=== PATIENT | male | born 1965 | race Caucasian/White ===

== ENCOUNTER 2020-08-09 21:47 | Inpatient (IN) | payer MEDICARE, OTHER ==
[2020-08-09] MEDS ORDERED: IPRATROPIUM-ALBUTEROL 3 ML NEB INHALATION STA ×2 (22:17→22:51)
[2020-08-09] MEDS ORDERED: SODIUM CHLORIDE 0.9% 1,000 ML IV STA (22:51)
[2020-08-09] MEDS ORDERED: SODIUM CHLORIDE 0.9% 500 ML 500 ML IV STA (22:51)
[2020-08-09] MEDS ORDERED: methylPREDNISolone SOD SUCCI 125 MG/2 ML VIAL IV STA (22:51)
--- NOTE | 2020-08-09 23:02 | ED ---
SOB HPI - General Chief Complaint: Chest Pain Stated Complaint: Chest pain,MARCO ANTONIO Time Seen by Provider: 08/09/20 22:35 Source: patient, RN notes reviewed, old records reviewed Mode of arrival: wheelchair Limitations: no limitations - History of Present Illness Initial Comments: This is a 35-year-old male DF for evaluation patient Dese for evaluation regards to severe shortness of breath cough and congestion. Recently out of incarceration patient does have underlying COPD denying fevers travel history sick contacts no chest pain symptoms are progressively worsened throughout the day to the point of being severe. Significant work of breathing secondary to patient being currently poor historian history obtained from patient's mother was at bedside who brought patient to the emergency department MD Complaint: shortness of breath, cough, "asthma attack" -: hour(s) Severity: severe Severity scale (1-10): 10 Consistency: constant Improves With: nothing Worsens With: nothing Known History Of: COPD, asthma Context: recent URI, recent illness Associated Symptoms: cough, sputum production Treatments Prior to Arrival: none - Related Data Home Medications Medication Instructions Recorded Confirmed INSULIN ASPART (NovoLOG) [NovoLOG 55 unit SQ DIRECTED 04/28/16 08/09/20 (formulary)] Albuterol Sulfate [Proair Hfa] 1 puff INHALATION RT-Q4H PRN 08/09/20 08/09/20 Aspirin 81 mg PO DAILY 08/09/20 08/09/20 Ciclesonide [Alvesco] 1 puff INHALATION RT-BID 08/09/20 08/09/20 INSULIN ASPART (NovoLOG) [NovoLOG 33 units SQ DIRECTED 08/09/20 08/09/20 (formulary)] Metoprolol Tartrate [Lopressor] 25 mg PO BID 08/09/20 08/09/20 Potassium Chloride ER [K-Dur 20] 20 meq PO DAILY 08/09/20 08/09/20 Simvastatin [Zocor] 10 mg PO HS 08/09/20 08/09/20 allopurinoL [Zyloprim] 100 mg PO BID 08/09/20 08/09/20 metFORMIN HCL [Glucophage] 500 mg PO BID 08/09/20 08/09/20 Previous Rx's Medication Instructions Recorded Furosemide [Lasix] 40 mg PO BID #60 tablet 06/09/16 Allergies Allergy/AdvReac Type Severity Reaction Status Date / Time No Known Allergies Allergy Verified 08/09/20 23:33 Review of Systems ROS Statement: Those systems with pertinent positive or pertinent negative responses have been documented in the HPI. ROS Other: All systems not noted in ROS Statement are negative. 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 Other HX: Palpitations, IDDM, bilateral glaucoma History of Any Multi-Drug Resistant Organisms: None Reported Past Surgical History: Heart Catheterization, Pacemaker Additional Past Surgical History / Comment(s): 10/2012 pacer/defibrillator. Past Anesthesia/Blood Transfusion Reactions: No Reported Reaction Additional Past Anesthesia/Blood Transfusion Reaction / Comment(s): Pt has rec ieved blood in the past without reaction. Type of Cardiac Device: Permanent Pacemaker, AICD Device Placement Date:: 10/2012 Past Psychological History: Anxiety, Depression Smoking Status: Former smoker Past Alcohol Use History: Rare Past Drug Use History: None Reported - Past Family History Father Family Medical History: Diabetes Mellitus Additional Family Medical History / Comment(s): Father has cardiomyopathy. Mother Family Medical History: Hypertension Brother(s) Additional Family Medical History / Comment(s): Cardiomyopathy with heart transplant. General Exam Limitations: no limitations General appearance: anxious, in distress Head exam: Present: atraumatic, normocephalic, normal inspection Eye exam: Present: normal appearance, PERRL, EOMI. Absent: scleral icterus, conjunctival injection, periorbital swelling ENT exam: Present: normal exam, mucous membranes moist Neck exam: Present: normal inspection. Absent: tenderness, meningismus, lymphadenopathy Respiratory exam: Present: respiratory distress, wheezes, accessory muscle use, decreased breath sounds, prolonged expiratory. Absent: rales, rhonchi, stridor Cardiovascular Exam: Present: normal rhythm, tachycardia, normal heart sounds. Absent: systolic murmur, diastolic murmur, rubs, gallop, clicks GI/Abdominal exam: Present: soft, normal bowel sounds. Absent: distended, tenderness, guarding, rebound, rigid Extremities exam: Present: normal inspection, full ROM, normal capillary refill. Absent: tenderness, pedal edema, joint swelling, calf tenderness Back exam: Present: normal inspection Neurological exam: Present: alert, oriented X3, CN II-XII intact Psychiatric exam: Present: normal affect, normal mood Skin exam: Present: warm, dry, intact, normal color. Absent: rash Course Vital Signs 08/09/20 08/09/20 08/09/20 21:49 22:15 22:23 Temperature 98.3 F Pulse Rate 122 H 123 H 124 H Respiratory 26 H 36 H 34 H Rate Blood Pressure 152/93 144/96 O2 Sat by Pulse 92 L 99 Oximetry 08/09/20 08/09/20 08/09/20 23:14 23:24 23:25 Temperature Pulse Rate 105 H 105 H 110 H Respiratory 29 H Rate Blood Pressure 121/82 O2 Sat by Pulse 97 Oximetry 08/10/20 00:33 Temperature Pulse Rate 112 H Respiratory 28 H Rate Blood Pressure 139/74 O2 Sat by Pulse 95 Oximetry - Reevaluation(s) Reevaluation #1: 08/10/20 00:21 Medical record is reviewed Reevaluation #2: 08/10/20 00:21 Patient placed on BiPAP upon arrival in the emergency department Reevaluation #3: 08/10/20 01:19 A she continues to improve on BiPAP and breathing treatments Reevaluation #4: 08/10/20 01:19 Spoke with patient and family regarding findings, questions are answered - Consultations Consultation #1: Spoke with Dr. Mccarthy agrees to admit the patient Medical Decision Making - Medical Decision Making 55 male with acute respiratory failure, patient does have pneumonia versus aspiration pneumonia we'll admit for IV antibiotics, respiratory failure sec ondary to COPD work of breathing and hypoxia. - Lab Data Result diagrams: 08/09/20 22:53 08/09/20 22:53 Lab Results 08/09/20 08/09/20 08/09/20 Range/Units 22:53 22:53 22:53 WBC 9.5 (3.8-10.6) k/uL RBC 5.08 (4.30-5.90) m/uL Hgb 14.9 (13.0-17.5) gm/dL Hct 45.2 (39.0-53.0) % MCV 89.0 (80.0-100.0) fL MCH 29.4 (25.0-35.0) pg MCHC 33.1 (31.0-37.0) g/dL RDW 14.3 (11.5-15.5) % Plt Count 191 (150-450) k/uL MPV 9.3 Neutrophils % 54 % Lymphocytes % 35 % Monocytes % 6 % Eosinophils % 2 % Basophils % 1 % Neutrophils # 5.2 (1.3-7.7) k/uL Lymphocytes # 3.3 (1.0-4.8) k/uL Monocytes # 0.6 (0-1.0) k/uL Eosinophils # 0.2 (0-0.7) k/uL Basophils # 0.1 (0-0.2) k/uL PT 10.2 (9.0-12.0) sec INR 1.0 (<1.2) APTT 24.6 (22.0-30.0) sec Sodium 142 (137-145) mmol/L Potassium 4.3 (3.5-5.1) mmol/L Chloride 109 H (98-107) mmol/L Carbon Dioxide 24 (22-30) mmol/L Anion Gap 9 mmol/L BUN 26 H (9-20) mg/dL Creatinine 1.42 H (0.66-1.25) mg/dL Est GFR (CKD-EPI)AfAm 63 (>60 ml/min/1.73 sqM) Est GFR (CKD-EPI)NonAf 55 (>60 ml/min/1.73 sqM) Glucose 288 H (74-99) mg/dL Plasma Lactic Acid Grover (0.7-2.0) mmol/L Calcium 9.3 (8.4-10.2) mg/dL Magnesium 2.2 (1.6-2.3) mg/dL Total Bilirubin 0.7 (0.2-1.3) mg/dL AST 28 (17-59) U/L ALT 18 (4-49) U/L Alkaline Phosphatase 135 H (38-126) U/L Lactate Dehydrogenase 537 (313-618) U/L Creatine Kinase 161 (55-170) U/L Troponin I (0.000-0.034) ng/mL C-Reactive Protein 5.9 (<10.0) mg/L NT-Pro-B Natriuret Pep pg/mL Total Protein 7.5 (6.3-8.2) g/dL Albumin 4.5 (3.5-5.0) g/dL Coronavirus (PCR) (Not Detectd) 08/09/20 08/09/20 08/09/20 Range/Units 22:53 22:53 22:53 WBC (3.8-10.6) k/uL RBC (4.30-5.90) m/uL Hgb (13.0-17.5) gm/dL Hct (39.0-53.0) % MCV (80.0-100.0) fL MCH (25.0-35.0) pg MCHC (31.0-37.0) g/dL RDW (11.5-15.5) % Plt Count (150-450) k/uL MPV Neutrophils % % Lymphocytes % % Monocytes % % Eosinophils % % Basophils % % Neutrophils # (1.3-7.7) k/uL Lymphocytes # (1.0-4.8) k/uL Monocytes # (0-1.0) k/uL Eosinophils # (0-0.7) k/uL Basophils # (0-0.2) k/uL PT (9.0-12.0) sec INR (<1.2) APTT (22.0-30.0) sec Sodium (137-145) mmol/L Potassium (3.5-5.1) mmol/L Chloride (98-107) mmol/L Carbon Dioxide (22-30) mmol/L Anion Gap mmol/L BUN (9-20) mg/dL Creatinine (0.66-1.25) mg/dL Est GFR (CKD-EPI)AfAm (>60 ml/min/1.73 sqM) Est GFR (CKD-EPI)NonAf (>60 ml/min/1.73 sqM) Glucose (74-99) mg/dL Plasma Lactic Acid Grover 2.0 (0.7-2.0) mmol/L Calcium (8.4-10.2) mg/dL Magnesium (1.6-2.3) mg/dL Total Bilirubin (0.2-1.3) mg/dL AST (17-59) U/L ALT (4-49) U/L Alkaline Phosphatase (38-126) U/L Lactate Dehydrogenase (313-618) U/L Creatine Kinase (55-170) U/L Troponin I 0.017 (0.000-0.034) ng/mL C-Reactive Protein (<10.0) mg/L NT-Pro-B Natriuret Pep 4170 pg/mL Total Protein (6.3-8.2) g/dL Albumin (3.5-5.0) g/dL Coronavirus (PCR) (Not Detectd) 08/09/20 Range/Units 23:24 WBC (3.8-10.6) k/uL RBC (4.30-5.90) m/uL Hgb (13.0-17.5) gm/dL Hct (39.0-53.0) % MCV (80.0-100.0) fL MCH (25.0-35.0) pg MCHC (31.0-37.0) g/dL RDW (11.5-15.5) % Plt Count (150-450) k/uL MPV Neutrophils % % Lymphocytes % % Monocytes % % Eosinophils % % Basophils % % Neutrophils # (1.3-7.7) k/uL Lymphocytes # (1.0-4.8) k/uL Monocytes # (0-1.0) k/uL Eosinophils # (0-0.7) k/uL Basophils # (0-0.2) k/uL PT (9.0-12.0) sec INR (<1.2) APTT (22.0-30.0) sec Sodium (137-145) mmol/L Potassium (3.5-5.1) mmol/L Chloride (98-107) mmol/L Carbon Dioxide (22-30) mmol/L Anion Gap mmol/L BUN (9-20) mg/dL Creatinine (0.66-1.25) mg/dL Est GFR (CKD-EPI)AfAm (>60 ml/min/1.73 sqM) Est GFR (CKD-EPI)NonAf (>60 ml/min/1.73 sqM) Glucose (74-99) mg/dL Plasma Lactic Acid Grover (0.7-2.0) mmol/L Calcium (8.4-10.2) mg/dL Magnesium (1.6-2.3) mg/dL Total Bilirubin (0.2-1.3) mg/dL AST (17-59) U/L ALT (4-49) U/L Alkaline Phosphatase (38-126) U/L Lactate Dehydrogenase (313-618) U/L Creatine Kinase (55-170) U/L Troponin I (0.000-0.034) ng/mL C-Reactive Protein (<10.0) mg/L NT-Pro-B Natriuret Pep pg/mL Total Protein (6.3-8.2) g/dL Albumin (3.5-5.0) g/dL Coronavirus (PCR) Not Detected (Not Detectd) - EKG Data -: EKG Interpreted by Me (EKG shows sinus tach 126 UT 138 QRS 90 QTc 596) - Radiology Data Radiology results: report reviewed (Chest x-ray CT chest show pneumonia concern for aspiration), image reviewed Critical Care Time Critical Care Time: Yes Total Critical Care Time: 31 Disposition Clinical Impression: Pneumonia, Chest pain, Aspiration pneumonia, Acute respiratory failure, COPD (chronic obstructive pulmonary disease) Disposition: ADMITTED IP TO THIS [facility] Condition: Fair Is patient prescribed a controlled substance at d/c from ED?: No Referrals: Patrick Malcolm DO [Primary Care Provider] - 1-2 days
[2020-08-09 23:03] LABS: Basophils # (A) 0.1 k/uL (0-0.2); Basophils % (A) 1 %; Eosinophils # (A) 0.2 k/uL (0-0.7); Eosinophils % (A) 2 %; HCT 45.2 % (39.0-53.0); HGB 14.9 gm/dL (13.0-17.5); Lymphocytes # (A) 3.3 k/uL (1.0-4.8); Lymphocytes % (A) 35 %; MCH 29.4 pg (25.0-35.0); MCHC 33.1 g/dL (31.0-37.0); Mean Platelet Volume 9.3; Monocytes # (A) 0.6 k/uL (0-1.0); Monocytes % (A) 6 %; Neutrophils # (A) 5.2 k/uL (1.3-7.7); Neutrophils % (A) 54 %; Platelet Count 191 k/uL (150-450); RBC 5.08 m/uL (4.30-5.90); RDW 14.3 % (11.5-15.5); WBC 9.5 k/uL (3.8-10.6)
[2020-08-09 23:12] LABS: Partial Thromboplastin Time 24.6 sec (22.0-30.0); Prothrombin Time 10.2 sec (9.0-12.0)
[2020-08-09 23:13] LABS: Albumin 4.5 g/dL (3.5-5.0); C Reactive Protein 5.9 mg/L (<10.0); Calcium 9.3 mg/dL (8.4-10.2); Magnesium 2.2 mg/dL (1.6-2.3); Potassium 4.3 mmol/L (3.5-5.1); Total Bilirubin 0.7 mg/dL (0.2-1.3); Total Protein 7.5 g/dL (6.3-8.2)
--- NOTE | 2020-08-09 23:13 | XR ---
EXAMINATION TYPE: XR chest 1V portable DATE OF EXAM: 08/09/2020 COMPARISON: 06/25/2016 HISTORY: Short of breath TECHNIQUE: FINDINGS: Heart is enlarged. There is no obvious heart failure. There is slight coarsening of interst itial markings. There is left axillary pacemaker. There is no pleural effusion. There is right latera l rib deformity probably from old thoracotomy. There are no hilar masses. Mediastinum is normal. IMPRESSION: Cardiomegaly unchanged. Mild fibrotic changes appear new compared to old exam.
--- NOTE | 2020-08-10 01:11 | CT ---
EXAM: CT Angiography Chest With Intravenous Contrast CLINICAL HISTORY: ITS. REASON CT Reason: pe TECHNIQUE: Axial computed tomographic angiography images of the chest with intravenous contrast. CTDI is 14.87 mGy and DLP is 256 mGy-cm. This CT exam was performed using one or more of the following dose reduction techniques: automated exposure control, adjustment of the mA and/or kV according to patient size, and/or use of iterative reconstruction technique. MIP reconstructed images were created and reviewed. COMPARISON: No relevant prior studies available. FINDINGS: There is no pulmonary embolism. No thoracic aortic dissection. Cannot assess for dissection or other acute syndrome as the lumen is not opacified. Single lead pacer device/AICD in a left subclavian approach. Coronary atherosclerosis. Mild cardiomegaly with left ventricular cavity dilation. No significant pericardial effusion. Trace pleural effusions. No pneumothorax. Basilar-predominant airspace infiltrates could reflect aspiration related pneumonia, but presence of nondependent, peripheral ground-glass opacities raise the possibility of singh virus infection. Recommend testing. Chronic anterior right fourth rib deformity. No acute fracture. IMPRESSION: Dependent pulmonary infiltrates could reflect aspiration pneumonia, but given other peripheral ground-glass opacities, would also consider coronavirus pneumonia. Cardiomegaly with left ventricular cavity dilation. CAD and pacer device. Trace pleural effusions. No PE. <MYCVCSECTION> Communications: 08/10/20 01:04 Call Doctor Regarding Above results, called Dr. Sanderson on 08/10 01:04 (-05:00)
[2020-08-10] MEDS ORDERED: AZITHROMYCIN 500 MG in SODIUM CHLORIDE 0.9% 250 ML IVPB STA (01:16)
[2020-08-10] MEDS ORDERED: IPRATROPIUM-ALBUTEROL 3 ML NEB INHALATION STA (01:16)
[2020-08-10] MEDS ORDERED: PNEUMONIA PROTOCOL UTILIZED 1 EACH MISC PO PRN (01:16)
[2020-08-10] MEDS ORDERED: SODIUM CHLORIDE 0.9% 1,000 ML IV SCH (01:30)
[2020-08-10 07:27] LABS: Glucose,Whole Blood 280 mg/dL (75-99)
[2020-08-10] MEDS: ALBUTEROL NEBULIZED 2.5 MG/3 ML INHALATION SCH ×4 (08:20→19:09)
[2020-08-10] MEDS ORDERED: ENOXAPARIN 40 MG/0.4 ML SYRINGE SQ SCH (09:00)
[2020-08-10] MEDS ORDERED: ALBUTEROL NEBULIZED 2.5 MG/3 ML INHALATION PRN (09:07)
[2020-08-10] MEDS ORDERED: INSULIN ASPART (NovoLOG) 100 UNIT/ML VIAL SQ SCH ×3 (10:00→21:00)
[2020-08-10] MEDS: FUROSEMIDE 10 MG/ML 4 ML VIAL IV SCH ×2 (10:07→20:05)
[2020-08-10 11:57] LABS: Glucose,Whole Blood 427 mg/dL (75-99)
--- NOTE | 2020-08-10 12:04 | P.HPIM ---
History of Present Illness 55-year-old pleasant male came in with complaints of shortness of breath cough unable to bring up anything. Patient was recently released from [facility]. Patient was believed to have COPD was admitted admitted and was a on IV steroids. Patient is not wheezing when I examined the patient's CT of the chest was done which did not show any pulmonary embolism but did show some dependent pulmonary infiltrates. Patient denied any fever chills patient doesn't have pneumonia clinically patient doesn't have any leukocytosis, aphasia and is negative for Covid 19. I was unable to appreciate a JVD because of him being on CPAP and using accessory muscles of breathing patient although doesn't have any pedal edema does have history of can start failure with EF of around 20-25%. Review of Systems REVIEW OF SYSTEMS: CONSTITUTIONAL: No fever, no malaise, no fatigue. HEENT: No recent visual problems or hearing problems. Denied any sore throat. CARDIOVASCULAR: No chest pain, orthopnea, PND, no palpitations, no syncope. PULMONARY:no hemoptysis. GASTROINTESTINAL: No diarrhea, no nausea, no vomiting, no abdominal pain. NEUROLOGICAL: No headaches, no weakness, no numbness. HEMATOLOGICAL: Denies any bleeding or petechiae. GENITOURINARY: Denies any burning micturition, frequency, or urgency. MUSCULOSKELETAL/RHEUMATOLOGICAL: Denies any joint pain, swelling, or any muscle pain. ENDOCRINE: Denies any polyuria or polydipsia. The rest of the 14-point review of systems is negative. 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 Other HX: Palpitations, IDDM, bilateral glaucoma History of Any Multi-Drug Resistant Organisms: None Reported Past Surgical History: Heart Catheterization, Pacemaker Additional Past Surgical History / Comment(s): 10/2012 pacer/defibrillator. Past Anesthesia/Blood Transfusion Reactions: No Reported Reaction Additional Past Anesthesia/Blood Transfusion Reaction / Comment(s): Pt has recieved blood in the past without reaction. Type of Cardiac Device: Permanent Pacemaker, AICD Device Placement Date:: 10/2012 Past Psychological History: Anxiety, Depression Additional Psychological History / Comment(s): Pt states he recently started mood stabilizing medications. He lives at home with his parents. He is independent. He uses no assistive devices or home care. He has a glucose monitor for home. He states he drinks alot of coffee. He drives. Smoking Status: Former smoker Past Alcohol Use History: Rare Additional Past Alcohol Use History / Comment(s): Pt states he started smoking at age 10 yrs and on nonstressful days smokes about 5-6 cigarettes a day and on stressful days he may smoke a pack. Past Drug Use History: None Reported - Past Family History Father Family Medical History: Diabetes Mellitus Additional Family Medical History / Comment(s): Father has cardiomyopathy. Mother Family Medical History: Hypertension Brother(s) Additional Family Medical History / Comment(s): Cardiomyopathy with heart transplant. Medications and Allergies Home Medications Medication Instructions Recorded Confirmed Type INSULIN ASPART (NovoLOG) [NovoLOG 55 unit SQ QAM 04/28/16 08/10/20 History (formulary)] Furosemide [Lasix] 40 mg PO BID #60 tablet 06/09/16 08/09/20 Rx Albuterol Sulfate [Proair Hfa] 1 puff INHALATION RT-Q4H PRN 08/09/20 08/09/20 History Aspirin 81 mg PO DAILY 08/09/20 08/09/20 History Ciclesonide [Alvesco] 1 puff INHALATION RT-BID 08/09/20 08/09/20 History INSULIN ASPART (NovoLOG) [NovoLOG 33 units SQ HS 08/09/20 08/10/20 History (formulary)] Metoprolol Tartrate [Lopressor] 25 mg PO BID 08/09/20 08/09/20 History Potassium Chloride ER [K-Dur 20] 20 meq PO DAILY 08/09/20 08/09/20 History Simvastatin [Zocor] 10 mg PO DAILY 08/09/20 08/10/20 History allopurinoL [Zyloprim] 100 mg PO BID 08/09/20 08/09/20 History metFORMIN HCL [Glucophage] 1,000 mg PO BID 08/09/20 08/10/20 History Allergies Allergy/AdvReac Type Severity Reaction Status Date / Time No Known Allergies Allergy Verified 08/09/20 23:33 Physical Exam Vitals: Vital Signs Temp Pulse Pulse Resp BP BP Pulse Ox 08/10/20 08:33 100 08/10/20 08:20 100 08/10/20 08:00 100 22 08/10/20 06:06 97.8 F 100 22 121/85 95 08/10/20 03:15 97.7 F 110 H 20 147/96 96 08/10/20 02:11 97.3 F L 105 H 24 122/93 95 08/10/20 01:46 97.7 F 121 H 22 142/96 96 08/10/20 01:16 96 08/10/20 00:33 112 H 28 H 139/74 95 08/09/20 23:25 110 H 29 H 121/82 97 08/09/20 23:24 105 H 08/09/20 23:14 105 H 08/09/20 22:23 124 H 34 H 08/09/20 22:15 123 H 36 H 144/96 99 08/09/20 21:49 98.3 F 122 H 26 H 152/93 92 L Intake and Output 08/09/20 08/10/20 08/10/20 22:59 06:59 14:59 Intake Total 650 Balance 650 Intake: Intake, IV Titration 450 Amount Azithromycin 500 mg In 250 Sodium Chloride 0.9% 250 ml @ 250 mls/hr IVPB ONCE STA Rx#:[id number] Sodium Chloride 0.9% 1, 200 000 ml @ 100 mls/hr IV . Q10H [facility] Rx#:[id number] Oral 200 Other: Weight 70.76 kg 70.76 kg PHYSICAL EXAMINATION: GENERAL: The patient is alert and oriented x3, not in any acute distress. Well developed, well nourished. Patient is on BiPAP at this time. HEENT: Pupils are round and equally reacting to light. EOMI. No scleral icterus. No conjunctival pallor. Normocephalic, atraumatic. No pharyngeal erythema. No thyromegaly. CARDIOVASCULAR: S1 and S2 present. No murmurs, rubs, or gallops. PULMONARY: Chest is clear to auscultation, no wheezing or crackles. ABDOMEN: Soft, nontender, nondistended, normoactive bowel sounds. No palpable organomegaly. MUSCULOSKELETAL: No joint swelling or deformity. EXTREMITIES: No cyanosis, clubbing, or pedal edema. NEUROLOGICAL: Gross neurological examination did not reveal any focal deficits. SKIN: No rashes. Results CBC & Chem 7: 08/09/20 22:53 08/09/20 22:53 Labs: Abnormal Lab Results - Last 24 Hours (Table) 08/09/20 08/10/20 Range/Units 22:53 07:15 Chloride 109 H (98-107) mmol/L BUN 26 H (9-20) mg/dL Creatinine 1.42 H (0.66-1.25) mg/dL Glucose 288 H (74-99) mg/dL POC Glucose (mg/dL) 280 H (75-99) mg/dL Alkaline Phosphatase 135 H (38-126) U/L Thrombosis Risk Factor Assmnt - Choose All That Apply Any of the Below Risk Factors Present?: Yes Each Factor Represents 1 point: Abnormal pulmonary function (COPD), Age 41-60 years, Medical pt on bed rest Other Risk Factors: No Other congenital or acquired thrombophilia - If yes, enter type in comment: No Thrombosis Risk Factor Assessment Total Risk Factor Score: 3 Thrombosis Risk Factor Assessment Level: Moderate Risk Assessment and Plan Plan: -Acute hypoxic respiratory failure: Although not straightforward patient appears to have congestive heart failure exacerbation patient does have a chronic systolic dysfunction with EF of around 20-25% patient will be switched to IV Lasix disc any IV fluids. -COPD without any acute exacerbation patient will not require any systemic steroids disease will be discontinued, continue with albuterol,-ipratropium. I do not see any evidence of pneumonia at this time at least I do not see any evidence of atypical pneumonia Rocephin will be discontinued. 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
[2020-08-10] MEDS ORDERED: INSULIN REGULAR BOLUS (FROM DRIP BAG) IV ONE (12:55)
[2020-08-10 13:38] LABS: Glucose,Whole Blood 296 mg/dL (75-99)
[2020-08-10] MEDS: INSULIN REGULAR 100 UNIT in SODIUM CHLORIDE 0.9% 100 ML IV SCH ×2 (13:39→20:04)
[2020-08-10 14:09] LABS: Glucose,Whole Blood 292 mg/dL (75-99)
[2020-08-10 14:56] LABS: Glucose,Whole Blood 337 mg/dL (75-99)
--- NOTE | 2020-08-10 15:19 | P.CNPUL ---
History of Present Illness Consult date: 08/10/20 Reason for consult: dyspnea Chief complaint: Shortness of breath, chest pain History of present illness: 55-year-old white male patient of Dr. Patrick Moreno past medical history of coronary artery disease, COPD, diabetes mellitus type 2, cardiomyopathy status post AICD implantation, anxiety/depression, former smoker, who presented emergency department on 08/09/2020 for evaluation of severe shortness of breath, cough, congestion. Patient was recently incarcerated. On presentation patient was significantly dyspneic, and required BiPAP support. COVID 19 screen was negative. CBC was unremarkable, coagulation profile was within normal limits, sodium is 142, potassium is 4.3, chloride is 109, CO2 is 24, B1 is 26, creatinine is 1.42, plasma lactic acid is 2.0, troponin was 0.0.7, LDH was 537, CRP was 5.9, nonelevated, proBNP is 4170. Procalcitonin is negative at 0.05. Chest x-ray shows a mild fibrotic changes. CTA chest showed no evidence of PE, showed dependent pulmonary infiltrates that could reflect aspiration pneumonia, but given of the peripheral groundglass opacities : 19 pneumonia consideration was advised. Does cardio mainly with left ventricular cavity dilation, and CAD in the pacemaker device in place. Patient was started on nebulized bronchodilators, Lasix, empiric antibiotics, and steroids Review of Systems All systems: negative Constitutional: Denies chills, Denies fever Eyes: denies blurred vision, denies pain Ears, nose, mouth and throat: Denies headache, Denies sore throat Cardiovascular: Denies chest pain, Denies shortness of breath Respiratory: Reports dyspnea, Denies cough Gastrointestinal: Denies abdominal pain, Denies diarrhea, Denies nausea, Denies vomiting Musculoskeletal: Denies myalgias Integumentary: Denies pruritus, Denies rash Neurological: Denies numbness, Denies weakness Psychiatric: Denies anxiety, Denies depression Endocrine: Denies fatigue, Denies weight change Past Medical History Past Medical History: Coronary Artery Disease (CAD), COPD, Diabetes Mellitus, Eye Disorder Additional Past Medical History / Comment(s): hx of hereditary cardiomyopathy and has a pacer/defibrillator. Other HX: Palpitations, IDDM, bilateral glaucoma History of Any Multi-Drug Resistant Organisms: None Reported Past Surgical History: Heart Catheterization, Pacemaker Additional Past Surgical History / Comment(s): 10/2012 pacer/defibrillator. Past Anesthesia/Blood Transfusion Reactions: No Reported Reaction Additional Past Anesthesia/Blood Transfusion Reaction / Comment(s): Pt has recieved blood in the past without reaction. Type of Cardiac Device: Permanent Pacemaker, AICD Device Placement Date:: 10/2012 Past Psychological History: Anxiety, Depression Additional Psychological History / Comment(s): Pt states he recently started mood stabilizing medications. He lives at home with his parents. He is independent. He uses no assistive devices or home care. He has a glucose monitor for home. He states he drinks alot of coffee. He drives. Smoking Status: Former smoker Past Alcohol Use History: Rare Additional Past Alcohol Use History / Comment(s): Pt states he started smoking at age 10 yrs and on nonstressful days smokes about 5-6 cigarettes a day and on stressful days he may smoke a pack. Past Drug Use History: None Reported - Past Family History Father Family Medical History: Diabetes Mellitus Additional Family Medical History / Comment(s): Father has cardiomyopathy. Mother Family Medical History: Hypertension Brother(s) Additional Family Medical History / Comment(s): Cardiomyopathy with heart tr ansplant. Medications and Allergies Home Medications Medication Instructions Recorded Confirmed Type INSULIN ASPART (NovoLOG) [NovoLOG 55 unit SQ QAM 04/28/16 08/10/20 History (formulary)] Furosemide [Lasix] 40 mg PO BID #60 tablet 06/09/16 08/09/20 Rx Albuterol Sulfate [Proair Hfa] 1 puff INHALATION RT-Q4H PRN 08/09/20 08/09/20 History Aspirin 81 mg PO DAILY 08/09/20 08/09/20 History Ciclesonide [Alvesco] 1 puff INHALATION RT-BID 08/09/20 08/09/20 History INSULIN ASPART (NovoLOG) [NovoLOG 33 units SQ HS 08/09/20 08/10/20 History (formulary)] Metoprolol Tartrate [Lopressor] 25 mg PO BID 08/09/20 08/09/20 History Potassium Chloride ER [K-Dur 20] 20 meq PO DAILY 08/09/20 08/09/20 History Simvastatin [Zocor] 10 mg PO DAILY 08/09/20 08/10/20 History allopurinoL [Zyloprim] 100 mg PO BID 08/09/20 08/09/20 History metFORMIN HCL [Glucophage] 1,000 mg PO BID 08/09/20 08/10/20 History Allergies Allergy/AdvReac Type Severity Reaction Status Date / Time No Known Allergies Allergy Verified 08/09/20 23:33 Physical Exam Vitals: Vital Signs Temp Pulse Pulse Resp BP BP Pulse Ox 08/10/20 12:13 100 08/10/20 12:05 104 H 08/10/20 11:39 97.6 F 103 H 26 H 123/82 95 08/10/20 08:33 100 08/10/20 08:20 100 08/10/20 08:00 100 22 08/10/20 06:06 97.8 F 100 22 121/85 95 08/10/20 03:15 97.7 F 110 H 20 147/96 96 08/10/20 02:11 97.3 F L 105 H 24 122/93 95 08/10/20 01:46 97.7 F 121 H 22 142/96 96 08/10/20 01:16 96 08/10/20 00:33 112 H 28 H 139/74 95 08/09/20 23:25 110 H 29 H 121/82 97 08/09/20 23:24 105 H 08/09/20 23:14 105 H 08/09/20 22:23 124 H 34 H 08/09/20 22:15 123 H 36 H 144/96 99 08/09/20 21:49 98.3 F 122 H 26 H 152/93 92 L Intake and Output 08/10/20 08/10/20 08/10/20 06:59 14:59 22:59 Intake Total 650 251.433 Output Total 1100 Balance 650 -848.567 Intake: Intake, IV Titration 450 11.433 Amount Azithromycin 500 mg In 250 Sodium Chloride 0.9% 250 ml @ 250 mls/hr IVPB ONCE [facility] Rx#:[id number] Insulin Regular 100 unit 11.433 In Sodium Chloride 0.9% 100 ml @ Titrate IV .Q0M [facility] Rx#:[id number] Sodium Chloride 0.9% 1, 200 000 ml @ 100 mls/hr IV . Q10H [facility] Rx#:[id number] Oral 200 240 Output: Urine 1100 Other: # Bowel Movements 0 Weight 70.76 kg GENERAL EXAM: Alert, very pleasant, 55-year-old white male, on BiPAP support with FiO2 of 35%, comfortable in no apparent distress. HEAD: Normocephalic/atraumatic. EYES: Normal reaction of pupils, equal size. Conjunctiva pink, sclera white. NOSE: Clear with pink turbinates. THROAT: No erythema or exudates. NECK: No masses, no JVD, no thyroid enlargement, no adenopathy. CHEST: No chest wall deformity. Symmetrical expansion. LUNGS: Equal air entry with diminished breath sounds and wheezes CVS: Regular rate and rhythm, normal S1 and S2, no gallops, no murmurs, no rubs ABDOMEN: Soft, nontender. No hepatosplenomegaly, normal bowel sounds, no guarding or rigidity. EXTREMITIES: No clubbing, no edema, no cyanosis, 2+ pulses and upper and lower extremities. MUSCULOSKELETAL: Muscle strength and tone normal. SPINE: No scoliosis or deformity SKIN: No rashes CENTRAL NERVOUS SYSTEM: Alert and oriented -3. No focal deficits, tone is normal in all 4 extremities. PSYCHIATRIC: Alert and oriented -3. Appropriate affect. Intact judgment and insight. Results - Laboratory Findings CBC and BMP: 08/09/20 22:53 08/09/20 22:53 PT/INR, D-dimer PT 10.2 sec (9.0-12.0) 08/09/20 22:53 INR 1.0 (<1.2) 08/09/20 22:53 Abnormal lab findings: Abnormal Labs 08/09/20 08/10/20 08/10/20 22:53 07:15 11:38 Chloride 109 H BUN 26 H Creatinine 1.42 H Glucose 288 H POC Glucose (mg/dL) 280 H 427 H Alkaline Phosphatase 135 H 08/10/20 08/10/20 08/10/20 13:27 14:07 14:54 Chloride BUN Creatinine Glucose POC Glucose (mg/dL) 296 H 292 H 337 H Alkaline Phosphatase - Diagnostic Findings Chest x-ray: report reviewed, image reviewed CT scan - chest: report reviewed, image reviewed Assessment and Plan Plan: Assessment: #1. Acute exacerbation of COPD and acute exacerbation of CHF with systolic dysfunction #2. History of COPD #3. Severe dilated cardiomyopathy status post AICD implantation #4. Diabetes mellitus type 2 #5. Hypertension #6. Hyperlipidemia #7. History of nicotine dependence, in remission #8. History of coronary artery disease #9. Bilateral glaucoma #10. Anxiety/depression Plan: Patient ruled out for COVID 19, continue with BiPAP support, continue IV steroids, nebulized bronchodilators, continue antibiotics. We'll start insulin infusion to control blood sugars. Continue IV Lasix, follow up labs including electrolytes and renal profile. We'll continue to follow I performed a history & physical examination of the patient and discussed their management with my nurse practitioner, Daily Pat. I reviewed the nurse practitioner's note and agree with the documented findings and plan of care. Lung sounds are positive for diminished breath sounds. The findings and the impression was discussed with the patient. I attest to the documentation by the nurse practitioner. Time with Patient: Greater than 30
[2020-08-10 15:38] LABS: Glucose,Whole Blood 299 mg/dL (75-99)
[2020-08-10 16:08] LABS: Glucose,Whole Blood 307 mg/dL (75-99)
[2020-08-10 16:36] LABS: Glucose,Whole Blood 316 mg/dL (75-99)
--- NOTE | 2020-08-10 16:38 | ECHOF ---
Referral Reason:dyspnea, CHF MEASUREMENTS -------- HEIGHT: 172.7 cm WEIGHT: 70.8 kg BP: RVIDd: 1.8 cm (< 3.3) IVSd: 0.7 cm (0.6 - 1.1) LVIDd: 5.3 cm (3.9 - 5.3) LVPWd: 0.9 cm (0.6 - 1.1) IVSs: 0.9 cm LVIDs: 4.5 cm LVPWs: 1.2 cm Ao Diam: 2.7 cm (2.0 - 3.7) AV Cusp: 2.0 cm (1.5 - 2.6) LA Diam: 3.1 cm (2.7 - 3.8) MV EXCURSION: 10.412 mm (> 18.000) MV EF SLOPE: 98 mm/s (70 - 150) EPSS: 1.5 cm MV E Rene: 0.89 m/s MV DecT: 161 ms MV A Rene: 0.29 m/s MV E/A Ratio: 3.06 RAP: 5.00 mmHg RVSP: 29.66 mmHg FINDINGS -------- AICD This was a technically adequate study. The left ventricle is mildly dilated. Left ventricular wall thickness is normal. There is severe global hypokinesis of LV . Overall left ventricular systolic function is severely impaired with, an EF between 20 - 25 %. Both the mean atrial pressure as well as the LV end diastolic pressure is el evated 43.97. The right ventricle is normal in size. The left atrial size is normal. The right atrial size is normal. xx ml of Lumason was utilized for enhancement of images. The aortic valve is trileaflet and appears structurally normal. The mitral valve is normal. There is trace mitral regurgitation. The tricuspid valve appears structurally normal. Trace tricuspid regurgitation present. Right alesha tricular systolic pressure is normal at < 35 mmHg. There is no pulmonic regurgitation present. The aortic root size is normal. Normal inferior vena cava with normal inspiratory collapse consistent with estimated right atrial pre ssure of 5 mmHg. There is no pericardial effusion. CONCLUSIONS -------- 1. AICD 2. Left ventricular wall thickness is normal. 3. There is severe global hypokinesis of LV . 4. Overall left ventricular systolic function is severely impaired with, an EF between 20 - 25 %. 5. There is trace mitral regurgitation. 6. Trace tricuspid regurgitation present. 7. There is no pericardial effusion. BULLDOZER ENGINEER: Landy Burris RDCS
[2020-08-10 17:05] LABS: Glucose,Whole Blood 306 mg/dL (75-99)
[2020-08-10] MEDS: methylPREDNISolone SOD SUCCI 125 MG/2 ML VIAL IV SCH ×2 (17:40→23:20)
[2020-08-10 17:48] LABS: Glucose,Whole Blood 306 mg/dL (75-99)
[2020-08-10 18:07] LABS: Glucose,Whole Blood 288 mg/dL (75-99)
[2020-08-10 18:37] LABS: Glucose,Whole Blood 341 mg/dL (75-99)
[2020-08-10 19:16] LABS: Glucose,Whole Blood 304 mg/dL (75-99)
[2020-08-10 19:47] LABS: Glucose,Whole Blood 297 mg/dL (75-99)
[2020-08-10] MEDS: allopurinoL 100 MG TAB PO SCH (20:05)
[2020-08-10] MEDS: METOPROLOL TARTRATE 25 MG TAB PO SCH (20:05)
[2020-08-10 20:17] LABS: Glucose,Whole Blood 301 mg/dL (75-99)
[2020-08-10 20:49] LABS: Glucose,Whole Blood 269 mg/dL (75-99)
[2020-08-10 21:18] LABS: Glucose,Whole Blood 239 mg/dL (75-99)
[2020-08-10 23:15] LABS: Glucose,Whole Blood 169 mg/dL (75-99)
[2020-08-10] MEDS: HEPARIN SODIUM,PORCINE 5,000 UNIT/ML 1 ML VIAL SQ SCH (23:19)
[2020-08-10] MEDS: AZITHROMYCIN 500 MG TAB PO SCH (23:22)
[2020-08-11 01:07] LABS: Glucose,Whole Blood 176 mg/dL (75-99)
[2020-08-11 03:04] LABS: Glucose,Whole Blood 210 mg/dL (75-99)
[2020-08-11] MEDS: [UNRECOGNIZED DRUG - OTHER] INHALATION SCH ×3 (03:43→22:07)
[2020-08-11 05:18] LABS: Glucose,Whole Blood 233 mg/dL (75-99)
--- NOTE | 2020-08-11 07:42 | XR ---
EXAMINATION TYPE: XR chest 1V portable DATE OF EXAM: 08/11/2020 HISTORY: Shortness of breath. COMPARISON: 08/09/2020 TECHNIQUE: Single view of the chest is submitted. FINDINGS: Demonstrated are scattered senescent parenchymal change. Vague perihilar infiltrates are suggested. Correlate for underlying pneumonia. The heart is stable. Hilar and mediastinal structures are within normal limits. Degenerative changes are seen of the dorsal spine. IMPRESSION: 1. Vague perihilar infiltrates are suggested. Correlate for underlying pneumonia.
[2020-08-11 07:51] LABS: Glucose,Whole Blood 170 mg/dL (75-99)
[2020-08-11] MEDS: methylPREDNISolone SOD SUCCI 125 MG/2 ML VIAL IV SCH (08:30)
[2020-08-11] MEDS: POTASSIUM CHLORIDE ER 20 MEQ TAB.ER PO SCH (08:30)
[2020-08-11] MEDS: ASPIRIN 81 MG PO SCH (08:30)
[2020-08-11] MEDS: METOPROLOL TARTRATE 25 MG TAB PO SCH ×2 (08:30→22:06)
[2020-08-11] MEDS: ATORVASTATIN 10 MG TAB PO SCH (08:30)
[2020-08-11] MEDS: allopurinoL 100 MG TAB PO SCH ×2 (08:30→22:06)
[2020-08-11] MEDS: HEPARIN SODIUM,PORCINE 5,000 UNIT/ML 1 ML VIAL SQ SCH ×3 (08:31→22:06)
[2020-08-11] MEDS: FUROSEMIDE 10 MG/ML 4 ML VIAL IV SCH ×2 (08:31→22:06)
[2020-08-11] MEDS: ALBUTEROL NEBULIZED 2.5 MG/3 ML INHALATION SCH ×4 (09:06→20:06)
[2020-08-11 09:07] LABS: Glucose,Whole Blood 254 mg/dL (75-99)
[2020-08-11 11:11] LABS: Glucose,Whole Blood 557 mg/dL (75-99)
[2020-08-11 11:49] LABS: African American GFR (CKD) 64.2 (60.0-200.0); Anion Gap 13.5 mmol/L (4.00-12.00); BUN/Creat Ratio 26.43 Ratio (12.00-20.00); Calcium 9.3 mg/dL (8.7-10.3); Carbon Dioxide 22.5 mmol/L (21.6-31.8); Non-African American GFR(CKD) 55.4 (60.0-200.0); Potassium 4.7 mmol/L (3.5-5.5)
[2020-08-11 12:47] LABS: Glucose,Whole Blood 541 mg/dL (75-99)
[2020-08-11 14:10] LABS: Hemoglobin A1C 7.7 % (4.0-6.0)
[2020-08-11] MEDS: INSULIN REGULAR 100 UNIT in SODIUM CHLORIDE 0.9% 100 ML IV SCH (14:14)
[2020-08-11 14:50] LABS: Glucose,Whole Blood 503 mg/dL (75-99)
--- NOTE | 2020-08-11 16:14 | P.PN ---
Subjective Progress Note Date: 08/11/20 55-year-old pleasant male came in with complaints of shortness of breath cough unable to bring up anything. Patient was recently released from half-way. Patient was believed to have COPD was admitted admitted and was a on IV steroids. Patient is not wheezing when I examined the patient's CT of the chest was done which did not show any pulmonary embolism but did show some dependent pulmonary infiltrates. Patient denied any fever chills patient doesn't have pneumonia clinically patient doesn't have any leukocytosis, aphasia and is negative for Covid 19. I was unable to appreciate a JVD because of him being on CPAP and using accessory muscles of breathing patient although doesn't have any pedal edema does have history of can start failure with EF of around 20-25%. 07/11/2020 Patient on 5 L nasal cannula, saturating above 90%, still having some shortness of breath. Chest x-ray showing vague perihilar infiltrates, he has no peripheral edema. Blood sugars are poorly controlled, he is on insulin drip, and his IV steroids. glucose 503 this afternoon, nursing reports he is eating quite a bit. REVIEW OF SYSTEMS: CONSTITUTIONAL: No fever, no malaise, no fatigue. CARDIOVASCULAR: No chest pain, orthopnea, PND, no palpitations, no syncope. PULMONARY:no hemoptysis. GASTROINTESTINAL: No diarrhea, no nausea, no vomiting, no abdominal pain. ENDOCRINE: Denies any polyuria or polydipsia. Objective - Vital Signs Vital signs: PHYSICAL EXAMINATION: GENERAL: The patient is alert and oriented x3, not in any acute distress. Well developed, well nourished. Patient is on BiPAP at this time. HEENT: Pupils are round and equally reacting to light. EOMI. No scleral icterus. No conjunctival pallor. Normocephalic, atraumatic. No pharyngeal erythema. No thyromegaly. CARDIOVASCULAR: S1 and S2 present. No murmurs, rubs, or gallops. PULMONARY: Bibasilar rales no wheezing ABDOMEN: Soft, nontender, nondistended, normoactive bowel sounds. No palpable organomegaly. MUSCULOSKELETAL: No joint swelling or deformity. EXTREMITIES: No cyanosis, clubbing, or pedal edema. NEUROLOGICAL: Gross neurological examination did not reveal any focal deficits. SKIN: No rashes. Vital Signs Temp 97.8 F 08/11/20 04:22 Pulse 101 H 08/11/20 12:43 Resp 18 08/11/20 04:22 BP 102/67 08/11/20 04:22 Pulse Ox 95 08/11/20 04:22 Intake & Output 08/10/20 08/11/20 08/11/20 18:59 06:59 18:59 Intake Total 311.483 69.484 64.884 Output Total 1600 Balance -1288.517 69.484 64.884 Intake: Intake, IV Titration 71.483 69.484 64.884 Amount Insulin Regular 100 unit 71.483 69.484 64.884 In Sodium Chloride 0.9% 100 ml @ Titrate IV .Q0M [facility] Rx#:[id number] Oral 240 Output: Urine 1600 Other: # Voids 2 3 # Bowel Movements 0 - Labs CBC & Chem 7: 08/09/20 22:53 08/11/20 06:58 Labs: Abnormal Lab Results - Last 24 Hours (Table) 08/10/20 08/10/20 08/10/20 Range/Units 16:04 16:35 17:04 Anion Gap (4.00-12.00) mmol/L BUN (9.0-27.0) mg/dL Est GFR (CKD-EPI)NonAf (60.0-200.0) BUN/Creatinine Ratio (12.00-20.00) Ratio Glucose (70-110) mg/dL POC Glucose (mg/dL) 307 H 316 H 306 H (75-99) mg/dL Hemoglobin A1c (4.0-6.0) % 08/10/20 08/10/20 08/10/20 Range/Units 17:36 18:05 18:35 Anion Gap (4.00-12.00) mmol/L BUN (9.0-27.0) mg/dL Est GFR (CKD-EPI)NonAf (60.0-200.0) BUN/Creatinine Ratio (12.00-20.00) Ratio Glucose (70-110) mg/dL POC Glucose (mg/dL) 306 H 288 H 341 H (75-99) mg/dL Hemoglobin A1c (4.0-6.0) % 08/10/20 08/10/20 08/10/20 Range/Units 19:11 19:44 20:10 Anion Gap (4.00-12.00) mmol/L BUN (9.0-27.0) mg/dL Est GFR (CKD-EPI)NonAf (60.0-200.0) BUN/Creatinine Ratio (12.00-20.00) Ratio Glucose (70-110) mg/dL POC Glucose (mg/dL) 304 H 297 H 301 H (75-99) mg/dL Hemoglobin A1c (4.0-6.0) % 08/10/20 08/10/20 08/10/20 Range/Units 20:48 21:15 23:13 Anion Gap (4.00-12.00) mmol/L BUN (9.0-27.0) mg/dL Est GFR (CKD-EPI)NonAf (60.0-200.0) BUN/Creatinine Ratio (12.00-20.00) Ratio Glucose (70-110) mg/dL POC Glucose (mg/dL) 269 H 239 H 169 H (75-99) mg/dL Hemoglobin A1c (4.0-6.0) % 08/11/20 08/11/20 08/11/20 Range/Units 00:59 03:03 05:17 Anion Gap (4.00-12.00) mmol/L BUN (9.0-27.0) mg/dL Est GFR (CKD-EPI)NonAf (60.0-200.0) BUN/Creatinine Ratio (12.00-20.00) Ratio Glucose (70-110) mg/dL POC Glucose (mg/dL) 176 H 210 H 233 H (75-99) mg/dL Hemoglobin A1c (4.0-6.0) % 08/11/20 08/11/20 08/11/20 Range/Units 06:58 06:58 07:50 Anion Gap 13.50 H (4.00-12.00) mmol/L BUN 37.0 H (9.0-27.0) mg/dL Est GFR (CKD-EPI)NonAf 55.4 L (60.0-200.0) BUN/Creatinine Ratio 26.43 H (12.00-20.00) Ratio Glucose 192 H (70-110) mg/dL POC Glucose (mg/dL) 170 H (75-99) mg/dL Hemoglobin A1c 7.7 H (4.0-6.0) % 08/11/20 08/11/20 08/11/20 Range/Units 09:05 11:10 12:45 Anion Gap (4.00-12.00) mmol/L BUN (9.0-27.0) mg/dL Est GFR (CKD-EPI)NonAf (60.0-200.0) BUN/Creatinine Ratio (12.00-20.00) Ratio Glucose (70-110) mg/dL POC Glucose (mg/dL) 254 H 557 H 541 H (75-99) mg/dL Hemoglobin A1c (4.0-6.0) % 08/11/20 Range/Units 14:48 Anion Gap (4.00-12.00) mmol/L BUN (9.0-27.0) mg/dL Est GFR (CKD-EPI)NonAf (60.0-200.0) BUN/Creatinine Ratio (12.00-20.00) Ratio Glucose (70-110) mg/dL POC Glucose (mg/dL) 503 H (75-99) mg/dL Hemoglobin A1c (4.0-6.0) % Microbiology - Last 24 Hours (Table) 08/10/20 02:11 Blood Culture - Preliminary Blood No Growth after 24 hours 08/09/20 22:55 Blood Culture - Preliminary Blood No Growth after 24 hours Assessment and Plan Assessment: -Acute hypoxic respiratory failure: Most probably due to acute exacerbation of COPD, possibly due to acute exacerbation of CHF with systolic dysfunction, he has an LVEF of 20-25%. Continue IV steroids, however we'll cut that down to 40 twice daily as patient is hyperglycemic, continue IV Lasix 40 twice daily, . -Type 2 diabetes mellitus hyperglycemia: Continue insulin drip, we'll add sliding scale coverage with meals as well as he continues to be hyperglycemic, also change diet to diabetic. 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
[2020-08-11 16:37] LABS: Glucose,Whole Blood 451 mg/dL (75-99)
[2020-08-11] MEDS: INSULIN ASPART (NovoLOG) 100 UNIT/ML VIAL SQ SCH ×2 (17:00→22:07)
--- NOTE | 2020-08-11 17:08 | P.PN ---
Subjective Progress Note Date: 08/11/20 55-year-old white male patient of Dr. Patrick Moreno past medical history of c oronary artery disease, COPD, diabetes mellitus type 2, cardiomyopathy status post AICD implantation, anxiety/depression, former smoker, who presented emergency department on 08/09/2020 for evaluation of severe shortness of breath, cough, congestion. Patient was recently incarcerated. On presentation patient was significantly dyspneic, and required BiPAP support. COVID 19 screen was negative. CBC was unremarkable, coagulation profile was within normal limits, sodium is 142, potassium is 4.3, chloride is 109, CO2 is 24, B1 is 26, creatinine is 1.42, plasma lactic acid is 2.0, troponin was 0.0.7, LDH was 537, CRP was 5.9, nonelevated, proBNP is 4170. Procalcitonin is negative at 0.05. Chest x-ray shows a mild fibrotic changes. CTA chest showed no evidence of PE, showed dependent pulmonary infiltrates that could reflect aspiration pneumonia, but given of the peripheral groundglass opacities : 19 pneumonia consideration was advised. Does cardio mainly with left ventricular cavity dilation, and CAD in the pacemaker device in place. Patient was started on nebulized bronchodilators, Lasix, empiric antibiotics, and steroids On 08/11/2020, the patient is feeling better and the patient is currently off the BiPAP and he is getting less short of breath compared to yesterday. He is currently on 2 L of oxygen by nasal cannula. Over the past 24 hours, the patient was seen for examination of COPD and CHF exacerbation. The patient was subjected to the IV Lasix. The patient was also given bronchodilators and the patient was given systemic steroids. Overall, feeling better. No chest pain. No cough or sputum production. No chest tightness or wheezing. His blood work shows a BUN of 37 with a creatinine of 1.4. The glucose at 192. The singh virus Covid 19 testing came back negative. The patient will be tapered off the systemic steroids and the patient's IV Solu-Medrol and then taper down to 40 mg every 12 hours. He remains on Rocephin and Zithromax. Objective - Vital Signs Vital signs: Vital Signs Temp 97.5 F L 08/11/20 13:00 Pulse 100 08/11/20 16:44 Resp 18 08/11/20 16:44 BP 116/82 08/11/20 13:00 Pulse Ox 94 L 08/11/20 13:00 Intake & Output 08/10/20 08/11/20 08/11/20 18:59 06:59 18:59 Intake Total 311.483 69.484 90.451 Output Total 1600 850 Balance -1288.517 69.484 -759.549 Intake: Intake, IV Titration 71.483 69.484 90.451 Amount Insulin Regular 100 unit 71.483 69.484 90.451 In Sodium Chloride 0.9% 100 ml @ Titrate IV .Q0M YASMANI Rx#:[id number] Oral 240 Output: Urine 1600 850 Other: # Voids 2 3 # Bowel Movements 0 - Exam GENERAL EXAM: Alert, very pleasant, 55-year-old white male, currently on 2 L of oxygen by nasal cannula, no cervical shortness of breath. HEAD: Normocephalic/atraumatic. EYES: Normal reaction of pupils, equal size. Conjunctiva pink, sclera white. NOSE: Clear with pink turbinates. THROAT: No erythema or exudates. NECK: No masses, no JVD, no thyroid enlargement, no adenopathy. CHEST: No chest wall deformity. Symmetrical expansion. LUNGS: Equal air entry with diminished breath sounds and wheezes CVS: Regular rate and rhythm, normal S1 and S2, no gallops, no murmurs, no rubs ABDOMEN: Soft, nontender. No hepatosplenomegaly, normal bowel sounds, no guarding or rigidity. EXTREMITIES: No clubbing, no edema, no cyanosis, 2+ pulses and upper and lower extremities. MUSCULOSKELETAL: Muscle strength and tone normal. SPINE: No scoliosis or deformity SKIN: No rashes CENTRAL NERVOUS SYSTEM: Alert and oriented -3. No focal deficits, tone is normal in all 4 extremities. PSYCHIATRIC: Alert and oriented -3. Appropriate affect. Intact judgment and insight. - Labs CBC & Chem 7: 08/09/20 22:53 08/11/20 06:58 Labs: Abnormal Lab Results - Last 24 Hours (Table) 08/10/20 08/10/20 08/10/20 Range/Units 17:36 18:05 18:35 Anion Gap (4.00-12.00) mmol/L BUN (9.0-27.0) mg/dL Est GFR (CKD-EPI)NonAf (60.0-200.0) BUN/Creatinine Ratio (12.00-20.00) Ratio Glucose (70-110) mg/dL POC Glucose (mg/dL) 306 H 288 H 341 H (75-99) mg/dL Hemoglobin A1c (4.0-6.0) % 08/10/20 08/10/20 08/10/20 Range/Units 19:11 19:44 20:10 Anion Gap (4.00-12.00) mmol/L BUN (9.0-27.0) mg/dL Est GFR (CKD-EPI)NonAf (60.0-200.0) BUN/Creatinine Ratio (12.00-20.00) Ratio Glucose (70-110) mg/dL POC Glucose (mg/dL) 304 H 297 H 301 H (75-99) mg/dL Hemoglobin A1c (4.0-6.0) % 08/10/20 08/10/20 08/10/20 Range/Units 20:48 21:15 23:13 Anion Gap (4.00-12.00) mmol/L BUN (9.0-27.0) mg/dL Est GFR (CKD-EPI)NonAf (60.0-200.0) BUN/Creatinine Ratio (12.00-20.00) Ratio Glucose (70-110) mg/dL POC Glucose (mg/dL) 269 H 239 H 169 H (75-99) mg/dL Hemoglobin A1c (4.0-6.0) % 08/11/20 08/11/20 08/11/20 Range/Units 00:59 03:03 05:17 Anion Gap (4.00-12.00) mmol/L BUN (9.0-27.0) mg/dL Est GFR (CKD-EPI)NonAf (60.0-200.0) BUN/Creatinine Ratio (12.00-20.00) Ratio Glucose (70-110) mg/dL POC Glucose (mg/dL) 176 H 210 H 233 H (75-99) mg/dL Hemoglobin A1c (4.0-6.0) % 08/11/20 08/11/20 08/11/20 Range/Units 06:58 06:58 07:50 Anion Gap 13.50 H (4.00-12.00) mmol/L BUN 37.0 H (9.0-27.0) mg/dL Est GFR (CKD-EPI)NonAf 55.4 L (60.0-200.0) BUN/Creatinine Ratio 26.43 H (12.00-20.00) Ratio Glucose 192 H (70-110) mg/dL POC Glucose (mg/dL) 170 H (75-99) mg/dL Hemoglobin A1c 7.7 H (4.0-6.0) % 08/11/20 08/11/20 08/11/20 Range/Units 09:05 11:10 12:45 Anion Gap (4.00-12.00) mmol/L BUN (9.0-27.0) mg/dL Est GFR (CKD-EPI)NonAf (60.0-200.0) BUN/Creatinine Ratio (12.00-20.00) Ratio Glucose (70-110) mg/dL POC Glucose (mg/dL) 254 H 557 H 541 H (75-99) mg/dL Hemoglobin A1c (4.0-6.0) % 08/11/20 08/11/20 Range/Units 14:48 16:36 Anion Gap (4.00-12.00) mmol/L BUN (9.0-27.0) mg/dL Est GFR (CKD-EPI)NonAf (60.0-200.0) BUN/Creatinine Ratio (12.00-20.00) Ratio Glucose (70-110) mg/dL POC Glucose (mg/dL) 503 H 451 H (75-99) mg/dL Hemoglobin A1c (4.0-6.0) % Microbiology - Last 24 Hours (Table) 08/10/20 02:11 Blood Culture - Preliminary Blood No Growth after 24 hours 08/09/20 22:55 Blood Culture - Preliminary Blood No Growth after 24 hours Assessment and Plan Plan: #1. Acute exacerbation of COPD and acute exacerbation of CHF with systolic dysfunction, improving on IV Lasix #2. History of COPD, improving with accommodation bronchi dilated and steroids #3. Severe dilated cardiomyopathy status post AICD implantation #4. Diabetes mellitus type 2, with a component of steroid-induced hyperglycemia #5. Hypertension #6. Hyperlipidemia #7. History of nicotine dependence, in remission #8. History of coronary artery disease #9. Bilateral glaucoma #10. Anxiety/depression Plan Taper the IV Solu Medrol to 40 g every 12 hours Discontinue the BiPAP Continued IV Lasix 40 minutes every 12 hours Continue bronchodilators Oxygen 2 L per minute nasal cannula Monitor the blood sugar and suspected the sugar control improved with a tapering course of Solu-Medrol We'll continue to follow
[2020-08-11 17:56] LABS: Glucose,Whole Blood 373 mg/dL (75-99)
[2020-08-11 19:15] LABS: Glucose,Whole Blood 384 mg/dL (75-99)
[2020-08-11 21:27] LABS: Glucose,Whole Blood 238 mg/dL (75-99)
[2020-08-11] MEDS: methylPREDNISolone SOD SUCCI 40 MG/ML 1 ML VIAL IV SCH (22:06)
[2020-08-11 23:37] LABS: Glucose,Whole Blood 191 mg/dL (75-99)
[2020-08-12 01:25] LABS: Glucose,Whole Blood 177 mg/dL (75-99)
[2020-08-12] MEDS: AZITHROMYCIN 500 MG TAB PO SCH (01:29)
[2020-08-12 03:15] LABS: Glucose,Whole Blood 213 mg/dL (75-99)
[2020-08-12] MEDS: INSULIN REGULAR 100 UNIT in SODIUM CHLORIDE 0.9% 100 ML IV SCH ×2 (03:22→19:14)
[2020-08-12 05:08] LABS: Glucose,Whole Blood 172 mg/dL (75-99)
[2020-08-12 07:12] LABS: Glucose,Whole Blood 191 mg/dL (75-99)
[2020-08-12] MEDS: ALBUTEROL NEBULIZED 2.5 MG/3 ML INHALATION SCH ×4 (07:37→19:34)
[2020-08-12] MEDS: FUROSEMIDE 10 MG/ML 4 ML VIAL IV SCH (08:21)
[2020-08-12] MEDS: HEPARIN SODIUM,PORCINE 5,000 UNIT/ML 1 ML VIAL SQ SCH ×3 (08:21→22:43)
[2020-08-12] MEDS: methylPREDNISolone SOD SUCCI 40 MG/ML 1 ML VIAL IV SCH (08:21)
[2020-08-12] MEDS: ASPIRIN 81 MG PO SCH (08:21)
[2020-08-12] MEDS: INSULIN ASPART (NovoLOG) 100 UNIT/ML VIAL SQ SCH ×5 (08:21→21:27)
[2020-08-12] MEDS: ATORVASTATIN 10 MG TAB PO SCH (08:22)
[2020-08-12] MEDS: POTASSIUM CHLORIDE ER 20 MEQ TAB.ER PO SCH (08:22)
[2020-08-12] MEDS: METOPROLOL TARTRATE 25 MG TAB PO SCH ×2 (08:22→20:04)
[2020-08-12] MEDS: allopurinoL 100 MG TAB PO SCH ×2 (08:22→20:04)
[2020-08-12] MEDS: [UNRECOGNIZED DRUG - OTHER] INHALATION SCH ×2 (09:20→21:45)
[2020-08-12 09:24] LABS: Glucose,Whole Blood 409 mg/dL (75-99)
[2020-08-12 09:47] LABS: Anion Gap 9.3 mmol/L (4.00-12.00); BUN/Creat Ratio 29.33 Ratio (12.00-20.00); Carbon Dioxide 26.7 mmol/L (21.6-31.8); Non-African American GFR(CKD) 50.9 (60.0-200.0); Potassium 4.5 mmol/L (3.5-5.5)
[2020-08-12 11:04] LABS: Glucose,Whole Blood 370 mg/dL (75-99)
[2020-08-12] MEDS: FUROSEMIDE 40 MG TAB PO SCH ×2 (12:50→20:04)
[2020-08-12 13:21] LABS: Glucose,Whole Blood 286 mg/dL (75-99)
[2020-08-12] MEDS ORDERED: INSULIN DETEMIR (LEVEMIR) 100 UNIT/ML SYR SQ SCH (15:00)
--- NOTE | 2020-08-12 15:19 | P.PN ---
Subjective Progress Note Date: 08/12/20 55-year-old pleasant male came in with complaints of shortness of breath cough unable to bring up anything. Patient was recently released from correction. Patient was believed to have COPD was admitted admitted and was a on IV steroids. Patient is not wheezing when I examined the patient's CT of the chest was done which did not show any pulmonary embolism but did show some dependent pulmonary infiltrates. Patient denied any fever chills patient doesn't have pneumonia clinically patient doesn't have any leukocytosis, aphasia and is negative for Covid 19. I was unable to appreciate a JVD because of him being on CPAP and using accessory muscles of breathing patient although doesn't have any pedal edema does have history of can start failure with EF of around 20-25%. 07/11/2020 Patient on 5 L nasal cannula, saturating above 90%, still having some shortness of breath. Chest x-ray showing vague perihilar infiltrates, he has no peripheral edema. Blood sugars are poorly controlled, he is on insulin drip, and his IV steroids. glucose 503 this afternoon, nursing reports he is eating quite a bit. 07/12/2020 patient is currently on room air saturating above 90%, respirations are even and unlabored, he reports feeling better today.remains on IV Lasix, with good urine output. creatinine stable, 1.5, no significant electrolyte imbalance. He remains on insulin drip, IV steroids have been discontinued he will start on oral prednisone tomorrow. REVIEW OF SYSTEMS: CONSTITUTIONAL: No fever, no malaise, no fatigue. CARDIOVASCULAR: No chest pain, orthopnea, PND, no palpitations, no syncope. PULMONARY:no hemoptysis. GASTROINTESTINAL: No diarrhea, no nausea, no vomiting, no abdominal pain. ENDOCRINE: Denies any polyuria or polydipsia. Objective - Vital Signs Vital signs: Vital Signs Temp 97.6 F 08/12/20 13:00 Pulse 99 08/12/20 13:00 Resp 18 08/12/20 13:00 BP 118/86 08/12/20 13:00 Pulse Ox 94 L 08/12/20 13:00 Intake & Output 08/11/20 08/12/20 08/12/20 18:59 06:59 18:59 Intake Total 90.451 1072.566 114.692 Output Total 850 750 Balance -759.549 322.566 114.692 Intake: Intake, IV Titration 90.451 372.566 114.692 Amount Insulin Regular 100 unit 90.451 72.566 64.692 In Sodium Chloride 0.9% 100 ml @ Titrate IV .Q0M YASMANI Rx#:[id number] cefTRIAXone 1 gm In 300 50 Sodium Chloride 0.9% 50 ml @ 100 mls/hr IVPB Q24HR YASMANI Rx#:[id number] Oral 700 Output: Urine 850 750 Other: # Voids 3 1 - Exam GENERAL: The patient is alert and oriented x3, not in any acute distress. Well developed, well nourished. Patient is on BiPAP at this time. HEENT: Pupils are round and equally reacting to light. EOMI. No scleral icterus. No conjunctival pallor. Normocephalic, atraumatic. No pharyngeal erythema. No thyromegaly. CARDIOVASCULAR: S1 and S2 present. No murmurs, rubs, or gallops. PULMONARY: Bibasilar rales no wheezing ABDOMEN: Soft, nontender, nondistended, normoactive bowel sounds. No palpable organomegaly. MUSCULOSKELETAL: No joint swelling or deformity. EXTREMITIES: No cyanosis, clubbing, or pedal edema. NEUROLOGICAL: Gross neurological examination did not reveal any focal deficits. SKIN: No rashes. - Labs CBC & Chem 7: 08/09/20 22:53 08/12/20 06:57 Labs: Abnormal Lab Results - Last 24 Hours (Table) 08/11/20 08/11/20 08/11/20 Range/Units 16:36 17:54 19:14 BUN (9.0-27.0) mg/dL Est GFR (CKD-EPI)AfAm (60.0-200.0) Est GFR (CKD-EPI)NonAf (60.0-200.0) BUN/Creatinine Ratio (12.00-20.00) Ratio Glucose (70-110) mg/dL POC Glucose (mg/dL) 451 H 373 H 384 H (75-99) mg/dL 08/11/20 08/11/20 08/12/20 Range/Units 21:12 23:25 01:22 BUN (9.0-27.0) mg/dL Est GFR (CKD-EPI)AfAm (60.0-200.0) Est GFR (CKD-EPI)NonAf (60.0-200.0) BUN/Creatinine Ratio (12.00-20.00) Ratio Glucose (70-110) mg/dL POC Glucose (mg/dL) 238 H 191 H 177 H (75-99) mg/dL 08/12/20 08/12/20 08/12/20 Range/Units 03:13 05:04 06:57 BUN 44.0 H (9.0-27.0) mg/dL Est GFR (CKD-EPI)AfAm 59.0 L (60.0-200.0) Est GFR (CKD-EPI)NonAf 50.9 L (60.0-200.0) BUN/Creatinine Ratio 29.33 H (12.00-20.00) Ratio Glucose 204 H (70-110) mg/dL POC Glucose (mg/dL) 213 H 172 H (75-99) mg/dL 08/12/20 08/12/20 08/12/20 Range/Units 07:09 09:23 11:03 BUN (9.0-27.0) mg/dL Est GFR (CKD-EPI)AfAm (60.0-200.0) Est GFR (CKD-EPI)NonAf (60.0-200.0) BUN/Creatinine Ratio (12.00-20.00) Ratio Glucose (70-110) mg/dL POC Glucose (mg/dL) 191 H 409 H 370 H (75-99) mg/dL 08/12/20 Range/Units 13:12 BUN (9.0-27.0) mg/dL Est GFR (CKD-EPI)AfAm (60.0-200.0) Est GFR (CKD-EPI)NonAf (60.0-200.0) BUN/Creatinine Ratio (12.00-20.00) Ratio Glucose (70-110) mg/dL POC Glucose (mg/dL) 286 H (75-99) mg/dL Microbiology - Last 24 Hours (Table) 08/10/20 02:11 Blood Culture - Preliminary Blood No Growth after 48 hours 08/09/20 22:55 Blood Culture - Preliminary Blood No Growth after 48 hours Assessment and Plan Assessment: -Acute hypoxic respiratory failure: Most probably due to acute exacerbation of COPD, possibly due to acute exacerbation of CHF with systolic dysfunction, he has an LVEF of 20-25%. he is off of oxygen, currently on room air maintaining saturations in the mid 90s. Change steroids to oral prednisone starting tomorrow, continue IV Lasix 40 twice daily. -Type 2 diabetes mellitus hyperglycemia: patient is off IV steroids, start 50 units of Levemirand continue NovoLog prandial coverage. Expect blood sugars to improve with addition of long-acting insulin and change to oral steroids. -Chronic kidney disease stage III from diabetic nephropathy -Coronary artery disease -DVT prophylaxis: Subcutaneous heparin Plan: he is off IV steroids and on oral prednisone. Expect blood sugars to improve now that he is off the IV steroids and has been started on 50 of Levemir, we will attempt to titrate him off IV insulin,blood sugars were in the 200s this afternoon optimize volume status and continue with current treatment measures. Possible discharge in the next 24 hours
[2020-08-12 15:31] LABS: Glucose,Whole Blood 373 mg/dL (75-99)
--- NOTE | 2020-08-12 16:43 | P.PN ---
Subjective Progress Note Date: 08/12/20 55-year-old white male patient of Dr. Patrick Moreno past medical history of c oronary artery disease, COPD, diabetes mellitus type 2, cardiomyopathy status post AICD implantation, anxiety/depression, former smoker, who presented emergency department on 08/09/2020 for evaluation of severe shortness of breath, cough, congestion. Patient was recently incarcerated. On presentation patient was significantly dyspneic, and required BiPAP support. COVID 19 screen was negative. CBC was unremarkable, coagulation profile was within normal limits, sodium is 142, potassium is 4.3, chloride is 109, CO2 is 24, B1 is 26, creatinine is 1.42, plasma lactic acid is 2.0, troponin was 0.0.7, LDH was 537, CRP was 5.9, nonelevated, proBNP is 4170. Procalcitonin is negative at 0.05. Chest x-ray shows a mild fibrotic changes. CTA chest showed no evidence of PE, showed dependent pulmonary infiltrates that could reflect aspiration pneumonia, but given of the peripheral groundglass opacities : 19 pneumonia consideration was advised. Does cardio mainly with left ventricular cavity dilation, and CAD in the pacemaker device in place. Patient was started on nebulized bronchodilators, Lasix, empiric antibiotics, and steroids On 08/11/2020, the patient is feeling better and the patient is currently off the BiPAP and he is getting less short of breath compared to yesterday. He is currently on 2 L of oxygen by nasal cannula. Over the past 24 hours, the patient was seen for examination of COPD and CHF exacerbation. The patient was subjected to the IV Lasix. The patient was also given bronchodilators and the patient was given systemic steroids. Overall, feeling better. No chest pain. No cough or sputum production. No chest tightness or wheezing. His blood work shows a BUN of 37 with a creatinine of 1.4. The glucose at 192. The singh virus Covid 19 testing came back negative. The patient will be tapered off the systemic steroids and the patient's IV Solu-Medrol and then taper down to 40 mg every 12 hours. He remains on Rocephin and Zithromax. 08/12/2002, patient is feeling much better. The patient is currently on room air oxygen. Less short of breath. Off BiPAP. Off O2. On room air oxygen. No nausea. No vomiting. No chest pain. He remains on examination Rocephin and Zithromax. Remains on IV Solu-Medrol. Remains on IV Lasix. The patient has diuresed adequately. On the blood work, the patient a stable renal function with a creatinine of 1.5 and a BUN of 44. Blood sugar remains quite elevated as the patient is developing a component of steroid-induced hyperglycemia. No altered mentation. He is tolerating his diet. Objective - Vital Signs Vital signs: Vital Signs Temp 97.6 F 08/12/20 13:00 Pulse 99 08/12/20 16:02 Resp 18 08/12/20 16:02 BP 118/86 08/12/20 13:00 Pulse Ox 94 L 08/12/20 13:00 Intake & Output 08/11/20 08/12/20 08/12/20 18:59 06:59 18:59 Intake Total 90.451 1072.566 120.692 Output Total 850 750 Balance -759.549 322.566 120.692 Intake: Intake, IV Titration 90.451 372.566 120.692 Amount Insulin Regular 100 unit 90.451 72.566 70.692 In Sodium Chloride 0.9% 100 ml @ Titrate IV .Q0M YASMANI Rx#:[id number] cefTRIAXone 1 gm In 300 50 Sodium Chloride 0.9% 50 ml @ 100 mls/hr IVPB Q24HR YASMANI Rx#:[id number] Oral 700 Output: Urine 850 750 Other: # Voids 3 1 - Exam GENERAL EXAM: Alert, very pleasant, 55-year-old white male, currently on room air oxygen HEAD: Normocephalic/atraumatic. EYES: Normal reaction of pupils, equal size. Conjunctiva pink, sclera white. NOSE: Clear with pink turbinates. THROAT: No erythema or exudates. NECK: No masses, no JVD, no thyroid enlargement, no adenopathy. CHEST: No chest wall deformity. Symmetrical expansion. LUNGS: Equal air entry with diminished breath sounds and wheezes CVS: Regular rate and rhythm, normal S1 and S2, no gallops, no murmurs, no rubs ABDOMEN: Soft, nontender. No hepatosplenomegaly, normal bowel sounds, no guarding or rigidity. EXTREMITIES: No clubbing, no edema, no cyanosis, 2+ pulses and upper and lower extremities. MUSCULOSKELETAL: Muscle strength and tone normal. SPINE: No scoliosis or deformity SKIN: No rashes CENTRAL NERVOUS SYSTEM: Alert and oriented -3. No focal deficits, tone is normal in all 4 extremities. PSYCHIATRIC: Alert and oriented -3. Appropriate affect. Intact judgment and insight. - Labs CBC & Chem 7: 08/09/20 22:53 08/12/20 06:57 Labs: Abnormal Lab Results - Last 24 Hours (Table) 08/11/20 08/11/20 08/11/20 Range/Units 17:54 19:14 21:12 BUN (9.0-27.0) mg/dL Est GFR (CKD-EPI)AfAm (60.0-200.0) Est GFR (CKD-EPI)NonAf (60.0-200.0) BUN/Creatinine Ratio (12.00-20.00) Ratio Glucose (70-110) mg/dL POC Glucose (mg/dL) 373 H 384 H 238 H (75-99) mg/dL 08/11/20 08/12/20 08/12/20 Range/Units 23:25 01:22 03:13 BUN (9.0-27.0) mg/dL Est GFR (CKD-EPI)AfAm (60.0-200.0) Est GFR (CKD-EPI)NonAf (60.0-200.0) BUN/Creatinine Ratio (12.00-20.00) Ratio Glucose (70-110) mg/dL POC Glucose (mg/dL) 191 H 177 H 213 H (75-99) mg/dL 08/12/20 08/12/20 08/12/20 Range/Units 05:04 06:57 07:09 BUN 44.0 H (9.0-27.0) mg/dL Est GFR (CKD-EPI)AfAm 59.0 L (60.0-200.0) Est GFR (CKD-EPI)NonAf 50.9 L (60.0-200.0) BUN/Creatinine Ratio 29.33 H (12.00-20.00) Ratio Glucose 204 H (70-110) mg/dL POC Glucose (mg/dL) 172 H 191 H (75-99) mg/dL 08/12/20 08/12/20 08/12/20 Range/Units 09:23 11:03 13:12 BUN (9.0-27.0) mg/dL Est GFR (CKD-EPI)AfAm (60.0-200.0) Est GFR (CKD-EPI)NonAf (60.0-200.0) BUN/Creatinine Ratio (12.00-20.00) Ratio Glucose (70-110) mg/dL POC Glucose (mg/dL) 409 H 370 H 286 H (75-99) mg/dL 08/12/20 Range/Units 15:28 BUN (9.0-27.0) mg/dL Est GFR (CKD-EPI)AfAm (60.0-200.0) Est GFR (CKD-EPI)NonAf (60.0-200.0) BUN/Creatinine Ratio (12.00-20.00) Ratio Glucose (70-110) mg/dL POC Glucose (mg/dL) 373 H (75-99) mg/dL Microbiology - Last 24 Hours (Table) 08/10/20 02:11 Blood Culture - Preliminary Blood No Growth after 48 hours 08/09/20 22:55 Blood Culture - Preliminary Blood No Growth after 48 hours Assessment and Plan Plan: #1. Acute exacerbation of COPD and acute exacerbation of CHF with systolic dysfunction, improving on IV Lasix, currently on room air oxygen #2. History of COPD, improving with accommodation bronchi dilated and steroids #3. Severe dilated cardiomyopathy status post AICD implantation #4. Diabetes mellitus type 2, with a component of steroid-induced hyperglycemia #5. Hypertension #6. Hyperlipidemia #7. History of nicotine dependence, in remission #8. History of coronary artery disease #9. Bilateral glaucoma #10. Anxiety/depression Plan Discontinue the IV Solu-Medrol but the patient a prednisone burst taper Discontinue the BiPAP Switch this patient oral Lasix 40 mg every 12 hours Continue bronchodilators Wean FiO2 and currently the patient is on room air oxygen Monitor the blood sugar and suspected the sugar control improved with a tapering course of Solu-Medrol and the patient will be started on a prednisone burst taper We'll continue to follow, possible discharge today if medicine is agreeable. Antibiotics can be also simplified.
[2020-08-12 17:06] LABS: Glucose,Whole Blood 221 mg/dL (75-99)
[2020-08-12 19:13] LABS: Glucose,Whole Blood 305 mg/dL (75-99)
[2020-08-12 21:17] LABS: Glucose,Whole Blood 211 mg/dL (75-99)
[2020-08-12 23:37] LABS: Glucose,Whole Blood 87 mg/dL (75-99)
[2020-08-13 01:11] LABS: Glucose,Whole Blood 141 mg/dL (75-99)
[2020-08-13] MEDS: AZITHROMYCIN 500 MG TAB PO SCH (01:40)
[2020-08-13 03:23] LABS: Glucose,Whole Blood 89 mg/dL (75-99)
[2020-08-13 03:47] VITALS: BP 110/85; RESP 16; TEMP 96.8
[2020-08-13 05:14] LABS: Glucose,Whole Blood 69 mg/dL (75-99)
[2020-08-13 05:39] LABS: Glucose,Whole Blood 88 mg/dL (75-99)
[2020-08-13 07:20] LABS: Glucose,Whole Blood 240 mg/dL (75-99)
[2020-08-13] MEDS: ALBUTEROL NEBULIZED 2.5 MG/3 ML INHALATION SCH ×3 (07:28→14:47)
[2020-08-13] MEDS ORDERED: predniSONE 20 MG TAB PO SCH (09:00)
[2020-08-13] MEDS: [UNRECOGNIZED DRUG - OTHER] INHALATION SCH (09:12)
[2020-08-13] MEDS: METOPROLOL TARTRATE 25 MG TAB PO SCH (09:13)
[2020-08-13] MEDS: POTASSIUM CHLORIDE ER 20 MEQ TAB.ER PO SCH (09:14)
[2020-08-13] MEDS: FUROSEMIDE 40 MG TAB PO SCH (09:14)
[2020-08-13] MEDS: ATORVASTATIN 10 MG TAB PO SCH (09:14)
[2020-08-13] MEDS: ASPIRIN 81 MG PO SCH (09:14)
[2020-08-13] MEDS: INSULIN ASPART (NovoLOG) 100 UNIT/ML VIAL SQ SCH ×4 (09:14→13:25)
[2020-08-13] MEDS: HEPARIN SODIUM,PORCINE 5,000 UNIT/ML 1 ML VIAL SQ SCH (09:14)
[2020-08-13] MEDS: allopurinoL 100 MG TAB PO SCH (09:14)
[2020-08-13 09:51] LABS: Anion Gap 11.1 mmol/L (4.00-12.00); Calcium 8.7 mg/dL (8.7-10.3); Carbon Dioxide 27.9 mmol/L (21.6-31.8); Non-African American GFR(CKD) 50.9 (60.0-200.0); Potassium 3.9 mmol/L (3.5-5.5)
[2020-08-13 11:20] LABS: Glucose,Whole Blood 274 mg/dL (75-99)
[2020-08-13 11:50] VITALS: PULSE 92
--- NOTE | 2020-08-13 12:27 | P.DS ---
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 Patient will continue with antibiotics in the form of Ceftin 500 mg twice daily for the next 3 days along with Zithromax 500 mg daily for the next 3 days to complete the course. Patient will follow-up with the [facility] in the outpatient setting upon discharge. Patient will also continue on a prednisone taper. Total time taken is greater than 35 minutes. History of present illness This is a 55-year-old male who was recently admitted with shortness of breath along with COPD acute exacerbation and was being closely monitored. Patient also has congestive heart failure with an EF of around 20-25%. Patient was diuresed with IV Lasix and will continue with Lasix 40 mg twice daily. Patient was being evaluated by pulmonary and was initiated on IV antibiotics and we'll transition to Ceftin 500 mg twice daily for the next 3 days along with Zithromax 500 mg daily to complete the course. Patient will also continue on a prednisone taper in the outpatient setting. Patient will follow-up with the [facility] in the outpatient setting. Patient had some variations in his blood sugars and adjustments have been made to medications. Patient will continue with his long acting 40 units at night along with sliding scale 3 times daily with meals and instructed to keep a diary of his blood sugar readings for primary care follow- up. Patient states he did have supplies to test his blood sugars. Currently no reports of chest pain, shortness of breath, or palpitations. Patient is afebrile. No reports of nausea or vomiting and patient is tolerating diet. He should will be discharged to home today. On exam vital signs are stable. Temp is 96.8F, pulse is 85, respirations are 16, blood pressure is 110/85, oxygen saturation is 96% on room air. Cardio S1, S2 are muffled. Respiratory system shows diminished breath sounds at the bases with some mild expiratory wheezing noted. Abdomen is soft and nontender. Nervous system shows no focal deficits. Please refer to medication reconciliation sheet for a list of medications. Patient Condition at Discharge: Stable Plan - Discharge Summary Discharge Rx Participant: No New Discharge Prescriptions: New Cefuroxime Axetil [Ceftin] 500 mg PO BID 3 Days #6 tab Insulin Glargine [Lantus] 40 unit SQ HS 30 Days #3 vial INSULIN ASPART (NovoLOG) [NovoLOG (formulary)] 0 unit SQ ACHS vial predniSONE 10 mg PO DIRECTED #30 tab Azithromycin [Zithromax] 500 mg PO Q24H 3 Days #3 tab Continue INSULIN ASPART (NovoLOG) [NovoLOG (formulary)] 55 unit SQ QAM Furosemide [Lasix] 40 mg PO BID #60 tablet allopurinoL [Zyloprim] 100 mg PO BID Aspirin 81 mg PO DAILY Albuterol Sulfate [Proair Hfa] 1 puff INHALATION RT-Q4H PRN PRN Reason: Shortness Of Breath Simvastatin [Zocor] 10 mg PO DAILY Potassium Chloride ER [K-Dur 20] 20 meq PO DAILY Metoprolol Tartrate [Lopressor] 25 mg PO BID metFORMIN HCL [Glucophage] 1,000 mg PO BID Ciclesonide [Alvesco] 1 puff INHALATION RT-BID Discontinued INSULIN ASPART (NovoLOG) [NovoLOG (formulary)] 33 units SQ HS Discharge Medication List INSULIN ASPART (NovoLOG) [NovoLOG (formulary)] 55 unit SQ QAM 04/28/16 [History] Furosemide [Lasix] 40 mg PO BID #60 tablet 06/09/16 [Rx] Albuterol Sulfate [Proair Hfa] 1 puff INHALATION RT-Q4H PRN 08/09/20 [History] Aspirin 81 mg PO DAILY 08/09/20 [History] Ciclesonide [Alvesco] 1 puff INHALATION RT-BID 08/09/20 [History] Metoprolol Tartrate [Lopressor] 25 mg PO BID 08/09/20 [History] Potassium Chloride ER [K-Dur 20] 20 meq PO DAILY 08/09/20 [History] Simvastatin [Zocor] 10 mg PO DAILY 08/09/20 [History] allopurinoL [Zyloprim] 100 mg PO BID 08/09/20 [History] metFORMIN HCL [Glucophage] 1,000 mg PO BID 08/09/20 [History] Azithromycin [Zithromax] 500 mg PO Q24H 3 Days #3 tab 08/13/20 [Rx] Cefuroxime Axetil [Ceftin] 500 mg PO BID 3 Days #6 tab 08/13/20 [Rx] INSULIN ASPART (NovoLOG) [NovoLOG (formulary)] 0 unit SQ ACHS vial 08/13/20 [Rx] Insulin Glargine [Lantus] 40 unit SQ HS 30 Days #3 vial 08/13/20 [Rx] predniSONE 10 mg PO DIRECTED #30 tab 08/13/20 [Rx] Follow up Appointment(s)/Referral(s): [facility]inic [REFERRING] - 08/15/20 10:00 am Activity/Diet/Wound Care/Special Instructions: Activity Limited until follow-up Follow-up with the [facility] clinic upon discharge Continue to monitor blood sugar before meals at bedtime and keep a diary for primary care follow-up Continue with sliding scale along with 40 units of long-acting at night Continue antibiotics until finished Continue prednisone taper until finished Continue current diet Discharge Disposition: HOME SELF-CARE
== END 2020-08-13 14:21 | disposition home or self-care (01) | DRG 291 ==
LOC: EC 21:47 → 6NMEDSUR 08-10 01:16
PROVIDERS: ADMIT Hospitalist; ATTEND Hospitalist
PROC: 5A09457 Assistance with Respiratory Ventilation, 24-96 Consecutive Hours, Continuous Positive Airway Pressure (ICD-10-PCS; principal; 2020-08-09)
DX: I13.0 Hypertensive heart and chronic kidney disease with heart failure and stage 1 through stage 4 chronic kidney disease, or unspecified chronic kidney disease (principal); I50.23 Acute on chronic systolic (congestive) heart failure; J96.01 Acute respiratory failure with hypoxia; J44.1 Chronic obstructive pulmonary disease with (acute) exacerbation; I25.10 Atherosclerotic heart disease of native coronary artery without angina pectoris; F41.9 Anxiety disorder, unspecified; F32.9 Major depressive disorder, single episode, unspecified; N18.30 Chronic kidney disease, stage 3 unspecified; Z20.828 Contact with and (suspected) exposure to other viral communicable diseases; E78.5 Hyperlipidemia, unspecified; E11.65 Type 2 diabetes mellitus with hyperglycemia; E11.22 Type 2 diabetes mellitus with diabetic chronic kidney disease; F17.210 Nicotine dependence, cigarettes, uncomplicated; H40.9 Unspecified glaucoma; I42.0 Dilated cardiomyopathy; T38.0X5A Adverse effect of glucocorticoids and synthetic analogues, initial encounter; Z79.82 Long term (current) use of aspirin; Z79.4 Long term (current) use of insulin; Z79.899 Other long term (current) drug therapy; Z83.3 Family history of diabetes mellitus; Z95.810 Presence of automatic (implantable) cardiac defibrillator; Z82.49 Family history of ischemic heart disease and other diseases of the circulatory system
CPT/HCPCS: 36415; 71045; 71275; 80048; 80053; 82550; 82728; 83036; 83605; 83615; 83735; 83880; 84145; 84484; 85025; 85610; 85730; 86140; 87040; 87635; 93005; 93306; 94640; 94660; 96361; 96365; 96374; 99291

== ENCOUNTER 2020-10-04 16:32 | Inpatient (IN) | payer OTHER, MEDICARE ==
[2020-10-04 17:15] LABS: Basophils # (A) 0.1 k/uL (0-0.2); Basophils % (A) 1 %; Eosinophils # (A) 0.2 k/uL (0-0.7); Eosinophils % (A) 2 %; HCT 44.3 % (39.0-53.0); HGB 14.2 gm/dL (13.0-17.5); Lymphocytes # (A) 1.8 k/uL (1.0-4.8); Lymphocytes % (A) 24 %; MCH 28.4 pg (25.0-35.0); MCV 88.7 fL (80.0-100.0); Mean Platelet Volume 9.4; Monocytes # (A) 0.5 k/uL (0-1.0); Monocytes % (A) 6 %; Neutrophils % (A) 65 %; Platelet Count 165 k/uL (150-450); RBC 4.99 m/uL (4.30-5.90); WBC 7.6 k/uL (3.8-10.6)
[2020-10-04 17:24] LABS: Albumin 3.9 g/dL (3.5-5.0); Calcium 9.1 mg/dL (8.4-10.2); Magnesium 1.9 mg/dL (1.6-2.3); Potassium 4.4 mmol/L (3.5-5.1); Total Bilirubin 1.3 mg/dL (0.2-1.3); Total Protein 6.6 g/dL (6.3-8.2)
[2020-10-04 17:29] LABS: Partial Thromboplastin Time 22.2 sec (22.0-30.0); Prothrombin Time 10.8 sec (9.0-12.0)
[2020-10-04 17:46] LABS: D-Dimer 1.19 mg/L FEU (<0.60)
--- NOTE | 2020-10-04 18:10 | ED ---
Chest Pain HPI - General Chief Complaint: Chest Pain Stated Complaint: Chest pressure, MARCO ANTONIO, nausea Time Seen by Provider: 10/04/20 16:40 Source: patient Mode of arrival: ambulatory Limitations: no limitations - History of Present Illness Initial Comments: Patient is a 55-year-old male with past medical history of cardiomyopathy status post ICD placement presents emergency room with reported chest pain. Patient states that earlier this evening he developed chest pressure. Describes it as an "elephant sitting on his chest". States he does have a cardiac history. Admits that he is short of breath. Admits to a mild nonproductive cough or no fevers, chills or sick contacts with similar symptoms. Denies any lower externally swelling. Does admit to a history of congestive heart failure. No history of DVT or PE. Patient not on any blood thinners. Does take 40 mg of Lasix daily. Denies any missed doses. Denies abdominal pain. No nausea, vomiting or diaphoresis. No other alleviating, precipitating or modifying factors - Related Data Home Medications Medication Instructions Recorded Confirmed INSULIN ASPART (NovoLOG) [NovoLOG 12 unit SQ AC-TID 04/28/16 10/04/20 (formulary)] Albuterol Sulfate [Proair Hfa] 1 puff INHALATION RT-Q4H PRN 08/09/20 10/04/20 Aspirin 81 mg PO DAILY 08/09/20 10/04/20 Ciclesonide [Alvesco] 1 puff INHALATION RT-BID 08/09/20 10/04/20 Metoprolol Tartrate [Lopressor] 25 mg PO BID 08/09/20 10/04/20 Potassium Chloride ER [K-Dur 20] 20 meq PO DAILY 08/09/20 10/04/20 Simvastatin [Zocor] 10 mg PO DAILY 08/09/20 10/04/20 allopurinoL [Zyloprim] 100 mg PO BID 08/09/20 10/04/20 Previous Rx's Medication Instructions Recorded Furosemide [Lasix] 40 mg PO BID #60 tablet 06/09/16 Insulin Glargine [Lantus] 42 unit SQ DAILY #0 10/05/20 Apixaban [Eliquis] 5 mg PO BID #60 tab 10/07/20 Allergies Allergy/AdvReac Type Severity Reaction Status Date / Time No Known Allergies Allergy Verified 10/04/20 19:20 Review of Systems ROS Statement: Those systems with pertinent positive or pertinent negative responses have been documented in the HPI. ROS Other: All systems not noted in ROS Statement are negative. EKG Findings - EKG Comments: EKG Findings:: EKG demonstrates normal sinus rhythm with a ventricular rate of 91. AK interval 154. QRS 96. QTC of 501. 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 Other HX: Palpitations, IDDM, bilateral glaucoma History of Any Multi-Drug Resistant Organisms: None Reported Past Surgical History: Heart Catheterization, Pacemaker Additional Past Surgical History / Comment(s): 10/2012 pacer/defibrillator. Past Anesthesia/Blood Transfusion Reactions: No Reported Reaction Additional Past Anesthesia/Blood Transfusion Reaction / Comment(s): Pt has recieved blood in the past without reaction. Type of Cardiac Device: Permanent Pacemaker, AICD Device Placement Date:: 10/2012 Past Psychological History: Anxiety, Depression Smoking Status: Former smoker Past Alcohol Use History: Rare Past Drug Use History: None Reported - Past Family History Father Family Medical History: Diabetes Mellitus Additional Family Medical History / Comment(s): Father has cardiomyopathy. Mother Family Medical History: Hypertension Brother(s) Additional Family Medical History / Comment(s): Cardiomyopathy with heart transplant. General Exam Limitations: no limitations General appearance: alert, in no apparent distress Head exam: Present: atraumatic, normocephalic, normal inspection Eye exam: Present: normal appearance, PERRL, EOMI. Absent: scleral icterus, conjunctival injection, periorbital swelling ENT exam: Present: normal exam, mucous membranes moist Neck exam: Present: normal inspection. Absent: tenderness, meningismus, lymphadenopathy Respiratory exam: Present: normal lung sounds bilaterally. Absent: respiratory distress, wheezes, rales, rhonchi, stridor Cardiovascular Exam: Present: regular rate, normal rhythm, normal heart sounds. Absent: systolic murmur, diastolic murmur, rubs, gallop, clicks GI/Abdominal exam: Present: soft, normal bowel sounds. Absent: distended, tenderness, guarding, rebound, rigid Extremities exam: Present: normal inspection, full ROM, normal capillary refill. Absent: tenderness, pedal edema, joint swelling, calf tenderness Back exam: Present: normal inspection Neurological exam: Present: alert, oriented X3, CN II-XII intact Psychiatric exam: Present: normal affect, normal mood Skin exam: Present: warm, dry, intact, normal color. Absent: rash Course Vital Signs 10/04/20 10/04/20 10/04/20 16:42 17:03 17:30 Temperature 98.0 F Pulse Rate 96 90 92 Respiratory 18 18 16 Rate Blood Pressure 117/86 117/84 O2 Sat by Pulse 96 95 Oximetry 10/04/20 10/04/20 10/04/20 18:00 19:00 19:30 Temperature Pulse Rate 90 88 87 Respiratory 16 17 18 Rate Blood Pressure 117/86 108/91 116/90 O2 Sat by Pulse 94 L 95 94 L Oximetry 10/04/20 10/04/20 10/04/20 20:00 20:30 21:00 Temperature Pulse Rate 89 88 89 Respiratory 18 16 18 Rate Blood Pressure 111/92 118/88 115/88 O2 Sat by Pulse 95 90 L 95 Oximetry 10/04/20 10/04/20 10/04/20 21:30 22:00 22:30 Temperature Pulse Rate 92 89 92 Respiratory 17 16 18 Rate Blood Pressure 108/92 117/89 116/95 O2 Sat by Pulse 95 93 L 92 L Oximetry 10/04/20 10/05/20 23:00 06:05 Temperature 97.6 F Pulse Rate 89 89 Respiratory 18 16 Rate Blood Pressure 117/96 123/97 O2 Sat by Pulse 93 L 94 L Oximetry Chest Pain MDM - MDM Upon arrival patient's placed into trauma bay 1. A thorough history and physical exam was performed. 12-lead EKG was performed. Laboratory studies were conducted and the patient went for chest x-ray. Laboratory studies did demonstrate an elevated d-dimer of 1.19. BNP is 4430. Chest x-ray demonstrate no acute process. CT of the chest was performed due to the elevated d-dimer which demonstrates no deep. Results are discussed the patient. Pain is gone at this time. Did recommend hospital physician in order trend his troponins and consult cardiology for which the patient did agree to. Spoke with Dr. Berrios who agreed to admit the patient. Patient was given an aspirin. Patient remained in stable condition awaiting a bed Disposition Clinical Impression: AICD (automatic cardioverter/defibrillator) present, Chest pain Disposition: [facility] Condition: Stable Is patient prescribed a controlled substance at d/c from ED?: No Decision to Admit Reason: Admit from EC Decision Date: 10/04/20 Decision Time: 21:23
--- NOTE | 2020-10-04 18:11 | XR ---
EXAMINATION TYPE: XR chest 2V DATE OF EXAM: 10/04/2020 COMPARISON: 08/11/2020. HISTORY: Chest pain. TECHNIQUE: Frontal and lateral views of the chest are obtained. FINDINGS: There is no new focal air space opacity, pleural effusion, or pneumothorax seen. The card iac silhouette size is enlarged and left AICD, stable. The osseous structures are without acute abn ormality. Chronic posttraumatic right mid rib fracture deformity with associated chronic opacity. IMPRESSION: No acute cardiopulmonary process.
[2020-10-04] MEDS ORDERED: ASPIRIN 81 MG PO STA (18:12)
--- NOTE | 2020-10-04 20:00 | CT ---
EXAMINATION TYPE: CT chest angio for PE DATE OF EXAM: 10/04/2020 COMPARISON: 08/10/2020. HISTORY: Chest pain. SOB, elevated d-dimer CT DLP: 266 mGycm Automated exposure control for dose reduction was used. CONTRAST: CT Chest for pulmonary embolism performed with with IV Contrast, patient injected with 80 mL of Isovu e 370. FINDINGS: LUNGS: The lungs are grossly clear, there is no concerning parenchymal mass or nodule identified. T here is no pleural effusion or pneumothorax seen. The tracheobronchial tree is patent. MEDIASTINUM: There is satisfactory enhancement of the pulmonary artery and its branches, there is no CT evidence for pulmonary embolism. There are no greater than 1 cm hilar or mediastinal lymph nodes. No pericardial effusion is seen. Stable mild cardiomegaly. OTHER: No additional significant abnormality is seen. Chronic deformity of the right fourth rib note d. IMPRESSION: No acute PE or other cardiopulmonary abnormality.
[2020-10-04] MEDS ORDERED: NALOXONE 0.4 MG/ML 1 ML VIAL IV PRN (21:23)
[2020-10-04] MEDS ORDERED: ALBUTEROL HFA INHALER INHALATION PRN (21:27)
[2020-10-05 06:07] VITALS: RESP 16
[2020-10-05] MEDS: INSULIN ASPART (NovoLOG) 100 UNIT/ML VIAL SQ SCH ×3 (07:50→17:37)
[2020-10-05 08:01] LABS: Glucose,Whole Blood 214 mg/dL (75-99)
[2020-10-05] MEDS: POTASSIUM CHLORIDE ER 20 MEQ TAB.ER PO SCH (08:31)
[2020-10-05] MEDS: METOPROLOL TARTRATE 25 MG TAB PO SCH (08:31)
[2020-10-05] MEDS: ASPIRIN 81 MG PO SCH (08:31)
[2020-10-05] MEDS: ATORVASTATIN 10 MG TAB PO SCH (08:31)
[2020-10-05] MEDS: allopurinoL 100 MG TAB PO SCH (08:31)
[2020-10-05] MEDS: FUROSEMIDE 40 MG TAB PO SCH (08:31)
--- NOTE | 2020-10-05 08:42 | P.CRDCN ---
History of Present Illness Consult date: 10/05/20 Chief complaint: Chest pain History of present illness: This is a pleasant 55-year-old gentleman with a past medical history significant for hypertension and dyslipidemia and history of smoking was referred to come to the emergency department. The patient presented mainly with a chest discomfort. It started about a week ago. He described the discomfort in the mid of the chest as a pressure on the chest without any radiation to the arms or neck or shoulders or sweating or dizziness or lightheadedness or any feeling of heart racing or fluttering or syncope. The chest discomfort does not seems to be exertion related. He rated the chest discomfort at 3/10 in intensity. No history of coronary artery disease or congestive heart failure or cardiac arrhythmia and the patient never seen by a mailroom courier before. The EKG showed sinus rhythm without any significant ST or T-wave abnormalities. The cardiac enzymes came in to be unremarkable. The chest x-ray did not show any acute abnormalities. The patient was seen by his primary care physician about a week ago and he was scheduled to undergo a stress test but unfortunately because of the chest discomfort was getting worse he decided to come, waiting for the stress test. At this point I am going to obtain an echocardiogram and also obtain a stress test to rule out severe underlying coronary artery disease and follow-up with the patient. 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 Other HX: Palpitations, IDDM, bilateral glaucoma History of Any Multi-Drug Resistant Organisms: None Reported Past Surgical History: Heart Catheterization, Pacemaker Additional Past Surgical History / Comment(s): 10/2012 pacer/defibrillator. Past Anesthesia/Blood Transfusion Reactions: No Reported Reaction Additional Past Anesthesia/Blood Transfusion Reaction / Comment(s): Pt has recieved blood in the past without reaction. Type of Cardiac Device: Permanent Pacemaker, AICD Device Placement Date:: 10/2012 Past Psychological History: Anxiety, Depression Smoking Status: Former smoker Past Alcohol Use History: Rare Past Drug Use History: None Reported - Past Family History Father Family Medical History: Diabetes Mellitus Additional Family Medical History / Comment(s): Father has cardiomyopathy. Mother Family Medical History: Hypertension Brother(s) Additional Family Medical History / Comment(s): Cardiomyopathy with heart t ransplant. Medications and Allergies Home Medications Medication Instructions Recorded Confirmed Type INSULIN ASPART (NovoLOG) [NovoLOG 12 unit SQ AC-TID 04/28/16 10/04/20 History (formulary)] Furosemide [Lasix] 40 mg PO BID #60 tablet 06/09/16 10/04/20 Rx Albuterol Sulfate [Proair Hfa] 1 puff INHALATION RT-Q4H PRN 08/09/20 10/04/20 History Aspirin 81 mg PO DAILY 08/09/20 10/04/20 History Ciclesonide [Alvesco] 1 puff INHALATION RT-BID 08/09/20 10/04/20 History Metoprolol Tartrate [Lopressor] 25 mg PO BID 08/09/20 10/04/20 History Potassium Chloride ER [K-Dur 20] 20 meq PO DAILY 08/09/20 10/04/20 History Simvastatin [Zocor] 10 mg PO DAILY 08/09/20 10/04/20 History allopurinoL [Zyloprim] 100 mg PO BID 08/09/20 10/04/20 History metFORMIN HCL [Glucophage] 1,000 mg PO BID 08/09/20 10/04/20 History Insulin Glargine [Lantus] 36 unit SQ DAILY 10/04/20 10/04/20 History Allergies Allergy/AdvReac Type Severity Reaction Status Date / Time No Known Allergies Allergy Verified 10/04/20 19:20 Physical Exam Vitals: Vital Signs Temp Pulse Resp BP Pulse Ox 10/05/20 06:05 97.6 F 89 16 123/97 94 L 10/04/20 23:00 89 18 117/96 93 L 10/04/20 22:30 92 18 116/95 92 L 10/04/20 22:00 89 16 117/89 93 L 10/04/20 21:30 92 17 108/92 95 10/04/20 21:00 89 18 115/88 95 10/04/20 20:30 88 16 118/88 90 L 10/04/20 20:00 89 18 111/92 95 10/04/20 19:30 87 18 116/90 94 L 10/04/20 19:00 88 17 108/91 95 10/04/20 18:00 90 16 117/86 94 L 10/04/20 17:30 92 16 117/84 95 10/04/20 17:03 90 18 10/04/20 16:42 98.0 F 96 18 117/86 96 Intake and Output 10/04/20 10/05/20 10/05/20 22:59 06:59 14:59 Other: Weight 70.76 kg - Constitutional General appearance: no acute distress - Respiratory Respiratory: bilateral: CTA - Cardiovascular Rhythm: regular Heart sounds: normal: S1, S2 Results 10/04/20 17:09 10/04/20 17:09 Cardiac Enzymes 10/04/20 10/04/20 10/04/20 Range/Units 17:09 17:09 22:32 AST 25 (17-59) U/L Troponin I <0.012 0.013 (0.000-0.034) ng/mL 10/05/20 Range/Units 01:54 AST (17-59) U/L Troponin I 0.014 (0.000-0.034) ng/mL Coagulation 10/04/20 Range/Units 17:09 PT 10.8 (9.0-12.0) sec APTT 22.2 (22.0-30.0) sec CBC 10/04/20 Range/Units 17:09 WBC 7.6 (3.8-10.6) k/uL RBC 4.99 (4.30-5.90) m/uL Hgb 14.2 (13.0-17.5) gm/dL Hct 44.3 (39.0-53.0) % Plt Count 165 (150-450) k/uL Comprehensive Metabolic Panel 10/04/20 Range/Units 17:09 Sodium 137 (137-145) mmol/L Potassium 4.4 (3.5-5.1) mmol/L Chloride 102 (98-107) mmol/L Carbon Dioxide 28 (22-30) mmol/L BUN 27 H (9-20) mg/dL Creatinine 1.54 H (0.66-1.25) mg/dL Glucose 301 H (74-99) mg/dL Calcium 9.1 (8.4-10.2) mg/dL AST 25 (17-59) U/L ALT 25 (4-49) U/L Alkaline Phosphatase 117 (38-126) U/L Total Protein 6.6 (6.3-8.2) g/dL Albumin 3.9 (3.5-5.0) g/dL Current Medications Generic Name Dose Route Start Last Admin Trade Name Freq PRN Reason Stop Dose Admin Albuterol Sulfate 1 puff 10/04/20 21:27 Albuterol Hfa Inhaler INHALATION RT-Q4H PRN Shortness Of Breath Allopurinol 100 mg 10/05/20 09:00 10/05/20 08:31 Allopurinol 100 Mg Tab PO 100 mg BID YASMANI Administration Aspirin 81 mg 10/05/20 09:00 10/05/20 08:31 Aspirin 81 Mg PO 81 mg DAILY YASMANI Administration Atorvastatin Calcium 10 mg 10/05/20 09:00 10/05/20 08:31 Atorvastatin 10 Mg Tab PO 10 mg DAILY YASMANI Administration Furosemide 40 mg 10/05/20 09:00 10/05/20 08:31 Furosemide 40 Mg Tab PO 40 mg BID YASMANI Administration Insulin Aspart 12 unit 10/05/20 07:30 10/05/20 07:50 Insulin Aspart (Novolog) 100 Unit/Ml Vial SQ 12 unit AC-TID YASMANI Administration Insulin Detemir 36 unit 10/05/20 09:00 Insulin Detemir (Levemir) 100 Unit/Ml Syr SQ DAILY YASMANI Metoprolol Tartrate 25 mg 10/05/20 09:00 10/05/20 08:31 Metoprolol Tartrate 25 Mg Tab PO 25 mg BID YASMANI Administration Naloxone HCl 0.2 mg 10/04/20 21:23 Naloxone 0.4 Mg/Ml 1 Ml Vial IV Q2M PRN Opioid Reversal Non-Formulary Medication 1 puff 10/05/20 08:00 Ciclesonide [Alvesco] INHALATION RT-BID YASMANI Potassium Chloride 20 meq 10/05/20 09:00 10/05/20 08:31 Potassium Chloride Er 20 Meq Tab.Er PO 20 meq DAILY YASMANI Administration Intake and Output 10/04/20 10/05/20 10/05/20 22:59 06:59 14:59 Other: Weight 70.76 kg 10/04/20 17:09 10/04/20 17:09 Assessment and Plan Assessment: Assessment #1 atypical chest discomfort #2 hypertension #3 smoking Plan #1 acute coronary syndrome was ruled out #2 we will obtain a stress test to rule out severe CAD #3 we'll obtain an echocardiogram was Doppler #4 follow-up with the patient
[2020-10-05] MEDS ORDERED: INSULIN DETEMIR (LEVEMIR) 100 UNIT/ML SYR SQ SCH (09:00)
[2020-10-05 09:51] LABS: Basophils # (A) 0.1 k/uL (0-0.2); Basophils % (A) 1 %; Eosinophils # (A) 0.2 k/uL (0-0.7); Eosinophils % (A) 3 %; HCT 42.8 % (39.0-53.0); HGB 13.8 gm/dL (13.0-17.5); Hypochromasia Slight; Lymphocytes % (A) 26 %; MCH 28.8 pg (25.0-35.0); MCHC 32.2 g/dL (31.0-37.0); MCV 89.3 fL (80.0-100.0); Mean Platelet Volume 9.1; Monocytes # (A) 0.4 k/uL (0-1.0); Monocytes % (A) 6 %; Neutrophils # (A) 4.9 k/uL (1.3-7.7); Neutrophils % (A) 64 %; Platelet Count 153 k/uL (150-450); RBC 4.79 m/uL (4.30-5.90); RDW 14.8 % (11.5-15.5); WBC 7.7 k/uL (3.8-10.6)
[2020-10-05 10:02] LABS: Calcium 9.1 mg/dL (8.4-10.2); Potassium 4.4 mmol/L (3.5-5.1)
[2020-10-05 11:47] LABS: Glucose,Whole Blood 286 mg/dL (75-99)
[2020-10-05] MEDS: NON FORMULARY DRUG (Ciclesonide [Alvesco] 6.1 GM Hfa.Aer.Ad) INHALATION SCH (11:47)
[2020-10-05] MEDS ORDERED: FUROSEMIDE 10 MG/ML 4 ML VIAL IV STA (12:11)
[2020-10-05] MEDS ORDERED: INFLUENZA VACCINE (6 MOS+) 60 MCG/0.5 ML SYRINGE IM ONE (12:20)
--- NOTE | 2020-10-05 13:20 | P.HPIM ---
History of Present Illness 55-year-old gentleman with a past medical history significant for hypertension and dyslipidemia and history of smoking was referred to come to the emergency department. The patient presented mainly with a chest discomfort. It started about a week ago. He described the discomfort in the mid of the chest as a pressure on the chest without any radiation to the arms or neck or shoulders or sweating or dizziness or lightheadedness or any feeling of heart racing or fluttering or syncope. The chest discomfort does not seems to be exertion related. He rated the chest discomfort at 3/10 in intensity. No history of coronary artery disease or congestive heart failure or cardiac arrhythmia and the patient never seen by a any commodity buyer before. The EKG showed sinus rhythm without any significant ST or T-wave abnormalities. The cardiac enzymes came in to be unremarkable. The chest x-ray did not show any acute abnormalities. The patient was seen by his primary care physician about a week ago and he was scheduled to undergo a stress test but unfortunately because of the chest discomfort was getting worse he decided to come, waiting for the stress test. Echocardiogram and stress was stopped were obtain the results of which are pending. Patient had a CT angios the chest which did not show any PE. Patient doesn't have any pneumonia. She does have history of congestive failure ischemic cardiomyopathy very low EF and patient may be in mild heart failure because of which I'll give an extra dose of Lasix. Patient had creatinine of around 1.5 which is his baseline because of the creatinine patient cannot take metformin I'll increase the dose of for long-acting insulins and discontinue metformin. Patient has fluctuating blood sugars at home with because of which asked him to closely monitor the blood sugars send the rest of the titration of his insulin need to be done as an outpatient by primary care physician. Review of Systems REVIEW OF SYSTEMS: CONSTITUTIONAL: No fever, no malaise, no fatigue. HEENT: No recent visual problems or hearing problems. Denied any sore throat. CARDIOVASCULAR: No orthopnea, PND, no palpitations, no syncope. PULMONARY: No shortness of breath, no cough, no hemoptysis. GASTROINTESTINAL: No diarrhea, no nausea, no vomiting, no abdominal pain. NEUROLOGICAL: No headaches, no weakness, no numbness. HEMATOLOGICAL: Denies any bleeding or petechiae. GENITOURINARY: Denies any burning micturition, frequency, or urgency. MUSCULOSKELETAL/RHEUMATOLOGICAL: Denies any joint pain, swelling, or any muscle pain. ENDOCRINE: Denies any polyuria or polydipsia. The rest of the 14-point review of systems is negative. 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 Other HX: Palpitations, IDDM, bilateral gla ucoma History of Any Multi-Drug Resistant Organisms: None Reported Past Surgical History: Heart Catheterization, Pacemaker Additional Past Surgical History / Comment(s): 10/2012 pacer/defibrillator. Past Anesthesia/Blood Transfusion Reactions: No Reported Reaction Additional Past Anesthesia/Blood Transfusion Reaction / Comment(s): Pt has recieved blood in the past without reaction. Type of Cardiac Device: Permanent Pacemaker, AICD Device Placement Date:: 10/2012 Smoking Status: Former smoker - Past Family History Father Family Medical History: Diabetes Mellitus Additional Family Medical History / Comment(s): Father has cardiomyopathy. Mother Family Medical History: Hypertension Brother(s) Additional Family Medical History / Comment(s): Cardiomyopathy with heart transplant. Medications and Allergies Home Medications Medication Instructions Recorded Confirmed Type INSULIN ASPART (NovoLOG) [NovoLOG 12 unit SQ AC-TID 04/28/16 10/04/20 History (formulary)] Furosemide [Lasix] 40 mg PO BID #60 tablet 06/09/16 10/04/20 Rx Albuterol Sulfate [Proair Hfa] 1 puff INHALATION RT-Q4H PRN 08/09/20 10/04/20 History Aspirin 81 mg PO DAILY 08/09/20 10/04/20 History Ciclesonide [Alvesco] 1 puff INHALATION RT-BID 08/09/20 10/04/20 History Metoprolol Tartrate [Lopressor] 25 mg PO BID 08/09/20 10/04/20 History Potassium Chloride ER [K-Dur 20] 20 meq PO DAILY 08/09/20 10/04/20 History Simvastatin [Zocor] 10 mg PO DAILY 08/09/20 10/04/20 History allopurinoL [Zyloprim] 100 mg PO BID 08/09/20 10/04/20 History Insulin Glargine [Lantus] 42 unit SQ DAILY #0 10/05/20 10/04/20 Rx Allergies Allergy/AdvReac Type Severity Reaction Status Date / Time No Known Allergies Allergy Verified 10/04/20 19:20 Physical Exam Vitals: Vital Signs Temp Pulse Pulse Resp BP BP Pulse Ox 10/05/20 09:46 98 F 93 16 111/88 96 10/05/20 06:05 97.6 F 89 16 123/97 94 L 10/04/20 23:00 89 18 117/96 93 L 10/04/20 22:30 92 18 116/95 92 L 10/04/20 22:00 89 16 117/89 93 L 10/04/20 21:30 92 17 108/92 95 10/04/20 21:00 89 18 115/88 95 10/04/20 20:30 88 16 118/88 90 L 10/04/20 20:00 89 18 111/92 95 10/04/20 19:30 87 18 116/90 94 L 10/04/20 19:00 88 17 108/91 95 10/04/20 18:00 90 16 117/86 94 L 10/04/20 17:30 92 16 117/84 95 10/04/20 17:03 90 18 10/04/20 16:42 98.0 F 96 18 117/86 96 Intake and Output 10/04/20 10/05/20 10/05/20 22:59 06:59 14:59 Other: Weight 70.76 kg 70.76 kg PHYSICAL EXAMINATION: GENERAL: The patient is alert and oriented x3, not in any acute distress. Well developed, well nourished. HEENT: Pupils are round and equally reacting to light. EOMI. No scleral icterus. No conjunctival pallor. Normocephalic, atraumatic. No pharyngeal erythema. No thyromegaly. CARDIOVASCULAR: S1 and S2 present. No murmurs, rubs, or gallops. Probably mildly elevated JVD. PULMONARY: Chest is clear to auscultation, no wheezing or crackles. ABDOMEN: Soft, nontender, nondistended, normoactive bowel sounds. No palpable organomegaly. MUSCULOSKELETAL: No joint swelling or deformity. EXTREMITIES: No cyanosis, clubbing, or pedal edema. NEUROLOGICAL: Gross neurological examination did not reveal any focal deficits. SKIN: No rashes. Results CBC & Chem 7: 10/05/20 09:36 10/05/20 09:36 Labs: Abnormal Lab Results - Last 24 Hours (Table) 10/04/20 10/04/20 10/05/20 Range/Units 17:09 17:09 07:50 D-Dimer 1.19 H (<0.60) mg/L FEU Sodium (137-145) mmol/L BUN 27 H (9-20) mg/dL Creatinine 1.54 H (0.66-1.25) mg/dL Glucose 301 H (74-99) mg/dL POC Glucose (mg/dL) 214 H (75-99) mg/dL 10/05/20 10/05/20 Range/Units 09:36 11:44 D-Dimer (<0.60) mg/L FEU Sodium 134 L (137-145) mmol/L BUN 30 H (9-20) mg/dL Creatinine 1.58 H (0.66-1.25) mg/dL Glucose 333 H (74-99) mg/dL POC Glucose (mg/dL) 286 H (75-99) mg/dL Thrombosis Risk Factor Assmnt - Choose All That Apply Each Factor Represents 1 point: Age 41-60 years, Medical pt on bed rest Other Risk Factors: No Other congenital or acquired thrombophilia - If yes, enter type in comment: No Thrombosis Risk Factor Assessment Total Risk Factor Score: 2 Thrombosis Risk Factor Assessment Level: Low Risk Assessment and Plan Plan: -Chest pain: We will rule out acute coronary syndromes, patient had a stress t est that's negative patient will be discharged today. We ruled out the pulmonary embolism. -Congestive heart failure chronic systolic dysfunction with mild acute examination patient will be given a given a dose of IV Lasix and patient will resume his home dose of Lasix. 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
--- NOTE | 2020-10-05 13:21 | P.DS ---
Providers Date of admission: 10/04/20 21:24 Attending physician: Tello Berrios Consults: 10/04/20 21:25 Consult Physician Urgent Consulting Provider: [facility] Consult Reason/Comments: acute chest pain, hx cardiomyopathy Do you want consulting provider notified?: Yes Primary care physician: Patrick Malcolm [facility] Course: Refer to history of presenting illness for further details. Patient Condition at Discharge: Stable Plan - Discharge Summary New Discharge Prescriptions: Continue INSULIN ASPART (NovoLOG) [NovoLOG (formulary)] 12 unit SQ AC-TID Furosemide [Lasix] 40 mg PO BID #60 tablet allopurinoL [Zyloprim] 100 mg PO BID Aspirin 81 mg PO DAILY Albuterol Sulfate [Proair Hfa] 1 puff INHALATION RT-Q4H PRN PRN Reason: Shortness Of Breath Simvastatin [Zocor] 10 mg PO DAILY Potassium Chloride ER [K-Dur 20] 20 meq PO DAILY Metoprolol Tartrate [Lopressor] 25 mg PO BID Ciclesonide [Alvesco] 1 puff INHALATION RT-BID Changed Insulin Glargine [Lantus] 42 unit SQ DAILY #0 Discontinued metFORMIN HCL [Glucophage] 1,000 mg PO BID Discharge Medication List INSULIN ASPART (NovoLOG) [NovoLOG (formulary)] 12 unit SQ AC-TID 04/28/16 [History] Furosemide [Lasix] 40 mg PO BID #60 tablet 06/09/16 [Rx] Albuterol Sulfate [Proair Hfa] 1 puff INHALATION RT-Q4H PRN 08/09/20 [History] Aspirin 81 mg PO DAILY 08/09/20 [History] Ciclesonide [Alvesco] 1 puff INHALATION RT-BID 08/09/20 [History] Metoprolol Tartrate [Lopressor] 25 mg PO BID 08/09/20 [History] Potassium Chloride ER [K-Dur 20] 20 meq PO DAILY 08/09/20 [History] Simvastatin [Zocor] 10 mg PO DAILY 08/09/20 [History] allopurinoL [Zyloprim] 100 mg PO BID 08/09/20 [History] Insulin Glargine [Lantus] 42 unit SQ DAILY #0 10/05/20 [Rx] Follow up Appointment(s)/Referral(s): Patrick Malcolm DO [Primary Care Provider] - 3 Days Discharge Disposition: HOME SELF-CARE
--- NOTE | 2020-10-05 13:48 | ECHOS ---
STRESS ECHOCARDIOGRAM DATE OF SERVICE: 10/05/2020 LUMASON: ____ Vial INDICATIONS: Chest pain. MEDICATIONS: BASELINE HEART RATE: 90 BASELINE BLOOD PRESSURE: 115/87 MAXIMUM HEART RATE: 131 MAXIMUM BLOOD PRESSURE: 163/81 85% MPHR: 139 100% MPHR: 163 METS: 4.7 MAXIMUM STAGE REACHED: I TOTAL EXERCISE TIME: 4 minutes CLINICAL INFORMATION: STRESS DATA: Heart rate 90, pressure is 115/87 mmHg. Baseline EKG showed sinus mechanism. The patient exercised on the treadmill according to Brannon protocol for a total of 4 minutes and achieved 4.7 METs. Max heart rate was 131, which is about 80% of maximum predicted heart rate. Maximum blood pressure was 163/81 mmHg. Clinically, the patient did not have any symptoms and the EKG did not show any significant ST or T- wave abnormalities beside worsening of the baseline changes. ECHOCARDIOGRAM IMAGES: On echocardiogram images from parasternal long axis view, parasternal short axis view, apical 4 chamber and apical 2 chamber view were obtained. The baseline echo showed severe LV dysfunction. With exercise, the patient did not augment the left ventricle. CONCLUSION: 1. Good exercise tolerance. 2. Nondiagnostic electrocardiogram stress test in response to exercise. 3. Severe left ventricular dysfunction as a baseline without any evidence of new wall motion abnormalities concerning for ischemia. MMODL / IJN: [id number] /
[2020-10-05] MEDS ORDERED: HEPARIN SODIUM,PORCINE 5,000 UNIT/ML 1 ML VIAL IV ONE (13:52)
--- NOTE | 2020-10-05 14:00 | P.CRDCN ---
History of Present Illness History of present illness: This is a pleasant 55-year-old gentleman with a past medical history significant for nonischemic cardiomyopathy with a known EF around 20%, status post AICD, as well as hypertension and dyslipidemia and history of smoking who presented to the hospital complaining of chest discomfort. The patient never seen a fusing machine feeder in 40 years. He use to follow-up with the [facility] in [place]. His AICD was interrogated at [facility]. He stated that he was in his usual state of health until about yesterday when he was at home sitting reading a book and started experiencing discomfort in the chest. He described the discomfort as pressure in the mid of the chest without any radiation to the arms or neck or shoulders and without any associated symptoms of shortness of breath or sweating or dizziness or lightheadedness or any feeling of heart racing or fluttering or syncope. The EKG showed sinus rhythm with diffuse ST changes and also borderline corrected QT at 501 ms. The cardiac enzymes came in to be unremarkable. No recent workup. The last echocardiogram from 2014 and that revealed an EF of 20%. The chest x-ray did not show any acute abnormalities. Review of Systems At the time of my exam: CONSTITUTIONAL: Denies fever. Denies chills. EYES: Denies blurred vision. Denies vision changes. Denies eye pain. EARS, NOSE, MOUTH & THROAT: Denies headache. Denies sore throat. Denies ear pain. CARDIOVASCULAR: Denies chest pain. Denies shortness of breath. Denies orthopnea. Denies PND. Denies palpitations. RESPIRATORY: Denies cough. GASTROINTESTINAL: Denies abdominal pain. Denies diarrhea. Denies constipation. Denies nausea. Denies vomiting. MUSCULOSKELETAL: Denies myalgias. INTEGUMENTARY: Denies pruitis. Denies rash. NEUROLOGIC: Denies numbness. Denies tingling. Denies weakness. PSYCHIATRIC: Denies anxiety. Denies depression. ENDOCRINE: Denies fatigue. Denies weight change. Denies polydipsia. Denies polyurina. GENITOURINARY: Denies burning, hematuria or urgency with micturation. HEMATOLOGIC: Denies history of anemia. Denies bleeding. 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 Other HX: Palpitations, IDDM, bilateral glaucoma History of Any Multi-Drug Resistant Organisms: None Reported Past Surgical History: Heart Catheterization, Pacemaker Additional Past Surgical History / Comment(s): 10/2012 pacer/defibrillator. Past Anesthesia/Blood Transfusion Reactions: No Reported Reaction Additional Past Anesthesia/Blood Transfusion Reaction / Comment(s): Pt has recieved blood in the past without reaction. Type of Cardiac Device: Permanent Pacemaker, AICD Device Placement Date:: 10/2012 Smoking Status: Former smoker - Past Family History Father Family Medical History: Diabetes Mellitus Additional Family Medical History / Comment(s): Father has cardiomyopathy. Mother Family Medical History: Hypertension Brother(s) Additional Family Medical History / Comment(s): Cardiomyopathy with heart transplant. Medications and Allergies Home Medications Medication Instructions Recorded Confirmed Type INSULIN ASPART (NovoLOG) [NovoLOG 12 unit SQ AC-TID 04/28/16 10/04/20 History (formulary)] Furosemide [Lasix] 40 mg PO BID #60 tablet 06/09/16 10/04/20 Rx Albuterol Sulfate [Proair Hfa] 1 puff INHALATION RT-Q4H PRN 08/09/20 10/04/20 History Aspirin 81 mg PO DAILY 08/09/20 10/04/20 History Ciclesonide [Alvesco] 1 puff INHALATION RT-BID 08/09/20 10/04/20 History Metoprolol Tartrate [Lopressor] 25 mg PO BID 08/09/20 10/04/20 History Potassium Chloride ER [K-Dur 20] 20 meq PO DAILY 08/09/20 10/04/20 History Simvastatin [Zocor] 10 mg PO DAILY 08/09/20 10/04/20 History allopurinoL [Zyloprim] 100 mg PO BID 08/09/20 10/04/20 History Insulin Glargine [Lantus] 42 unit SQ DAILY #0 10/05/20 10/04/20 Rx Allergies Allergy/AdvReac Type Severity Reaction Status Date / Time No Known Allergies Allergy Verified 10/04/20 19:20 Physical Exam Vitals: Vital Signs Temp Pulse Pulse Resp BP BP Pulse Ox 10/05/20 09:46 98 F 93 16 111/88 96 10/05/20 06:05 97.6 F 89 16 123/97 94 L 10/04/20 23:00 89 18 117/96 93 L 10/04/20 22:30 92 18 116/95 92 L 10/04/20 22:00 89 16 117/89 93 L 10/04/20 21:30 92 17 108/92 95 10/04/20 21:00 89 18 115/88 95 10/04/20 20:30 88 16 118/88 90 L 10/04/20 20:00 89 18 111/92 95 10/04/20 19:30 87 18 116/90 94 L 10/04/20 19:00 88 17 108/91 95 10/04/20 18:00 90 16 117/86 94 L 10/04/20 17:30 92 16 117/84 95 10/04/20 17:03 90 18 10/04/20 16:42 98.0 F 96 18 117/86 96 Intake and Output 10/04/20 10/05/20 10/05/20 22:59 06:59 14:59 Other: Weight 70.76 kg 70.76 kg - Constitutional General appearance: no acute distress - Respiratory Respiratory: bilateral: rales - Cardiovascular Rhythm: regular Heart sounds: normal: S1, S2 Abnormal Heart Sounds: systolic murmur Results 10/05/20 09:36 10/05/20 09:36 Cardiac Enzymes 10/04/20 10/04/20 10/04/20 Range/Units 17:09 17:09 22:32 AST 25 (17-59) U/L Troponin I <0.012 0.013 (0.000-0.034) ng/mL 10/05/20 Range/Units 01:54 AST (17-59) U/L Troponin I 0.014 (0.000-0.034) ng/mL Coagulation 10/04/20 Range/Units 17:09 PT 10.8 (9.0-12.0) sec APTT 22.2 (22.0-30.0) sec CBC 10/04/20 10/05/20 Range/Units 17:09 09:36 WBC 7.6 7.7 (3.8-10.6) k/uL RBC 4.99 4.79 (4.30-5.90) m/uL Hgb 14.2 13.8 (13.0-17.5) gm/dL Hct 44.3 42.8 (39.0-53.0) % Plt Count 165 153 (150-450) k/uL Comprehensive Metabolic Panel 10/04/20 10/05/20 Range/Units 17:09 09:36 Sodium 137 134 L (137-145) mmol/L Potassium 4.4 4.4 (3.5-5.1) mmol/L Chloride 102 99 (98-107) mmol/L Carbon Dioxide 28 27 (22-30) mmol/L BUN 27 H 30 H (9-20) mg/dL Creatinine 1.54 H 1.58 H (0.66-1.25) mg/dL Glucose 301 H 333 H (74-99) mg/dL Calcium 9.1 9.1 (8.4-10.2) mg/dL AST 25 (17-59) U/L ALT 25 (4-49) U/L Alkaline Phosphatase 117 (38-126) U/L Total Protein 6.6 (6.3-8.2) g/dL Albumin 3.9 (3.5-5.0) g/dL Current Medications Generic Name Dose Route Start Last Admin Trade Name Freq PRN Reason Stop Dose Admin Albuterol Sulfate 1 puff 10/04/20 21:27 Albuterol Hfa Inhaler INHALATION RT-Q4H PRN Shortness Of Breath Allopurinol 100 mg 10/05/20 09:00 10/05/20 08:31 Allopurinol 100 Mg Tab PO 100 mg BID YASMANI Administration Aspirin 81 mg 10/05/20 09:00 10/05/20 08:31 Aspirin 81 Mg PO 81 mg DAILY YASMANI Administration Atorvastatin Calcium 10 mg 10/05/20 09:00 10/05/20 08:31 Atorvastatin 10 Mg Tab PO 10 mg DAILY YASMANI Administration Furosemide 40 mg 10/05/20 09:00 10/05/20 08:31 Furosemide 40 Mg Tab PO 40 mg BID YASMANI Administration Heparin Sodium (Porcine) 0 unit 10/05/20 13:52 Heparin Sodium,Porcine 5,000 Unit/Ml 1 Ml Vial IV PER PROTOCOL PRN Low PTT Protocol Heparin Sodium/Sodium Chloride 250 mls @ 8.491 mls/hr 10/05/20 14:00 25,000 unit/ Sodium Chloride IV .Q24H YASMANI Protocol 12 UNITS/KG/HR Insulin Aspart 12 unit 10/05/20 07:30 10/05/20 12:42 Insulin Aspart (Novolog) 100 Unit/Ml Vial SQ 12 unit AC-TID YASMANI Administration Insulin Detemir 36 unit 10/05/20 09:00 10/05/20 12:37 Insulin Detemir (Levemir) 100 Unit/Ml Syr SQ 36 unit DAILY YASMANI Administration Metoprolol Tartrate 25 mg 10/05/20 09:00 10/05/20 08:31 Metoprolol Tartrate 25 Mg Tab PO 25 mg BID YASMANI Administration Naloxone HCl 0.2 mg 10/04/20 21:23 Naloxone 0.4 Mg/Ml 1 Ml Vial IV Q2M PRN Opioid Reversal Non-Formulary Medication 1 puff 10/05/20 08:00 10/05/20 11:47 Ciclesonide [Alvesco] INHALATION Not Given RT-BID YASMANI Potassium Chloride 20 meq 10/05/20 09:00 10/05/20 08:31 Potassium Chloride Er 20 Meq Tab.Er PO 20 meq DAILY YASMANI Administration Intake and Output 10/04/20 10/05/20 10/05/20 22:59 06:59 14:59 Other: Weight 70.76 kg 70.76 kg Patient Weight 10/06/20 06:59 Weight 70.76 kg 10/05/20 09:36 10/05/20 09:36 Assessment and Plan Assessment: Assessment #1 atypical chest discomfort #2 nonischemic cardiomyopathy #3 chronic systolic congestive heart failure #4 history of smoking #5 multiple comorbid conditions Plan #1 acute coronary event was ruled out #2 we'll obtain a stress test to rule out severe CAD #3 unfortunately the patient didn't eat his breakfast this morning #4 obtain an echocardiogram #5 follow-up with the patient
--- NOTE | 2020-10-05 14:00 | ECHOF ---
Referral Reason: MEASUREMENTS -------- HEIGHT: 172.7 cm WEIGHT: 70.8 kg BP: 123/97 RVIDd: 3.3 cm (< 3.3) IVSd: 1.1 cm (0.6 - 1.1) LVIDd: 5.3 cm (3.9 - 5.3) LVPWd: 0.9 cm (0.6 - 1.1) IVSs: 1.3 cm LVIDs: 5.1 cm LVPWs: 1.2 cm LA Diam: 4.0 cm (2.7 - 3.8) LAESV Index (A-L): 24.35 ml/m Ao Diam: 2.9 cm (2.0 - 3.7) AV Cusp: 2.0 cm (1.5 - 2.6) MV EXCURSION: 17.245 mm (> 18.000) MV EF SLOPE: 148 mm/s (70 - 150) EPSS: 1.5 cm MV E Rene: 0.85 m/s MV DecT: 115 ms MV A Rene: 0.39 m/s MV E/A Ratio: 2.15 RAP: 15.00 mmHg RVSP: 38.76 mmHg FINDINGS -------- Paced rhythm. Mass attached to pacemaker wire seen in RA This was a technically good study. The left ventricular size is normal. There is borderline concentric left ventricular hypertrophy. Overall left ventricular systolic function is severely impaired with, an EF < 20%. The right ventricle is mildly enlarged. Normal LA size by volume 22+/-6 ml/m2. The right atrium is normal in size. Interatrial and interventricular septum intact. The aortic valve is trileaflet and appears structurally normal. Mild mitral regurgitation is present. Mild tricuspid regurgitation present. There is mild pulmonary hypertension. The right ventricular systolic pressure, as measured by Doppler, is 38.76mmHg. Trace/mild (physiologic) pulmonic regurgitation. There is an echodensity attached to the pacer wire in the RA, likely a thrombus but a vegetation can not be tottaly escluded. The aortic root size is normal. The inferior vena cava is dilated with no significant inspiratory collapse which is consistent estima wes right atrial pressure of >15 mmHg. There is no pericardial effusion. CONCLUSIONS -------- 1. Paced rhythm. 2. The left ventricular size is normal. 3. There is borderline concentric left ventricular hypertrophy. 4. Overall left ventricular systolic function is severely impaired with, an EF < 20%. 5. The right ventricle is mildly enlarged. 6. Mild mitral regurgitation is present. 7. Mild tricuspid regurgitation present. 8. There is mild pulmonary hypertension. 9. The right ventricular systolic pressure, as measured by Doppler, is 38.76mmHg. 10. Trace/mild (physiologic) pulmonic regurgitation. 11. There is an echodensity attached to the pacer wire in the RA, likely a thrombus but a vegetation can not be tottaly escluded. 12. The inferior vena cava is dilated with no significant inspiratory collapse which is consistent es timated right atrial pressure of >15 mmHg. 13. There is no pericardial effusion. HEALTH CARE ADMINISTRATOR: Marian Jo RDCS
[2020-10-05 15:25] LABS: Partial Thromboplastin Time 22.5 sec (22.0-30.0)
[2020-10-05] MEDS: HEPARIN SOD,PORK IN 0.45% NACL 25,000 UNIT in 0.45% NACL 1 250ML.BAG IV SCH (15:30)
[2020-10-05 16:49] LABS: Glucose,Whole Blood 194 mg/dL (75-99)
[2020-10-05] MEDS ORDERED: ACETAMINOPHEN TAB 325 MG TAB PO PRN (17:42)
[2020-10-05 22:26] LABS: Glucose,Whole Blood 114 mg/dL (75-99)
[2020-10-06] MEDS: METOPROLOL TARTRATE 25 MG TAB PO SCH ×2 (00:20→09:36)
[2020-10-06] MEDS: FUROSEMIDE 40 MG TAB PO SCH ×3 (00:20→17:14)
[2020-10-06] MEDS: allopurinoL 100 MG TAB PO SCH ×3 (00:20→21:47)
[2020-10-06] MEDS: HEPARIN SODIUM,PORCINE 5,000 UNIT/ML 1 ML VIAL IV PRN ×2 (00:21→23:32)
[2020-10-06] MEDS: NON FORMULARY DRUG (Ciclesonide [Alvesco] 6.1 GM Hfa.Aer.Ad) INHALATION SCH ×3 (00:28→21:47)
[2020-10-06 06:00] LABS: Glucose,Whole Blood 94 mg/dL (75-99)
[2020-10-06 08:21] LABS: Basophils % (A) 0 %; Eosinophils # (A) 0.2 k/uL (0-0.7); Eosinophils % (A) 2 %; HCT 41.9 % (39.0-53.0); HGB 13.6 gm/dL (13.0-17.5); Hypochromasia Slight; Lymphocytes # (A) 2.3 k/uL (1.0-4.8); Lymphocytes % (A) 29 %; MCH 28.5 pg (25.0-35.0); MCHC 32.5 g/dL (31.0-37.0); MCV 87.7 fL (80.0-100.0); Mean Platelet Volume 9.3; Monocytes # (A) 0.5 k/uL (0-1.0); Monocytes % (A) 6 %; Neutrophils # (A) 4.8 k/uL (1.3-7.7); Neutrophils % (A) 61 %; Platelet Count 146 k/uL (150-450); RBC 4.77 m/uL (4.30-5.90); RDW 14.6 % (11.5-15.5)
[2020-10-06] MEDS: INSULIN ASPART (NovoLOG) 100 UNIT/ML VIAL SQ SCH ×3 (09:36→17:12)
[2020-10-06] MEDS: ATORVASTATIN 10 MG TAB PO SCH (09:36)
[2020-10-06] MEDS: ASPIRIN 81 MG PO SCH (09:36)
[2020-10-06 11:54] LABS: Glucose,Whole Blood 296 mg/dL (75-99)
[2020-10-06] MEDS: INSULIN DETEMIR (LEVEMIR) 100 UNIT/ML SYR SQ SCH (11:55)
[2020-10-06] MEDS: POTASSIUM CHLORIDE ER 20 MEQ TAB.ER PO SCH (11:55)
--- NOTE | 2020-10-06 12:12 | P.PN ---
Subjective 55-year-old gentleman with a past medical history significant for hypertension and dyslipidemia and history of smoking was referred to come to the emergency department. The patient presented mainly with a chest discomfort. It started about a week ago. He described the discomfort in the mid of the chest as a pressure on the chest without any radiation to the arms or neck or shoulders or sweating or dizziness or lightheadedness or any feeling of heart racing or fluttering or syncope. The chest discomfort does not seems to be exertion related. He rated the chest discomfort at 3/10 in intensity. No history of coronary artery disease or congestive heart failure or cardiac arrhythmia and the patient never seen by a residential concierge before. The EKG showed sinus rhythm without any significant ST or T-wave abnormalities. The cardiac enzymes came in to be unremarkable. The chest x-ray did not show any acute abnormalities. The patient was seen by his primary care physician about a week ago and he was scheduled to undergo a stress test but unfortunately because of the chest discomfort was getting worse he decided to come, waiting for the stress test. Echocardiogram and stress was stopped were obtain the results of which are pending. Patient had a CT angios the chest which did not show any PE. Patient doesn't have any pneumonia. She does have history of congestive failure ischemic cardiomyopathy very low EF and patient may be in mild heart failure because of which I'll give an extra dose of Lasix. Patient had creatinine of a round 1.5 which is his baseline because of the creatinine patient cannot take metformin I'll increase the dose of for long-acting insulins and discontinue metformin. Patient has fluctuating blood sugars at home with because of which asked him to closely monitor the blood sugars send the rest of the titration of his insulin need to be done as an outpatient by primary care physician. 10/06/2020 Patient had negative stress test with the echocardiogram was suspicious for a clot at the end of one of the leads because of which there was a concern about infection because of which cardiology is recommending blood cultures and await further blood cultures still Thursday. Patient will remain inpatient. Patient creatinine remained stable is still complaining of some shortness of breath which asked to the patient is baseline. Constitutional: Denied any fatigue denied any fever. Cardio vascular: denied any chest pain, palpitations Gastrointestinal denied any nausea vomiting Pulmonary: Denied any shortness of breath cough Neurologic denied any new focal deficits All inpatient medications were reviewed and appropriate changes in these medications as dictated in the interval history and assessment and plan. Objective - Vital Signs Vital signs: Vital Signs Temp 98.1 F 10/06/20 09:00 Pulse 90 10/06/20 09:00 Resp 16 10/06/20 09:00 BP 112/77 10/06/20 09:00 Pulse Ox 97 10/06/20 09:00 Intake & Output 10/05/20 10/06/20 10/06/20 18:59 06:59 18:59 Intake Total 500 73.164 Balance 500 73.164 Weight 70.76 kg Intake: Intake, IV Titration 73.164 Amount Heparin Sod,Pork in 0.45% 73.164 NaCl 25,000 unit In 0.45 % NaCl 1 250ml.bag @ 12 UNITS/KG/HR 8.491 mls/hr IV .Q24H [facility] Rx#: [id number] Oral 500 Other: # Voids 4 2 1 - Exam PHYSICAL EXAMINATION: GENERAL: The patient is alert and oriented x3, not in any acute distress. Well developed, well nourished. HEENT: Pupils are round and equally reacting to light. EOMI. No scleral icterus. No conjunctival pallor. Normocephalic, atraumatic. No pharyngeal erythema. No thyromegaly. CARDIOVASCULAR: S1 and S2 present. No murmurs, rubs, or gallops. No JVD PULMONARY: Chest is clear to auscultation, no wheezing or crackles. ABDOMEN: Soft, nontender, nondistended, normoactive bowel sounds. No palpable organomegaly. MUSCULOSKELETAL: No joint swelling or deformity. EXTREMITIES: No cyanosis, clubbing, or pedal edema. NEUROLOGICAL: Gross neurological examination did not reveal any focal deficits. SKIN: No rashes. - Labs CBC & Chem 7: 10/06/20 07:58 10/05/20 09:36 Labs: Abnormal Lab Results - Last 24 Hours (Table) 10/05/20 10/05/20 10/05/20 Range/Units 16:46 21:31 22:24 Plt Count (150-450) k/uL APTT 31.7 H (22.0-30.0) sec POC Glucose (mg/dL) 194 H 114 H (75-99) mg/dL 10/06/20 10/06/20 10/06/20 Range/Units 07:58 07:58 11:48 Plt Count 146 L (150-450) k/uL APTT 80.0 H (22.0-30.0) sec POC Glucose (mg/dL) 296 H (75-99) mg/dL Assessment and Plan Plan: -Chest pain: We will rule out acute coronary syndromes, patient had a stress test that's negative patient will be discharged today. We ruled out the pulmonary embolism. Stress test was negative -Thrombosis at one of the pacemaker leads: Blood cultures were obtained and patient is on IV heparin which will be continued. Awaiting blood culture results finalization till Thursday. 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
--- NOTE | 2020-10-06 13:54 | P.PN ---
Subjective This is a pleasant 55-year-old male past medical history significant for nonischemic cardiomyopathy s/p AICD, hypertension, dyslipidemia, chronic kidney disease and history of tobacco use. He doesn't follow regularly with a clinical staff anesthesiologist. Echocardiogram obtained revealed impaired LV systolic function with EF less than 20% and echogenic density on the RA pacer wire either thrombus or vegetation. He has been initiated on IV heparin and blood cultures have been drawn. He is seen and examined laying comfortably in bed in no acute distress. He states he continues to feel tired and weak. Blood pressure 112//77 heart rate 90 afebrile and maintaining oxygen saturation on room air. GENERAL: Well-appearing, well-nourished and in no acute distress. NECK: Supple without JVD or thyromegaly. LUNGS: Breath sounds clear to auscultation bilaterally. Respiration equal and unlabored. No wheezes, rales or rhonchi. HEART: Regular rate and rhythm with systolic ejection murmur at the base, no rubs or gallops. S1 and S2 heard. EXTREMITIES: Normal range of motion, no edema. No clubbing or cyanosis. Peripheral pulses intact. ASSESSMENT Chest pain, normal stress echocardiogram Echogenic density on the right atrial pacemaker lead Nonischemic cardiomyopathy Chronic systolic heart failure Hypertension Dyslipidemia Chronic kidney disease PLAN Continue IV heparin pending blood culture results. If blood culture shows any growth we will consider STEVE otherwise for a termination clerk anticoagulation. Initiate losartan 25 mg daily. Change beta star to Toprol 25 mg daily. Further recommendations to follow based upon clinical course. Nurse Practitioner note has been reviewed, I agree with a documented findings and plan of care. Patient was seen and examined. Objective - Vital Signs Vital signs: Vital Signs Temp 98.1 F 10/06/20 09:00 Pulse 90 10/06/20 09:00 Resp 16 10/06/20 09:00 BP 112/77 10/06/20 09:00 Pulse Ox 97 10/06/20 09:00 Intake & Output 10/05/20 10/06/20 10/06/20 18:59 06:59 18:59 Intake Total 500 73.164 Balance 500 73.164 Weight 70.76 kg Intake: Intake, IV Titration 73.164 Amount Heparin Sod,Pork in 0.45% 73.164 NaCl 25,000 unit In 0.45 % NaCl 1 250ml.bag @ 12 UNITS/KG/HR 8.491 mls/hr IV .Q24H [facility] Rx#: [id number] Oral 500 Other: # Voids 4 2 1 - Labs CBC & Chem 7: 10/06/20 07:58 10/05/20 09:36 Labs: Abnormal Lab Results - Last 24 Hours (Table) 10/05/20 10/05/20 10/05/20 Range/Units 16:46 21:31 22:24 Plt Count (150-450) k/uL APTT 31.7 H (22.0-30.0) sec POC Glucose (mg/dL) 194 H 114 H (75-99) mg/dL 10/06/20 10/06/20 10/06/20 Range/Units 07:58 07:58 11:48 Plt Count 146 L (150-450) k/uL APTT 80.0 H (22.0-30.0) sec POC Glucose (mg/dL) 296 H (75-99) mg/dL
[2020-10-06] MEDS: HEPARIN SOD,PORK IN 0.45% NACL 25,000 UNIT in 0.45% NACL 1 250ML.BAG IV SCH ×2 (15:25→15:37)
[2020-10-06] MEDS: LOSARTAN 25 MG TAB PO SCH (16:00)
[2020-10-06 17:17] LABS: Glucose,Whole Blood 165 mg/dL (75-99)
[2020-10-06 21:39] LABS: Glucose,Whole Blood 71 mg/dL (75-99)
[2020-10-07 04:49] LABS: Glucose,Whole Blood 85 mg/dL (75-99)
[2020-10-07 05:38] LABS: Basophils # (A) 0.1 k/uL (0-0.2); Basophils % (A) 1 %; Eosinophils # (A) 0.1 k/uL (0-0.7); Eosinophils % (A) 1 %; HCT 43.7 % (39.0-53.0); HGB 13.9 gm/dL (13.0-17.5); Hypochromasia Slight; Lymphocytes % (A) 21 %; MCH 28.1 pg (25.0-35.0); MCHC 31.7 g/dL (31.0-37.0); MCV 88.6 fL (80.0-100.0); Mean Platelet Volume 8.9; Monocytes # (A) 0.7 k/uL (0-1.0); Monocytes % (A) 7 %; Neutrophils # (A) 6.4 k/uL (1.3-7.7); Neutrophils % (A) 68 %; Platelet Count 146 k/uL (150-450); RBC 4.93 m/uL (4.30-5.90); RDW 14.7 % (11.5-15.5); WBC 9.4 k/uL (3.8-10.6)
[2020-10-07] MEDS: ASPIRIN 81 MG PO SCH (08:45)
[2020-10-07] MEDS: ATORVASTATIN 10 MG TAB PO SCH (08:45)
[2020-10-07] MEDS: INSULIN DETEMIR (LEVEMIR) 100 UNIT/ML SYR SQ SCH (08:45)
[2020-10-07] MEDS: allopurinoL 100 MG TAB PO SCH (08:45)
[2020-10-07] MEDS: INSULIN ASPART (NovoLOG) 100 UNIT/ML VIAL SQ SCH ×3 (08:45→17:09)
[2020-10-07] MEDS: FUROSEMIDE 40 MG TAB PO SCH ×2 (08:46→17:09)
[2020-10-07] MEDS: LOSARTAN 25 MG TAB PO SCH (08:46)
[2020-10-07] MEDS: NON FORMULARY DRUG (Ciclesonide [Alvesco] 6.1 GM Hfa.Aer.Ad) INHALATION SCH (08:48)
[2020-10-07] MEDS ORDERED: METOPROLOL SUCCINATE (ER) 25 MG TAB.ER.24H PO SCH (09:00)
[2020-10-07 12:11] LABS: Glucose,Whole Blood 204 mg/dL (75-99)
--- NOTE | 2020-10-07 14:02 | P.PN ---
Subjective 55-year-old gentleman with a past medical history significant for hypertension and dyslipidemia and history of smoking was referred to come to the emergency department. The patient presented mainly with a chest discomfort. It started about a week ago. He described the discomfort in the mid of the chest as a pressure on the chest without any radiation to the arms or neck or shoulders or sweating or dizziness or lightheadedness or any feeling of heart racing or fluttering or syncope. The chest discomfort does not seems to be exertion related. He rated the chest discomfort at 3/10 in intensity. No history of coronary artery disease or congestive heart failure or cardiac arrhythmia and the patient never seen by a photographic press screwmaker before. The EKG showed sinus rhythm without any significant ST or T-wave abnormalities. The cardiac enzymes came in to be unremarkable. The chest x-ray did not show any acute abnormalities. The patient was seen by his primary care physician about a week ago and he was scheduled to undergo a stress test but unfortunately because of the chest discomfort was getting worse he decided to come, waiting for the stress test. Echocardiogram and stress was stopped were obtain the results of which are pending. Patient had a CT angios the chest which did not show any PE. Patient doesn't have any pneumonia. She does have history of congestive failure ischemic cardiomyopathy very low EF and patient may be in mild heart failure because of which I'll give an extra dose of Lasix. Patient had creatinine of a round 1.5 which is his baseline because of the creatinine patient cannot take metformin I'll increase the dose of for long-acting insulins and discontinue metformin. Patient has fluctuating blood sugars at home with because of which asked him to closely monitor the blood sugars send the rest of the titration of his insulin need to be done as an outpatient by primary care physician. 10/06/2020 Patient had negative stress test with the echocardiogram was suspicious for a clot at the end of one of the leads because of which there was a concern about infection because of which cardiology is recommending blood cultures and await further blood cultures still Thursday. Patient will remain inpatient. Patient creatinine remained stable is still complaining of some shortness of breath which asked to the patient is baseline. 10/07/2020 So far blood cultures are negative. Blood sugars are fairly well controlled. Constitutional: Denied any fatigue denied any fever. Cardio vascular: denied any chest pain, palpitations Gastrointestinal denied any nausea vomiting Pulmonary: Denied any shortness of breath cough Neurologic denied any new focal deficits All inpatient medications were reviewed and appropriate changes in these medications as dictated in the interval history and assessment and plan. Objective - Vital Signs Vital signs: Vital Signs Temp 98.6 F 10/07/20 09:00 Pulse 101 H 10/07/20 09:00 Resp 16 10/07/20 09:00 BP 104/72 10/07/20 09:00 Pulse Ox 96 10/07/20 09:00 Intake & Output 10/06/20 10/07/20 10/07/20 18:59 06:59 18:59 Intake Total 164.383 69.343 400 Balance 164.383 69.343 400 Intake: Intake, IV Titration 164.383 69.343 Amount Heparin Sod,Pork in 0.45% 164.383 69.343 NaCl 25,000 unit In 0.45 % NaCl 1 250ml.bag @ 12 UNITS/KG/HR 8.491 mls/hr IV .Q24H [facility] Rx#: [id number] Oral 400 Other: # Voids 1 0 1 - Exam PHYSICAL EXAMINATION: GENERAL: The patient is alert and oriented x3, not in any acute distress. Well developed, well nourished. HEENT: Pupils are round and equally reacting to light. EOMI. No scleral icterus. No conjunctival pallor. Normocephalic, atraumatic. No pharyngeal erythema. No thyromegaly. CARDIOVASCULAR: S1 and S2 present. No murmurs, rubs, or gallops. No JVD PULMONARY: Chest is clear to auscultation, no wheezing or crackles. ABDOMEN: Soft, nontender, nondistended, normoactive bowel sounds. No palpable organomegaly. MUSCULOSKELETAL: No joint swelling or deformity. EXTREMITIES: No cyanosis, clubbing, or pedal edema. NEUROLOGICAL: Gross neurological examination did not reveal any focal deficits. SKIN: No rashes. - Labs CBC & Chem 7: 10/07/20 05:21 10/05/20 09:36 Labs: Abnormal Lab Results - Last 24 Hours (Table) 10/06/20 10/06/20 10/06/20 Range/Units 17:11 21:34 22:10 Plt Count (150-450) k/uL APTT 32.9 H (22.0-30.0) sec POC Glucose (mg/dL) 165 H 71 L (75-99) mg/dL 10/07/20 10/07/20 10/07/20 Range/Units 05:21 05:21 12:08 Plt Count 146 L (150-450) k/uL APTT 64.9 H (22.0-30.0) sec POC Glucose (mg/dL) 204 H (75-99) mg/dL Microbiology - Last 24 Hours (Table) 10/05/20 14:55 Blood Culture - Preliminary Blood No Growth after 24 hours Assessment and Plan Plan: -Chest pain: We will rule out acute coronary syndromes, patient had a stress test that's negative patient will be discharged today. We ruled out the pulmonary embolism. Stress test was negative -Thrombosis at one of the pacemaker leads: Blood cultures were obtained and patient is on IV heparin which will be continued. Awaiting blood culture results finalization till Thursday. 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
[2020-10-07 16:05] VITALS: TEMP 98.1
[2020-10-07] MEDS ORDERED: APIXABAN 5 MG TAB PO SCH (16:45)
--- NOTE | 2020-10-07 16:45 | P.PN ---
Subjective History of present illness: This is a pleasant 55-year-old gentleman with a past medical history significant for nonischemic cardiomyopathy with a known EF around 20%, status post AICD, as well as hypertension and dyslipidemia and history of smoking who presented to the hospital complaining of chest discomfort. The patient never seen a cardiol ogist in 40 years. He use to follow-up with the [facility] in [place]. His AICD was interrogated at [facility]. He stated that he was in his usual state of health until about yesterday when he was at home sitting reading a book and started experiencing discomfort in the chest. He described the discomfort as pressure in the mid of the chest without any radiation to the arms or neck or shoulders and without any associated symptoms of shortness of breath or sweating or dizziness or lightheadedness or any feeling of heart racing or fluttering or syncope. The EKG showed sinus rhythm with diffuse ST changes and also borderline corrected QT at 501 ms. The cardiac enzymes came in to be unremarkable. No recent workup. The last echocardiogram from 2014 and that revealed an EF of 20%. The chest x-ray did not show any acute abnormalities. 10/07/20 Patient seen and examined. Patient denies any chest pain or shortness breath. He has not been able to walk around much however denies any orthopnea and is on room air. Anxious to go home. REVIEW OF SYSTEMS At the time of my exam: CONSTITUTIONAL: Denies fever or chills. CARDIOVASCULAR: Denies chest pain, +shortness of breath, no orthopnea, PND or palpitations. RESPIRATORY: Denies cough. GASTROINTESTINAL: Denies abdominal pain, diarrhea, constipation, nausea or vomiting. PHYSICAL EXAMINATION Blood pressure 114/82 heart rate 87 afebrile and maintaining oxygen saturation on room air. CONSTITUTIONAL: No apparent distress. HEENT: Head is normocephalic. Pupils are equal, round. Sclerae anicteric. Mucous membranes of the mouth are moist. No JVD. No carotid bruit. CHEST EXAMINATION: Lungs are clear to auscultation. No chest wall tenderness is noted on palpation or with deep breathing. HEART EXAMINATION: Regular rate and rhythm. S1, S2 heard. No murmurs, gallops or rub. ABDOMEN: Soft, nontender. Positive bowel sounds. EXTREMITIES: 2+ peripheral pulses, no lower extremity edema and no calf tenderness. NEUROLOGIC EXAMINATION: Patient is awake, alert and oriented x3. ASSESSMENT Chest pain, no inducible ischemia on stress echocardiogram Echogenic density on the right atrial pacemaker lead Nonischemic cardiomyopathy Chronic systolic heart failure Hypertension Dyslipidemia Chronic kidney disease PLAN Patient's blood cultures without any significant growth today. Patient having any fevers or chills and echodensity likely does not represent endocarditis. Patient appears stable for discharge with follow up on blood cultures for final growth. We would recommend anticoagulation, likely for a short period of time for possible thrombus on the right atrial lead. Continue to optimize heart failure regimen as able. Objective - Vital Signs Vital signs: Vital Signs Temp 98.1 F 10/07/20 15:00 Pulse 87 10/07/20 15:00 Resp 16 10/07/20 15:00 BP 114/82 10/07/20 15:00 Pulse Ox 99 10/07/20 15:00 Intake & Output 10/06/20 10/07/20 10/07/20 18:59 06:59 18:59 Intake Total 164.383 69.343 400 Balance 164.383 69.343 400 Intake: Intake, IV Titration 164.383 69.343 Amount Heparin Sod,Pork in 0.45% 164.383 69.343 NaCl 25,000 unit In 0.45 % NaCl 1 250ml.bag @ 12 UNITS/KG/HR 8.491 mls/hr IV .Q24H [facility] Rx#: [id number] Oral 400 Other: # Voids 1 0 3 - Labs CBC & Chem 7: 10/07/20 05:21 10/05/20 09:36 Labs: Abnormal Lab Results - Last 24 Hours (Table) 10/06/20 10/06/20 10/06/20 Range/Units 17:11 21:34 22:10 Plt Count (150-450) k/uL APTT 32.9 H (22.0-30.0) sec POC Glucose (mg/dL) 165 H 71 L (75-99) mg/dL 10/07/20 10/07/20 10/07/20 Range/Units 05:21 05:21 12:08 Plt Count 146 L (150-450) k/uL APTT 64.9 H (22.0-30.0) sec POC Glucose (mg/dL) 204 H (75-99) mg/dL Microbiology - Last 24 Hours (Table) 10/05/20 14:55 Blood Culture - Preliminary Blood No Growth after 24 hours
[2020-10-07 17:07] VITALS: BP 104/73; PULSE 98
[2020-10-07] MEDS: POTASSIUM CHLORIDE ER 20 MEQ TAB.ER PO SCH (17:08)
[2020-10-07 17:14] LABS: Glucose,Whole Blood 189 mg/dL (75-99)
--- NOTE | 2020-10-08 15:19 | P.DS ---
Providers Date of admission: 10/06/20 14:08 Expected date of discharge: 10/07/20 Attending physician: Tello Berrios Consults: 10/04/20 21:25 Consult Physician Urgent Consulting Provider: [facility] Reason/Comments: acute chest pain, hx cardiomyopathy Do you want consulting provider notified?: Yes Primary care physician: [facility] Course: 55-year-old gentleman with a past medical history significant for hypertension and dyslipidemia and history of smoking was referred to come to the emergency department. The patient presented mainly with a chest discomfort. It started about a week ago. He described the discomfort in the mid of the chest as a pressure on the chest without any radiation to the arms or neck or shoulders or sweating or dizziness or lightheadedness or any feeling of heart racing or fluttering or syncope. The chest discomfort does not seems to be exertion related. He rated the chest discomfort at 3/10 in intensity. No history of coronary artery disease or congestive heart failure or cardiac arrhythmia and the patient never seen by a stack matcher before. The EKG showed sinus rhythm without any significant ST or T-wave abnormalities. The cardiac enzymes came in to be unremarkable. The chest x-ray did not show any acute abnormalities. The patient was seen by his primary care physician about a week ago and he was scheduled to undergo a stress test but unfortunately because of the chest discomfort was getting worse he decided to come, waiting for the stress test. Echocardiogram and stress was stopped were obtain the results of which are pending. Patient had a CT angios the chest which did not show any PE. Patient doesn't have any pneumonia. She does have history of congestive failure ischemic cardiomyopathy very low EF and patient may be in mild heart failure because of which I'll give an extra dose of Lasix. Patient had creatinine of around 1.5 which is his baseline because of the creatinine patient cannot take metformin I'll increase the dose of for long-acting insulins and discontinue metformin. Patient has fluctuating blood sugars at home with because of which asked him to closely monitor the blood sugars send the rest of the titration of his insulin need to be done as an outpatient by primary care physician. 10/06/2020 Patient had negative stress test with the echocardiogram was suspicious for a clot at the end of one of the leads because of which there was a concern about infection because of which cardiology is recommending blood cultures and await further blood cultures still Thursday. Patient will remain inpatient. Patient creatinine remained stable is still complaining of some shortness of breath which asked to the patient is baseline. 10/07/2020 So far blood cultures are negative. Blood sugars are fairly well controlled. Patient was later evaluated by cardiology cleared for discharge and patient was discharged on 5 mg twice a day of Eliquis. As far as he is close patient was given a dose of Eliquis and if patient's insurance doesn't approve for Eliquis patient will be provided with the free coupon for a month which will be done on Thursday was case management is available on Thursday. Assessment and Plan Plan: -Chest pain: We will rule out acute coronary syndromes, patient had a stress test that's negative patient will be discharged today. We ruled out the pulmonary embolism. 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 -Type 2 diabetes mellitus blood sugars are better controlled today continue the same regimen -Rule out pulmonary embolism -Depression Patient Condition at Discharge: Stable Plan - Discharge Summary New Discharge Prescriptions: New Apixaban [Eliquis] 5 mg PO BID #60 tab Continue INSULIN ASPART (NovoLOG) [NovoLOG (formulary)] 12 unit SQ AC-TID Furosemide [Lasix] 40 mg PO BID #60 tablet allopurinoL [Zyloprim] 100 mg PO BID Aspirin 81 mg PO DAILY Albuterol Sulfate [Proair Hfa] 1 puff INHALATION RT-Q4H PRN PRN Reason: Shortness Of Breath Simvastatin [Zocor] 10 mg PO DAILY Potassium Chloride ER [K-Dur 20] 20 meq PO DAILY Metoprolol Tartrate [Lopressor] 25 mg PO BID Ciclesonide [Alvesco] 1 puff INHALATION RT-BID Changed Insulin Glargine [Lantus] 42 unit SQ DAILY #0 Discontinued metFORMIN HCL [Glucophage] 1,000 mg PO BID Discharge Medication List INSULIN ASPART (NovoLOG) [NovoLOG (formulary)] 12 unit SQ AC-TID 04/28/16 [History] Furosemide [Lasix] 40 mg PO BID #60 tablet 06/09/16 [Rx] Albuterol Sulfate [Proair Hfa] 1 puff INHALATION RT-Q4H PRN 08/09/20 [History] Aspirin 81 mg PO DAILY 08/09/20 [History] Ciclesonide [Alvesco] 1 puff INHALATION RT-BID 08/09/20 [History] Metoprolol Tartrate [Lopressor] 25 mg PO BID 08/09/20 [History] Potassium Chloride ER [K-Dur 20] 20 meq PO DAILY 08/09/20 [History] Simvastatin [Zocor] 10 mg PO DAILY 08/09/20 [History] allopurinoL [Zyloprim] 100 mg PO BID 08/09/20 [History] Insulin Glargine [Lantus] 42 unit SQ DAILY #0 10/05/20 [Rx] Apixaban [Eliquis] 5 mg PO BID #60 tab 10/07/20 [Rx] Follow up Appointment(s)/Referral(s): Serge Boyce DO [STAFF PHYSICIAN] - 1 Week Patrick Malcolm DO [Primary Care Provider] - 3 Days Patient Instructions/Handouts: Chest Pain (DC) Discharge Disposition: HOME SELF-CARE
== END 2020-10-07 17:44 | disposition home or self-care (01) | DRG 291 ==
LOC: EC 16:32 → 1SOBS 21:24 → OBSVTOIN 10-06 14:08
PROVIDERS: ADMIT Internal Medicine; ATTEND Internal Medicine
DX: I13.0 Hypertensive heart and chronic kidney disease with heart failure and stage 1 through stage 4 chronic kidney disease, or unspecified chronic kidney disease (principal); I50.23 Acute on chronic systolic (congestive) heart failure; T82.867A Thrombosis due to cardiac prosthetic devices, implants and grafts, initial encounter; E11.22 Type 2 diabetes mellitus with diabetic chronic kidney disease; E11.65 Type 2 diabetes mellitus with hyperglycemia; E78.5 Hyperlipidemia, unspecified; F32.9 Major depressive disorder, single episode, unspecified; I25.10 Atherosclerotic heart disease of native coronary artery without angina pectoris; I25.5 Ischemic cardiomyopathy; I42.8 Other cardiomyopathies; J44.9 Chronic obstructive pulmonary disease, unspecified; N18.30 Chronic kidney disease, stage 3 unspecified; Z45.02 Encounter for adjustment and management of automatic implantable cardiac defibrillator; Z79.01 Long term (current) use of anticoagulants; Z79.4 Long term (current) use of insulin; Z79.82 Long term (current) use of aspirin; Z79.899 Other long term (current) drug therapy; Z82.49 Family history of ischemic heart disease and other diseases of the circulatory system; Z83.3 Family history of diabetes mellitus; Z87.891 Personal history of nicotine dependence; H40.9 Unspecified glaucoma
CPT/HCPCS: 36415; 71046; 71275; 80048; 80053; 83735; 83880; 84484; 85025; 85379; 85610; 85730; 87040; 90686; 93005; 93306; 93351; 99285

== ENCOUNTER 2020-11-28 16:59 | Inpatient (IN) | payer OTHER, MEDICARE ==
[2020-11-28] MEDS ORDERED: SODIUM CHLORIDE 0.9% 1,000 ML IV STA (17:45)
[2020-11-28 18:54] LABS: Basophils # (A) 0.1 k/uL (0-0.2); Basophils % (A) 1 %; Eosinophils # (A) 0.1 k/uL (0-0.7); Eosinophils % (A) 1 %; HCT 49.5 % (39.0-53.0); Lymphocytes # (A) 1.9 k/uL (1.0-4.8); Lymphocytes % (A) 21 %; MCH 27.9 pg (25.0-35.0); MCHC 34.1 g/dL (31.0-37.0); Mean Platelet Volume 9.1; Monocytes # (A) 0.6 k/uL (0-1.0); Monocytes % (A) 7 %; Neutrophils # (A) 6.4 k/uL (1.3-7.7); Neutrophils % (A) 69 %; Platelet Count 222 k/uL (150-450); RBC 6.04 m/uL (4.30-5.90); RDW 15.7 % (11.5-15.5); WBC 9.3 k/uL (3.8-10.6)
[2020-11-28 18:58] LABS: HGB 16.9 gm/dL (13.0-17.5)
[2020-11-28 18:59] LABS: INR 1.1 (<1.2); Prothrombin Time 11.5 sec (9.0-12.0)
[2020-11-28 19:03] LABS: Albumin 4.8 g/dL (3.5-5.0); Calcium 9.7 mg/dL (8.4-10.2); Potassium 4.5 mmol/L (3.5-5.1); Total Bilirubin 1.9 mg/dL (0.2-1.3); Total Protein 7.8 g/dL (6.3-8.2)
--- NOTE | 2020-11-28 19:05 | XR ---
EXAMINATION TYPE: XR chest 1V portable DATE OF EXAM: 11/28/2020 COMPARISON: NONE HISTORY: TECHNIQUE: Single frontal view of the chest is obtained. FINDINGS: There is no focal air space opacity, pleural effusion, or pneumothorax seen. The cardiac silhouette size is within normal limits. The osseous structures are intact. Cardiac pacing device w ith intact wires are noted. IMPRESSION: No acute process.
--- NOTE | 2020-11-28 19:27 | ED ---
Dizziness HPI - General Chief Complaint: Dizziness Stated Complaint: low BP Time Seen by Provider: 11/28/20 17:45 Source: patient Mode of arrival: ambulatory Limitations: no limitations - History of Present Illness Initial Comments: Patient presents with generalized weakness. He states his blood pressure is low. He has palpitations. He has no nausea or vomiting. He has no chest pain or pressure. He has no tightness in the chest. He has no swelling in the legs. He denies any sick contacts. He denies recent travel. He wasn't doing anything when this began. His symptoms have gotten worse all day. He has taken no medicine for this. - Related Data Home Medications Medication Instructions Recorded Confirmed INSULIN ASPART (NovoLOG) [NovoLOG 12 unit SQ AC-TID 04/28/16 10/04/20 (formulary)] Albuterol Sulfate [Proair Hfa] 1 puff INHALATION RT-Q4H PRN 08/09/20 10/04/20 Aspirin 81 mg PO DAILY 08/09/20 10/04/20 Ciclesonide [Alvesco] 1 puff INHALATION RT-BID 08/09/20 10/04/20 Metoprolol Tartrate [Lopressor] 25 mg PO BID 08/09/20 10/04/20 Potassium Chloride ER [K-Dur 20] 20 meq PO DAILY 08/09/20 10/04/20 Simvastatin [Zocor] 10 mg PO DAILY 08/09/20 10/04/20 allopurinoL [Zyloprim] 100 mg PO BID 08/09/20 10/04/20 Previous Rx's Medication Instructions Recorded Furosemide [Lasix] 40 mg PO BID #60 tablet 06/09/16 Insulin Glargine [Lantus] 42 unit SQ DAILY #0 10/05/20 Apixaban [Eliquis] 5 mg PO BID #60 tab 10/07/20 Allergies Allergy/AdvReac Type Severity Reaction Status Date / Time No Known Allergies Allergy Verified 11/28/20 17:14 Review of Systems ROS Statement: Those systems with pertinent positive or pertinent negative responses have been documented in the HPI. ROS Other: All systems not noted in ROS Statement are negative. 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 Other HX: Palpitations, IDDM, bilateral glaucoma History of Any Multi-Drug Resistant Organisms: None Reported Past Surgical History: Heart Catheterization, Pacemaker Additional Past Surgical History / Comment(s): 10/2012 pacer/defibrillator. Past Anesthesia/Blood Transfusion Reactions: No Reported Reaction Additional Past Anesthesia/Blood Transfusion Reaction / Comment(s): Pt has recieved blood in the past without reaction. Type of Cardiac Device: Permanent Pacemaker, AICD Device Placement Date:: 10/2012 Past Psychological History: Anxiety, Depression Smoking Status: Former smoker Past Alcohol Use History: None Reported Past Drug Use History: None Reported - Past Family History Father Family Medical History: Diabetes Mellitus Additional Family Medical History / Comment(s): Father has cardiomyopathy. Mother Family Medical History: Hypertension Brother(s) Additional Family Medical History / Comment(s): Cardiomyopathy with heart transplant. General Exam Limitations: no limitations General appearance: alert, in no apparent distress Head exam: Present: atraumatic, normocephalic, normal inspection Eye exam: Present: normal appearance, PERRL, EOMI. Absent: scleral icterus, c onjunctival injection, periorbital swelling ENT exam: Present: normal exam, mucous membranes moist Neck exam: Present: normal inspection. Absent: tenderness, meningismus, lymphadenopathy Respiratory exam: Present: normal lung sounds bilaterally. Absent: respiratory distress, wheezes, rales, rhonchi, stridor Cardiovascular Exam: Present: normal rhythm, tachycardia, normal heart sounds. Absent: systolic murmur, diastolic murmur, rubs, gallop, clicks GI/Abdominal exam: Present: soft, normal bowel sounds. Absent: distended, tenderness, guarding, rebound, rigid Extremities exam: Present: normal inspection, full ROM, normal capillary refill. Absent: tenderness, pedal edema, joint swelling, calf tenderness Back exam: Present: normal inspection Neurological exam: Present: alert, oriented X3, CN II-XII intact Psychiatric exam: Present: normal affect, normal mood Skin exam: Present: warm, dry, intact, normal color. Absent: rash Course Vital Signs 11/28/20 11/28/20 17:10 19:16 Temperature 97.8 F Pulse Rate 129 H 121 H Respiratory 18 18 Rate Blood Pressure 101/69 100/61 O2 Sat by Pulse 94 L 99 Oximetry EKG Findings - EKG Comments: EKG Findings:: Twelve-lead EKG shows ventricular rate 120 bpm, normal VA interval and QRS complexes, no ST elevation or depression, interpreted by me as sinus tachycardia. Medical Decision Making - Medical Decision Making Laboratory workup reveals acute kidney injury. He hasn't elevated troponin. I will consult cardiology. Patient is given IV fluids. His heart rate has improved a little bit. He will be admitted to the hospital. - Lab Data Result diagrams: 11/28/20 18:24 11/28/20 18:24 Lab Results 11/28/20 11/28/20 11/28/20 Range/Units 18:24 18:24 18:24 WBC 9.3 (3.8-10.6) k/uL RBC 6.04 H (4.30-5.90) m/uL Hgb 16.9 D (13.0-17.5) gm/dL Hct 49.5 (39.0-53.0) % MCV 82.0 D (80.0-100.0) fL MCH 27.9 (25.0-35.0) pg MCHC 34.1 (31.0-37.0) g/dL RDW 15.7 H (11.5-15.5) % Plt Count 222 (150-450) k/uL MPV 9.1 Neutrophils % 69 % Lymphocytes % 21 % Monocytes % 7 % Eosinophils % 1 % Basophils % 1 % Neutrophils # 6.4 (1.3-7.7) k/uL Lymphocytes # 1.9 (1.0-4.8) k/uL Monocytes # 0.6 (0-1.0) k/uL Eosinophils # 0.1 (0-0.7) k/uL Basophils # 0.1 (0-0.2) k/uL PT 11.5 (9.0-12.0) sec INR 1.1 (<1.2) Sodium 131 L (137-145) mmol/L Potassium 4.5 (3.5-5.1) mmol/L Chloride 86 L (98-107) mmol/L Carbon Dioxide 28 (22-30) mmol/L Anion Gap 17 mmol/L BUN 80 H (9-20) mg/dL Creatinine 2.56 H (0.66-1.25) mg/dL Est GFR (CKD-EPI)AfAm 31 (>60 ml/min/1.73 sqM) Est GFR (CKD-EPI)NonAf 27 (>60 ml/min/1.73 sqM) Glucose 317 H (74-99) mg/dL Calcium 9.7 (8.4-10.2) mg/dL Total Bilirubin 1.9 H (0.2-1.3) mg/dL AST 34 (17-59) U/L ALT 21 (4-49) U/L Alkaline Phosphatase 114 (38-126) U/L Troponin I (0.000-0.034) ng/mL Total Protein 7.8 (6.3-8.2) g/dL Albumin 4.8 (3.5-5.0) g/dL Coronavirus (PCR) (Not Detectd) 11/28/20 11/28/20 Range/Units 18:24 18:50 WBC (3.8-10.6) k/uL RBC (4.30-5.90) m/uL Hgb (13.0-17.5) gm/dL Hct (39.0-53.0) % MCV (80.0-100.0) fL MCH (25.0-35.0) pg MCHC (31.0-37.0) g/dL RDW (11.5-15.5) % Plt Count (150-450) k/uL MPV Neutrophils % % Lymphocytes % % Monocytes % % Eosinophils % % Basophils % % Neutrophils # (1.3-7.7) k/uL Lymphocytes # (1.0-4.8) k/uL Monocytes # (0-1.0) k/uL Eosinophils # (0-0.7) k/uL Basophils # (0-0.2) k/uL PT (9.0-12.0) sec INR (<1.2) Sodium (137-145) mmol/L Potassium (3.5-5.1) mmol/L Chloride (98-107) mmol/L Carbon Dioxide (22-30) mmol/L Anion Gap mmol/L BUN (9-20) mg/dL Creatinine (0.66-1.25) mg/dL Est GFR (CKD-EPI)AfAm (>60 ml/min/1.73 sqM) Est GFR (CKD-EPI)NonAf (>60 ml/min/1.73 sqM) Glucose (74-99) mg/dL Calcium (8.4-10.2) mg/dL Total Bilirubin (0.2-1.3) mg/dL AST (17-59) U/L ALT (4-49) U/L Alkaline Phosphatase (38-126) U/L Troponin I 0.061 H* (0.000-0.034) ng/mL Total Protein (6.3-8.2) g/dL Albumin (3.5-5.0) g/dL Coronavirus (PCR) Not Detected (Not Detectd) Disposition Clinical Impression: JANE (acute kidney injury), NSTEMI (non-ST elevated myocardial infarction) Disposition: ADMITTED IP TO THIS HOSP Condition: Serious Referrals: [facility],Clinic [Primary Care Provider] - 1-2 days
[2020-11-28] MEDS ORDERED: ONDANSETRON 4 MG/2 ML VIAL IVP PRN (19:28)
[2020-11-28] MEDS ORDERED: NALOXONE 0.4 MG/ML 1 ML VIAL IV PRN (19:28)
[2020-11-28] MEDS ORDERED: ALBUTEROL NEBULIZED 2.5 MG/3 ML INHALATION PRN (19:30)
[2020-11-28 20:40] LABS: Glucose,Whole Blood 314 mg/dL (75-99)
[2020-11-28] MEDS ORDERED: INSULIN DETEMIR (LEVEMIR) 100 UNIT/ML SYR SQ ONE (22:30)
[2020-11-28] MEDS: APIXABAN 5 MG TAB PO SCH (23:12)
[2020-11-29 04:13] LABS: Appearance,Urine Clear (Clear); Bilirubin,Urine Negative (Negative); Blood,Urine Negative (Negative); Color,Urine Light Yellow; Glucose,Urine (UA) 3+ (Negative); Ketones,Urine Negative (Negative); Leukocyte Esterase,Urine Negative (Negative); Nitrite,Urine Negative (Negative); PH, Urine 6.5 (5.0-8.0); Protein,Urine Negative (Negative); Specific Gravity,Urine 1.009 (1.001-1.035); Urobilinogen,Urine <2.0 mg/dL (<2.0)
[2020-11-29 06:30] LABS: Calcium 9.3 mg/dL (8.4-10.2); Magnesium 2.3 mg/dL (1.6-2.3); Potassium 4.7 mmol/L (3.5-5.1)
[2020-11-29 07:13] LABS: Glucose,Whole Blood 240 mg/dL (75-99)
[2020-11-29] MEDS: INSULIN DETEMIR (LEVEMIR) 100 UNIT/ML SYR SQ SCH ×2 (07:19→20:30)
[2020-11-29] MEDS: INSULIN ASPART (NovoLOG) 100 UNIT/ML VIAL SQ SCH ×3 (07:19→17:15)
[2020-11-29] MEDS ORDERED: INSULIN ASPART (NovoLOG) 100 UNIT/ML VIAL SQ SCH ×2 (07:30)
[2020-11-29] MEDS ORDERED: INSULIN DETEMIR (LEVEMIR) 100 UNIT/ML SYR SQ SCH ×2 (09:00)
[2020-11-29] MEDS ORDERED: METOPROLOL TARTRATE 12.5 MG TAB PO SCH (09:00)
[2020-11-29] MEDS: ASPIRIN 81 MG PO SCH (09:03)
[2020-11-29] MEDS: ATORVASTATIN 10 MG TAB PO SCH (09:03)
[2020-11-29] MEDS: APIXABAN 5 MG TAB PO SCH ×2 (09:03→20:30)
[2020-11-29] MEDS: METOPROLOL TARTRATE 25 MG TAB PO SCH ×2 (09:04→20:30)
--- NOTE | 2020-11-29 11:18 | P.CRDCN ---
History of Present Illness Consult date: 11/29/20 History of present illness: HISTORY OF PRESENT ILLNESS: This is a 55-year-old male with a past medical history significant for nonischemic cardiomyopathy, AICD implantation, diabetes mellitus, and COPD. Patient follows in the office with Dr. Fallon at the [facility] in [place]. We have been asked to see the patient in consultation for abnormal troponins. Patient examined at the bedside. Patient states yesterday he felt dizzy throughout the day and felt off balance. He states anytime he stood up he felt as if he could fall over. Patient states he received a blood pressure cuff yesterday and checked his blood pressure and it was 86/66. Patient states recently he was started on Entresto about 4-6 weeks ago. 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 Patient states this morning he does not have any dizziness or lightheadedness. He denies chest pain or pressure. Denies shortness of breath. EKG reveals sinus tachycardia with heart rate of 120. Chest xray negative for acute process Laboratory data: WBC 9.3. Hemoglobin 16.9. Platelet count 222. Sodium 133. Potassium 4.7. BUN 72. Creatinine 2.0. Magnesium 2.3. Troponin 0.061. 0.062. 0.055. Current home cardiac medications include simvastatin 10 mg daily, metoprolol tartrate 25 mg twice a day, Lasix 40 mg twice a day, Entresto twice a day (dose unknown), aspirin 81 mg daily, and Eliquis 5 mg twice a day Most recent echocardiogram obtained in September 2020 revealed ejection fraction less than 20%. Possible thrombus on pacer wire in RA. Cannot exclude vegetation. Anticoagulation was recommended. Patient underwent stress echo in September 2020 which was negative for ischemia REVIEW OF SYSTEMS: At the time of my exam: CONSTITUTIONAL: Denies fever or chills. HEENT: Denies blurred vision, vision changes, or eye pain. Denies hemoptysis CARDIOVASCULAR: Denies chest pain. Denies orthopnea. Denies PND. Denies palpitations RESPIRATORY: Denies shortness of breath. GASTROINTESTINAL: Denies abdominal pain. Denies nausea or vomiting. HEMATOLOGIC: Denies bleeding disorders. GENITOURINARY: Denies any blood in urine. SKIN: Denies pruitis. Denies rash. PHYSICAL EXAM: VITAL SIGNS: Reviewed. GENERAL: Well-developed in no acute distress. HEENT: Head is normocephalic. Pupils are equal, round. Sclerae anicteric. Mucous membranes of the mouth are moist. Neck supple. No JVD or thyromegaly LUNGS: Respirations even and unlabored. Lungs essentially clear to auscultation bilaterally. HEART: Tachycardic. Regular rate and rhythm. S1 and S2 heard. ABDOMEN: Soft. Nondistended. Nontender. EXTREMITIES: Normal range of motion. No clubbing or cyanosis. Peripheral pulses intact. No lower extremity edema NEUROLOGIC: Awake and alert. Oriented x 3. ASSESSMENT: Dizziness Hypotension Nonischemic cardiomyopathy with previous AICD implantation, ejection fraction less than 20% Nonsustained ventricular tachycardia Chronic kidney disease Possible thrombus on pacer wire in RA, per echocardiogram obtained in September 2020, on anticoagulation with Eliquis Diabetes mellitus COPD Abnormal troponins, not suggestive of myocardial injury PLAN: No need to repeat echocardiogram as this was obtained in September 2020 Resume metoprolol 25 mg twice a day Continue telemetry monitoring Continue to hold Entresto Monitor blood pressure Obtain orthostatic blood pressures Further recommendations pending patient course Nurse practitioner note has been reviewed by physician. Signing provider agrees with the documented findings, assessment, and plan of care. 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 Other HX: Palpitations, IDDM, bilateral glaucoma History of Any Multi-Drug Resistant Organisms: None Reported Past Surgical History: Heart Catheterization, Pacemaker Additional Past Surgical History / Comment(s): 10/2012 pacer/defibrillator. Past Anesthesia/Blood Transfusion Reactions: No Reported Reaction Additional Past Anesthesia/Blood Transfusion Reaction / Comment(s): Pt has recieved blood in the past without reaction. Type of Cardiac Device: Permanent Pacemaker, AICD Device Placement Date:: 10/2012 Past Psychological History: Anxiety, Depression Additional Psychological History / Comment(s): Pt states he recently started mood stabilizing medications. He lives at home alone He is independent. He uses no assistive devices or home care. He has a glucose monitor for home. He states he drinks alot of coffee. He drives. Smoking Status: Former smoker Past Alcohol Use History: None Reported Additional Past Alcohol Use History / Comment(s): Pt states he started smoking at age 10 yrs and on nonstressful days smokes about 5-6 cigarettes a day and on stressful days he may smoke a pack. Past Drug Use History: None Reported - Past Family History Father Family Medical History: Diabetes Mellitus Additional Family Medical History / Comment(s): Father has cardiomyopathy. Mother Family Medical History: Hypertension Brother(s) Additional Family Medical History / Comment(s): Cardiomyopathy with heart transplant. Medications and Allergies Home Medications Medication Instructions Recorded Confirmed Type INSULIN ASPART (NovoLOG) [NovoLOG 20 unit SQ AC-TID 04/28/16 11/28/20 History (formulary)] Furosemide [Lasix] 40 mg PO BID #60 tablet 06/09/16 11/28/20 Rx Albuterol Sulfate [Proair Hfa] 1 puff INHALATION RT-Q4H PRN 08/09/20 11/28/20 History Aspirin 81 mg PO DAILY 08/09/20 11/28/20 History Ciclesonide [Alvesco] 1 puff INHALATION RT-BID 08/09/20 11/28/20 History Metoprolol Tartrate [Lopressor] 25 mg PO BID 08/09/20 11/28/20 History Potassium Chloride ER [K-Dur 20] 20 meq PO DAILY 08/09/20 11/28/20 History Simvastatin [Zocor] 10 mg PO DAILY 08/09/20 11/28/20 History allopurinoL [Zyloprim] 100 mg PO BID 08/09/20 11/28/20 History Apixaban [Eliquis] 5 mg PO BID #60 tab 10/07/20 11/28/20 Rx Entresto(Unknown Dose) 1 tab PO BID 11/28/20 11/28/20 History Insulin Glargine,Hum.rec.anlog 30 unit SQ BID 11/28/20 11/28/20 History [Lantus Solostar] Allergies Allergy/AdvReac Type Severity Reaction Status Date / Time No Known Allergies Allergy Verified 11/28/20 21:00 Physical Exam Vitals: Vital Signs Temp Pulse Pulse Resp BP BP Pulse Ox 11/29/20 08:00 97.8 F 124 H 18 115/84 96 11/29/20 04:00 97.9 F 109 H 17 106/79 96 11/29/20 02:00 120 H 17 11/28/20 23:00 97.5 F L 129 H 18 108/60 96 11/28/20 22:37 118 H 18 109/87 97 11/28/20 21:59 98.9 F 114 H 18 102/78 11/28/20 21:00 114 H 18 105/78 97 11/28/20 20:00 112 H 18 116/82 98 11/28/20 19:34 98.9 F 113 H 18 109/81 98 11/28/20 19:16 121 H 18 100/61 99 11/28/20 17:10 97.8 F 129 H 18 101/69 94 L Intake and Output 11/28/20 11/29/20 11/29/20 22:59 06:59 14:59 Intake Total 250 Output Total 350 Balance -350 250 Intake: Oral 250 Output: Urine 350 Other: Voiding Method Toilet Weight 69.218 kg 70.3 kg Results 11/28/20 18:24 11/29/20 05:50 Cardiac Enzymes 11/28/20 11/28/20 11/28/20 Range/Units 18:24 18:24 20:38 AST 34 (17-59) U/L Troponin I 0.061 H* 0.062 H* (0.000-0.034) ng/mL 11/29/20 Range/Units 00:35 AST (17-59) U/L Troponin I 0.055 H* (0.000-0.034) ng/mL Coagulation 11/28/20 Range/Units 18:24 PT 11.5 (9.0-12.0) sec CBC 11/28/20 Range/Units 18:24 WBC 9.3 (3.8-10.6) k/uL RBC 6.04 H (4.30-5.90) m/uL Hgb 16.9 D (13.0-17.5) gm/dL Hct 49.5 (39.0-53.0) % Plt Count 222 (150-450) k/uL Comprehensive Metabolic Panel 11/28/20 11/29/20 Range/Units 18:24 05:50 Sodium 131 L 133 L (137-145) mmol/L Potassium 4.5 4.7 (3.5-5.1) mmol/L Chloride 86 L 91 L (98-107) mmol/L Carbon Dioxide 28 31 H (22-30) mmol/L BUN 80 H 72 H (9-20) mg/dL Creatinine 2.56 H 2.00 H (0.66-1.25) mg/dL Glucose 317 H 252 H (74-99) mg/dL Calcium 9.7 9.3 (8.4-10.2) mg/dL AST 34 (17-59) U/L ALT 21 (4-49) U/L Alkaline Phosphatase 114 (38-126) U/L Total Protein 7.8 (6.3-8.2) g/dL Albumin 4.8 (3.5-5.0) g/dL Current Medications Generic Name Dose Route Start Last Admin Trade Name Freq PRN Reason Stop Dose Admin Albuterol Sulfate 2.5 mg 11/28/20 19:30 Albuterol Nebulized 2.5 Mg/3 Ml INHALATION RT-Q4H PRN Shortness Of Breath Apixaban 5 mg 11/28/20 21:00 11/29/20 09:03 Apixaban 5 Mg Tab PO 5 mg BID YASMANI Administration Aspirin 81 mg 11/29/20 09:00 11/29/20 09:03 Aspirin 81 Mg PO 81 mg DAILY YASMANI Administration Atorvastatin Calcium 10 mg 11/29/20 09:00 11/29/20 09:03 Atorvastatin 10 Mg Tab PO 10 mg DAILY YASMANI Administration Insulin Aspart 20 unit 11/29/20 07:30 11/29/20 07:19 Insulin Aspart (Novolog) 100 Unit/Ml Vial SQ 20 unit AC-TID YASMANI Administration Insulin Detemir 30 unit 11/29/20 07:00 11/29/20 07:19 Insulin Detemir (Levemir) 100 Unit/Ml Syr SQ 30 unit BID@0700,2100 YASMANI Administration Metoprolol Tartrate 25 mg 11/29/20 09:00 11/29/20 09:04 Metoprolol Tartrate 25 Mg Tab PO 25 mg BID YASMANI Administration Naloxone HCl 0.2 mg 11/28/20 19:28 Naloxone 0.4 Mg/Ml 1 Ml Vial IV Q2M PRN Opioid Reversal Ondansetron HCl 4 mg 11/28/20 19:28 Ondansetron 4 Mg/2 Ml Vial IVP Q8HR PRN Nausea And Vomiting Intake and Output 11/28/20 11/29/20 11/29/20 22:59 06:59 14:59 Intake Total 250 Output Total 350 Balance -350 250 Intake: Oral 250 Output: Urine 350 Other: Voiding Method Toilet Weight 69.218 kg 70.3 kg 11/28/20 18:24 11/29/20 05:50
[2020-11-29 11:58] LABS: Glucose,Whole Blood 194 mg/dL (75-99)
--- NOTE | 2020-11-29 12:39 | P.HPIM ---
History of Present Illness Patient is a pleasant 55-year-old male came in with complaints of lightheadedness patient the blood pressure was found to be low at home at around 86/66. Patient had recent medication changes. Patient was started on an Entresto about 4-6 weeks ago and beta star was discontinued. Patient is found to be in sinus tachycardia patient was started back on metoprolol and Entresto was discontinued . Patient is found to have acute renal failure with a creatinine going up to around 2.5 from baseline of around 1.5-1.8. Patient pre sent creatinine is around 2. Patient is being given by nephrology and was a valid by cardiology as well. Patient denied any chest pain patient denied any dizziness now or lightheadedness now though symptoms resolved at this time. Patient doesn't have any evidence of sepsis. Patient does have history of congestive heart failure with the previous EF of around 20%. Patient had a stress test and September of this year which was negative for any useful ischemia. Review of Systems REVIEW OF SYSTEMS: CONSTITUTIONAL: No fever, no malaise, no fatigue. HEENT: No recent visual problems or hearing problems. Denied any sore throat. CARDIOVASCULAR: No chest pain, orthopnea, PND, no palpitations, no syncope. PULMONARY: No shortness of breath, no cough, no hemoptysis. GASTROINTESTINAL: No diarrhea, no nausea, no vomiting, no abdominal pain. NEUROLOGICAL: No headaches, no weakness, no numbness. HEMATOLOGICAL: Denies any bleeding or petechiae. GENITOURINARY: Denies any burning micturition, frequency, or urgency. MUSCULOSKELETAL/RHEUMATOLOGICAL: Denies any joint pain, swelling, or any muscle pain. ENDOCRINE: Denies any polyuria or polydipsia. The rest of the 14-point review of systems is negative. Past Medical History Past Medical History: Coronary Artery Disease (CAD), COPD, Diabetes Mellitus, Eye Disorder Additional Past Medical History / Comment(s): hx of hereditary cardiomyopathy a nd has a pacer/defibrillator. Other HX: Palpitations, IDDM, bilateral glaucoma History of Any Multi-Drug Resistant Organisms: None Reported Past Surgical History: Heart Catheterization, Pacemaker Additional Past Surgical History / Comment(s): 10/2012 pacer/defibrillator. Past Anesthesia/Blood Transfusion Reactions: No Reported Reaction Additional Past Anesthesia/Blood Transfusion Reaction / Comment(s): Pt has recieved blood in the past without reaction. Type of Cardiac Device: Permanent Pacemaker, AICD Device Placement Date:: 10/2012 Past Psychological History: Anxiety, Depression Additional Psychological History / Comment(s): Pt states he recently started mood stabilizing medications. He lives at home alone He is independent. He uses no assistive devices or home care. He has a glucose monitor for home. He states he drinks alot of coffee. He drives. Smoking Status: Former smoker Past Alcohol Use History: None Reported Additional Past Alcohol Use History / Comment(s): Pt states he started smoking at age 10 yrs and on nonstressful days smokes about 5-6 cigarettes a day and on stressful days he may smoke a pack. Past Drug Use History: None Reported - Past Family History Father Family Medical History: Diabetes Mellitus Additional Family Medical History / Comment(s): Father has cardiomyopathy. Mother Family Medical History: Hypertension Brother(s) Additional Family Medical History / Comment(s): Cardiomyopathy with heart transplant. Medications and Allergies Home Medications Medication Instructions Recorded Confirmed Type INSULIN ASPART (NovoLOG) [NovoLOG 20 unit SQ AC-TID 04/28/16 11/29/20 History (formulary)] Albuterol Sulfate [Proair Hfa] 1 puff INHALATION RT-Q4H PRN 08/09/20 11/29/20 History Aspirin 81 mg PO DAILY 08/09/20 11/29/20 History Ciclesonide [Alvesco] 1 puff INHALATION RT-BID 08/09/20 11/29/20 History Potassium Chloride ER [K-Dur 20] 20 meq PO DAILY 08/09/20 11/29/20 History Simvastatin [Zocor] 10 mg PO DAILY 08/09/20 11/29/20 History allopurinoL [Zyloprim] 100 mg PO BID 08/09/20 11/29/20 History Apixaban [Eliquis] 5 mg PO BID #60 tab 10/07/20 11/29/20 Rx Insulin Glargine,Hum.rec.anlog 30 unit SQ BID 11/28/20 11/29/20 History [Lantus Solostar] Budesonide/Formoterol Fumarate 2 puff INHALATION RT-BID 11/29/20 11/29/20 History [Symbicort 160-4.5 Mcg Inhaler] Bumetanide [Bumex] 1 mg PO BID 11/29/20 11/29/20 History Metoprolol Succinate (ER) [Toprol 50 mg PO DAILY 11/29/20 11/29/20 History Xl] Sacubitril/Valsartan [Entresto 24 1 tab PO BID 11/29/20 11/29/20 History mg-26 mg Tablet] metFORMIN HCL [Glucophage] 1,000 mg PO BID 11/29/20 11/29/20 History metOLazone [Zaroxolyn] 2.5 mg PO MOWEFR 11/29/20 11/29/20 History Allergies Allergy/AdvReac Type Severity Reaction Status Date / Time No Known Allergies Allergy Verified 11/28/20 21:00 Physical Exam Vitals: Vital Signs Temp Pulse Pulse Pulse Pulse Pulse Resp 11/29/20 11:03 101 H 96 99 16 11/29/20 08:00 97.8 F 124 H 18 11/29/20 04:00 97.9 F 109 H 17 11/29/20 02:00 120 H 17 11/28/20 23:00 97.5 F L 129 H 18 11/28/20 22:37 118 H 18 11/28/20 21:59 98.9 F 114 H 18 11/28/20 21:00 114 H 18 11/28/20 20:00 112 H 18 11/28/20 19:34 98.9 F 113 H 18 11/28/20 19:16 121 H 18 11/28/20 17:10 97.8 F 129 H 18 BP BP BP BP BP Pulse Ox 11/29/20 11:03 103/69 93/60 122/72 98 11/29/20 08:00 115/84 96 11/29/20 04:00 106/79 96 11/29/20 02:00 11/28/20 23:00 108/60 96 11/28/20 22:37 109/87 97 11/28/20 21:59 102/78 11/28/20 21:00 105/78 97 11/28/20 20:00 116/82 98 11/28/20 19:34 109/81 98 11/28/20 19:16 100/61 99 11/28/20 17:10 101/69 94 L Intake and Output 11/28/20 11/29/20 11/29/20 22:59 06:59 14:59 Intake Total 250 Output Total 350 Balance -350 250 Intake: Oral 250 Output: Urine 350 Other: Voiding Method Toilet Weight 69.218 kg 70.3 kg PHYSICAL EXAMINATION: GENERAL: The patient is alert and oriented x3, not in any acute distress. Well developed, well nourished. HEENT: Pupils are round and equally reacting to light. EOMI. No scleral icterus. No conjunctival pallor. Normocephalic, atraumatic. No pharyngeal erythema. No thyromegaly. CARDIOVASCULAR: S1 and S2 present. No murmurs, rubs, or gallops. PULMONARY: Chest is clear to auscultation, no wheezing or crackles. ABDOMEN: Soft, nontender, nondistended, normoactive bowel sounds. No palpable organomegaly. MUSCULOSKELETAL: No joint swelling or deformity. EXTREMITIES: No cyanosis, clubbing, or pedal edema. NEUROLOGICAL: Gross neurological examination did not reveal any focal deficits. SKIN: No rashes. Results CBC & Chem 7: 11/28/20 18:24 11/29/20 05:50 Labs: Abnormal Lab Results - Last 24 Hours (Table) 11/28/20 11/28/20 11/28/20 Range/Units 18:24 18:24 18:24 RBC 6.04 H (4.30-5.90) m/uL RDW 15.7 H (11.5-15.5) % Sodium 131 L (137-145) mmol/L Chloride 86 L (98-107) mmol/L Carbon Dioxide (22-30) mmol/L BUN 80 H (9-20) mg/dL Creatinine 2.56 H (0.66-1.25) mg/dL Glucose 317 H (74-99) mg/dL POC Glucose (mg/dL) (75-99) mg/dL Total Bilirubin 1.9 H (0.2-1.3) mg/dL Troponin I 0.061 H* (0.000-0.034) ng/mL Urine Glucose (UA) (Negative) 11/28/20 11/28/20 11/29/20 Range/Units 20:37 20:38 00:35 RBC (4.30-5.90) m/uL RDW (11.5-15.5) % Sodium (137-145) mmol/L Chloride (98-107) mmol/L Carbon Dioxide (22-30) mmol/L BUN (9-20) mg/dL Creatinine (0.66-1.25) mg/dL Glucose (74-99) mg/dL POC Glucose (mg/dL) 314 H (75-99) mg/dL Total Bilirubin (0.2-1.3) mg/dL Troponin I 0.062 H* 0.055 H* (0.000-0.034) ng/mL Urine Glucose (UA) (Negative) 11/29/20 11/29/20 11/29/20 Range/Units 04:10 05:50 07:11 RBC (4.30-5.90) m/uL RDW (11.5-15.5) % Sodium 133 L (137-145) mmol/L Chloride 91 L (98-107) mmol/L Carbon Dioxide 31 H (22-30) mmol/L BUN 72 H (9-20) mg/dL Creatinine 2.00 H (0.66-1.25) mg/dL Glucose 252 H (74-99) mg/dL POC Glucose (mg/dL) 240 H (75-99) mg/dL Total Bilirubin (0.2-1.3) mg/dL Troponin I (0.000-0.034) ng/mL Urine Glucose (UA) 3+ H (Negative) 11/29/20 Range/Units 11:56 RBC (4.30-5.90) m/uL RDW (11.5-15.5) % Sodium (137-145) mmol/L Chloride (98-107) mmol/L Carbon Dioxide (22-30) mmol/L BUN (9-20) mg/dL Creatinine (0.66-1.25) mg/dL Glucose (74-99) mg/dL POC Glucose (mg/dL) 194 H (75-99) mg/dL Total Bilirubin (0.2-1.3) mg/dL Troponin I (0.000-0.034) ng/mL Urine Glucose (UA) (Negative) Thrombosis Risk Factor Assmnt - Choose All That Apply Each Factor Represents 1 point: Abnormal pulmonary function (COPD), Heart failure (<1month) Each Risk Factor Represents 3 Points: History of DVT/PE Other congenital or acquired thrombophilia - If yes, enter type in comment: No Thrombosis Risk Factor Assessment Total Risk Factor Score: 5 Thrombosis Risk Factor Assessment Level: High Risk Assessment and Plan Plan: -Dizziness: Secondary to hypotension which is again related to Entresto which was discontinued. -Tachycardia secondary to hypovolemia. Patient was started back on metoprolol patient's diuretics are being held at this time. -Acute renal failure secondary to prerenal azotemia from excessive diuresis and Entresto H is being held the -Chronic kidney disease stage III from a diabetic nephropathy -Type 2 diabetes mellitus -COPD without any acute exacerbation -Mildly elevated troponins were from chronic congestive heart failure. -Congestive failure chronic systolic dysfunction EF of around 20% without any acute exacerbation DVT prophylaxis: Patient is already on anticoagulation. Was recently hospitalized at and was found to have a thrombus at the end of one of the cardiac leads because of which patient is on anticoagulation. Patient will be discharged tomorrow after overnight monitoring today
--- NOTE | 2020-11-29 14:35 | CONS ---
CONSULTATION REASON FOR CONSULTATION: Renal failure. HISTORY OF PRESENT ILLNESS: Patient is a 55-year-old male who was admitted to the hospital with complaints of feeling weak and dizzy. His blood pressure was low in the 80s systolic prior to admission. The patient was recently started Entresto as outpatient. He denies any previous history of kidney diseases. However, he has been told that his kidney function has been borderline. He denies use of any nonsteroidal anti- inflammatory agents prior to admission. No significant urinary symptoms, although patient has had a history of a small calculi noted on ultrasound, but no history of renal colic. Serum creatinine was 2.5 mg/dL on admission. It is now down to 2.0. Previous creatinine is mostly around 1.4-1.5 mg/dL most of 2019 and earlier part of 2020. No proteinuria noted on UA. PAST MEDICAL HISTORY: Significant for coronary artery disease, COPD, type 2 diabetes, history of cardiomyopathy, pacemaker defibrillator placement, glaucoma, palpitations, type 1 diabetes. PAST SURGICAL HISTORY: Cardiac catheterization, pacemaker placement. SOCIAL HISTORY: Positive for anxiety, depression. Patient is a former smoker. No history of other drug abuse. MEDICATIONS: Medications prior to admission included insulin, aspirin, K-Dur, Zocor, Zyloprim, Eliquis, Bumex, Toprol, Entresto, Glucophage, Zaroxolyn. ALLERGIES: None. REVIEW OF SYSTEMS: As per HPI. Other systems negative. PHYSICAL EXAMINATION: Patient is comfortable, awake, not in any acute distress. Alert and oriented x3. Blood pressure was 103/69, heart rate 99 per minute. He is afebrile. EXAMINATION OF THE HEART: S1, S2. EXAMINATION OF THE LUNGS: Bilateral breath sounds are heard. Abdomen is soft, nontender. Examination of lower extremities shows no significant edema. LOT WORKER exam grossly intact. LABS: Labs show sodium 133, potassium 4.7, chloride 91, CO2 is 31, BUN 72, creatinine 2.0. UA is completely benign, but glucose noted. No blood or protein seen. Troponin 0.05. Coronavirus PCR is negative. ASSESSMENT: 1. Acute kidney injury associated with hypotension and hypoperfusion currently improved with improving blood pressures. 2. Chronic kidney disease stage 3 secondary to nephrosclerosis. Previous creatinine about 1.4-1.5 mg/dL all the way back to 2019. No evidence of proteinuria noted on UA. 3. Cardiomyopathy with history of pacemaker placement. EF 20% 4. Hypotension PLAN: Hold off on Entresto for now. Renal function continues to improve. May continue with the Lopressor. Repeat labs in a.m. Patient will need follow up as outpatient for CKD. I would avoid aggressive IV hydration due to severe cardiomyopathy with ejection fraction of 20%. Thank you for this consultation. We will continue to follow the patient with you during his hospitalization. KEERTHI / ANJELICA: [id number] / TRISTIN
[2020-11-29 17:05] LABS: Glucose,Whole Blood 109 mg/dL (75-99)
[2020-11-29 20:20] LABS: Glucose,Whole Blood 114 mg/dL (75-99)
[2020-11-30 07:02] LABS: Glucose,Whole Blood 154 mg/dL (75-99)
[2020-11-30] MEDS: INSULIN ASPART (NovoLOG) 100 UNIT/ML VIAL SQ SCH ×2 (07:06→12:43)
[2020-11-30] MEDS: INSULIN DETEMIR (LEVEMIR) 100 UNIT/ML SYR SQ SCH (07:06)
[2020-11-30 07:18] LABS: Calcium 9.4 mg/dL (8.4-10.2); Magnesium 2.5 mg/dL (1.6-2.3); Potassium 3.6 mmol/L (3.5-5.1)
--- NOTE | 2020-11-30 09:11 | P.DS ---
Providers Date of admission: 11/28/20 19:28 Attending physician: Tello Berrios Consults: 11/28/20 19:29 Consult Physician Routine Consulting Provider: Tc Bravo Consult Reason/Comments: [email or web address] Do you want consulting provider notified?: Yes Consult Physician Routine Consulting Provider: Perlita Caicedo Consult Reason/Comments: jackson Do you want consulting provider notified?: Yes Primary care physician: [facility] Course: 55-year-old male came in with complaints of lightheadedness patient the blood pressure was found to be low at home at around 86/66. Patient had recent medication changes. Patient was started on an Entresto about 4-6 weeks ago and beta star was discontinued. Patient is found to be in sinus tachycardia patient was started back on metoprolol and Entresto was discontinued . Patient is found to have acute renal failure with a creatinine going up to around 2.5 from baseline of around 1.5-1.8. Patient present creatinine is around 2. Patient is being given by nephrology and was a valid by cardiology as well. Patient denied any chest pain patient denied any dizziness now or lightheadedness now though symptoms resolved at this time. Patient doesn't have any evidence of sepsis. Patient does have history of congestive heart failure with the previous EF of around 20%. Patient had a stress test and September of this year which was negative for any myocardial ischemia. 11/30/2020 Patient heart rate is well controlled on metoprolol patient will be discharged on that medication. Patient will be resumed on rest of the diuretics upon discharge. After evaluation by cardiology patient will be discharged today patient will closely follow with PCP and cardiology as an outpatient. Patient will need a repeat basic metabolic profile and would not couple days. Patient's Entresto is is being discontinued because of her acute renal failure. Patient may need potassium supplementation as well. Patient the is on the list for heart transplant. PHYSICAL EXAMINATION: GENERAL: The patient is alert and oriented x3, not in any acute distress. Well developed, well nourished. HEENT: Pupils are round and equally reacting to light. EOMI. No scleral icterus. No conjunctival pallor. Normocephalic, atraumatic. No pharyngeal erythema. No thyromegaly. CARDIOVASCULAR: S1 and S2 present. No murmurs, rubs, or gallops. PULMONARY: Chest is clear to auscultation, no wheezing or crackles. ABDOMEN: Soft, nontender, nondistended, normoactive bowel sounds. No palpable organomegaly. MUSCULOSKELETAL: No joint swelling or deformity. EXTREMITIES: No cyanosis, clubbing, or pedal edema. NEUROLOGICAL: Gross neurological examination did not reveal any focal deficits. SKIN: No rashes. Assessment and Plan Plan: -Dizziness: Secondary to hypotension which is again related to Entresto which was discontinued. -Tachycardia secondary to hypovolemia. Patient was started back on metoprolol patient's diuretics are being held at this time. And be resumed starting tomorrow. Patient is back on metoprolol now -Acute renal failure secondary to prerenal azotemia from excessive diuresis and Entresto is being held the -Chronic kidney disease stage III from a diabetic nephropathy -Type 2 diabetes mellitus -COPD without any acute exacerbation -Mildly elevated troponins were from chronic congestive heart failure. -Congestive failure chronic systolic dysfunction EF of around 20% without any acute exacerbation Patient Condition at Discharge: Serious Plan - Discharge Summary New Discharge Prescriptions: New Metoprolol Tartrate [Lopressor] 25 mg PO BID #60 tab Continue INSULIN ASPART (NovoLOG) [NovoLOG (formulary)] 20 unit SQ AC-TID allopurinoL [Zyloprim] 100 mg PO BID Aspirin 81 mg PO DAILY Albuterol Sulfate [Proair Hfa] 1 puff INHALATION RT-Q4H PRN PRN Reason: Shortness Of Breath Simvastatin [Zocor] 10 mg PO DAILY Potassium Chloride ER [K-Dur 20] 20 meq PO DAILY Ciclesonide [Alvesco] 1 puff INHALATION RT-BID Apixaban [Eliquis] 5 mg PO BID #60 tab Insulin Glargine,Hum.rec.anlog [Lantus Solostar] 30 unit SQ BID metOLazone [Zaroxolyn] 2.5 mg PO MOWEFR Bumetanide [BUMEX] 1 mg PO BID Budesonide/Formoterol Fumarate [Symbicort 160-4.5 Mcg Inhaler] 2 puff INHALATION RT-BID Sodium Chloride 0.65% Nasal [Deep Sea (Saline)] 2 spray NASAL QID Brimonidine Tartrate [Alphagan P 0.2% Ophth Soln] 1 drops BOTH EYES BID Discontinued Sacubitril/Valsartan [Entresto 24 mg-26 mg Tablet] 1 tab PO BID Discharge Medication List INSULIN ASPART (NovoLOG) [NovoLOG (formulary)] 20 unit SQ AC-TID 04/28/16 [History] Albuterol Sulfate [Proair Hfa] 1 puff INHALATION RT-Q4H PRN 08/09/20 [History] Aspirin 81 mg PO DAILY 08/09/20 [History] Ciclesonide [Alvesco] 1 puff INHALATION RT-BID 08/09/20 [History] Potassium Chloride ER [K-Dur 20] 20 meq PO DAILY 08/09/20 [History] Simvastatin [Zocor] 10 mg PO DAILY 08/09/20 [History] allopurinoL [Zyloprim] 100 mg PO BID 08/09/20 [History] Apixaban [Eliquis] 5 mg PO BID #60 tab 10/07/20 [Rx] Insulin Glargine,Hum.rec.anlog [Lantus Solostar] 30 unit SQ BID 11/28/20 [History] Brimonidine Tartrate [Alphagan P 0.2% Oph Soln] 1 drops BOTH EYES BID 11/29/20 [History] Budesonide/Formoterol Fumarate [Symbicort 160-4.5 Mcg Inhaler] 2 puff INHALATION RT-BID 11/29/20 [History] Bumetanide [BUMEX] 1 mg PO BID 11/29/20 [History] Sodium Chloride 0.65% Nasal [Deep Sea (Saline)] 2 spray NASAL QID 11/29/20 [History] metOLazone [Zaroxolyn] 2.5 mg PO MOWEFR 11/29/20 [History] Metoprolol Tartrate [Lopressor] 25 mg PO BID #60 tab 11/30/20 [Rx] Follow up Appointment(s)/Referral(s): Chan Fallon MD [STAFF PHYSICIAN] - 1 Week [facility],Clinic [Primary Care Provider] - 3 Days Discharge Disposition: HOME WITH HOME HEALTH SERVICES
[2020-11-30] MEDS: METOPROLOL TARTRATE 25 MG TAB PO SCH (09:22)
[2020-11-30] MEDS: ASPIRIN 81 MG PO SCH (09:22)
[2020-11-30] MEDS: APIXABAN 5 MG TAB PO SCH (09:22)
[2020-11-30] MEDS: ATORVASTATIN 10 MG TAB PO SCH (09:22)
[2020-11-30 09:27] VITALS: BP 121/87; PULSE 103; RESP 18; TEMP 97.1
[2020-11-30 11:53] LABS: Glucose,Whole Blood 111 mg/dL (75-99)
--- NOTE | 2020-11-30 13:03 | P.PN ---
Subjective This is a pleasant 55-year-old male past medical history significant for nonischemic cardiomyopathy status post AICD, diabetes mellitus and COPD. He follows my office Dr. Fallon at the OR in [place]. He is seen and examined resting comfortably in bed in no acute distress. Blood pressure 121/87 heart rate 103 afebrile and maintaining oxygen saturation on room air. Laboratory data reviewed, sodium 136, potassium 3.6, creatinine 1.48 magnesium 2.5. Currently maintained on Lopressor 25 mg twice a day, atorvastatin 10 mg daily, aspirin 81 mg daily and Eliquis 5 mg twice a day. GENERAL: Well-appearing, well-nourished and in no acute distress. NECK: Supple without JVD or thyromegaly. LUNGS: Breath sounds clear to auscultation bilaterally. Respiration equal and unlabored. No wheezes, rales or rhonchi. HEART: Regular rate and rhythm without murmurs, rubs or gallops. S1 and S2 heard. EXTREMITIES: Normal range of motion, no edema. No clubbing or cyanosis. Peripheral pulses intact. ASSESSMENT Dizziness and hypotension Nonischemic cardiomyopathy status post AICD implantation Nonsustained ventricular tachycardia Chronic kidney disease Possible thrombus noted on the pacer wire in the right atrium per echocardiogram obtained September 2020, maintained on Eliquis Diabetes mellitus COPD Abnormal troponins, not suggestive of myocardial injury PLAN Stable on current medical regimen. Patient will be discharged home to follow-up with his primary bradder. Currently not on an ACR/ARB due to hypotension. Nurse Practitioner note has been reviewed, I agree with a documented findings and plan of care. Patient was seen and examined. Objective - Vital Signs Vital signs: Vital Signs Temp 97.1 F L 11/30/20 08:00 Pulse 103 H 11/30/20 08:00 Resp 18 11/30/20 08:00 BP 121/87 11/30/20 08:00 Pulse Ox 96 11/30/20 08:00 Intake & Output 11/29/20 11/30/20 11/30/20 18:59 06:59 18:59 Intake Total 990 475 125 Balance 990 475 125 Weight 71.8 kg Intake: Oral 990 475 125 Other: Voiding Method Toilet Toilet # Voids 3 2 - Labs CBC & Chem 7: 11/28/20 18:24 11/30/20 06:39 Labs: Abnormal Lab Results - Last 24 Hours (Table) 11/29/20 11/29/20 11/30/20 Range/Units 17:04 19:53 06:39 Sodium 136 L (137-145) mmol/L BUN 55 H (9-20) mg/dL Creatinine 1.48 H (0.66-1.25) mg/dL Glucose 143 H (74-99) mg/dL POC Glucose (mg/dL) 109 H 114 H (75-99) mg/dL Magnesium 2.5 H (1.6-2.3) mg/dL 11/30/20 11/30/20 Range/Units 06:58 11:50 Sodium (137-145) mmol/L BUN (9-20) mg/dL Creatinine (0.66-1.25) mg/dL Glucose (74-99) mg/dL POC Glucose (mg/dL) 154 H 111 H (75-99) mg/dL Magnesium (1.6-2.3) mg/dL
--- NOTE | 2020-11-30 18:20 | PN ---
PROGRESS NOTE Patient is seen for followup for acute kidney injury. His renal function has improved significantly with improved blood pressure. Creatinine was down to 1.4 from 2.5 on initial admission. PHYSICAL EXAMINATION: On examination today, blood pressure was 121/87, heart rate 103 per minute. He is afebrile. EXAMINATION OF THE HEART: S1 and S2. EXAMINATION OF LUNGS: Bilateral breath sounds are heard. ABDOMEN: Soft, non-tender, obese. Examination of lower extremities shows no evidence of edema. ORE SMELTER exam is grossly intact. LABS: Labs show serum creatinine down to 1.4, sodium 136, potassium 3.6. ASSESSMENT: 1. Acute kidney injury secondary to hypotension, hypoperfusion, currently improved. 2. Severe cardiomyopathy, ejection fraction 20%. 3. Hypotension, currently resolved. 4. Chronic kidney disease, baseline creatinine about 1.5 to 1.4 mg/dL, mostly secondary to nephrosclerosis. No evidence of proteinuria. Patient will need followup as outpatient for CKD. PLAN: Okay for discharge. Avoid NSAIDs. Avoid hypotension. Patient is advised to monitor his blood pressure at home, and parameters for Lopressor added. We will also see him in the office for followup in about 2-3 weeks' time. MMODL / IJN: [id number] /
== END 2020-11-30 13:45 | disposition home health service (06) | DRG 683 ==
LOC: EC 16:59 → 3SCARD 19:28
PROVIDERS: ADMIT Internal Medicine; ATTEND Internal Medicine
DX: N17.9 Acute kidney failure, unspecified (principal); I13.0 Hypertensive heart and chronic kidney disease with heart failure and stage 1 through stage 4 chronic kidney disease, or unspecified chronic kidney disease; I42.8 Other cardiomyopathies; I47.2 Ventricular tachycardia; I50.22 Chronic systolic (congestive) heart failure; T44.5X5A Adverse effect of predominantly beta-adrenoreceptor agonists, initial encounter; I95.2 Hypotension due to drugs; E11.22 Type 2 diabetes mellitus with diabetic chronic kidney disease; E86.1 Hypovolemia; F17.210 Nicotine dependence, cigarettes, uncomplicated; F32.9 Major depressive disorder, single episode, unspecified; F41.9 Anxiety disorder, unspecified; R79.89 Other specified abnormal findings of blood chemistry; I25.10 Atherosclerotic heart disease of native coronary artery without angina pectoris; Z76.82 Awaiting organ transplant status; N18.30 Chronic kidney disease, stage 3 unspecified; J44.9 Chronic obstructive pulmonary disease, unspecified; Z79.01 Long term (current) use of anticoagulants; Z79.4 Long term (current) use of insulin; Z20.822 Contact with and (suspected) exposure to COVID-19; Z79.51 Long term (current) use of inhaled steroids; Z79.82 Long term (current) use of aspirin; Z79.899 Other long term (current) drug therapy; Z82.49 Family history of ischemic heart disease and other diseases of the circulatory system; Z83.3 Family history of diabetes mellitus; Z95.810 Presence of automatic (implantable) cardiac defibrillator; Z60.2 Problems related to living alone; H40.9 Unspecified glaucoma
CPT/HCPCS: 36415; 71045; 80048; 80053; 81003; 83735; 84484; 85025; 85610; 87635; 93005; 96360; 96361; 99285

== ENCOUNTER 2021-01-09 14:20 | Inpatient (IN) | payer OTHER, MEDICARE ==
--- NOTE | 2021-01-09 15:16 | XR ---
EXAMINATION TYPE: XR chest 2V DATE OF EXAM: 01/09/2021 COMPARISON: 11/28/2020 HISTORY: Shortness of breath TECHNIQUE: Frontal and lateral views of the chest are obtained. FINDINGS: Scattered senescent parenchymal changes noted. Hyperinflation compatible with COPD. No evidence for infiltrate. No evidence for atelectasis. Heart size is stable. Mediastinal structures are stable and grossly unremarkable. No evidence for hilar prominence. Degenerative changes dorsal spine. IMPRESSION: 1. No evidence for acute pulmonary disease.
[2021-01-09 16:53] LABS: Anisocytosis Slight; Basophils # (A) 0.1 k/uL (0-0.2); Basophils % (A) 1 %; Eosinophils # (A) 0.1 k/uL (0-0.7); Eosinophils % (A) 1 %; HCT 50.7 % (39.0-53.0); Lymphocytes % (A) 19 %; MCH 29.2 pg (25.0-35.0); MCHC 35.4 g/dL (31.0-37.0); MCV 82.5 fL (80.0-100.0); Mean Platelet Volume 9.4; Monocytes # (A) 0.8 k/uL (0-1.0); Monocytes % (A) 7 %; Neutrophils # (A) 7.3 k/uL (1.3-7.7); Neutrophils % (A) 70 %; Platelet Count 210 k/uL (150-450); RBC 6.14 m/uL (4.30-5.90); RDW 16.3 % (11.5-15.5); WBC 10.5 k/uL (3.8-10.6)
[2021-01-09 16:55] LABS: Appearance,Urine Clear (Clear); Bilirubin,Urine Negative (Negative); Blood,Urine Negative (Negative); Color,Urine Light Yellow; Glucose,Urine (UA) 3+ (Negative); Ketones,Urine Negative (Negative); Leukocyte Esterase,Urine Negative (Negative); Nitrite,Urine Negative (Negative); PH, Urine 6.5 (5.0-8.0); Protein,Urine Negative (Negative); Specific Gravity,Urine 1.008 (1.001-1.035); Urobilinogen,Urine <2.0 mg/dL (<2.0)
[2021-01-09 17:02] LABS: Albumin 4.9 g/dL (3.5-5.0); Calcium 10.1 mg/dL (8.4-10.2); Magnesium 2.5 mg/dL (1.6-2.3); Potassium 3.1 mmol/L (3.5-5.1); Total Bilirubin 1.9 mg/dL (0.2-1.3); Total Protein 8.6 g/dL (6.3-8.2)
[2021-01-09 17:11] LABS: INR 1.1 (<1.2); Partial Thromboplastin Time 25.1 sec (22.0-30.0); Prothrombin Time 11.9 sec (9.0-12.0)
--- NOTE | 2021-01-09 17:40 | ED ---
General Adult HPI - General Chief complaint: Nausea/Vomiting/Diarrhea Stated complaint: SOB,Diabetic, nausea Time Seen by Provider: 01/09/21 15:38 Source: patient, RN notes reviewed Mode of arrival: ambulatory Limitations: no limitations - History of Present Illness Initial comments: 55-year-old male presents to the emergency Department with chief complaint of generalized weakness. Patient states has not felt well over the last 1 week. Patient states she's had denies weakness, fatigue, nausea vomiting shortness of breath. Patient tested negative for COVID-19. Patient states that he was advised, emergency from via his PCP at the [facility]. Patient states his hospital pounds 1 week. Patient states is known diabetic. He's had decreased oral intake and vomiting, nausea. - Related Data Home Medications Medication Instructions Recorded Confirmed INSULIN ASPART (NovoLOG) [NovoLOG 20 unit SQ AC-TID 04/28/16 01/09/21 (formulary)] Albuterol Sulfate [Proair Hfa] 1 puff INHALATION RT-Q4H PRN 08/09/20 01/09/21 Aspirin 81 mg PO DAILY 08/09/20 01/09/21 Potassium Chloride ER [K-Dur 20] 20 meq PO DAILY 08/09/20 01/09/21 Simvastatin [Zocor] 10 mg PO DAILY 08/09/20 01/09/21 allopurinoL [Zyloprim] 100 mg PO BID 08/09/20 01/09/21 Insulin Glargine,Hum.rec.anlog 30 unit SQ BID 11/28/20 01/09/21 [Lantus Solostar] Brimonidine Tartrate [Alphagan P 1 drops BOTH EYES BID 11/29/20 01/09/21 0.2% Ophth Soln] Budesonide/Formoterol Fumarate 2 puff INHALATION RT-BID 11/29/20 01/09/21 [Symbicort 160-4.5 Mcg Inhaler] Bumetanide [BUMEX] 2 mg PO DAILY 11/29/20 01/09/21 Sodium Chloride 0.65% Nasal [Deep 2 spray NASAL QID 11/29/20 01/09/21 Sea (Saline)] metOLazone [Zaroxolyn] 2.5 mg PO MOWEFR 11/29/20 01/09/21 Bumetanide [Bumex] 1 mg PO HS 01/09/21 01/09/21 Dextrose Chew [Glucose Chew Tab] 12 gm PO DAILY PRN 01/09/21 01/09/21 Digoxin [Lanoxin] 125 mcg PO DAILY 01/09/21 01/09/21 Finasteride [Proscar] 5 mg PO HS 01/09/21 01/09/21 Metoprolol Succinate [Toprol XL] 50 mg PO DAILY 01/09/21 01/09/21 Spironolactone [Aldactone] 12.5 mg PO DAILY 01/09/21 01/09/21 Tamsulosin HCl [Flomax] 0.4 mg PO HS 01/09/21 01/09/21 Previous Rx's Medication Instructions Recorded Apixaban [Eliquis] 5 mg PO BID #60 tab 10/07/20 Allergies Allergy/AdvReac Type Severity Reaction Status Date / Time No Known Allergies Allergy Verified 01/09/21 16:24 Review of Systems ROS Statement: Those systems with pertinent positive or pertinent negative responses have been documented in the HPI. ROS Other: All systems not noted in ROS Statement are negative. 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 Other HX: Palpitations, IDDM, bilateral glaucoma History of Any Multi-Drug Resistant Organisms: None Reported Past Surgical History: Heart Catheterization, Pacemaker Additional Past Surgical History / Comment(s): 10/2012 pacer/defibrillator. Past Anesthesia/Blood Transfusion Reactions: No Reported Reaction Additional Past Anesthesia/Blood Transfusion Reaction / Comment(s): Pt has recie sunil blood in the past without reaction. Type of Cardiac Device: Permanent Pacemaker, AICD Device Placement Date:: 10/2012 Past Psychological History: Anxiety, Depression Smoking Status: Former smoker Past Alcohol Use History: None Reported Past Drug Use History: None Reported - Past Family History Father Family Medical History: Diabetes Mellitus Additional Family Medical History / Comment(s): Father has cardiomyopathy. Mother Family Medical History: Hypertension Brother(s) Additional Family Medical History / Comment(s): Cardiomyopathy with heart transplant. General Exam Limitations: no limitations General appearance: alert, in no apparent distress Head exam: Present: atraumatic, normocephalic, normal inspection Eye exam: Present: normal appearance, PERRL, EOMI. Absent: scleral icterus, conjunctival injection, periorbital swelling ENT exam: Present: normal exam, normal oropharynx, mucous membranes moist, TM's normal bilaterally Neck exam: Present: normal inspection, full ROM. Absent: tenderness, meningismus, lymphadenopathy Respiratory exam: Present: normal lung sounds bilaterally. Absent: respiratory distress, wheezes, rales, rhonchi, stridor Cardiovascular Exam: Present: regular rate, normal rhythm, normal heart sounds. Absent: systolic murmur, diastolic murmur, rubs, gallop, clicks GI/Abdominal exam: Present: soft, tenderness, normal bowel sounds. Absent: distended, guarding, rebound, rigid Back exam: Absent: CVA tenderness (R), CVA tenderness (L) Neurological exam: Present: alert, oriented X3 Course Vital Signs 01/09/21 01/09/21 01/09/21 14:28 15:44 18:29 Temperature 97.8 F 97.9 F Pulse Rate 83 88 77 Respiratory 18 18 18 Rate Blood Pressure 98/75 102/66 117/81 O2 Sat by Pulse 96 97 98 Oximetry Medical Decision Making - Medical Decision Making 55-year-old presented for generalized weakness, weight loss, not feeling well shortness of breath. Patient troponin is elevated he was probably elevated but significantly today. There is mild ST depressions noted in the EKG. Patient is currently symptom free of chest pain. Patient will be admitted for acute kidney injury, and NSTEMI, patient does have mild hypokalemia was replaced. - Lab Data Result diagrams: 01/09/21 16:28 01/09/21 16:28 Lab Results 01/09/21 01/09/21 01/09/21 Range/Units 14:46 16:28 16:28 WBC 10.5 (3.8-10.6) k/uL RBC 6.14 H (4.30-5.90) m/uL Hgb 18.0 H (13.0-17.5) gm/dL Hct 50.7 (39.0-53.0) % MCV 82.5 (80.0-100.0) fL MCH 29.2 (25.0-35.0) pg MCHC 35.4 (31.0-37.0) g/dL RDW 16.3 H (11.5-15.5) % Plt Count 210 (150-450) k/uL MPV 9.4 Neutrophils % 70 % Lymphocytes % 19 % Monocytes % 7 % Eosinophils % 1 % Basophils % 1 % Neutrophils # 7.3 (1.3-7.7) k/uL Lymphocytes # 2.0 (1.0-4.8) k/uL Monocytes # 0.8 (0-1.0) k/uL Eosinophils # 0.1 (0-0.7) k/uL Basophils # 0.1 (0-0.2) k/uL Anisocytosis Slight PT 11.9 (9.0-12.0) sec INR 1.1 (<1.2) APTT 25.1 (22.0-30.0) sec Sodium (137-145) mmol/L Potassium (3.5-5.1) mmol/L Chloride (98-107) mmol/L Carbon Dioxide (22-30) mmol/L Anion Gap mmol/L BUN (9-20) mg/dL Creatinine (0.66-1.25) mg/dL Est GFR (CKD-EPI)AfAm (>60 ml/min/1.73 sqM) Est GFR (CKD-EPI)NonAf (>60 ml/min/1.73 sqM) Glucose (74-99) mg/dL Plasma Lactic Acid Grover (0.7-2.0) mmol/L Calcium (8.4-10.2) mg/dL Magnesium (1.6-2.3) mg/dL Total Bilirubin (0.2-1.3) mg/dL AST (17-59) U/L ALT (4-49) U/L Alkaline Phosphatase (38-126) U/L Troponin I (0.000-0.034) ng/mL Total Protein (6.3-8.2) g/dL Albumin (3.5-5.0) g/dL Amylase (30-110) U/L Lipase (23-300) U/L Urine Color Urine Appearance (Clear) Urine pH (5.0-8.0) Ur Specific [place] (1.001-1.035) Urine Protein (Negative) Urine Glucose (UA) (Negative) Urine Ketones (Negative) Urine Blood (Negative) Urine Nitrite (Negative) Urine Bilirubin (Negative) Urine Urobilinogen (<2.0) mg/dL Ur Leukocyte Esterase (Negative) Coronavirus (PCR) Not Detected (Not Detectd) 01/09/21 01/09/21 01/09/21 Range/Units 16:28 16:28 16:28 WBC (3.8-10.6) k/uL RBC (4.30-5.90) m/uL Hgb (13.0-17.5) gm/dL Hct (39.0-53.0) % MCV (80.0-100.0) fL MCH (25.0-35.0) pg MCHC (31.0-37.0) g/dL RDW (11.5-15.5) % Plt Count (150-450) k/uL MPV Neutrophils % % Lymphocytes % % Monocytes % % Eosinophils % % Basophils % % Neutrophils # (1.3-7.7) k/uL Lymphocytes # (1.0-4.8) k/uL Monocytes # (0-1.0) k/uL Eosinophils # (0-0.7) k/uL Basophils # (0-0.2) k/uL Anisocytosis PT (9.0-12.0) sec INR (<1.2) APTT (22.0-30.0) sec Sodium 132 L (137-145) mmol/L Potassium 3.1 L (3.5-5.1) mmol/L Chloride 77 L (98-107) mmol/L Carbon Dioxide 38 H (22-30) mmol/L Anion Gap 17 mmol/L BUN 59 H (9-20) mg/dL Creatinine 2.11 H (0.66-1.25) mg/dL Est GFR (CKD-EPI)AfAm 39 (>60 ml/min/1.73 sqM) Est GFR (CKD-EPI)NonAf 34 (>60 ml/min/1.73 sqM) Glucose 257 H (74-99) mg/dL Plasma Lactic Acid [place] 1.7 (0.7-2.0) mmol/L Calcium 10.1 (8.4-10.2) mg/dL Magnesium 2.5 H (1.6-2.3) mg/dL Total Bilirubin 1.9 H (0.2-1.3) mg/dL AST 36 (17-59) U/L ALT 25 (4-49) U/L Alkaline Phosphatase 163 H (38-126) U/L Troponin I (0.000-0.034) ng/mL Total Protein 8.6 H (6.3-8.2) g/dL Albumin 4.9 (3.5-5.0) g/dL Amylase 77 (30-110) U/L Lipase 134 (23-300) U/L Urine Color Light Yellow Urine Appearance Clear (Clear) Urine pH 6.5 (5.0-8.0) Ur Specific [place] 1.008 (1.001-1.035) Urine Protein Negative (Negative) Urine Glucose (UA) 3+ H (Negative) Urine Ketones Negative (Negative) Urine Blood Negative (Negative) Urine Nitrite Negative (Negative) Urine Bilirubin Negative (Negative) Urine Urobilinogen <2.0 (<2.0) mg/dL Ur Leukocyte Esterase Negative (Negative) Coronavirus (PCR) (Not Detectd) 01/09/21 Range/Units 16:28 WBC (3.8-10.6) k/uL RBC (4.30-5.90) m/uL Hgb (13.0-17.5) gm/dL Hct (39.0-53.0) % MCV (80.0-100.0) fL MCH (25.0-35.0) pg MCHC (31.0-37.0) g/dL RDW (11.5-15.5) % Plt Count (150-450) k/uL MPV Neutrophils % % Lymphocytes % % Monocytes % % Eosinophils % % Basophils % % Neutrophils # (1.3-7.7) k/uL Lymphocytes # (1.0-4.8) k/uL Monocytes # (0-1.0) k/uL Eosinophils # (0-0.7) k/uL Basophils # (0-0.2) k/uL Anisocytosis PT (9.0-12.0) sec INR (<1.2) APTT (22.0-30.0) sec Sodium (137-145) mmol/L Potassium (3.5-5.1) mmol/L Chloride (98-107) mmol/L Carbon Dioxide (22-30) mmol/L Anion Gap mmol/L BUN (9-20) mg/dL Creatinine (0.66-1.25) mg/dL Est GFR (CKD-EPI)AfAm (>60 ml/min/1.73 sqM) Est GFR (CKD-EPI)NonAf (>60 ml/min/1.73 sqM) Glucose (74-99) mg/dL Plasma Lactic Acid [place] (0.7-2.0) mmol/L Calcium (8.4-10.2) mg/dL Magnesium (1.6-2.3) mg/dL Total Bilirubin (0.2-1.3) mg/dL AST (17-59) U/L ALT (4-49) U/L Alkaline Phosphatase (38-126) U/L Troponin I 0.083 H* (0.000-0.034) ng/mL Total Protein (6.3-8.2) g/dL Albumin (3.5-5.0) g/dL Amylase (30-110) U/L Lipase (23-300) U/L Urine Color Urine Appearance (Clear) Urine pH (5.0-8.0) Ur Specific [place] (1.001-1.035) Urine Protein (Negative) Urine Glucose (UA) (Negative) Urine Ketones (Negative) Urine Blood (Negative) Urine Nitrite (Negative) Urine Bilirubin (Negative) Urine Urobilinogen (<2.0) mg/dL Ur Leukocyte Esterase (Negative) Coronavirus (PCR) (Not Detectd) Disposition Clinical Impression: Unstable angina, JANE (acute kidney injury), Hypokalemia, Weight loss, Dehydrati on Disposition: ADMITTED IP TO THIS HOSP Condition: Fair Referrals: [facility],Clinic [Primary Care Provider] - 1-2 days
[2021-01-09] MEDS ORDERED: POTASSIUM CHLORIDE ER 20 MEQ TAB.ER PO STA (18:50)
[2021-01-09] MEDS: SODIUM CHLORIDE 0.9% 1,000 ML IV SCH (19:01)
--- NOTE | 2021-01-09 19:03 | CT ---
EXAMINATION TYPE: CT abdomen pelvis wo con DATE OF EXAM: 01/09/2021 COMPARISON: None HISTORY: fatigue, weakness, elevated sugar, nausea CT DLP: 454.7 mGycm Automated exposure control for dose reduction was used. TECHNIQUE: Helical acquisition of images was performed from the lung bases through the pelvis. CONTRAST: Performed without Oral Contrast and without intravenous contrast. Lack of IV contrast limits evaluati on of the abdominopelvic vasculature and viscera. FINDINGS: LUNG BASES: Lungs are clear. Cardiac pacemaker leads. No pericardial effusion. The liver, gallbladder, and adrenal glands have an unremarkable unenhanced CT appearance. There is a tiny calcification of the pancreatic head which may represent sequela of old pancreatitis however is nonspecific. Calcified granulomas of the spleen. No hydronephrosis bilaterally. Punctate nonobstructi ng nephrolithiasis of the left renal lower pole. Bowel loops demonstrate no evidence of obstruction or thickening. Normal appendix. Calcifications of the prostate. Markedly distended urinary bladder. No pneumoperitoneum or ascites. No lymphadenopathy. Abdominal aorta normal in caliber. No acute osseo us normality. IMPRESSION: 1. No acute abdominopelvic process. 2. Markedly distended urinary bladder, which is otherwise normal. 3. Additional nonacute findings as above.
[2021-01-09] MEDS ORDERED: NITROGLYCERIN SL TABS 0.4 MG TAB SUBLINGUAL PRN (19:20)
[2021-01-09] MEDS ORDERED: HEPARIN SODIUM 1,000 UN/ML (10ML VL) IV ONE (19:20)
[2021-01-09] MEDS ORDERED: HEPARIN SOD,PORK IN 0.45% NACL 25,000 UNIT in 0.45% NACL 1 250ML.BAG IV SCH (19:30)
[2021-01-10 05:24] LABS: Cholesterol 151 mg/dL (<200); HDL Cholesterol 36 mg/dL (40-60); Triglycerides 451 mg/dL (<150)
[2021-01-10] MEDS: ASPIRIN 325 MG TAB PO SCH (08:46)
[2021-01-10] MEDS ORDERED: DEXTROSE 4 GM CHEWABLE PO PRN (09:09)
[2021-01-10] MEDS ORDERED: ALBUTEROL HFA INHALER INHALATION PRN (09:09)
[2021-01-10] MEDS ORDERED: ACETAMINOPHEN TAB 325 MG TAB PO PRN (09:12)
[2021-01-10] MEDS ORDERED: ONDANSETRON 4 MG/2 ML VIAL IVP PRN (09:12)
[2021-01-10 09:26] LABS: Glucose,Whole Blood 280 mg/dL (75-99)
[2021-01-10] MEDS: SPIRONOLACTONE 25 MG TAB PO SCH (09:32)
[2021-01-10] MEDS: DIGOXIN 125 MCG TAB PO SCH (09:33)
[2021-01-10] MEDS: POTASSIUM CHLORIDE ER 20 MEQ TAB.ER PO SCH ×3 (09:33→21:46)
[2021-01-10] MEDS: ATORVASTATIN 10 MG TAB PO SCH (09:33)
[2021-01-10] MEDS: METOPROLOL SUCCINATE (ER) 50 MG TAB.ER.24H PO SCH (09:34)
[2021-01-10] MEDS: allopurinoL 100 MG TAB PO SCH ×2 (09:41→21:45)
[2021-01-10] MEDS ORDERED: INSULIN ASPART (NovoLOG) 100 UNIT/ML VIAL SQ ONE (09:43)
[2021-01-10 09:54] LABS: Anisocytosis Slight; Basophils # (A) 0.1 k/uL (0-0.2); Basophils % (A) 1 %; Eosinophils # (A) 0.2 k/uL (0-0.7); Eosinophils % (A) 2 %; HCT 46.7 % (39.0-53.0); HGB 16.5 gm/dL (13.0-17.5); Lymphocytes # (A) 3.2 k/uL (1.0-4.8); Lymphocytes % (A) 30 %; MCH 29.6 pg (25.0-35.0); MCHC 35.2 g/dL (31.0-37.0); Mean Platelet Volume 11.7; Monocytes # (A) 0.8 k/uL (0-1.0); Monocytes % (A) 8 %; Neutrophils # (A) 6.1 k/uL (1.3-7.7); Neutrophils % (A) 58 %; Platelet Count 197 k/uL (150-450); RBC 5.56 m/uL (4.30-5.90); RDW 16.3 % (11.5-15.5); WBC 10.5 k/uL (3.8-10.6)
[2021-01-10] MEDS: INSULIN DETEMIR (LEVEMIR) 100 UNIT/ML SYR SQ SCH ×2 (10:01→22:00)
[2021-01-10] MEDS: SODIUM CHLORIDE 0.65% NASAL SPRAY 44 ML BTL NASAL SCH ×5 (10:02→21:46)
[2021-01-10] MEDS: BRIMONIDINE TARTRATE 0.2% DROPS 5 ML BTL BOTH EYES SCH ×2 (10:03→21:45)
[2021-01-10 10:09] LABS: Calcium 9.2 mg/dL (8.4-10.2); Potassium 3.3 mmol/L (3.5-5.1)
[2021-01-10] MEDS ORDERED: Potassium Replacement Protocol 1 EACH MISC MISCELLANE PRN (10:54)
[2021-01-10 12:35] LABS: Glucose,Whole Blood 346 mg/dL (75-99)
[2021-01-10] MEDS: INSULIN ASPART (NovoLOG) 100 UNIT/ML VIAL SQ SCH ×3 (12:36→21:45)
--- NOTE | 2021-01-10 13:17 | P.CRDCN ---
History of Present Illness History of present illness: HISTORY OF PRESENTING ILLNESS Patient is a pleasant 55-year-old male with history of nonischemic cardiomyopathy, AICD placement, diabetes mellitus type 2, COPD, questionable thrombus attached to right atrial lead, COPD, CKD who presents for worsened symptoms of fatigue, nausea, vomiting and weakness. Patient initially was seen 1 month ago after being placed on Entresto with some borderline hypotension and therefore Entresto was discontinued. He admits he follows with a Dr. Elias from [facility] in [place] for cardiology. He states he was scheduled for a AICD upgrade at [facility] in a month or so. Unfortunately has been having increased fatigue feeling like he only once asleep for most of the day, feeling tired, no real energy, nausea and throwing up. He personally believes that this may be related to some sort of virus however has had no fevers, chills or sick contacts. Troponins were noted to be mildly elevated, similar to in the past. He states that his last echo as an outpatient showed an ejection fraction of 12%. His last heart catheterization was approximate 3 years ago. He denies any chest pain, pressure, tightness. REVIEW OF SYSTEMS At the time of my exam: CONSTITUTIONAL: Denies fever or chills. +Fatigue CARDIOVASCULAR: Denies chest pain, shortness of breath, orthopnea, PND or palpitations. RESPIRATORY: Denies cough. GASTROINTESTINAL: Denies abdominal pain, diarrhea, constipation, nausea or vomiting. MUSCULOSKELETAL: Denies myalgias. NEUROLOGIC: Denies numbness, tingling or weakness. ENDOCRINE: Denies fatigue, weight change, polydipsia or polyurina. GENITOURINARY: Denies burning, hematuria or urgency with micturation. HEMATOLOGIC: Denies history of anemia or bleeding. PHYSICAL EXAMINATION Vital signs reviewed. CONSTITUTIONAL: No apparent distress. HEENT: Head is normocephalic. Pupils are equal, round. Sclerae anicteric. Mucous membranes of the mouth are moist. No JVD. No carotid bruit. CHEST EXAMINATION: Lungs are clear to auscultation. No chest wall tenderness is noted on palpation or with deep breathing. HEART EXAMINATION: Regular rate and rhythm. S1, S2 heard. No murmurs, gallops or rub. ABDOMEN: Soft, nontender. Positive bowel sounds. EXTREMITIES: 2+ peripheral pulses, no lower extremity edema and no calf tenderness. NEUROLOGIC EXAMINATION: Patient is awake, alert and oriented x3. ASSESSMENT 1. Chronic systolic heart failure 2. Chronically elevated troponins, do not suspect primary myocardial infarction or acute coronary syndrome. No angina-type symptoms 3. Fatigue, nausea, generalized weakness. Rule out infectious versus other 4. Nonischemic cardiomyopathy ejection fraction less than 20% 5. Essential hypertension, borderline low on heart failure regimen 6. 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 Diabetes mellitus type 2 PLAN Patient's main presentation is that of fatigue, weakness, nausea and vomiting. Appears may be related to some sort of infectious etiology. Patient denies any angina-type symptoms. Patient has chronically elevated troponin secondary to heart failure similar to in the past and do not suspect acute coronary syndrome. Continue with heart failure regimen. 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 Other HX: Palpitations, IDDM, bilateral glaucoma History of Any Multi-Drug Resistant Organisms: None Reported Past Surgical History: Heart Catheterization, Pacemaker Additional Past Surgical History / Comment(s): 10/2012 pacer/defibrillator. Past Anesthesia/Blood Transfusion Reactions: No Reported Reaction Additional Past Anesthesia/Blood Transfusion Reaction / Comment(s): Pt has recieved blood in the past without reaction. Type of Cardiac Device: Permanent Pacemaker, AICD Device Placement Date:: 10/2012 Past Psychological History: Anxiety, Depression Smoking Status: Former smoker Past Alcohol Use History: None Reported Past Drug Use History: None Reported - Past Family History Father Family Medical History: Diabetes Mellitus Additional Family Medical History / Comment(s): Father has cardiomyopathy. Mother Family Medical History: Hypertension Brother(s) Additional Family Medical History / Comment(s): Cardiomyopathy with heart transplant. Medications and Allergies Home Medications Medication Instructions Recorded Confirmed Type INSULIN ASPART (NovoLOG) [NovoLOG 20 unit SQ AC-TID 04/28/16 01/09/21 History (formulary)] Albuterol Sulfate [Proair Hfa] 1 puff INHALATION RT-Q4H PRN 08/09/20 01/09/21 History Aspirin 81 mg PO DAILY 08/09/20 01/09/21 History Potassium Chloride ER [K-Dur 20] 20 meq PO DAILY 08/09/20 01/09/21 History Simvastatin [Zocor] 10 mg PO DAILY 08/09/20 01/09/21 History allopurinoL [Zyloprim] 100 mg PO BID 08/09/20 01/09/21 History Apixaban [Eliquis] 5 mg PO BID #60 tab 10/07/20 01/09/21 Rx Insulin Glargine,Hum.rec.anlog 30 unit SQ BID 11/28/20 01/09/21 History [Lantus Solostar] Brimonidine Tartrate [Alphagan P 1 drops BOTH EYES BID 11/29/20 01/09/21 History 0.2% Ophth Soln] Budesonide/Formoterol Fumarate 2 puff INHALATION RT-BID 11/29/20 01/09/21 History [Symbicort 160-4.5 Mcg Inhaler] Bumetanide [BUMEX] 2 mg PO DAILY 11/29/20 01/09/21 History Sodium Chloride 0.65% Nasal [Deep 2 spray NASAL QID 11/29/20 01/09/21 History Sea (Saline)] metOLazone [Zaroxolyn] 2.5 mg PO MOWEFR 11/29/20 01/09/21 History Bumetanide [Bumex] 1 mg PO HS 01/09/21 01/09/21 History Dextrose Chew [Glucose Chew Tab] 12 gm PO DAILY PRN 01/09/21 01/09/21 History Digoxin [Lanoxin] 125 mcg PO DAILY 01/09/21 01/09/21 History Finasteride [Proscar] 5 mg PO HS 01/09/21 01/09/21 History Metoprolol Succinate [Toprol XL] 50 mg PO DAILY 01/09/21 01/09/21 History Spironolactone [Aldactone] 12.5 mg PO DAILY 01/09/21 01/09/21 History Tamsulosin HCl [Flomax] 0.4 mg PO HS 01/09/21 01/09/21 History Allergies Allergy/AdvReac Type Severity Reaction Status Date / Time No Known Allergies Allergy Verified 01/09/21 16:24 Physical Exam Vitals: Vital Signs Temp Pulse Resp BP Pulse Ox 01/10/21 11:42 74 16 111/79 95 01/10/21 07:07 77 18 119/87 95 01/10/21 00:05 80 18 111/58 97 01/09/21 22:35 98.1 F 79 18 131/89 96 01/09/21 20:34 98.0 F 77 18 132/84 97 01/09/21 18:29 97.9 F 77 18 117/81 98 01/09/21 15:44 88 18 102/66 97 01/09/21 14:28 97.8 F 83 18 98/75 96 Intake and Output 01/09/21 01/10/21 01/10/21 22:59 06:59 14:59 Intake Total 57.277 Balance 57.277 Intake: Intake, IV Titration 57.277 Amount Heparin Sod,Pork in 0.45% 57.277 NaCl 25,000 unit In 0.45 % NaCl 1 250ml.bag @ 12 UNITS/KG/HR 7.62 mls/hr IV .Q24H [facility] Rx#: [id number] Results 01/10/21 03:36 01/10/21 03:36 Cardiac Enzymes 01/09/21 01/09/21 01/09/21 Range/Units 16:28 16:28 20:37 AST 36 (17-59) U/L Troponin I 0.083 H* 0.091 H* (0.000-0.034) ng/mL 01/09/21 Range/Units 22:25 AST (17-59) U/L Troponin I 0.095 H* (0.000-0.034) ng/mL Coagulation 01/09/21 01/10/21 Range/Units 16:28 03:23 PT 11.9 (9.0-12.0) sec APTT 25.1 49.5 H (22.0-30.0) sec Lipids 01/10/21 Range/Units 03:23 Triglycerides 451 H (<150) mg/dL Cholesterol 151 (<200) mg/dL HDL Cholesterol 36 L (40-60) mg/dL CBC 01/09/21 01/10/21 Range/Units 16:28 03:36 WBC 10.5 10.5 (3.8-10.6) k/uL RBC 6.14 H 5.56 (4.30-5.90) m/uL Hgb 18.0 H 16.5 (13.0-17.5) gm/dL Hct 50.7 46.7 (39.0-53.0) % Plt Count 210 197 (150-450) k/uL Comprehensive Metabolic Panel 01/09/21 01/10/21 Range/Units 16:28 03:36 Sodium 132 L 128 L (137-145) mmol/L Potassium 3.1 L 3.3 L (3.5-5.1) mmol/L Chloride 77 L 82 L (98-107) mmol/L Carbon Dioxide 38 H 30 (22-30) mmol/L BUN 59 H 62 H (9-20) mg/dL Creatinine 2.11 H 1.95 H (0.66-1.25) mg/dL Glucose 257 H 333 H (74-99) mg/dL Calcium 10.1 9.2 (8.4-10.2) mg/dL AST 36 (17-59) U/L ALT 25 (4-49) U/L Alkaline Phosphatase 163 H (38-126) U/L Total Protein 8.6 H (6.3-8.2) g/dL Albumin 4.9 (3.5-5.0) g/dL Current Medications Generic Name Dose Route Start Last Admin Trade Name Freq PRN Reason Stop Dose Admin Acetaminophen 650 mg 01/10/21 09:12 Acetaminophen Tab 325 Mg Tab PO Q6HR PRN Fever and/ or Pain Albuterol Sulfate 1 puff 01/10/21 09:09 Albuterol Hfa Inhaler INHALATION RT-Q4H PRN Shortness Of Breath Allopurinol 100 mg 01/10/21 09:15 01/10/21 09:41 Allopurinol 100 Mg Tab PO 100 mg BID YASMANI Administration Aspirin 325 mg 01/10/21 09:00 01/10/21 08:46 Aspirin 325 Mg Tab PO 325 mg DAILY YASMANI Administration Atorvastatin Calcium 10 mg 01/10/21 09:15 01/10/21 09:33 Atorvastatin 10 Mg Tab PO 10 mg DAILY YASMANI Administration Brimonidine Tartrate 1 drops 01/10/21 09:15 01/10/21 10:03 Brimonidine Tartrate 0.2% Drops 5 Ml Btl BOTH EYES 1 drops BID YASMANI Administration Budesonide/Formoterol Fumarate 2 puff 01/10/21 20:00 Symbicort 160-4.5 Mcg Inhaler INHALATION RT-BID YASMANI Digoxin 125 mcg 01/10/21 09:15 01/10/21 09:33 Digoxin 125 Mcg Tab PO 125 mcg DAILY YASMANI Administration Finasteride 5 mg 01/10/21 21:00 Finasteride 5 Mg Tab PO HS YASMANI Glucose 12 gm 01/10/21 09:09 Dextrose 4 Gm Chewable PO DAILY PRN low blood sugar Sodium Chloride 1,000 mls @ 75 mls/hr 01/09/21 19:00 01/09/21 19:01 Saline 0.9% IV 75 mls/hr .[id number] YASMANI Administration Heparin Sodium/Sodium Chloride 250 mls @ 7.62 mls/hr 01/09/21 19:30 01/10/21 04:15 25,000 unit/ Sodium Chloride IV 12 units/kg/hr .Q24H [facility] 7.62 mls/hr Titration Protocol 12 UNITS/KG/HR Insulin Aspart 20 unit 01/10/21 12:30 01/10/21 12:36 Insulin Aspart (Novolog) 100 Unit/Ml Vial SQ 20 unit AC-TID YASMANI Administration Insulin Detemir 30 unit 01/10/21 09:15 01/10/21 10:01 Insulin Detemir (Levemir) 100 Unit/Ml Syr SQ 30 unit BID@0700,2100 YASMANI Administration Metoprolol Succinate 50 mg 01/10/21 09:15 01/10/21 09:34 Metoprolol Succinate (Er) 50 Mg Tab.Er.24h PO 50 mg DAILY YASMANI Administration Miscellaneous Information 1 each 01/10/21 10:54 Potassium Replacement Protocol 1 Each Misc MISCELLANE DAILY PRN Per Protocol Protocol Nitroglycerin 0.4 mg 01/09/21 19:20 Nitroglycerin Sl Tabs 0.4 Mg Tab SUBLINGUAL Q5M PRN Chest Pain Ondansetron HCl 4 mg 01/10/21 09:12 Ondansetron 4 Mg/2 Ml Vial IVP Q6HR PRN Nausea And Vomiting Potassium Chloride 20 meq 01/10/21 09:15 01/10/21 09:33 Potassium Chloride Er 20 Meq Tab.Er PO 20 meq DAILY YASMANI Administration Potassium Chloride 20 meq 01/10/21 11:00 01/10/21 11:42 Potassium Chloride Er 20 Meq Tab.Er PO 01/10/21 21:01 20 meq BID YASMANI Administration Sodium Chloride 2 spray 01/10/21 09:15 01/10/21 10:02 Sodium Chloride 0.65% Nasal [place] 44 Ml Btl NASAL Not Given QID YASMANI Spironolactone 12.5 mg 01/10/21 09:15 01/10/21 09:32 Spironolactone 25 Mg Tab PO 12.5 mg DAILY YASMANI Administration Tamsulosin HCl 0.4 mg 01/10/21 21:00 Tamsulosin 0.4 Mg Cap.Er.24h PO HS [facility] Intake and Output 01/09/21 01/10/21 01/10/21 22:59 06:59 14:59 Intake Total 57.277 Balance 57.277 Intake: Intake, IV Titration 57.277 Amount Heparin Sod,Pork in 0.45% 57.277 NaCl 25,000 unit In 0.45 % NaCl 1 250ml.bag @ 12 UNITS/KG/HR 7.62 mls/hr IV .Q24H [facility] Rx#: [id number] 01/10/21 03:36 01/10/21 03:36
[2021-01-10] MEDS: SODIUM CHLORIDE 0.9% 1,000 ML IV SCH ×2 (13:56→21:46)
[2021-01-10 16:55] LABS: Glucose,Whole Blood 281 mg/dL (75-99)
[2021-01-10] MEDS: SYMBICORT 160-4.5 MCG INHALER INHALATION SCH (20:41)
[2021-01-10] MEDS ORDERED: APIXABAN 5 MG TAB PO SCH (21:00)
[2021-01-10 21:43] LABS: Glucose,Whole Blood 259 mg/dL (75-99)
[2021-01-10] MEDS: TAMSULOSIN 0.4 MG CAP.ER.24H PO SCH (21:45)
[2021-01-10] MEDS: APIXABAN 5 MG TAB PO SCH (21:45)
[2021-01-10] MEDS: FINASTERIDE 5 MG TAB PO SCH (21:45)
--- NOTE | 2021-01-11 00:08 | P.HPIM ---
History of Present Illness H&P Date: 01/10/21 Chief Complaint: generalized weakness, lethargy and lack of energy. Patient is a 51-year-old man with a known history of nonischemic cardiomyopathy status post AICD placement ejection fraction 10% as per patient, diabetes type 2 insulin-dependent and bilateral glaucoma, anxiety/depression and previous history of smoking presents to ER with the complaints of generalized weakness fatigue, nausea and vomiting. Patient states that for the past couple of weeks he has been having generalized weakness and lack of energy. Patient is also complaining of shortness of breath and dizziness. no CP, Patient states his blood pressure was slightly elevated in 400s at home. Denies any fever or chills. No cough or sputum production. Chest x-ray showed no evidence of acute pulmonary disease CT of the abdomen pelvis was done showed no acute ab abdominal pelvic process.. Markedly distended urinary bladder. EKG showed normal sinus rhythm Lab data showed WC 10.5 hemoglobin 18.0 Sodium 132 potassium 3.1 chloride 77 BUN 59 and creatinine 2.1 Blood sugar is 257 admission Troponin 0 0.083, 0.0919 0.095 UA showed 3+ glucose Coronavirus PCR not detected Review of Systems Constitutional: Patient denies any fever or chills . Patient does complain of generalized weakness, lethargy and lack of energy.. Abdomen: Patient denied nausea vomiting and diarrhea and abdominal pain. Cardiovascular: Patient denies any chest pain. + short of breath no palpi tations. Respiratory: patient denied any cough or sputum production. No shortness of breath Neurologic: Patient denied any numbness or tingling headache. Musculoskeletal: Patient denies any complaints of joint swelling or deformity. Skin: Negative Psychiatric: Negative Endocrine: No heat or cold intolerance. No recent weight gain. Genitourinary: No dysuria or hematuria. All other 14 point ROS negative except the above Past Medical History Past Medical History: Coronary Artery Disease (CAD), COPD, Diabetes Mellitus, Eye Disorder Additional Past Medical History / Comment(s): hx of hereditary cardiomyopathy and has a pacer/defibrillator. Other HX: Palpitations, IDDM, bilateral glaucoma History of Any Multi-Drug Resistant Organisms: None Reported Past Surgical History: Heart Catheterization, Pacemaker Additional Past Surgical History / Comment(s): 10/2012 pacer/defibrillator. Past Anesthesia/Blood Transfusion Reactions: No Reported Reaction Additional Past Anesthesia/Blood Transfusion Reaction / Comment(s): Pt has recieved blood in the past without reaction. Type of Cardiac Device: Permanent Pacemaker, AICD Device Placement Date:: 10/2012 Past Psychological History: Anxiety, Depression Smoking Status: Former smoker Past Alcohol Use History: None Reported Past Drug Use History: None Reported - Past Family History Father Family Medical History: Diabetes Mellitus Additional Family Medical History / Comment(s): Father has cardiomyopathy. Mother Family Medical History: Hypertension Brother(s) Additional Family Medical History / Comment(s): Cardiomyopathy with heart transplant. Medications and Allergies Home Medications Medication Instructions Recorded Confirmed Type INSULIN ASPART (NovoLOG) [NovoLOG 20 unit SQ AC-TID 04/28/16 01/09/21 History (formulary)] Albuterol Sulfate [Proair Hfa] 1 puff INHALATION RT-Q4H PRN 08/09/20 01/09/21 H istory Aspirin 81 mg PO DAILY 08/09/20 01/09/21 History Potassium Chloride ER [K-Dur 20] 20 meq PO DAILY 08/09/20 01/09/21 History Simvastatin [Zocor] 10 mg PO DAILY 08/09/20 01/09/21 History allopurinoL [Zyloprim] 100 mg PO BID 08/09/20 01/09/21 History Apixaban [Eliquis] 5 mg PO BID #60 tab 10/07/20 01/09/21 Rx Insulin Glargine,Hum.rec.anlog 30 unit SQ BID 11/28/20 01/09/21 History [Lantus Solostar] Brimonidine Tartrate [Alphagan P 1 drops BOTH EYES BID 11/29/20 01/09/21 History 0.2% Ophth Soln] Budesonide/Formoterol Fumarate 2 puff INHALATION RT-BID 11/29/20 01/09/21 History [Symbicort 160-4.5 Mcg Inhaler] Bumetanide [BUMEX] 2 mg PO DAILY 11/29/20 01/09/21 History Sodium Chloride 0.65% Nasal [Deep 2 spray NASAL QID 11/29/20 01/09/21 History Sea (Saline)] metOLazone [Zaroxolyn] 2.5 mg PO MOWEFR 11/29/20 01/09/21 History Bumetanide [Bumex] 1 mg PO HS 01/09/21 01/09/21 History Dextrose Chew [Glucose Chew Tab] 12 gm PO DAILY PRN 01/09/21 01/09/21 History Digoxin [Lanoxin] 125 mcg PO DAILY 01/09/21 01/09/21 History Finasteride [Proscar] 5 mg PO HS 01/09/21 01/09/21 History Metoprolol Succinate [Toprol XL] 50 mg PO DAILY 01/09/21 01/09/21 History Spironolactone [Aldactone] 12.5 mg PO DAILY 01/09/21 01/09/21 History Tamsulosin HCl [Flomax] 0.4 mg PO HS 01/09/21 01/09/21 History Allergies Allergy/AdvReac Type Severity Reaction Status Date / Time No Known Allergies Allergy Verified 01/09/21 16:24 Physical Exam Vitals: Vital Signs Temp Pulse Resp BP Pulse Ox 01/10/21 07:07 77 18 119/87 95 01/10/21 00:05 80 18 111/58 97 01/09/21 22:35 98.1 F 79 18 131/89 96 01/09/21 20:34 98.0 F 77 18 132/84 97 01/09/21 18:29 97.9 F 77 18 117/81 98 01/09/21 15:44 88 18 102/66 97 01/09/21 14:28 97.8 F 83 18 98/75 96 Intake and Output 01/09/21 01/10/21 01/10/21 22:59 06:59 14:59 Intake Total 57.277 Balance 57.277 Intake: Intake, IV Titration 57.277 Amount Heparin Sod,Pork in 0.45% 57.277 NaCl 25,000 unit In 0.45 % NaCl 1 250ml.bag @ 12 UNITS/KG/HR 7.62 mls/hr IV .Q24H [facility] Rx#: [id number] PHYSICAL EXAMINATION: Patient is lying in the bed comfortably, no acute distress, awake alert and oriented.. HEENT: Normocephalic. Neck is supple. Pupils reactive. Nostrils clear. Oral cavity is moist. Ears reveal no drainage. Neck reveals no JVD, carotid bruits, or thyromegaly. CHEST EXAMINATION: Trachea is central. Symmetrical expansion. Lung villa clear to auscultation and percussion. CARDIAC: Normal S1, S2 with no gallops. No murmurs ABDOMEN: Soft. Bowel sounds normal. No organomegaly. No abdominal bruits. Extremities: reveal no edema. No clubbing or cyanosis Neurologically awake, alert, oriented x3 with well-coordinated movements. No focal deficits noted Skin: No rash or skin lesions. Psychiatric: Coperative. Nonsuicidal Musculoskeletal: No joint swelling or deformity. Normal range of motion. Results CBC & Chem 7: 01/10/21 03:36 01/10/21 03:36 Labs: Abnormal Lab Results - Last 24 Hours (Table) 01/09/21 01/09/21 01/09/21 Range/Units 16:28 16:28 16:28 RBC 6.14 H (4.30-5.90) m/uL Hgb 18.0 H (13.0-17.5) gm/dL RDW 16.3 H (11.5-15.5) % APTT (22.0-30.0) sec Sodium 132 L (137-145) mmol/L Potassium 3.1 L (3.5-5.1) mmol/L Chloride 77 L (98-107) mmol/L Carbon Dioxide 38 H (22-30) mmol/L BUN 59 H (9-20) mg/dL Creatinine 2.11 H (0.66-1.25) mg/dL Glucose 257 H (74-99) mg/dL POC Glucose (mg/dL) (75-99) mg/dL Magnesium 2.5 H (1.6-2.3) mg/dL Total Bilirubin 1.9 H (0.2-1.3) mg/dL Alkaline Phosphatase 163 H (38-126) U/L Troponin I (0.000-0.034) ng/mL Total Protein 8.6 H (6.3-8.2) g/dL Triglycerides (<150) mg/dL HDL Cholesterol (40-60) mg/dL Urine Glucose (UA) 3+ H (Negative) 01/09/21 01/09/21 01/09/21 Range/Units 16:28 20:37 22:25 RBC (4.30-5.90) m/uL Hgb (13.0-17.5) gm/dL RDW (11.5-15.5) % APTT (22.0-30.0) sec Sodium (137-145) mmol/L Potassium (3.5-5.1) mmol/L Chloride (98-107) mmol/L Carbon Dioxide (22-30) mmol/L BUN (9-20) mg/dL Creatinine (0.66-1.25) mg/dL Glucose (74-99) mg/dL POC Glucose (mg/dL) (75-99) mg/dL Magnesium (1.6-2.3) mg/dL Total Bilirubin (0.2-1.3) mg/dL Alkaline Phosphatase (38-126) U/L Troponin I 0.083 H* 0.091 H* 0.095 H* (0.000-0.034) ng/mL Total Protein (6.3-8.2) g/dL Triglycerides (<150) mg/dL HDL Cholesterol (40-60) mg/dL Urine Glucose (UA) (Negative) 01/10/21 01/10/21 01/10/21 Range/Units 03:23 03:23 03:36 RBC (4.30-5.90) m/uL Hgb (13.0-17.5) gm/dL RDW 16.3 H (11.5-15.5) % APTT 49.5 H (22.0-30.0) sec Sodium (137-145) mmol/L Potassium (3.5-5.1) mmol/L Chloride (98-107) mmol/L Carbon Dioxide (22-30) mmol/L BUN (9-20) mg/dL Creatinine (0.66-1.25) mg/dL Glucose (74-99) mg/dL POC Glucose (mg/dL) (75-99) mg/dL Magnesium (1.6-2.3) mg/dL Total Bilirubin (0.2-1.3) mg/dL Alkaline Phosphatase (38-126) U/L Troponin I (0.000-0.034) ng/mL Total Protein (6.3-8.2) g/dL Triglycerides 451 H (<150) mg/dL HDL Cholesterol 36 L (40-60) mg/dL Urine Glucose (UA) (Negative) 01/10/21 01/10/21 Range/Units 03:36 09:24 RBC (4.30-5.90) m/uL Hgb (13.0-17.5) gm/dL RDW (11.5-15.5) % APTT (22.0-30.0) sec Sodium 128 L (137-145) mmol/L Potassium 3.3 L (3.5-5.1) mmol/L Chloride 82 L (98-107) mmol/L Carbon Dioxide (22-30) mmol/L BUN 62 H (9-20) mg/dL Creatinine 1.95 H (0.66-1.25) mg/dL Glucose 333 H (74-99) mg/dL POC Glucose (mg/dL) 280 H (75-99) mg/dL Magnesium (1.6-2.3) mg/dL Total Bilirubin (0.2-1.3) mg/dL Alkaline Phosphatase (38-126) U/L Troponin I (0.000-0.034) ng/mL Total Protein (6.3-8.2) g/dL Triglycerides (<150) mg/dL HDL Cholesterol (40-60) mg/dL Urine Glucose (UA) (Negative) Thrombosis Risk Factor Assmnt - DVT/VTE Prophylaxis DVT/VTE Prophylaxis: Pharmacologic Prophylaxis ordered Assessment and Plan Assessment: Generalized weakness fatigue and lack of energy likely due to hyperglycemia and dehydration volume depletion. Rule out infection. COVID-19 PCR not detected Hyperglycemia with uncontrolled diabetes type 2 Acute kidney injury, prerenal with possible underlying CKD stage III. 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 Elevated troponin level. Possible demand ischemia. Anxiety/depression COPD Previous history of smoking DVT prophylaxis. Plan: Patient will be continued on gentle IV hydration and start back on his insulin regimen and monitor blood sugar closely. Symptomatic management for nausea and vomiting and GI prophylaxis. Due to elevated troponin level patient was started on heparin drip and cardiology was consulted. Continue with telemetry monitoring, home medications and follow-up closely. Further recommendations based on clinical course. Replace electrolytes and monitor renal function. Time with Patient: Greater than 30
[2021-01-11 06:52] LABS: Glucose,Whole Blood 189 mg/dL (75-99)
[2021-01-11] MEDS: INSULIN DETEMIR (LEVEMIR) 100 UNIT/ML SYR SQ SCH ×2 (06:54→21:10)
--- NOTE | 2021-01-11 08:51 | P.PN ---
Subjective HISTORY OF PRESENTING ILLNESS Patient is a pleasant 55-year-old male with history of nonischemic cardiomyopathy, AICD placement, diabetes mellitus type 2, COPD, questionable thrombus attached to right atrial lead, COPD, CKD who presents for worsened symptoms of fatigue, nausea, vomiting and weakness. Patient initially was seen 1 month ago after being placed on Entresto with some borderline hypotension and therefore Entresto was discontinued. He admits he follows with a Dr. Elias from [facility] in [place] for cardiology. He states he was scheduled for a AICD upgrade at [facility] in a month or so. Unfortunately has been having increased fatigue feeling like he only once asleep for most of the day, feeling tired, no real energy, nausea and throwing up. He personally believes that this may be related to some sort of virus however has had no fevers, chills or sick contacts. Troponins were noted to be mildly elevated, similar to in the past. He states that his last echo as an outpatient showed an ejection fraction of 12%. His last heart catheterization was approximate 3 years ago. He denies any chest pain, pressure, tightness. 01/11 Patient seen and examined. He denies any chest pain, pressure. He admits he feels better in terms of his energy level and not as nauseous. He is still afraid that may recur. He admits however that this is mainly an issue with feeling tired all the time and not so much an issue of decreased exercise tolerance. REVIEW OF SYSTEMS At the time of my exam: CONSTITUTIONAL: Denies fever or chills. +Fatigue CARDIOVASCULAR: Denies chest pain, shortness of breath, orthopnea, PND or palpitations. RESPIRATORY: Denies cough. GASTROINTESTINAL: Denies abdominal pain, diarrhea, constipation, nausea or vomiting. MUSCULOSKELETAL: Denies myalgias. NEUROLOGIC: Denies numbness, tingling or weakness. ENDOCRINE: Denies fatigue, weight change, polydipsia or polyurina. GENITOURINARY: Denies burning, hematuria or urgency with micturation. HEMATOLOGIC: Denies history of anemia or bleeding. PHYSICAL EXAMINATION Vital signs reviewed. CONSTITUTIONAL: No apparent distress. HEENT: Head is normocephalic. Pupils are equal, round. Sclerae anicteric. Mucous membranes of the mouth are moist. No JVD. No carotid bruit. CHEST EXAMINATION: Lungs are clear to auscultation. No chest wall tenderness is noted on palpation or with deep breathing. HEART EXAMINATION: Regular rate and rhythm. S1, S2 heard. No murmurs, gallops or rub. ABDOMEN: Soft, nontender. Positive bowel sounds. EXTREMITIES: 2+ peripheral pulses, no lower extremity edema and no calf tenderness. NEUROLOGIC EXAMINATION: Patient is awake, alert and oriented x3. ASSESSMENT 1. Chronic systolic heart failure 2. Chronically elevated troponins, do not suspect primary myocardial infarction or acute coronary syndrome. No angina-type symptoms 3. Fatigue, nausea, generalized weakness. Rule out infectious versus other 4. Nonischemic cardiomyopathy ejection fraction less than 20% 5. Essential hypertension, borderline low on heart failure regimen 6. 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 Diabetes mellitus type 2 PLAN Patient feels somewhat better. Do not suspect fatigue and decreased energy level related to cardiac etiology, may be viral and appears improving. Chronically elevated troponin secondary to heart failure similar to in the past and do not suspect acute coronary syndrome. Continue with heart failure regimen. Recommendations from a cardiology standpoint. Followup with Dr. Elias from [facility] and alt for AICD upgrade. Please call with questions. Objective - Vital Signs Vital signs: Vital Signs Temp 98.0 F 01/11/21 08:01 Pulse 70 01/11/21 08:01 Resp 18 01/11/21 08:01 BP 121/71 01/11/21 08:01 Pulse Ox 99 01/11/21 08:01 Intake & Output 01/10/21 01/11/21 01/11/21 18:59 06:59 18:59 Output Total 300 Balance -300 Weight 65.3 kg Output: Urine 300 Other: Voiding Method Urinal - Labs CBC & Chem 7: 01/10/21 03:36 01/10/21 03:36 Labs: Abnormal Lab Results - Last 24 Hours (Table) 01/10/21 01/10/21 01/10/21 Range/Units 03:36 03:36 09:24 RDW 16.3 H (11.5-15.5) % Sodium 128 L (137-145) mmol/L Potassium 3.3 L (3.5-5.1) mmol/L Chloride 82 L (98-107) mmol/L BUN 62 H (9-20) mg/dL Creatinine 1.95 H (0.66-1.25) mg/dL Glucose 333 H (74-99) mg/dL POC Glucose (mg/dL) 280 H (75-99) mg/dL 01/10/21 01/10/21 01/10/21 Range/Units 12:33 16:54 21:32 RDW (11.5-15.5) % Sodium (137-145) mmol/L Potassium (3.5-5.1) mmol/L Chloride (98-107) mmol/L BUN (9-20) mg/dL Creatinine (0.66-1.25) mg/dL Glucose (74-99) mg/dL POC Glucose (mg/dL) 346 H 281 H 259 H (75-99) mg/dL 01/11/21 Range/Units 06:50 RDW (11.5-15.5) % Sodium (137-145) mmol/L Potassium (3.5-5.1) mmol/L Chloride (98-107) mmol/L BUN (9-20) mg/dL Creatinine (0.66-1.25) mg/dL Glucose (74-99) mg/dL POC Glucose (mg/dL) 189 H (75-99) mg/dL
[2021-01-11] MEDS: INSULIN ASPART (NovoLOG) 100 UNIT/ML VIAL SQ SCH ×7 (08:55→21:09)
[2021-01-11] MEDS: APIXABAN 5 MG TAB PO SCH ×2 (08:56→21:07)
[2021-01-11] MEDS: DIGOXIN 125 MCG TAB PO SCH (08:56)
[2021-01-11] MEDS: POTASSIUM CHLORIDE ER 20 MEQ TAB.ER PO SCH (08:57)
[2021-01-11] MEDS: allopurinoL 100 MG TAB PO SCH ×2 (08:57→21:07)
[2021-01-11] MEDS: SPIRONOLACTONE 25 MG TAB PO SCH (08:57)
[2021-01-11] MEDS: ATORVASTATIN 10 MG TAB PO SCH (08:57)
[2021-01-11] MEDS: METOPROLOL SUCCINATE (ER) 50 MG TAB.ER.24H PO SCH (08:57)
[2021-01-11] MEDS: ASPIRIN 325 MG TAB PO SCH (08:57)
[2021-01-11] MEDS: SYMBICORT 160-4.5 MCG INHALER INHALATION SCH ×3 (09:01→19:14)
[2021-01-11] MEDS: SODIUM CHLORIDE 0.65% NASAL SPRAY 44 ML BTL NASAL SCH ×4 (10:39→21:08)
[2021-01-11 11:32] LABS: Calcium 8.5 mg/dL (8.4-10.2); Potassium 3.9 mmol/L (3.5-5.1)
[2021-01-11 11:38] LABS: Glucose,Whole Blood 358 mg/dL (75-99)
[2021-01-11 11:46] LABS: Anisocytosis Slight; Basophils # (A) 0.1 k/uL (0-0.2); Basophils % (A) 1 %; Eosinophils # (A) 0.1 k/uL (0-0.7); Eosinophils % (A) 2 %; HGB 14.5 gm/dL (13.0-17.5); Lymphocytes # (A) 2.1 k/uL (1.0-4.8); Lymphocytes % (A) 26 %; MCH 27.5 pg (25.0-35.0); MCHC 32.3 g/dL (31.0-37.0); MCV 85.1 fL (80.0-100.0); Mean Platelet Volume 9.9; Monocytes # (A) 0.5 k/uL (0-1.0); Monocytes % (A) 6 %; Neutrophils # (A) 5.2 k/uL (1.3-7.7); Neutrophils % (A) 64 %; Platelet Count 197 k/uL (150-450); RBC 5.28 m/uL (4.30-5.90); RDW 16.6 % (11.5-15.5); WBC 8.2 k/uL (3.8-10.6)
[2021-01-11] MEDS: BRIMONIDINE TARTRATE 0.2% DROPS 5 ML BTL BOTH EYES SCH ×2 (16:05→21:07)
[2021-01-11] MEDS: SODIUM CHLORIDE 0.9% 1,000 ML IV SCH ×2 (16:05→16:58)
[2021-01-11 16:15] VITALS: RESP 16
[2021-01-11 16:38] LABS: Glucose,Whole Blood 368 mg/dL (75-99)
[2021-01-11 20:41] LABS: Glucose,Whole Blood 343 mg/dL (75-99)
[2021-01-11 20:50] LABS: Hemoglobin A1C 8.4 % (4.0-6.0)
[2021-01-11] MEDS: TAMSULOSIN 0.4 MG CAP.ER.24H PO SCH (21:07)
[2021-01-11] MEDS: FINASTERIDE 5 MG TAB PO SCH (21:07)
--- NOTE | 2021-01-11 22:57 | P.PN ---
Subjective Progress Note Date: 01/11/21 Principal diagnosis: Acute kidney injury Chronic CHF ejection fraction 10% Generalized weakness and lack of energy Patient is a 51-year-old man with a known history of nonischemic cardiomyopathy status post AICD placement ejection fraction 10% as per patient, diabetes type 2 insulin-dependent and bilateral glaucoma, anxiety/depression and previous history of smoking presents to ER with the complaints of generalized weakness fatigue, nausea and vomiting. Patient states that for the past couple of weeks he has been having generalized weakness and lack of energy. Patient is also complaining of shortness of breath and dizziness. no CP, Patient states his blood pressure was slightly elevated in 400s at home. Denies any fever or chills. No cough or sputum production. Chest x-ray showed no evidence of acute pulmonary disease CT of the abdomen pelvis was done showed no acute ab abdominal pelvic process.. Markedly distended urinary bladder. EKG showed normal sinus rhythm Lab data showed WC 10.5 hemoglobin 18.0 Sodium 132 potassium 3.1 chloride 77 BUN 59 and creatinine 2.1 Blood sugar is 257 admission Troponin 0 0.083, 0.0919 0.095 UA showed 3+ glucose Coronavirus PCR not detected 01/11/2021 Patient is currently resting in the bed comfortably. Denied any complaints of chest pain or shortness of breath. Pulse ox is upper 90s on room air. No cough or sputum reduction. No fever no chills. Patient states that he is still feeling weak and tired. Patient is blood sugar is still elevated and is being continued on Levemir 30 units twice daily and NovoLog 20 units 3 times daily AC along with insulin sliding scale. Laboratory showed sodium 130 potassium 3.9 chloride 84, BUN 44 and creatinine 1.59 which is improving. Calcium is 8.5 TSH 2.31 PT OT was consulted. Cardiology recommends continue with current heart failure regimen. Current medications reviewed. Objective - Vital Signs Vital signs: Vital Signs Temp 96.7 F L 01/11/21 16:00 Pulse 73 01/11/21 16:00 Resp 16 01/11/21 16:00 BP 134/73 01/11/21 16:00 Pulse Ox 98 01/11/21 16:00 Intake & Output 01/11/21 01/11/21 01/12/21 06:59 18:59 06:59 Intake Total 780 Output Total 300 1150 Balance -300 -370 Weight 65.3 kg Intake: Oral 780 Output: Urine 300 1150 Other: Voiding Method Urinal Urinal # Voids 1 - Exam PHYSICAL EXAMINATION: Patient is lying in the bed comfortably, no acute distress, awake alert and oriented.. HEENT: Normocephalic. Neck is supple. Pupils reactive. Nostrils clear. Oral cavity is moist. Ears reveal no drainage. Neck reveals no JVD, carotid bruits, or thyromegaly. CHEST EXAMINATION: Trachea is central. Symmetrical expansion. Lung villa clear to auscultation and percussion. CARDIAC: Normal S1, S2 with no gallops. No murmurs ABDOMEN: Soft. Bowel sounds normal. No organomegaly. No abdominal bruits. Extremities: reveal no edema. No clubbing or cyanosis Neurologically awake, alert, oriented x3 with well-coordinated movements. No focal deficits noted Skin: No rash or skin lesions. Psychiatric: Coperative. Nonsuicidal Musculoskeletal: No joint swelling or deformity. Normal range of motion. - Labs CBC & Chem 7: 01/11/21 09:42 01/11/21 09:42 Labs: Abnormal Lab Results - Last 24 Hours (Table) 01/10/21 01/11/21 01/11/21 Range/Units 21:32 06:50 09:42 RDW 16.6 H (11.5-15.5) % Sodium (137-145) mmol/L Chloride (98-107) mmol/L Carbon Dioxide (22-30) mmol/L BUN (9-20) mg/dL Creatinine (0.66-1.25) mg/dL Glucose (74-99) mg/dL POC Glucose (mg/dL) 259 H 189 H (75-99) mg/dL Hemoglobin A1c (4.0-6.0) % 01/11/21 01/11/21 01/11/21 Range/Units 09:42 09:42 11:36 RDW (11.5-15.5) % Sodium 130 L (137-145) mmol/L Chloride 84 L (98-107) mmol/L Carbon Dioxide 38 H (22-30) mmol/L BUN 44 H (9-20) mg/dL Creatinine 1.59 H (0.66-1.25) mg/dL Glucose 367 H (74-99) mg/dL POC Glucose (mg/dL) 358 H (75-99) mg/dL Hemoglobin A1c 8.4 H (4.0-6.0) % 01/11/21 01/11/21 Range/Units 16:37 20:34 RDW (11.5-15.5) % Sodium (137-145) mmol/L Chloride (98-107) mmol/L Carbon Dioxide (22-30) mmol/L BUN (9-20) mg/dL Creatinine (0.66-1.25) mg/dL Glucose (74-99) mg/dL POC Glucose (mg/dL) 368 H 343 H (75-99) mg/dL Hemoglobin A1c (4.0-6.0) % Assessment and Plan Assessment: Generalized weakness fatigue and lack of energy likely due to hyperglycemia and dehydration volume depletion. Chest x-ray and UA negative. Ruled out infection. COVID-19 PCR not detected Hyperglycemia with uncontrolled diabetes type 2 Acute kidney injury, prerenal with possible underlying CKD stage III. 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 Elevated troponin level. Possible demand ischemia. Anxiety/depression COPD Previous history of smoking DVT prophylaxis. Plan: Patient will be continued on gentle IV hydration and start back on his insulin regimen and monitor blood sugar closely. Symptomatic management for nausea and vomiting and GI prophylaxis. Due to elevated troponin level patient was started on heparin drip and cardiology was consulted. Apparently patient does have chronically elevated troponin level. Heparin drip has been discontinued. Continue with telemetry monitoring, home medications and follow-up closely. PT OT was consulted. Replace electrolytes and monitor renal function. Time with Patient: Greater than 30
[2021-01-12 07:10] LABS: Glucose,Whole Blood 254 mg/dL (75-99)
[2021-01-12] MEDS: SYMBICORT 160-4.5 MCG INHALER INHALATION SCH ×2 (07:23→19:08)
[2021-01-12] MEDS: INSULIN ASPART (NovoLOG) 100 UNIT/ML VIAL SQ SCH ×7 (07:50→21:16)
[2021-01-12] MEDS: INSULIN DETEMIR (LEVEMIR) 100 UNIT/ML SYR SQ SCH ×2 (07:50→21:19)
[2021-01-12] MEDS: APIXABAN 5 MG TAB PO SCH ×2 (09:07→21:14)
[2021-01-12] MEDS: ASPIRIN 325 MG TAB PO SCH (09:07)
[2021-01-12] MEDS: allopurinoL 100 MG TAB PO SCH ×2 (09:07→21:13)
[2021-01-12] MEDS: ATORVASTATIN 10 MG TAB PO SCH (09:07)
[2021-01-12] MEDS: METOPROLOL SUCCINATE (ER) 50 MG TAB.ER.24H PO SCH (09:08)
[2021-01-12] MEDS: POTASSIUM CHLORIDE ER 20 MEQ TAB.ER PO SCH (09:08)
[2021-01-12] MEDS: DIGOXIN 125 MCG TAB PO SCH (09:08)
[2021-01-12] MEDS: SPIRONOLACTONE 25 MG TAB PO SCH (09:09)
[2021-01-12] MEDS: SODIUM CHLORIDE 0.65% NASAL SPRAY 44 ML BTL NASAL SCH ×4 (09:09→21:14)
[2021-01-12 11:34] LABS: Calcium 8.3 mg/dL (8.4-10.2); Potassium 3.9 mmol/L (3.5-5.1)
[2021-01-12 12:09] LABS: Glucose,Whole Blood 299 mg/dL (75-99)
[2021-01-12] MEDS: BRIMONIDINE TARTRATE 0.2% DROPS 5 ML BTL BOTH EYES SCH ×2 (12:19→21:14)
[2021-01-12] MEDS: CYANOCOBALAMIN 500 MCG TAB PO SCH (14:11)
[2021-01-12 17:34] LABS: Glucose,Whole Blood 233 mg/dL (75-99)
[2021-01-12 20:14] LABS: Glucose,Whole Blood 362 mg/dL (75-99)
[2021-01-12] MEDS: FINASTERIDE 5 MG TAB PO SCH (21:13)
[2021-01-12] MEDS: TAMSULOSIN 0.4 MG CAP.ER.24H PO SCH (21:14)
[2021-01-13 06:43] LABS: Anisocytosis Slight; Basophils # (A) 0.1 k/uL (0-0.2); Basophils % (A) 1 %; Eosinophils # (A) 0.2 k/uL (0-0.7); Eosinophils % (A) 3 %; HCT 39.8 % (39.0-53.0); HGB 13.5 gm/dL (13.0-17.5); Lymphocytes # (A) 2.7 k/uL (1.0-4.8); Lymphocytes % (A) 36 %; MCH 28.2 pg (25.0-35.0); MCHC 33.8 g/dL (31.0-37.0); MCV 83.3 fL (80.0-100.0); Mean Platelet Volume 9.1; Monocytes # (A) 0.5 k/uL (0-1.0); Monocytes % (A) 7 %; Neutrophils # (A) 3.8 k/uL (1.3-7.7); Neutrophils % (A) 52 %; Platelet Count 159 k/uL (150-450); RBC 4.78 m/uL (4.30-5.90); RDW 16.8 % (11.5-15.5); WBC 7.4 k/uL (3.8-10.6)
[2021-01-13 07:33] LABS: Glucose,Whole Blood 236 mg/dL (75-99)
[2021-01-13] MEDS: SYMBICORT 160-4.5 MCG INHALER INHALATION SCH (07:44)
[2021-01-13] MEDS: INSULIN ASPART (NovoLOG) 100 UNIT/ML VIAL SQ SCH ×4 (08:04→12:34)
[2021-01-13] MEDS: INSULIN DETEMIR (LEVEMIR) 100 UNIT/ML SYR SQ SCH (08:04)
[2021-01-13] MEDS: ASPIRIN 325 MG TAB PO SCH (08:05)
[2021-01-13] MEDS: ATORVASTATIN 10 MG TAB PO SCH (08:05)
[2021-01-13] MEDS: allopurinoL 100 MG TAB PO SCH (08:05)
[2021-01-13] MEDS: APIXABAN 5 MG TAB PO SCH (08:05)
[2021-01-13] MEDS: CYANOCOBALAMIN 500 MCG TAB PO SCH (08:06)
[2021-01-13] MEDS: METOPROLOL SUCCINATE (ER) 50 MG TAB.ER.24H PO SCH (08:06)
[2021-01-13] MEDS: BRIMONIDINE TARTRATE 0.2% DROPS 5 ML BTL BOTH EYES SCH (08:06)
[2021-01-13] MEDS: DIGOXIN 125 MCG TAB PO SCH (08:06)
[2021-01-13] MEDS: SPIRONOLACTONE 25 MG TAB PO SCH (08:07)
[2021-01-13] MEDS: SODIUM CHLORIDE 0.65% NASAL SPRAY 44 ML BTL NASAL SCH ×2 (08:07→12:35)
[2021-01-13] MEDS: POTASSIUM CHLORIDE ER 20 MEQ TAB.ER PO SCH (08:07)
--- NOTE | 2021-01-13 10:51 | P.CN ---
Psychiatric Consult - . Consult date: 01/13/21 Consult:: 01/13/21 10:00 Chief complaint: Paco Lozano is a 55-year-old white male who has history of anxiety and depression. He was admitted to Hospital because of her excessive sleepiness, fatigue, weakness, nausea and vomiting. He has a history of congestive heart failure along with the prostate problems and cardiomyopathy. History of present illness: This patient told me that he could not get the answer from his doctor for the problems that brought him to emergency room. He started yelling at his attending physician so a psychiatric consult was entertained. He stated that that he does have history of chronic depression and when he is depressed he is in a very "dark mood" and feels sad and down. He stated he has yelled and screamed at many other people in the past because of his depression. He stated that his depression seems to have come back. He stated he was under treatment at the [facility] for his depression in the past and thinks that he may have come to a wrong place. He stated he was diagnosed as a hyperactive child growing up. He was treated with the "Thorazine" which he did not like. He stated he was given multiple other psychotropic medications but he did not like either one of them because none of those medications took care of his problem. Past history: He denied ever being in a psychiatric hospital but admits to being treated for depression at the [facility] outpatient clinic. He stated he was in [facility] approximately 4 years for the crimes that he did not commit. 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 He however does not believe that anyone of those activities were criminal. He stated that he was in [facility] in [place] and then transferred to [facility] by a [place] department [facility] corrections. At times he appeared somewhat grandiose but does not show any disorder of thought process. Family history: He denied any history of mental illness in the family. He denies any history of suicide in the family. He stated everybody in his family is "" and when asked to elaborate on that he stated "I may as well consider them ". He denied any history of alcohol or drug abuse in the family. Medical history: He stated he has a history of congestive heart failure, cardiomyopathy and has ejection fraction of only 10%. He stated he has a problems with his kidneys and also has prostate problems. He stated he also suffers from COPD. Social history: He stated that he is disabled at present. 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 He stated he was in the [place] for 10 years. He stated he was in [place]. He stated he generally goes to [facility] in [place] or [place] clinic in [place]. Medication history: He stated he does not remember all his medications but he does have his mother's telephone number and he could get that information from her. Substance abuse history: He stated that he has a history of using heroin, meth and cocaine. He denied ever using alcohol. History of suicide and homicide: He denies ever attempting suicide in his life, he denied that the he has assaulted anyone else either. Legal history: He was in [facility] with [place] [employer] for more than 4 years. When asked if he is on parole he kept quiet and did not answer. Mental status examination: This patient appears to be of his stated age. He has adequate speech language and communication skills. His behavior is cooperative with me. His mood is slightly depressed and does show some affective lability. He denies any auditory or visual hallucinations at this time or in the past. He is not delusional. He does not have any loose associations or flight of ideas or any other disorder of thought process. He has limited control over his impulses and has poor insight into his problems. His formal judgment is intact but functional judgment is slightly impaired. He denies any suicidal or homicidal thoughts, ideations or plans. He is otherwise coherent and in touch with reality. Diagnostic impression: Major depressive disorder with [id number] symptoms Rule out bipolar disorder Rule out antisocial personality disorder Recommendations: This patient does need help with his depression but stated that he has a case preparer and liner at the [facility] and will call her and get into treatment at the [facility]. He does not meet the inpatient hospital criteria for psychiatric hospitalization. He could be discharged whenever he is medically stable to follow-up at [facility].
[2021-01-13 11:28] LABS: Anion Gap 6.1 mmol/L (4.00-12.00); BUN/Creat Ratio 12.67 Ratio (12.00-20.00); Calcium 8.9 mg/dL (8.7-10.3); Carbon Dioxide 30.9 mmol/L (21.6-31.8); Non-African American GFR(CKD) 50.9 (60.0-200.0)
[2021-01-13 11:33] LABS: Glucose,Whole Blood 295 mg/dL (75-99)
[2021-01-13 13:07] VITALS: BP 115/80; PULSE 79; TEMP 97.6
== END 2021-01-13 14:46 | disposition home or self-care (01) | DRG 638 ==
LOC: EC 14:20 → 3SCARD 19:19 → 1SOBS 01-11 15:52 → 5NMEDONC 01-12 15:03
PROVIDERS: ADMIT Hospitalist; ATTEND Hospitalist
DX: E11.65 Type 2 diabetes mellitus with hyperglycemia (principal); I42.8 Other cardiomyopathies; I50.22 Chronic systolic (congestive) heart failure; I25.110 Atherosclerotic heart disease of native coronary artery with unstable angina pectoris; N17.9 Acute kidney failure, unspecified; E87.1 Hypo-osmolality and hyponatremia; F32.0 Major depressive disorder, single episode, mild; I24.8 Other forms of acute ischemic heart disease; I11.0 Hypertensive heart disease with heart failure; E11.39 Type 2 diabetes mellitus with other diabetic ophthalmic complication; J44.9 Chronic obstructive pulmonary disease, unspecified; Z79.4 Long term (current) use of insulin; Z20.822 Contact with and (suspected) exposure to COVID-19; E86.0 Dehydration; E86.1 Hypovolemia; E87.6 Hypokalemia; Z95.810 Presence of automatic (implantable) cardiac defibrillator; I51.3 Intracardiac thrombosis, not elsewhere classified; H42 Glaucoma in diseases classified elsewhere; H40.9 Unspecified glaucoma; Z79.01 Long term (current) use of anticoagulants; Z79.82 Long term (current) use of aspirin; Z79.51 Long term (current) use of inhaled steroids; Z79.899 Other long term (current) drug therapy; Z87.891 Personal history of nicotine dependence; Z83.3 Family history of diabetes mellitus; Z82.49 Family history of ischemic heart disease and other diseases of the circulatory system
CPT/HCPCS: 36415; 71046; 74176; 80048; 80053; 80061; 81003; 82150; 82550; 82607; 83036; 83605; 83690; 83735; 84443; 84484; 85025; 85610; 85730; 87635; 93005; 94640; 94760; 99285

== ENCOUNTER 2021-11-27 18:17 | Inpatient (IN) | payer OTHER, MEDICARE ==
[2021-11-27] MEDS ORDERED: HYDROmorphone 1 MG/ML 1 ML SYRINGE IVP STA (19:05)
[2021-11-27] MEDS ORDERED: SODIUM CHLORIDE 0.9% 500 ML 500 ML IV STA (19:06)
--- NOTE | 2021-11-27 19:10 | ED ---
SOB HPI - General Chief Complaint: Shortness of Breath Stated Complaint: MARCO ANTONIO, pain all over Time Seen by Provider: 11/27/21 18:45 Source: patient, family, RN notes reviewed, old records reviewed Mode of arrival: wheelchair Limitations: physical limitation - History of Present Illness Initial Comments: 48-year-old male with a history of hereditary cardiomyopathy if she is coronary artery disease pneumonia in the past who has a defibrillator and pacer who presents with complaints of shortness of breath when after past 3 days getting progressively worse he has exertional dyspnea he has orthopnea no fevers chills sweats no overt chest pain he has had generalized body pain and aches however the worst she states. MD Complaint: shortness of breath - Related Data Home Medications Medication Instructions Recorded Confirmed INSULIN ASPART (NovoLOG) [NovoLOG 20 unit SQ AC-TID 04/28/16 01/09/21 (formulary)] Albuterol Sulfate [Proair Hfa] 1 puff INHALATION RT-Q4H PRN 08/09/20 01/09/21 Aspirin 81 mg PO DAILY 08/09/20 01/09/21 Potassium Chloride ER [K-Dur 20] 20 meq PO DAILY 08/09/20 01/09/21 allopurinoL [Zyloprim] 100 mg PO BID 08/09/20 01/09/21 Brimonidine Tartrate [Alphagan P 1 drops BOTH EYES BID 11/29/20 01/09/21 0.2% Ophth Soln] Budesonide/Formoterol Fumarate 2 puff INHALATION RT-BID 11/29/20 01/09/21 [Symbicort 160-4.5 Mcg Inhaler] Sodium Chloride 0.65% Nasal [Deep 2 spray NASAL QID 11/29/20 01/09/21 Sea (Saline)] metOLazone [Zaroxolyn] 2.5 mg PO MOWEFR 11/29/20 01/09/21 Dextrose Chew [Glucose Chew Tab] 12 gm PO DAILY PRN 01/09/21 01/09/21 Digoxin [Lanoxin] 125 mcg PO DAILY 01/09/21 01/09/21 Finasteride [Proscar] 5 mg PO HS 01/09/21 01/09/21 Metoprolol Succinate [Toprol XL] 50 mg PO DAILY 01/09/21 01/09/21 Spironolactone [Aldactone] 12.5 mg PO DAILY 01/09/21 01/09/21 Tamsulosin HCl [Flomax] 0.4 mg PO HS 01/09/21 01/09/21 Previous Rx's Medication Instructions Recorded Apixaban [Eliquis] 5 mg PO BID #60 tab 10/07/20 Atorvastatin [Lipitor] 10 mg PO DAILY #30 tab 01/12/21 Insulin Detemir (Levemir) [Levemir] 34 unit SQ BID@0700,2100 syr 01/13/21 Allergies Allergy/AdvReac Type Severity Reaction Status Date / Time latex AdvReac Rash/Hives Verified 11/27/21 20:51 Review of Systems ROS Statement: Those systems with pertinent positive or pertinent negative responses have been documented in the HPI. ROS Other: All systems not noted in ROS Statement are negative. 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 Other HX: Palpitations, IDDM, bilateral glaucoma History of Any Multi-Drug Resistant Organisms: None Reported Past Surgical History: Heart Catheterization, Pacemaker Additional Past Surgical History / Comment(s): 10/2012 pacer/defibrillator. Past Anesthesia/Blood Transfusion Reactions: No Reported Reaction Additional Past Anesthesia/Blood Transfusion Reaction / Comment(s): Pt has recieved blood in the past without reaction. Type of Cardiac Device: Permanent Pacemaker, AICD Device Placement Date:: 10/2012 Past Psychological History: Anxiety, Depression Smoking Status: Former smoker Past Alcohol Use History: None Reported Past Drug Use History: None Reported - Past Family History Father Family Medical History: Diabetes Mellitus Additional Family Medical History / Comment(s): Father has cardiomyopathy. Mother Family Medical History: Hypertension Brother(s) Additional Family Medical History / Comment(s): Cardiomyopathy with heart transplant. General Exam - General Exam Comments Initial Comments: Is a well-developed male was awake alert oriented 3 Limitations: physical limitation General appearance: alert, anxious Head exam: Present: atraumatic, normocephalic, normal inspection Eye exam: Present: normal appearance, PERRL, EOMI. Absent: scleral icterus, conjunctival injection, periorbital swelling ENT exam: Present: mucous membranes dry Neck exam: Present: normal inspection, full ROM, other (Urinaryorbruits). Absent: tenderness, meningismus, lymphadenopathy Respiratory exam: Present: rales, decreased breath sounds. Absent: respiratory distress, wheezes, rhonchi, stridor Cardiovascular Exam: Present: normal rhythm, tachycardia, normal heart sounds. Absent: systolic murmur, diastolic murmur, rubs, gallop, clicks GI/Abdominal exam: Present: soft, distended, normal bowel sounds. Absent: tenderness, guarding, rebound, rigid Rectal exam: Present: deferred Extremities exam: Present: full ROM, normal capillary refill, pedal edema. Absent: tenderness, joint swelling, calf tenderness Back exam: Present: normal inspection Neurological exam: Present: alert, oriented X3, CN II-XII intact Psychiatric exam: Present: normal affect, normal mood Skin exam: Present: warm, dry, intact, pallor. Absent: rash Course Vital Signs 11/27/21 11/27/21 11/27/21 18:18 18:36 18:54 Temperature 97.0 F L Pulse Rate 104 H 97 Respiratory 18 24 20 Rate Blood Pressure 89/61 94/71 O2 Sat by Pulse 99 98 Oximetry 11/27/21 11/27/21 11/27/21 19:25 20:00 20:59 Temperature Pulse Rate 96 99 105 H Respiratory 22 24 Rate Blood Pressure 99/80 101/58 O2 Sat by Pulse 99 98 Oximetry 11/27/21 11/27/21 21:00 21:15 Temperature Pulse Rate 105 H 112 H Respiratory 26 H Rate Blood Pressure 123/88 O2 Sat by Pulse 99 Oximetry - Reevaluation(s) Reevaluation #1: 11/27/21 21:33 Reevaluation patient finds that he is feeling somewhat improved he was noted have a low blood sugar and was given supplements. Reevaluation #2: 11/27/21 21:35 Patient was given multiple medications for the hyper ketonemia that was present. He did seem to tolerate this well. Medical Decision Making - Medical Decision Making I did discuss findings with Dr. vargas as well as with the patient and his mother was present. Patient be admitted acute renal injury, hyperkalemia, hypoglycemia, CHF, lactic acidosis. The acidosis is likely secondary to fluid volume status is no infectious processes identified at this time. Urine cultures pending at this time - Lab Data Result diagrams: 11/27/21 19:16 11/27/21 19:16 Lab Results 11/27/21 11/27/21 11/27/21 Range/Units 19:16 19:16 19:16 WBC 10.0 (3.8-10.6) k/uL RBC 4.65 (4.30-5.90) m/uL Hgb 11.4 L (13.0-17.5) gm/dL Hct 38.1 L (39.0-53.0) % MCV 81.9 (80.0-100.0) fL MCH 24.5 L (25.0-35.0) pg MCHC 29.9 L (31.0-37.0) g/dL RDW 21.9 H (11.5-15.5) % Plt Count 276 (150-450) k/uL MPV 8.7 Neutrophils % 78 % Lymphocytes % 14 % Monocytes % 6 % Eosinophils % 0 % Basophils % 0 % Neutrophils # 7.8 H (1.3-7.7) k/uL Lymphocytes # 1.4 (1.0-4.8) k/uL Monocytes # 0.6 (0-1.0) k/uL Eosinophils # 0.0 (0-0.7) k/uL Basophils # 0.0 (0-0.2) k/uL Hypochromasia Marked Poikilocytosis Slight Anisocytosis Moderate Microcytosis Slight PT 16.6 H (9.0-12.0) sec INR 1.6 H (<1.2) APTT 24.5 (22.0-30.0) sec Sodium 127 L (137-145) mmol/L Potassium 7.1 H* (3.5-5.1) mmol/L Chloride 91 L (98-107) mmol/L Carbon Dioxide 19 L (22-30) mmol/L Anion Gap 17 mmol/L BUN 48 H (9-20) mg/dL Creatinine 2.64 H (0.66-1.25) mg/dL Est GFR (CKD-EPI)AfAm 30 (>60 ml/min/1.73 sqM) Est GFR (CKD-EPI)NonAf 26 (>60 ml/min/1.73 sqM) Glucose 31 L* (74-99) mg/dL POC Glucose (mg/dL) (75-99) mg/dL POC Glu Welding Estimator ID Plasma Lactic Acid Grover (0.7-2.0) mmol/L Calcium 9.0 (8.4-10.2) mg/dL Magnesium 2.1 (1.6-2.3) mg/dL Total Bilirubin 2.6 H (0.2-1.3) mg/dL AST 129 H (17-59) U/L ALT 55 H (4-49) U/L Alkaline Phosphatase 153 H (38-126) U/L Creatine Kinase 80 (55-170) U/L Troponin I (0.000-0.034) ng/mL NT-Pro-B Natriuret Pep pg/mL Total Protein 6.9 (6.3-8.2) g/dL Albumin 3.9 (3.5-5.0) g/dL Urine Color Urine Appearance (Clear) Urine pH (5.0-8.0) Ur Specific Celina (1.001-1.035) Urine Protein (Negative) Urine Glucose (UA) (Negative) Urine Ketones (Negative) Urine Blood (Negative) Urine Nitrite (Negative) Urine Bilirubin (Negative) Urine Urobilinogen (<2.0) mg/dL Ur Leukocyte Esterase (Negative) Urine RBC (0-5) /hpf Urine WBC (0-5) /hpf Urine WBC Clumps (None) /hpf Ur Squamous Epith Cells (0-4) /hpf Calcium Oxalate Crystal (None) /hpf Urine Bacteria (None) /hpf Hyaline Casts (0-2) /lpf Urine Mucus (None) /hpf Digoxin ng/mL 11/27/21 11/27/21 11/27/21 Range/Units 19:16 19:16 19:16 WBC (3.8-10.6) k/uL RBC (4.30-5.90) m/uL Hgb (13.0-17.5) gm/dL Hct (39.0-53.0) % MCV (80.0-100.0) fL MCH (25.0-35.0) pg MCHC (31.0-37.0) g/dL RDW (11.5-15.5) % Plt Count (150-450) k/uL MPV Neutrophils % % Lymphocytes % % Monocytes % % Eosinophils % % Basophils % % Neutrophils # (1.3-7.7) k/uL Lymphocytes # (1.0-4.8) k/uL Monocytes # (0-1.0) k/uL Eosinophils # (0-0.7) k/uL Basophils # (0-0.2) k/uL Hypochromasia Poikilocytosis Anisocytosis Microcytosis PT (9.0-12.0) sec INR (<1.2) APTT (22.0-30.0) sec Sodium (137-145) mmol/L Potassium (3.5-5.1) mmol/L Chloride (98-107) mmol/L Carbon Dioxide (22-30) mmol/L Anion Gap mmol/L BUN (9-20) mg/dL Creatinine (0.66-1.25) mg/dL Est GFR (CKD-EPI)AfAm (>60 ml/min/1.73 sqM) Est GFR (CKD-EPI)NonAf (>60 ml/min/1.73 sqM) Glucose (74-99) mg/dL POC Glucose (mg/dL) (75-99) mg/dL POC Glu Welding Estimator ID Plasma Lactic Acid Grover 4.7 H* (0.7-2.0) mmol/L Calcium (8.4-10.2) mg/dL Magnesium (1.6-2.3) mg/dL Total Bilirubin (0.2-1.3) mg/dL AST (17-59) U/L ALT (4-49) U/L Alkaline Phosphatase (38-126) U/L Creatine Kinase (55-170) U/L Troponin I 0.024 (0.000-0.034) ng/mL NT-Pro-B Natriuret Pep 00891 pg/mL Total Protein (6.3-8.2) g/dL Albumin (3.5-5.0) g/dL Urine Color Urine Appearance (Clear) Urine pH (5.0-8.0) Ur Specific Celina (1.001-1.035) Urine Protein (Negative) Urine Glucose (UA) (Negative) Urine Ketones (Negative) Urine Blood (Negative) Urine Nitrite (Negative) Urine Bilirubin (Negative) Urine Urobilinogen (<2.0) mg/dL Ur Leukocyte Esterase (Negative) Urine RBC (0-5) /hpf Urine WBC (0-5) /hpf Urine WBC Clumps (None) /hpf Ur Squamous Epith Cells (0-4) /hpf Calcium Oxalate Crystal (None) /hpf Urine Bacteria (None) /hpf Hyaline Casts (0-2) /lpf Urine Mucus (None) /hpf Digoxin ng/mL 11/27/21 11/27/21 11/27/21 Range/Units 19:16 19:38 20:15 WBC (3.8-10.6) k/uL RBC (4.30-5.90) m/uL Hgb (13.0-17.5) gm/dL Hct (39.0-53.0) % MCV (80.0-100.0) fL MCH (25.0-35.0) pg MCHC (31.0-37.0) g/dL RDW (11.5-15.5) % Plt Count (150-450) k/uL MPV Neutrophils % % Lymphocytes % % Monocytes % % Eosinophils % % Basophils % % Neutrophils # (1.3-7.7) k/uL Lymphocytes # (1.0-4.8) k/uL Monocytes # (0-1.0) k/uL Eosinophils # (0-0.7) k/uL Basophils # (0-0.2) k/uL Hypochromasia Poikilocytosis Anisocytosis Microcytosis PT (9.0-12.0) sec INR (<1.2) APTT (22.0-30.0) sec Sodium (137-145) mmol/L Potassium (3.5-5.1) mmol/L Chloride (98-107) mmol/L Carbon Dioxide (22-30) mmol/L Anion Gap mmol/L BUN (9-20) mg/dL Creatinine (0.66-1.25) mg/dL Est GFR (CKD-EPI)AfAm (>60 ml/min/1.73 sqM) Est GFR (CKD-EPI)NonAf (>60 ml/min/1.73 sqM) Glucose (74-99) mg/dL POC Glucose (mg/dL) 42 L (75-99) mg/dL POC Glu Welding Estimator ID Inge Jenkins Plasma Lactic Acid Grover (0.7-2.0) mmol/L Calcium (8.4-10.2) mg/dL Magnesium (1.6-2.3) mg/dL Total Bilirubin (0.2-1.3) mg/dL AST (17-59) U/L ALT (4-49) U/L Alkaline Phosphatase (38-126) U/L Creatine Kinase (55-170) U/L Troponin I (0.000-0.034) ng/mL NT-Pro-B Natriuret Pep pg/mL Total Protein (6.3-8.2) g/dL Albumin (3.5-5.0) g/dL Urine Color Yellow Urine Appearance Turbid (Clear) Urine pH 6.5 (5.0-8.0) Ur Specific Celina 1.012 (1.001-1.035) Urine Protein 2+ H (Negative) Urine Glucose (UA) Negative (Negative) Urine Ketones Negative (Negative) Urine Blood Moderate H (Negative) Urine Nitrite Negative (Negative) Urine Bilirubin Negative (Negative) Urine Urobilinogen 4.0 (<2.0) mg/dL Ur Leukocyte Esterase Large H (Negative) Urine RBC 57 H (0-5) /hpf Urine WBC >182 H (0-5) /hpf Urine WBC Clumps Many H (None) /hpf Ur Squamous Epith Cells 2 (0-4) /hpf Calcium Oxalate Crystal Occasional H (None) /hpf Urine Bacteria Few H (None) /hpf Hyaline Casts 47 H (0-2) /lpf Urine Mucus Rare H (None) /hpf Digoxin <0.4 ng/mL - EKG Data -: EKG Interpreted by Ny EKG Comments: Sinus tachycardia rate 103. Interval 189 QRS duration 119 QT since QTC 392/452 - Radiology Data Radiology results: report reviewed (Imaging reviewed as well as report evidence of right lower lobe opacity), image reviewed Critical Care Time Critical Care Time: Yes Total Critical Care Time: 39 Critical Care Time: Critical care time included initial presentation with history physical labs x- rays multiple reevaluation the patient multiple discussions with the patient family discuss with the main physician discussion with the cytotechnologist documentation of the above Disposition Clinical Impression: Acute kidney injury, Hyperkalemia, Hypoglycemia, CHF (congestive heart failure), Cardiomyopathy, Failure to thrive in adult Disposition: ADMITTED IP TO THIS HOSP Condition: Fair Referrals: [facility],Clinic [Primary Care Provider] - 1-2 days
[2021-11-27 19:32] LABS: Anisocytosis Moderate; Basophils % (A) 0 %; Eosinophils % (A) 0 %; HCT 38.1 % (39.0-53.0); HGB 11.4 gm/dL (13.0-17.5); Hypochromasia Marked; Lymphocytes # (A) 1.4 k/uL (1.0-4.8); Lymphocytes % (A) 14 %; MCH 24.5 pg (25.0-35.0); MCHC 29.9 g/dL (31.0-37.0); MCV 81.9 fL (80.0-100.0); Mean Platelet Volume 8.7; Microcytosis Slight; Monocytes # (A) 0.6 k/uL (0-1.0); Monocytes % (A) 6 %; Neutrophils # (A) 7.8 k/uL (1.3-7.7); Neutrophils % (A) 78 %; Platelet Count 276 k/uL (150-450); Poikilocytosis Slight; RBC 4.65 m/uL (4.30-5.90); RDW 21.9 % (11.5-15.5)
[2021-11-27 19:38] LABS: INR 1.6 (<1.2); Partial Thromboplastin Time 24.5 sec (22.0-30.0); Prothrombin Time 16.6 sec (9.0-12.0)
[2021-11-27 19:43] LABS: Albumin 3.9 g/dL (3.5-5.0); Magnesium 2.1 mg/dL (1.6-2.3); Total Bilirubin 2.6 mg/dL (0.2-1.3); Total Protein 6.9 g/dL (6.3-8.2)
[2021-11-27 19:46] LABS: Potassium 7.1 mmol/L (3.5-5.1)
[2021-11-27 20:05] LABS: Appearance,Urine Turbid (Clear); Bacteria,Urine Few /hpf; Bilirubin,Urine Negative (Negative); Blood,Urine Moderate (Negative); Calcium Oxalate Crystals,Urine Occasional /hpf; Color,Urine Yellow; Glucose,Urine (UA) Negative (Negative); Hyaline Casts,Urine 47 /lpf (0-2); Ketones,Urine Negative (Negative); Leukocyte Esterase,Urine Large (Negative); Mucus,Urine Rare /hpf; Nitrite,Urine Negative (Negative); PH, Urine 6.5 (5.0-8.0); Protein,Urine 2+ (Negative); RBC,Urine 57 /hpf (0-5); Specific Gravity,Urine 1.012 (1.001-1.035); Squamous Epithelial Cell,Urine 2 /hpf (0-4); WBC,Urine >182 /hpf (0-5)
[2021-11-27] MEDS ORDERED: ALBUTEROL NEBULIZED (CONC) 20 MG, SODIUM CHLORIDE 0.9% NEBULIZ 3 ML INHALATION ONE ×2 (20:07)
[2021-11-27] MEDS ORDERED: FUROSEMIDE 10 MG/ML 4 ML VIAL IV STA (20:08)
[2021-11-27] MEDS ORDERED: SODIUM BICARB 8.4% 50 ML SYR (1 MEQ/ML) IV STA (20:09)
[2021-11-27] MEDS ORDERED: CALCIUM CHLORIDE 100 MG/ML 10 ML SYRINGE IVP STA (20:10)
[2021-11-27 20:16] LABS: Glucose,Whole Blood 42 mg/dL (75-99)
[2021-11-27] MEDS ORDERED: DEXTROSE 50% SYRINGE 50 ML IVP STA (20:26)
[2021-11-27] MEDS ORDERED: INSULIN REGULAR 100 UNIT/ML VIAL (IV) IV ONE (20:27)
--- NOTE | 2021-11-27 20:38 | XR ---
EXAMINATION TYPE: XR chest 2V DATE OF EXAM: 11/27/2021 COMPARISON: 01/09/2021 HISTORY: Difficulty breathing TECHNIQUE: Frontal and lateral views of the chest are obtained. FINDINGS: There is demonstration of right PICC with tip overlying the caudal SVC. There is diffuse m ild hazy opacity. Questionable right lower lobe nodular opacity versus artifact. No significant pleur al effusion, or pneumothorax seen. The cardiac silhouette size is enlarged. Left AICD again seen. T he osseous structures are stable. IMPRESSION: Mild interstitial edema/atelectasis. Questionable right lower lobe nodular opacity versus artifact. Attention on follow-up.
[2021-11-27] MEDS ORDERED: ONDANSETRON 4 MG/2 ML VIAL IVP STA (20:48)
[2021-11-27] MEDS ORDERED: ALBUTEROL NEBULIZED 2.5 MG/3 ML INHALATION STA (21:16)
[2021-11-27] MEDS ORDERED: allopurinoL 100 MG TAB PO STA (21:17)
[2021-11-27] MEDS ORDERED: cefTRIAXone IN SWFI 1,000 MG/10 ML SYRINGE IVP SCH (21:30)
[2021-11-27 21:58] LABS: Glucose,Whole Blood 116 mg/dL (75-99)
[2021-11-27] MEDS ORDERED: SODIUM POLYSTYRENE SULFONATE 15 GM/60 ML BOTTLE PO STA (22:46)
[2021-11-27] MEDS: hydrOXYzine HCL 25 MG TAB PO PRN (23:13)
[2021-11-28] MEDS: FUROSEMIDE 40 MG TAB PO SCH ×2 (00:28→08:59)
[2021-11-28 03:09] LABS: Glucose,Whole Blood 92 mg/dL (75-99)
[2021-11-28] MEDS: HYDROmorphone 1 MG/ML 1 ML SYRINGE IVP PRN ×2 (04:48→14:46)
[2021-11-28 06:48] LABS: Albumin 3.2 g/dL (3.5-5.0); Calcium 8.8 mg/dL (8.4-10.2); Potassium 5.3 mmol/L (3.5-5.1); Total Bilirubin 2.3 mg/dL (0.2-1.3); Total Protein 6.1 g/dL (6.3-8.2)
[2021-11-28] MEDS ORDERED: INSULIN DETEMIR (LEVEMIR) 100 UNIT/ML SYR SQ SCH ×2 (07:00→21:00)
[2021-11-28 07:33] LABS: Glucose,Whole Blood 72 mg/dL (75-99)
[2021-11-28] MEDS: INSULIN ASPART (NovoLOG) 100 UNIT/ML VIAL SQ SCH ×4 (07:41→21:30)
[2021-11-28] MEDS: FLUTICASONE 110 MCG INHALER INHALATION SCH ×2 (08:00→19:38)
[2021-11-28] MEDS: busPIRone HCl 5 MG TAB PO SCH (08:59)
[2021-11-28] MEDS: MULTIVITAMINS, THERA 1 EACH TAB PO SCH (08:59)
[2021-11-28] MEDS ORDERED: COLCHICINE 0.6 MG EACH PO SCH (09:00)
[2021-11-28] MEDS ORDERED: FAMOTIDINE 20 MG/2 ML VIAL IV SCH (09:00)
[2021-11-28] MEDS ORDERED: NON FORMULARY DRUG (Bumetanide [Bumex] 2 MG Tablet) PO SCH (09:00)
[2021-11-28] MEDS: hydrOXYzine HCL 25 MG TAB PO PRN ×2 (09:00→21:41)
[2021-11-28] MEDS ORDERED: NON FORMULARY DRUG (Empagliflozin [Jardiance] 25 MG Tablet) PO SCH (09:00)
[2021-11-28] MEDS: BRIMONIDINE TARTRATE 0.2% DROPS 5 ML BTL BOTH EYES SCH (09:03)
[2021-11-28] MEDS: CLOTRIMAZOLE 1% CREAM 30 GM TUBE TOPICAL SCH ×2 (09:04→20:16)
--- NOTE | 2021-11-28 09:43 | ECHOF ---
Referral Reason:Heart Failure MEASUREMENTS -------- HEIGHT: 172.7 cm WEIGHT: 70.8 kg BP: 91/68 RVIDd: 4.1 cm (< 3.3) IVSd: 1.0 cm (0.6 - 1.1) LVIDd: 4.6 cm (3.9 - 5.3) LVPWd: 1.2 cm (0.6 - 1.1) IVSs: 1.0 cm LVIDs: 4.4 cm LVPWs: 1.5 cm LAESV Index (A-L): 53.03 ml/m Ao Diam: 3.0 cm (2.0 - 3.7) AV Cusp: 2.1 cm (1.5 - 2.6) LA Diam: 4.5 cm (2.7 - 3.8) MV EXCURSION: 16.721 mm (> 18.000) MV EF SLOPE: 181 mm/s (70 - 150) EPSS: 1.3 cm RAP: 5.00 mmHg RVSP: 17.83 mmHg FINDINGS -------- Paced rhythm. This was a technically difficult study with suboptimal views. The left ventricular size is normal. Left ventricular wall thickness is normal. There is severe g lobal hypokinesis of LV . Overall left ventricular systolic function is severely impaired with, an EF < 20%. The right ventricle is severely enlarged. LA is severely dilated >40 ml/m2 The right atrium was not well visualized. Electronic pacemaker lead seen in the right atrial cavity . 5.0mg of Lumason was utilized for enhancement of images Interatrial and interventricular septum intact. There is no evidence of aortic regurgitation. There is no evidence of aortic stenosis. [id number] mitral regurgitation is present. Severe tricuspid regurgitation present. Unable to estimate RVSP due to inadequate TR jet spectral d oppler profile. There is no pulmonic regurgitation present. The aortic root size is normal. IVC Not well visulized. There is no pericardial effusion. CONCLUSIONS -------- 1. The left ventricular size is normal. 2. Left ventricular wall thickness is normal. 3. There is severe global hypokinesis of LV . 4. Overall left ventricular systolic function is severely impaired with, an EF < 20%. 5. The right ventricle is severely enlarged. 6. LA is severely dilated >40 ml/m2 7. [id number] mitral regurgitation is present. 8. Severe tricuspid regurgitation present. 9. Unable to estimate RVSP due to inadequate TR jet spectral doppler profile. 3D ARTIST: Patience Payne RDCS
[2021-11-28 11:52] LABS: Folate, Serum >20.00 ng/mL (4.40-31.00)
[2021-11-28 12:19] LABS: Glucose,Whole Blood 88 mg/dL (75-99)
--- NOTE | 2021-11-28 12:34 | P.HPIM ---
History of Present Illness This is a pleasant 56 years old male with past medical history of Coronary Artery Disease, COPD, nonischemic cardiomyopathy status post AICD, status post pacemaker, insulin-dependent diabetes mellitus, glaucoma, major depression Presents because of dyspnea for 3 days although his breathing easier now while sitting in bed, he still complaining of from basal crepitation and mild bilateral leg swelling. Also has been complaining of from cough and clear phlegm but thus chronic for him He is complaining of from pain all over his body mainly in his left elbow on both feet, he thinks that he has a gout flareup. However he denies chest pain. He denies any GI or urinary symptoms or DIRECTOR PART symptoms. He vomited twice yesterday and today with no blood but no abdominal pain, no diarrhea, no black stool or GI bleed. No dysuria but is complaining of from chronic Moy catheter secondary to his chronic retention he has for about 6 w eeks and he follows up with the [place] urologist. He denies headache or weakness or numbness however he complains from chronic dizziness and lightheadedness, which is chronic with chronic difficulty walking, he has to be held for walking. He denies active symptoms depression symptoms or suicidal/homicidal thoughts. Patient complaining from source in both legs fully recovered, we going to check on him. Also has been complaining of from low appetite for the last 3 days, he stated that he ate breakfast this morning better than the last 3 days. He denies smoking, alcohol or illicit drugs. Labs show an unremarkable CBC with WBC 10.0, hemoglobin 11.4, platelet count 276. INR is 1.6. Sodium is low at 127 and 128, baseline hyponatremia is 132-134 Creatinine elevated on admission 2.6 and 2.4, compared to baseline of 1.3-1.5 Potassium was elevated 7.1 on admission, currently improved on 523. AST elevated 129 and 209. ALT elevated to 55 and 102. Bilirubin elevated 2.3 Troponin is -0.02. ProBNP elevated [id number] Chest x-ray, there is diffuse mild hazy opacity and questionable right lower lobe nodular opacity versus artifact. Attention on follow-up. EKG showed sinus tachycardia with occasional ectopic premature complexes, at a rate of 103, QTC 452, no significant ST-T changes but there is generalized poor R-wave progression. in the emergency room patient received pain medication, IV fluids with normal saline 500 MLS, penicillin/dextrose 50%, albuterol, started on ceftriaxone. Also received Kayexalate Physical glucose was low on admission 31, improved currently 74 this morning in Emergency room multimedia programmer and damper maker been consulted. Review of Systems Review of systems CONSTITUTIONAL: No fever, no malaise, no fatigue. HEENT: No recent visual problems or hearing problems. Denied any sore throat. CARDIOVASCULAR: no palpitations, no syncope. PULMONARY: No chest wall tenderness, no hemoptysis. GASTROINTESTINAL: No diarrhea, no nausea, no vomiting, no abdominal pain. Normoactive bowel sounds. NEUROLOGICAL: No headaches, no weakness, no numbness. HEMATOLOGICAL: Denies any bleeding or petechiae. GENITOURINARY: Denies any burning micturition, frequency, or urgency. MUSCULOSKELETAL/RHEUMATOLOGICAL: Denies any joint pain, swelling, or any muscle pain. ENDOCRINE: Denies any polyuria or polydipsia. 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 Other HX: Palpitations, IDDM, bilateral glaucoma History of Any Multi-Drug Resistant Organisms: None Reported Past Surgical History: Heart Catheterization, Pacemaker Additional Past Surgical History / Comment(s): 10/2012 pacer/defibrillator. Past Anesthesia/Blood Transfusion Reactions: No Reported Reaction Additional Past Anesthesia/Blood Transfusion Reaction / Comment(s): Pt has recieved blood in the past without reaction. Type of Cardiac Device: Permanent Pacemaker, AICD Device Placement Date:: 10/2012 Past Psychological History: Anxiety, Depression Smoking Status: Former smoker Past Alcohol Use History: None Reported Past Drug Use History: None Reported - Past Family History Father Family Medical History: Diabetes Mellitus Additional Family Medical History / Comment(s): Father has cardiomyopathy. Mother Family Medical History: Hypertension Brother(s) Additional Family Medical History / Comment(s): Cardiomyopathy with heart transplant. Medications and Allergies Home Medications Medication Instructions Recorded Confirmed Type Albuterol Sulfate [Proair Hfa] 1 puff INHALATION RT-Q4H PRN 08/09/20 11/27/21 History Potassium Chloride ER [K-Dur 20] 40 meq PO Q8H 08/09/20 11/27/21 History Brimonidine Tartrate [Alphagan P 1 drop BOTH EYES DAILY 11/29/20 11/27/21 History 0.2% Ophth Soln] Sodium Chloride 0.65% Nasal [Deep 2 spray NASAL QID 11/29/20 11/27/21 History Sea (Saline)] Dextrose Chew [Glucose Chew Tab] 12 gm PO DAILY PRN 01/09/21 11/27/21 History Finasteride [Proscar] 5 mg PO HS 01/09/21 11/27/21 History Spironolactone [Aldactone] 12.5 mg PO DAILY 01/09/21 11/27/21 History Tamsulosin HCl [Flomax] 0.4 mg PO HS 01/09/21 11/27/21 History Acetaminophen Tab [Tylenol] 325 mg PO Q6H PRN 11/27/21 11/27/21 History Beclomethasone Dip 80 Mcg/Puff 1 puff INHALATION RT-BID 11/27/21 11/27/21 History [Qvar 80 mcg] Bumetanide [BUMEX] 2 mg PO BID@0900,1700 11/27/21 11/27/21 History Clotrimazole 1% Cream 1 applic TOPICAL BID 11/27/21 11/27/21 History Colchicine 0.6 mg PO DAILY 11/27/21 11/27/21 History Dobutamine 360 mg IV DIRECTED 11/27/21 11/28/21 History Empagliflozin [Jardiance] 25 mg PO DAILY 11/27/21 11/27/21 History Insulin Aspart [NovoLOG Flexpen] 15 units SQ TID-W/MEALS 11/27/21 11/27/21 History Insulin Glargine [Lantus Vial] 50 unit SQ BID 11/27/21 11/27/21 History Magnesium 420mg 420 mg PO HS 11/27/21 11/27/21 History Multivitamins, Thera [Multivitamin 1 tab PO DAILY 11/27/21 11/27/21 History (formulary)] busPIRone HCL 15 mg PO DAILY 11/27/21 11/27/21 History hydrOXYzine HCL [Atarax] 25 mg PO TID PRN 11/27/21 11/27/21 History metOLazone [Zaroxolyn] 5 mg PO BID 11/27/21 11/27/21 History methocarbamoL [Robaxin] 750 mg PO TID PRN 11/27/21 11/27/21 History oxyCODONE HCL [OxyIR] 10 mg PO BID 11/27/21 11/27/21 History traMADol HCL 50 mg PO QID PRN 11/27/21 11/27/21 History Allergies Allergy/AdvReac Type Severity Reaction Status Date / Time latex AdvReac Rash/Hives Verified 11/27/21 20:51 Physical Exam Vitals: Vital Signs Temp Pulse Resp BP Pulse Ox 11/28/21 06:00 94 20 91/68 98 11/28/21 05:00 96 20 102/82 97 11/28/21 04:00 96 22 100/80 98 11/28/21 03:00 90 20 95/68 97 11/28/21 02:00 96 20 100/74 99 11/28/21 01:00 97 22 97/69 98 11/28/21 00:00 100 22 96/72 97 11/27/21 23:00 97 F L 99 22 94/59 97 11/27/21 21:48 102 H 22 102/88 100 11/27/21 21:15 112 H 11/27/21 21:00 105 H 26 H 123/88 99 11/27/21 20:59 105 H 11/27/21 20:00 99 24 101/58 98 11/27/21 19:25 96 22 99/80 99 11/27/21 18:54 20 11/27/21 18:36 97 24 94/71 98 11/27/21 18:18 97.0 F L 104 H 18 89/61 99 Intake and Output 11/27/21 11/27/21 11/28/21 14:59 22:59 06:59 Output Total 700 Balance -700 Output: Urine 700 Uretheral (Moy) 700 Other: Weight 70.76 kg GENERAL: The patient is alert and oriented x3, not in any acute distress. Well developed, well nourished. HEENT: Pupils are round and equally reacting to light. EOMI. No scleral icterus. No conjunctival pallor. Normocephalic, atraumatic. No pharyngeal erythema. No thyromegaly. CARDIOVASCULAR: S1 and S2 present. No murmurs, rubs, or gallops. -PULMONARY: Chest is clear to auscultation, no wheezing or. Bilateral basal crackles ABDOMEN: Soft, nontender, nondistended, normoactive bowel sounds. No palpable organomegaly. MUSCULOSKELETAL: No joint swelling or deformity. -EXTREMITIES: No cyanosis, clubbing, . Bilateral patellar like edema 1+. NEUROLOGICAL: Gross neurological examination did not reveal any focal deficits. Gait exam is deferred SKIN: No rashes. no petechiae. Results CBC & Chem 7: 11/27/21 19:16 11/28/21 06:04 Labs: Abnormal Lab Results - Last 24 Hours (Table) 11/27/21 11/27/21 11/27/21 Range/Units 19:16 19:16 19:16 Hgb 11.4 L (13.0-17.5) gm/dL Hct 38.1 L (39.0-53.0) % MCH 24.5 L (25.0-35.0) pg MCHC 29.9 L (31.0-37.0) g/dL RDW 21.9 H (11.5-15.5) % Neutrophils # 7.8 H (1.3-7.7) k/uL PT 16.6 H (9.0-12.0) sec INR 1.6 H (<1.2) Sodium 127 L (137-145) mmol/L Potassium 7.1 H* (3.5-5.1) mmol/L Chloride 91 L (98-107) mmol/L Carbon Dioxide 19 L (22-30) mmol/L BUN 48 H (9-20) mg/dL Creatinine 2.64 H (0.66-1.25) mg/dL Glucose 31 L* (74-99) mg/dL POC Glucose (mg/dL) (75-99) mg/dL Plasma Lactic Acid Grover (0.7-2.0) mmol/L Total Bilirubin 2.6 H (0.2-1.3) mg/dL AST 129 H (17-59) U/L ALT 55 H (4-49) U/L Alkaline Phosphatase 153 H (38-126) U/L Urine Protein (Negative) Urine Blood (Negative) Ur Leukocyte Esterase (Negative) Urine RBC (0-5) /hpf Urine WBC (0-5) /hpf Urine WBC Clumps (None) /hpf Calcium Oxalate Crystal (None) /hpf Urine Bacteria (None) /hpf Hyaline Casts (0-2) /lpf Urine Mucus (None) /hpf 11/27/21 11/27/21 11/27/21 Range/Units 19:16 19:38 20:15 Hgb (13.0-17.5) gm/dL Hct (39.0-53.0) % MCH (25.0-35.0) pg MCHC (31.0-37.0) g/dL RDW (11.5-15.5) % Neutrophils # (1.3-7.7) k/uL PT (9.0-12.0) sec INR (<1.2) Sodium (137-145) mmol/L Potassium (3.5-5.1) mmol/L Chloride (98-107) mmol/L Carbon Dioxide (22-30) mmol/L BUN (9-20) mg/dL Creatinine (0.66-1.25) mg/dL Glucose (74-99) mg/dL POC Glucose (mg/dL) 42 L (75-99) mg/dL Plasma Lactic Acid Grover 4.7 H* (0.7-2.0) mmol/L Total Bilirubin (0.2-1.3) mg/dL AST (17-59) U/L ALT (4-49) U/L Alkaline Phosphatase (38-126) U/L Urine Protein 2+ H (Negative) Urine Blood Moderate H (Negative) Ur Leukocyte Esterase Large H (Negative) Urine RBC 57 H (0-5) /hpf Urine WBC >182 H (0-5) /hpf Urine WBC Clumps Many H (None) /hpf Calcium Oxalate Crystal Occasional H (None) /hpf Urine Bacteria Few H (None) /hpf Hyaline Casts 47 H (0-2) /lpf Urine Mucus Rare H (None) /hpf 11/27/21 11/27/21 11/28/21 Range/Units 21:56 22:39 00:23 Hgb (13.0-17.5) gm/dL Hct (39.0-53.0) % MCH (25.0-35.0) pg MCHC (31.0-37.0) g/dL RDW (11.5-15.5) % Neutrophils # (1.3-7.7) k/uL PT (9.0-12.0) sec INR (<1.2) Sodium (137-145) mmol/L Potassium 6.2 H* (3.5-5.1) mmol/L Chloride (98-107) mmol/L Carbon Dioxide (22-30) mmol/L BUN (9-20) mg/dL Creatinine (0.66-1.25) mg/dL Glucose (74-99) mg/dL POC Glucose (mg/dL) 116 H (75-99) mg/dL Plasma Lactic Acid Grover 3.0 H* (0.7-2.0) mmol/L Total Bilirubin (0.2-1.3) mg/dL AST (17-59) U/L ALT (4-49) U/L Alkaline Phosphatase (38-126) U/L Urine Protein (Negative) Urine Blood (Negative) Ur Leukocyte Esterase (Negative) Urine RBC (0-5) /hpf Urine WBC (0-5) /hpf Urine WBC Clumps (None) /hpf Calcium Oxalate Crystal (None) /hpf Urine Bacteria (None) /hpf Hyaline Casts (0-2) /lpf Urine Mucus (None) /hpf Assessment and Plan Assessment: Acute urinary tract infection , associated and related to indwelling Moy catheter Severe hyperkalemia on admission, Improved Acute kidney injury, on chronic kidney disease Chronic urinary retention status post indwelling Moy catheter chronic dizziness and lightheadedness, with chronic unsteady gait Elevated liver enzymes Normochromic, normocytic anemia Hyponatremia Questionable right lower lobe nodular opacity versus artifact, recommend follow- up Diabetes mellitus, with hypoglycemia on admission Hyperlipidemia Hypertension Nonischemic cardiomyopathy status post AICD, status post pacemaker Chronic kidney disease, stage III COPD, not in acute exacerbation History of bilateral glaucoma History of major depression, not in activation Plan: This is a pleasant 56 years old male who presents with acute kidney injury, hyperkalemia, UTI, and review of his extensive cardiac disease and nonischemic cardiomyopathy Continue with ceftriaxone follow-up urine culture Monitor creatinine and potassium Change Moy catheter Nephrology and cardiology consult Hold Lantus 50 units twice a day and NovoLog 15 units with meals. and continue with insulin sliding scale.Hold jardians continue with oral Lasix and metolazone till evaluated by damper maker and multimedia programmer We will order renal and liver ultrasound. Check hepatitis panel, hemoglobin A1c and procalcitonin Labs and medication were reviewed.. Continue same treatment. Continue with symptomatic treatment. Resume home medication. Monitor lytes and vitals. DVT and GI prophylaxis. Further recommendationsas per clinical course of the patient DVT prophylaxis: Subcutaneous heparin GI Prophylaxis: Pepcid PT/OT: Pending Prognosis is guarded
--- NOTE | 2021-11-28 12:38 | P.NPCON ---
History of Present Illness - Reason for Consult chronic renal failure - History of Present Illness Patient is a 48-year-old male with history of severe cardiomyopathy and chronic CHF. He also has CK D with cardiorenal syndrome. Stage IIIB with previous creatinine about 1.7 mg/dL on 11/25/2021 Patient is admitted to the hospital with complaints of severe pain in his left elbow and in his feet and right big toe. Patient states he is having a flareup of gout. He had been taking colchicine which was discontinued during one of his hospitalizations. Patient reports multiple hospitalizations since July in various facilities including [facility]. Urine output is maintained , blood pressure 91-100 mmHg systolic no history of fever chills nausea vomiting abdominal pain or diarrhea Review of Systems As per HPI Past Medical History Past Medical History: Coronary Artery Disease (CAD), Heart Failure, COPD, Diabetes Mellitus, Eye Disorder, Prostate Disorder, Renal Disease Additional Past Medical History / Comment(s): 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 Past Anesthesia/Blood Transfusion Reactions: No Reported Reaction Additional Past Anesthesia/Blood Transfusion Reaction / Comment(s): Pt has recieved blood in the past without reaction. Type of Cardiac Device: Permanent Pacemaker, AICD Device Placement Date:: 10/2012 Smoking Status: Former smoker - Past Family History Father Family Medical History: Diabetes Mellitus Additional Family Medical History / Comment(s): Father had cardiomyopathy. He is . Mother Family Medical History: Hypertension Brother(s) Additional Family Medical History / Comment(s): Cardiomyopathy with heart transplant. Medications and Allergies Home Medications Medication Instructions Recorded Confirmed Type Albuterol Sulfate [Proair Hfa] 1 puff INHALATION RT-Q4H PRN 08/09/20 11/27/21 History Potassium Chloride ER [K-Dur 20] 40 meq PO Q8H 08/09/20 11/27/21 History Brimonidine Tartrate [Alphagan P 1 drop BOTH EYES DAILY 11/29/20 11/27/21 Histo ry 0.2% Ophth Soln] Sodium Chloride 0.65% Nasal [Deep 2 spray NASAL QID 11/29/20 11/27/21 History Sea (Saline)] Dextrose Chew [Glucose Chew Tab] 12 gm PO DAILY PRN 01/09/21 11/27/21 History Finasteride [Proscar] 5 mg PO HS 01/09/21 11/27/21 History Spironolactone [Aldactone] 12.5 mg PO DAILY 01/09/21 11/27/21 History Tamsulosin HCl [Flomax] 0.4 mg PO HS 01/09/21 11/27/21 History Acetaminophen Tab [Tylenol] 325 mg PO Q6H PRN 11/27/21 11/27/21 History Beclomethasone Dip 80 Mcg/Puff 1 puff INHALATION RT-BID 11/27/21 11/27/21 History [Qvar 80 mcg] Bumetanide [BUMEX] 2 mg PO BID@0900,1700 11/27/21 11/27/21 History Clotrimazole 1% Cream 1 applic TOPICAL BID 11/27/21 11/27/21 History Colchicine 0.6 mg PO DAILY 11/27/21 11/27/21 History Dobutamine 360 mg IV DIRECTED 11/27/21 11/28/21 History Empagliflozin [Jardiance] 25 mg PO DAILY 11/27/21 11/27/21 History Insulin Aspart [NovoLOG Flexpen] 15 units SQ TID-W/MEALS 11/27/21 11/27/21 History Insulin Glargine [Lantus Vial] 50 unit SQ BID 11/27/21 11/27/21 History Magnesium 420mg 420 mg PO HS 11/27/21 11/27/21 History Multivitamins, Thera [Multivitamin 1 tab PO DAILY 11/27/21 11/27/21 History (formulary)] busPIRone HCL 15 mg PO DAILY 11/27/21 11/27/21 History hydrOXYzine HCL [Atarax] 25 mg PO TID PRN 11/27/21 11/27/21 History metOLazone [Zaroxolyn] 5 mg PO BID 11/27/21 11/27/21 History methocarbamoL [Robaxin] 750 mg PO TID PRN 11/27/21 11/27/21 History oxyCODONE HCL [OxyIR] 10 mg PO BID 11/27/21 11/27/21 History traMADol HCL 50 mg PO QID PRN 11/27/21 11/27/21 History Allergies Allergy/AdvReac Type Severity Reaction Status Date / Time latex AdvReac Rash/Hives Verified 11/27/21 20:51 Physical Exam Vitals: Vital Signs Temp Pulse Resp BP Pulse Ox 11/28/21 07:00 95 20 89/76 98 11/28/21 06:00 94 20 91/68 98 11/28/21 05:00 96 20 102/82 97 11/28/21 04:00 96 22 100/80 98 11/28/21 03:00 90 20 95/68 97 11/28/21 02:00 96 20 100/74 99 11/28/21 01:00 97 22 97/69 98 11/28/21 00:00 100 22 96/72 97 11/27/21 23:00 97 F L 99 22 94/59 97 11/27/21 21:48 102 H 22 102/88 100 11/27/21 21:15 112 H 11/27/21 21:00 105 H 26 H 123/88 99 11/27/21 20:59 105 H 11/27/21 20:00 99 24 101/58 98 11/27/21 19:25 96 22 99/80 99 11/27/21 18:54 20 11/27/21 18:36 97 24 94/71 98 11/27/21 18:18 97.0 F L 104 H 18 89/61 99 Intake and Output 11/27/21 11/28/21 11/28/21 22:59 06:59 14:59 Output Total 700 Balance -700 Output: Urine 700 Uretheral (Moy) 700 Other: Weight 70.76 kg 70.76 kg Patient is awake, comfortable. Not in any acute distress Examination of the heart S1 and S2 Examination lungs bilateral breath sounds are heard Abdomen is soft nontender Examination of lower extremity shows edema 2+ bilaterally Left elbow appears to be swollen. Results - Lab Results Most recent lab results Calcium 8.8 mg/dL (8.4-10.2) 11/28/21 06:04 Magnesium 2.1 mg/dL (1.6-2.3) 11/27/21 19:16 11/27/21 19:16 11/28/21 06:04 Assessment and Plan Assessment: 1. Acute kidney injury, cardiorenal. Change Lasix to IV 2. CK D, cardiorenal baseline creatinine about 1.7 mg/dL as of 11/25/2021. NKF stage IIIB 3. Chronic systolic CHF, with ejection fraction less than 10-15% 4. Hypervolemic hyponatremia 5. Gout flareup 6. Mild hyperkalemia associated with acute kidney injury Plan: Change Lasix to IV Add short course of prednisone Repeat labs in a.m. Accurate I's and O's
--- NOTE | 2021-11-28 12:57 | CONS ---
CONSULTATION HISTORY OF PRESENT ILLNESS: Paco is a 48-year-old gentleman with history of nonischemic cardiomyopathy status post AICD, chronic systolic heart failure, insulin-requiring diabetes and dyslipidemia who presented to the hospital with symptoms of shortness of breath for the last 3 days that have been getting progressively worse. The shortness of breath is exertional in origin, mild to moderate intensity. He also complains of generalized body aches, cough and not feeling well. Has bilateral leg edema. Admission labs show that the potassium is 5.3, BUN is 48, creatinine [place] 2[place] [address]. His hemoglobin is 11.4, platelet count is 276. He had an echocardiogram on this admission that revealed severe LV systolic dysfunction with an ejection fraction of less than 20%. PAST MEDICAL HISTORY: Significant for insulin-requiring diabetes, chronic systolic heart failure, dilated cardiomyopathy status post AICD. MEDICATIONS: Are as charted and include Bumex, insulin Flomax, Aldactone, Robaxin. Jardiance. ALLERGY: LATEX. FAMILY HISTORY: Significant for cardiomyopathy. SOCIAL HISTORY: Denies current smoking, EtOH abuse or drug abuse. REVIEW OF SYSTEMS: HEENT is unremarkable. CARDIAC as described above. RESPIRATORY as described above. GI negative. GENITOURINARY: Negative. ALLERGY/IMMUNOLOGY: Negative. SKIN negative. MUSCULOSKELETAL: Significant for arthralgias and arthritis. PSYCHOSOCIAL negative. DERM negative. CONSTITUTIONAL: Negative. ONCOLOGICAL negative. EXAM: Heart rate is 90 beats per minute. Blood pressure is 91/60, respirations 18, O2 saturation is 98% on room air. There is no jugular venous distention. Carotid upstroke is diminished. There is no bruit. CHEST exam reveals good air entry bilaterally. HEART exam reveals first and second heart sounds. No gallop. First and second heart sounds and a systolic murmur at the left lower sternal border. ABDOMEN: Soft. Exam of EXTREMITIES reveals bilateral 1+ pitting edema. ASSESSMENT: 1. Acute exacerbation of chronic systolic heart failure. 2. Dilated cardiomyopathy. 3. Status post AICD. 4. Renal failure. PLAN: I will continue the patient on diuretics, blood pressure tolerating. I will treat him with beta blockers. I am not going to give any atif inhibitors at this time given the renal failure. MMODL / IJN: [id number] /
[2021-11-28] MEDS: SODIUM CHLORIDE 0.65% NASAL SPRAY 44 ML BTL NASAL SCH ×4 (13:35→20:15)
[2021-11-28] MEDS: metOLazone 5 MG TAB PO SCH ×2 (13:35→16:57)
[2021-11-28] MEDS: predniSONE 20 MG TAB PO SCH (14:03)
[2021-11-28 14:12] LABS: Hepatitis A Antibody IgM Nonreactive (Nonreactive); Hepatitis B Core IgM Nonreactive (Nonreactive); Hepatitis B Surface Antigen Nonreactive (Nonreactive); Hepatitis C IgG Antibody Reactive (Nonreactive); Procalcitonin 0.47 ng/mL (0.02-0.09)
--- NOTE | 2021-11-28 14:52 | US ---
EXAMINATION TYPE: US kidneys/renal and bladder DATE OF EXAM: 11/28/2021 COMPARISON: CT CLINICAL HISTORY: JANE. EC patient being admitted for JANE, elevated liver enzymes; diabetic; PICC line rt arm; distended abdomen EXAM MEASUREMENTS: Right Kidney: 10.2 x 5.4 x 4.1 cm Left Kidney: 9.2 x 4.1 x 4.6 cm Post Void Residual Volume: not assessed on EC patient with indwelling bladder catheter Right Kidney: No hydronephrosis or masses seen Left Kidney: No hydronephrosis or masses seen Bladder: Moy catheter is noted within There is no evidence for hydronephrosis at this point in time. No nephrolithiasis is seen. No audelia s are identified. Ascites is noted in RLQ = 6.8cm A/P and in LLQ = 2.8cm A/P. IMPRESSION: Small amount of ascites. No hydronephrosis or nephrolithiasis.
[2021-11-28] MEDS: COLCHICINE 0.6 MG EACH PO SCH (15:27)
[2021-11-28 16:39] LABS: Glucose,Whole Blood 87 mg/dL (75-99)
[2021-11-28] MEDS: DOBUTamine DRIP 500 MG in DEXTROSE/WATER 1 250ML.BAG IV SCH (16:56)
[2021-11-28] MEDS: FUROSEMIDE 10 MG/ML 4 ML VIAL IV SCH ×2 (16:56→23:34)
[2021-11-28] MEDS: HEPARIN SODIUM,PORCINE/PF 5,000 UNIT/0.5 ML SYRINGE SQ SCH (20:14)
[2021-11-28] MEDS: TAMSULOSIN 0.4 MG CAP.ER.24H PO SCH (20:14)
[2021-11-28] MEDS: FINASTERIDE 5 MG TAB PO SCH (20:15)
[2021-11-28 20:45] LABS: Glucose,Whole Blood 114 mg/dL (75-99)
[2021-11-29] MEDS: HYDROmorphone 1 MG/ML 1 ML SYRINGE IVP PRN ×3 (04:34→20:08)
[2021-11-29] MEDS: hydrOXYzine HCL 25 MG TAB PO PRN ×2 (04:35→20:09)
[2021-11-29] MEDS: INSULIN ASPART (NovoLOG) 100 UNIT/ML VIAL SQ SCH ×4 (05:45→20:57)
[2021-11-29 06:34] LABS: Glucose,Whole Blood 143 mg/dL (75-99)
[2021-11-29] MEDS: COLCHICINE 0.6 MG EACH PO SCH (08:20)
[2021-11-29] MEDS: busPIRone HCl 5 MG TAB PO SCH (08:20)
[2021-11-29] MEDS: MULTIVITAMINS, THERA 1 EACH TAB PO SCH (08:20)
[2021-11-29] MEDS: predniSONE 20 MG TAB PO SCH (08:20)
[2021-11-29] MEDS: FAMOTIDINE 20 MG TAB PO SCH (08:21)
[2021-11-29] MEDS: HEPARIN SODIUM,PORCINE/PF 5,000 UNIT/0.5 ML SYRINGE SQ SCH ×2 (08:21→20:09)
[2021-11-29] MEDS: FUROSEMIDE 10 MG/ML 4 ML VIAL IV SCH ×3 (08:21→23:53)
[2021-11-29] MEDS: metOLazone 5 MG TAB PO SCH ×2 (08:21→16:59)
[2021-11-29] MEDS: SODIUM CHLORIDE 0.65% NASAL SPRAY 44 ML BTL NASAL SCH ×4 (08:22→20:09)
[2021-11-29] MEDS: BRIMONIDINE TARTRATE 0.2% DROPS 5 ML BTL BOTH EYES SCH (08:23)
[2021-11-29] MEDS: CLOTRIMAZOLE 1% CREAM 30 GM TUBE TOPICAL SCH ×2 (08:23→20:10)
[2021-11-29] MEDS: ALBUTEROL NEBULIZED 2.5 MG/3 ML INHALATION PRN ×2 (08:34→21:02)
[2021-11-29] MEDS: FLUTICASONE 110 MCG INHALER INHALATION SCH ×2 (08:34→21:02)
--- NOTE | 2021-11-29 10:11 | US ---
EXAMINATION TYPE: US liver DATE OF EXAM: 11/29/2021 COMPARISON: CT dated 01/09/2021, US kidneys 11/28/2021 CLINICAL HISTORY: High liver enzymes. Diabetic, JANE, ascites seen on US yesterday EXAM MEASUREMENTS: Liver Length: 18.1 cm Gallbladder Wall: 0.35 cm CBD: 0.36 cm Right Kidney: 10.5 x 5.4 x 4.4 cm Pancreas: hyperechoic Liver: no masses seen, hyperechoic,enlarged as is greater than 18.0cm. Gallbladder: thickened wall is noted Evidence for sonographic Gardner's sign: no CBD: wnl Right Kidney: No hydronephrosis or masses seen Small right Pleural Effusion is noted Small amount of ascites is seen inferior to liver and in right pelvis. IMPRESSION: Correlate for hepatic steatosis or hepatocellular disease and possibly enlarged liver. Li mited exam. Small amount of ascites, small pleural effusion incidentally noted. Thickening of gallbla dder wall can sometimes be seen in patients with ascites. Consider additional imaging as indicated.
[2021-11-29 11:05] LABS: Albumin 3.6 g/dL (3.5-5.0); Calcium 8.8 mg/dL (8.4-10.2); Potassium 4.9 mmol/L (3.5-5.1); Total Bilirubin 2.6 mg/dL (0.2-1.3); Total Protein 6.6 g/dL (6.3-8.2)
[2021-11-29 11:52] LABS: Glucose,Whole Blood 219 mg/dL (75-99)
--- NOTE | 2021-11-29 13:05 | P.PN ---
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 Follows with Dr. Elias Prosthodontist at the [facility]. We have been consulted for congestive heart failure and cardiomyopathy. Patient presents to the emergency department symptoms and shortness of breath that have been progressively worse with past 3 days. Echocardiogram revealed EF < 20%, mild to moderate mitral regurgitation, severe tricuspid regurgitation. Patient was admitted and started on IV Lasix 40 mg Q8hr per nephrology. 11/29/2021 Patient seen and examined at bedside, no acute distress. He states his breathing has improved, continues to feel some shortness of breath. Patient with 1100mL over the past 24 hours. Meds: Dobutamine 360mL daily, IV Lasix 40 mg every 8 hours, metolazone 5 mg twice a day Labs: Sodium 127, potassium 4.9, BUN 52, serum crit and 2.7, AST 205, ALT 139, T bili 2.6. PHYSICAL EXAMINATION Vital signs reviewed. CONSTITUTIONAL: No apparent distress. HEENT: Neck Supple. No JVD. No carotid bruit. CHEST EXAMINATION: Lungs crackles bilaterally to auscultation. No chest wall tenderness is noted on palpation or with deep breathing. HEART EXAMINATION: Regular rate and rhythm. S1, S2 heard. Systolic ejection murmur at apex, No gallops or rub. ABDOMEN: Soft, distended. Positive bowel sounds. EXTREMITIES: 2+ peripheral pulses, trace lower extremity edema and no calf tenderness. NEUROLOGIC EXAMINATION: Patient is awake, alert and oriented x3. ASSESSMENT Acute on chronic heart failure with reduced ejection fraction Chronically elevated troponins, do not suspect primary myocardial infarction or acute coronary syndrome. No angina-type symptoms Acute on chronic kidney disease Nonischemic cardiomyopathy ejection fraction less than 20% Essential hypertension, borderline low on heart failure regimen Diabetes mellitus type 2 PLAN Patient states he has dobutamine infusions daily at home, we will restart this medication Continue IV Lasix, nephrology following assisting in managing lasix Monitor I/Os, daily weights renal function and electrolytes Attempted to get records from [facility], however, response states they do not have records of the patient being there. Further recommendations based on clinical course Nurse practitioner note has been reviewed by physician. Signing provider agrees with the documented findings, assessment, and plan of care. Objective - Vital Signs Vital signs: Vital Signs Temp 97.8 F 11/28/21 12:35 Pulse 97 11/28/21 12:35 Resp 20 11/28/21 12:35 BP 91/72 11/28/21 12:35 Pulse Ox 99 11/28/21 12:35 Intake & Output 11/27/21 11/28/21 11/28/21 18:59 06:59 18:59 Output Total 700 Balance -700 Weight 70.76 kg 70.76 kg Output: Urine 700 Uretheral (Moy) 700 - Labs CBC & Chem 7: 11/27/21 19:16 11/29/21 10:38 Labs: Abnormal Lab Results - Last 24 Hours (Table) 11/27/21 11/27/21 11/27/21 Range/Units 19:16 19:16 19:16 Hgb 11.4 L (13.0-17.5) gm/dL Hct 38.1 L (39.0-53.0) % MCH 24.5 L (25.0-35.0) pg MCHC 29.9 L (31.0-37.0) g/dL RDW 21.9 H (11.5-15.5) % Neutrophils # 7.8 H (1.3-7.7) k/uL PT 16.6 H (9.0-12.0) sec INR 1.6 H (<1.2) Sodium 127 L (137-145) mmol/L Potassium 7.1 H* (3.5-5.1) mmol/L Chloride 91 L (98-107) mmol/L Carbon Dioxide 19 L (22-30) mmol/L BUN 48 H (9-20) mg/dL Creatinine 2.64 H (0.66-1.25) mg/dL Glucose 31 L* (74-99) mg/dL POC Glucose (mg/dL) (75-99) mg/dL Hemoglobin A1c (0.0-6.0) % Plasma Lactic Acid Grover (0.7-2.0) mmol/L Total Bilirubin 2.6 H (0.2-1.3) mg/dL AST 129 H (17-59) U/L ALT 55 H (4-49) U/L Alkaline Phosphatase 153 H (38-126) U/L Total Protein (6.3-8.2) g/dL Albumin (3.5-5.0) g/dL Vitamin B12 (200.0-944.0) pg/mL Procalcitonin (0.02-0.09) ng/mL Urine Protein (Negative) Urine Blood (Negative) Ur Leukocyte Esterase (Negative) Urine RBC (0-5) /hpf Urine WBC (0-5) /hpf Urine WBC Clumps (None) /hpf Calcium Oxalate Crystal (None) /hpf Urine Bacteria (None) /hpf Hyaline Casts (0-2) /lpf Urine Mucus (None) /hpf Hep C IgG Ab (Nonreactive) 11/27/21 11/27/21 11/27/21 Range/Units 19:16 19:38 20:15 Hgb (13.0-17.5) gm/dL Hct (39.0-53.0) % MCH (25.0-35.0) pg MCHC (31.0-37.0) g/dL RDW (11.5-15.5) % Neutrophils # (1.3-7.7) k/uL PT (9.0-12.0) sec INR (<1.2) Sodium (137-145) mmol/L Potassium (3.5-5.1) mmol/L Chloride (98-107) mmol/L Carbon Dioxide (22-30) mmol/L BUN (9-20) mg/dL Creatinine (0.66-1.25) mg/dL Glucose (74-99) mg/dL POC Glucose (mg/dL) 42 L (75-99) mg/dL Hemoglobin A1c (0.0-6.0) % Plasma Lactic Acid Grover 4.7 H* (0.7-2.0) mmol/L Total Bilirubin (0.2-1.3) mg/dL AST (17-59) U/L ALT (4-49) U/L Alkaline Phosphatase (38-126) U/L Total Protein (6.3-8.2) g/dL Albumin (3.5-5.0) g/dL Vitamin B12 (200.0-944.0) pg/mL Procalcitonin (0.02-0.09) ng/mL Urine Protein 2+ H (Negative) Urine Blood Moderate H (Negative) Ur Leukocyte Esterase Large H (Negative) Urine RBC 57 H (0-5) /hpf Urine WBC >182 H (0-5) /hpf Urine WBC Clumps Many H (None) /hpf Calcium Oxalate Crystal Occasional H (None) /hpf Urine Bacteria Few H (None) /hpf Hyaline Casts 47 H (0-2) /lpf Urine Mucus Rare H (None) /hpf Hep C IgG Ab (Nonreactive) 11/27/21 11/27/21 11/28/21 Range/Units 21:56 22:39 00:23 Hgb (13.0-17.5) gm/dL Hct (39.0-53.0) % MCH (25.0-35.0) pg MCHC (31.0-37.0) g/dL RDW (11.5-15.5) % Neutrophils # (1.3-7.7) k/uL PT (9.0-12.0) sec INR (<1.2) Sodium (137-145) mmol/L Potassium 6.2 H* (3.5-5.1) mmol/L Chloride (98-107) mmol/L Carbon Dioxide (22-30) mmol/L BUN (9-20) mg/dL Creatinine (0.66-1.25) mg/dL Glucose (74-99) mg/dL POC Glucose (mg/dL) 116 H (75-99) mg/dL Hemoglobin A1c (0.0-6.0) % Plasma Lactic Acid Grover 3.0 H* (0.7-2.0) mmol/L Total Bilirubin (0.2-1.3) mg/dL AST (17-59) U/L ALT (4-49) U/L Alkaline Phosphatase (38-126) U/L Total Protein (6.3-8.2) g/dL Albumin (3.5-5.0) g/dL Vitamin B12 (200.0-944.0) pg/mL Procalcitonin (0.02-0.09) ng/mL Urine Protein (Negative) Urine Blood (Negative) Ur Leukocyte Esterase (Negative) Urine RBC (0-5) /hpf Urine WBC (0-5) /hpf Urine WBC Clumps (None) /hpf Calcium Oxalate Crystal (None) /hpf Urine Bacteria (None) /hpf Hyaline Casts (0-2) /lpf Urine Mucus (None) /hpf Hep C IgG Ab (Nonreactive) 11/28/21 11/28/21 11/28/21 Range/Units 06:04 07:32 07:47 Hgb (13.0-17.5) gm/dL Hct (39.0-53.0) % MCH (25.0-35.0) pg MCHC (31.0-37.0) g/dL RDW (11.5-15.5) % Neutrophils # (1.3-7.7) k/uL PT (9.0-12.0) sec INR (<1.2) Sodium 128 L (137-145) mmol/L Potassium 5.3 H (3.5-5.1) mmol/L Chloride 95 L (98-107) mmol/L Carbon Dioxide (22-30) mmol/L BUN 48 H (9-20) mg/dL Creatinine 2.43 H (0.66-1.25) mg/dL Glucose (74-99) mg/dL POC Glucose (mg/dL) 72 L (75-99) mg/dL Hemoglobin A1c 7.8 H (0.0-6.0) % Plasma Lactic Acid Grover (0.7-2.0) mmol/L Total Bilirubin 2.3 H (0.2-1.3) mg/dL AST 209 H (17-59) U/L ALT 102 H (4-49) U/L Alkaline Phosphatase (38-126) U/L Total Protein 6.1 L (6.3-8.2) g/dL Albumin 3.2 L (3.5-5.0) g/dL Vitamin B12 (200.0-944.0) pg/mL Procalcitonin (0.02-0.09) ng/mL Urine Protein (Negative) Urine Blood (Negative) Ur Leukocyte Esterase (Negative) Urine RBC (0-5) /hpf Urine WBC (0-5) /hpf Urine WBC Clumps (None) /hpf Calcium Oxalate Crystal (None) /hpf Urine Bacteria (None) /hpf Hyaline Casts (0-2) /lpf Urine Mucus (None) /hpf Hep C IgG Ab (Nonreactive) 11/28/21 11/28/21 Range/Units 07:47 07:47 Hgb (13.0-17.5) gm/dL Hct (39.0-53.0) % MCH (25.0-35.0) pg MCHC (31.0-37.0) g/dL RDW (11.5-15.5) % Neutrophils # (1.3-7.7) k/uL PT (9.0-12.0) sec INR (<1.2) Sodium (137-145) mmol/L Potassium (3.5-5.1) mmol/L Chloride (98-107) mmol/L Carbon Dioxide (22-30) mmol/L BUN (9-20) mg/dL Creatinine (0.66-1.25) mg/dL Glucose (74-99) mg/dL POC Glucose (mg/dL) (75-99) mg/dL Hemoglobin A1c (0.0-6.0) % Plasma Lactic Acid Grover (0.7-2.0) mmol/L Total Bilirubin (0.2-1.3) mg/dL AST (17-59) U/L ALT (4-49) U/L Alkaline Phosphatase (38-126) U/L Total Protein (6.3-8.2) g/dL Albumin (3.5-5.0) g/dL Vitamin B12 1667.0 H (200.0-944.0) pg/mL Procalcitonin 0.47 H (0.02-0.09) ng/mL Urine Protein (Negative) Urine Blood (Negative) Ur Leukocyte Esterase (Negative) Urine RBC (0-5) /hpf Urine WBC (0-5) /hpf Urine WBC Clumps (None) /hpf Calcium Oxalate Crystal (None) /hpf Urine Bacteria (None) /hpf Hyaline Casts (0-2) /lpf Urine Mucus (None) /hpf Hep C IgG Ab Reactive A (Nonreactive) Microbiology - Last 24 Hours (Table) 11/27/21 19:38 Urine Culture - Preliminary Urine,Voided
--- NOTE | 2021-11-29 13:41 | P.PN ---
Subjective Patient is seen for follow-up for acute kidney injury on top of chronic kidney disease. He has severe cardiomyopathy with ejection fraction 10-15%, CK D stage IV baseline creatinine 1.7-2.2 mg/dL. Patient was admitted to the hospital with shortness of breath and gout flareup with increased pain in his left elbow and feet. Currently maintained on IV diuretics. Patient has chronic indwelling Moy catheter for chronic urine retention. No significant complaints today. Pain in the elbow is improved. Objective - Vital Signs Vital signs: Vital Signs Temp 97.5 F L 11/29/21 08:11 Pulse 95 11/29/21 12:12 Resp 18 11/29/21 12:12 BP 106/74 11/29/21 12:12 Pulse Ox 99 11/29/21 12:12 Intake & Output 11/28/21 11/29/21 11/29/21 18:59 06:59 18:59 Intake Total 240 970 118 Output Total 1100 275 Balance 240 -130 -157 Weight 70.76 kg 70.1 kg Intake: Oral 240 970 118 Output: Urine 200 275 Stool 900 Other: Voiding Method Indwelling Catheter Indwelling Catheter Indwelling Catheter # Voids 0 # Bowel Movements 0 - Exam Patient is awake comfortable. Not in any acute distress. Examination of the heart S1 and S2 Examination lungs bilateral breath sounds are heard Abdomen is soft nontender Examination of lower extremity shows edema 2+ bilaterally Left elbow swelling seems to be slightly improved - Labs CBC & Chem 7: 11/27/21 19:16 11/29/21 10:38 Labs: Abnormal Lab Results - Last 24 Hours (Table) 11/28/21 11/28/21 11/28/21 Range/Units 07:47 07:47 20:44 Sodium (137-145) mmol/L Chloride (98-107) mmol/L Carbon Dioxide (22-30) mmol/L BUN (9-20) mg/dL Creatinine (0.66-1.25) mg/dL Glucose (74-99) mg/dL POC Glucose (mg/dL) 114 H (75-99) mg/dL Uric Acid 11.6 H (3.7-8.7) mg/dL Total Bilirubin (0.2-1.3) mg/dL AST (17-59) U/L ALT (4-49) U/L Alkaline Phosphatase (38-126) U/L Procalcitonin 0.47 H (0.02-0.09) ng/mL Hep C IgG Ab Reactive A (Nonreactive) 11/29/21 11/29/21 11/29/21 Range/Units 06:30 10:38 11:50 Sodium 127 L (137-145) mmol/L Chloride 90 L (98-107) mmol/L Carbon Dioxide 20 L (22-30) mmol/L BUN 52 H (9-20) mg/dL Creatinine 2.71 H (0.66-1.25) mg/dL Glucose 211 H (74-99) mg/dL POC Glucose (mg/dL) 143 H 219 H (75-99) mg/dL Uric Acid (3.7-8.7) mg/dL Total Bilirubin 2.6 H (0.2-1.3) mg/dL AST 205 H (17-59) U/L ALT 139 H (4-49) U/L Alkaline Phosphatase 151 H (38-126) U/L Procalcitonin (0.02-0.09) ng/mL Hep C IgG Ab (Nonreactive) Microbiology - Last 24 Hours (Table) 11/27/21 19:38 Urine Culture - Preliminary Urine,Voided Assessment and Plan Assessment: 1. Acute kidney injury, cardiorenal. Change Lasix to IV 2. CK D, cardiorenal baseline creatinine about 1.7 mg/dL as of 11/25/2021. NKF stage IIIB 3. Chronic systolic CHF, with ejection fraction less than 10-15% 4. Hypervolemic hyponatremia 5. Gout flareup 6. Mild hyperkalemia associated with acute kidney injury Plan: Continue IV Lasix Short course of prednisone plan continue Moy catheter Repeat labs in a.m. Accurate I's and O's
[2021-11-29 16:41] LABS: Glucose,Whole Blood 331 mg/dL (75-99)
--- NOTE | 2021-11-29 18:40 | P.PN ---
Subjective This is a pleasant 56 years old male with past medical history of Coronary Artery Disease, COPD, nonischemic cardiomyopathy status post AICD, status post pacemaker, insulin-dependent diabetes mellitus, glaucoma, major depression Presents because of dyspnea for 3 days although his breathing easier now while sitting in bed, he still complaining of from basal crepitation and mild bilateral leg swelling. Also has been complaining of from cough and clear phlegm but thus chronic for him He is complaining of from pain all over his body mainly in his left elbow on both feet, he thinks that he has a gout flareup. However he denies chest pain. He denies any GI or urinary symptoms or CRANE HELPER symptoms. He vomited twice yesterday and today with no blood but no abdominal pain, no diarrhea, no black stool or GI bleed. No dysuria but is complaining of from chronic Moy catheter secondary to his chronic retention he has for about 6 weeks and he follows up with the [place] urologist. He denies headache or weakness or numbness however he complains from chronic dizziness and lightheadedness, which is chronic with chronic difficulty walking, he has to be held for walking. He denies active symptoms depression symptoms or suicidal/homicidal thoughts. Patient complaining from source in both legs fully recovered, we going to check on him. Also has been complaining of from low appetite for the last 3 days, he stated that he ate breakfast this morning better than the last 3 days. He denies smoking, alcohol or illicit drugs. Labs show an unremarkable CBC with WBC 10.0, hemoglobin 11.4, platelet count 276. INR is 1.6. Sodium is low at 127 and 128, baseline hyponatremia is 132-134 Creatinine elevated on admission 2.6 and 2.4, compared to baseline of 1.3-1.5 Potassium was elevated 7.1 on admission, currently improved on 523. AST elevated 129 and 209. ALT elevated to 55 and 102. Bilirubin elevated 2.3 Troponin is -0.02. [place] [address] Chest x-ray, there is diffuse mild hazy opacity and questionable right lower lobe nodular opacity versus artifact. Attention on follow-up. EKG showed sinus tachycardia with occasional ectopic premature complexes, at a rate of 103, QTC 452, no significant ST-T changes but there is generalized poor R-wave progression. in the emergency room patient received pain medication, IV fluids with normal saline 500 MLS, penicillin/dextrose 50%, albuterol, started on ceftriaxone. Also received Kayexalate Physical glucose was low on admission 31, improved currently 74 this morning in Emergency room animal care specialist and software development coordinator been consulted. 11/29/2021 Patient today feels slightly better distal generally weak, he states there is some improvement in his left elbow on bilateral feet pain after he was started on a prednisone for acute gouty attack with elevated uric acid. He is kept on IV Lasix with no tachypnea while in dressed, no orthopnea noted, he has less leg erythema and basal crepitation. Hemodynamically stable. He is on room air. Liver enzymes still elevated and ultrasound showing hepatic steatosis versus hepatocellular disease with possibly enlarged liver and the gallbladder thought secondary to edema and they recommended further imaging, HIDA scan is ordered. The patient's with no abdominal pain or nausea vomiting. But it's only 25-50%, Echocardiogram showed ejection fraction less than 20% with severe tricuspid regurgitation and [id number] mitral regurgitation He has positive hepatitis C IgG, patient told me he is already being treated for hepatitis C and he is already been vaccinated against hepatitis A and B. Sodium at 127. He is also been treated for UTI with ceftriaxone, urine culture growing gram- negative bacilli. Moy catheter was changed in the emergency room, confirmed with patient and bedside nurse. Objective - Vital Signs Vital signs: Vital Signs Temp 97.5 F L 11/29/21 08:11 Pulse 95 11/29/21 14:52 Resp 18 11/29/21 14:52 BP 106/74 11/29/21 12:12 Pulse Ox 99 11/29/21 12:12 Intake & Output 11/28/21 11/29/21 11/29/21 18:59 06:59 18:59 Intake Total 240 970 118 Output Total 1100 1175 Balance 240 -130 -1057 Weight 70.76 kg 70.1 kg 70.1 kg Intake: Oral 240 970 118 Output: Urine 200 275 Stool 900 900 Other: Voiding Method Indwelling Catheter Indwelling Catheter Indwelling Catheter # Voids 0 # Bowel Movements 0 - Exam GENERAL: The patient is alert and oriented x3, not in any acute distress. Well developed, well nourished. HEENT: Pupils are round and equally reacting to light. EOMI. No scleral icterus. No conjunctival pallor. Normocephalic, atraumatic. No pharyngeal erythema. No thyromegaly. CARDIOVASCULAR: S1 and S2 present. No murmurs, rubs, or gallops. -PULMONARY: Chest is clear to auscultation, no wheezing or. Bilateral basal crackles ABDOMEN: Soft, nontender, nondistended, normoactive bowel sounds. No palpable organomegaly. MUSCULOSKELETAL: No joint swelling or deformity. -EXTREMITIES: No cyanosis, clubbing, . Bilateral patellar like edema 1+. NEUROLOGICAL: Gross neurological examination did not reveal any focal deficits. Gait exam is deferred SKIN: No rashes. no petechiae. - Labs CBC & Chem 7: 11/27/21 19:16 11/29/21 10:38 Labs: Abnormal Lab Results - Last 24 Hours (Table) 11/28/21 11/28/21 11/29/21 Range/Units 07:47 20:44 06:30 Sodium (137-145) mmol/L Chloride (98-107) mmol/L Carbon Dioxide (22-30) mmol/L BUN (9-20) mg/dL Creatinine (0.66-1.25) mg/dL Glucose (74-99) mg/dL POC Glucose (mg/dL) 114 H 143 H (75-99) mg/dL Uric Acid 11.6 H (3.7-8.7) mg/dL Total Bilirubin (0.2-1.3) mg/dL AST (17-59) U/L ALT (4-49) U/L Alkaline Phosphatase (38-126) U/L 11/29/21 11/29/21 Range/Units 10:38 11:50 Sodium 127 L (137-145) mmol/L Chloride 90 L (98-107) mmol/L Carbon Dioxide 20 L (22-30) mmol/L BUN 52 H (9-20) mg/dL Creatinine 2.71 H (0.66-1.25) mg/dL Glucose 211 H (74-99) mg/dL POC Glucose (mg/dL) 219 H (75-99) mg/dL Uric Acid (3.7-8.7) mg/dL Total Bilirubin 2.6 H (0.2-1.3) mg/dL AST 205 H (17-59) U/L ALT 139 H (4-49) U/L Alkaline Phosphatase 151 H (38-126) U/L Microbiology - Last 24 Hours (Table) 11/27/21 19:38 Urine Culture - Preliminary Urine,Voided Gram Neg Bacilli Assessment and Plan Assessment: Acute urinary tract infection , associated and related to indwelling Moy catheter Patient with evidence of acute systolic and diastolic CHF with ejection fraction less than 20% and severe tricuspid regurgitation Severe hyperkalemia on admission, Improved Acute gout attack with pain in his left elbow and bilateral feet joints, and elevated uric acid, started on prednisone Acute kidney injury, on chronic kidney disease Chronic urinary retention status post indwelling Moy catheter chronic dizziness and lightheadedness, with chronic unsteady gait Elevated liver enzymes Normochromic, normocytic anemia Hyponatremia Questionable right lower lobe nodular opacity versus artifact, recommend follow- up Diabetes mellitus, with hypoglycemia on admission Hyperlipidemia Hypertension Nonischemic cardiomyopathy status post AICD, status post pacemaker Chronic kidney disease, stage III COPD, not in acute exacerbation History of bilateral glaucoma History of major depression, not in activation Plan: This is a pleasant 56 years old male who presents with acute kidney injury, hyperkalemia, UTI, and review of his extensive cardiac disease and nonischemic cardiomyopathy Continue with ceftriaxone follow-up urine culture Monitor creatinine and potassium Change Moy catheter Nephrology and cardiology consult Hold Lantus 50 units twice a day and NovoLog 15 units with meals. and continue with insulin sliding scale.Hold jardians continue with oral Lasix and metolazone till evaluated by software development coordinator and animal care specialist We will order renal and liver ultrasound. Check hepatitis panel, hemoglobin A1c and procalcitonin Labs and medication were reviewed.. Continue same treatment. Continue with symptomatic treatment. Resume home medication. Monitor lytes and vitals. DVT and GI prophylaxis. Further recommendations as per clinical course of the patient DVT prophylaxis: Subcutaneous heparin GI Prophylaxis: Pepcid PT/OT: Pending Prognosis is guarded
[2021-11-29] MEDS: DOBUTamine DRIP 500 MG in DEXTROSE/WATER 1 250ML.BAG IV SCH (20:01)
[2021-11-29] MEDS: TAMSULOSIN 0.4 MG CAP.ER.24H PO SCH (20:08)
[2021-11-29] MEDS: FINASTERIDE 5 MG TAB PO SCH (20:09)
[2021-11-29 20:51] LABS: Glucose,Whole Blood 398 mg/dL (75-99)
[2021-11-30] MEDS: hydrOXYzine HCL 25 MG TAB PO PRN ×3 (02:44→20:30)
[2021-11-30] MEDS: INSULIN ASPART (NovoLOG) 100 UNIT/ML VIAL SQ SCH ×4 (06:28→20:28)
[2021-11-30 06:30] LABS: Glucose,Whole Blood 321 mg/dL (75-99)
[2021-11-30] MEDS: FLUTICASONE 110 MCG INHALER INHALATION SCH ×2 (07:59→20:22)
[2021-11-30] MEDS: ALBUTEROL NEBULIZED 2.5 MG/3 ML INHALATION PRN ×2 (07:59→11:16)
[2021-11-30 09:22] LABS: Albumin 3.5 g/dL (3.5-5.0); Calcium 8.7 mg/dL (8.4-10.2); Total Bilirubin 2.1 mg/dL (0.2-1.3); Total Protein 6.4 g/dL (6.3-8.2)
[2021-11-30 09:25] LABS: Potassium 3.9 mmol/L (3.5-5.1)
[2021-11-30 09:38] LABS: Anisocytosis Moderate; Basophils % (A) 0 %; Eosinophils % (A) 0 %; HGB 10.2 gm/dL (13.0-17.5); Hypochromasia Marked; Lymphocytes # (A) 0.7 k/uL (1.0-4.8); Lymphocytes % (A) 13 %; MCH 24.5 pg (25.0-35.0); MCV 81.5 fL (80.0-100.0); Mean Platelet Volume 8.9; Microcytosis Slight; Monocytes # (A) 0.4 k/uL (0-1.0); Monocytes % (A) 7 %; Neutrophils # (A) 4.3 k/uL (1.3-7.7); Neutrophils % (A) 78 %; Platelet Count 217 k/uL (150-450); Poikilocytosis Slight; RBC 4.18 m/uL (4.30-5.90); RDW 21.7 % (11.5-15.5); WBC 5.6 k/uL (3.8-10.6)
[2021-11-30] MEDS: FUROSEMIDE 10 MG/ML 4 ML VIAL IV SCH (09:56)
[2021-11-30] MEDS: FAMOTIDINE 20 MG TAB PO SCH (09:56)
[2021-11-30] MEDS: HEPARIN SODIUM,PORCINE/PF 5,000 UNIT/0.5 ML SYRINGE SQ SCH ×2 (09:56→20:29)
[2021-11-30] MEDS: MULTIVITAMINS, THERA 1 EACH TAB PO SCH (09:56)
[2021-11-30] MEDS: predniSONE 20 MG TAB PO SCH (09:57)
[2021-11-30] MEDS: metOLazone 5 MG TAB PO SCH ×2 (09:57→15:26)
[2021-11-30] MEDS: COLCHICINE 0.6 MG EACH PO SCH (09:57)
[2021-11-30] MEDS: busPIRone HCl 5 MG TAB PO SCH (09:57)
[2021-11-30] MEDS: HYDROmorphone 1 MG/ML 1 ML SYRINGE IVP PRN ×2 (10:04→20:29)
[2021-11-30] MEDS: CLOTRIMAZOLE 1% CREAM 30 GM TUBE TOPICAL SCH ×2 (10:10→20:30)
[2021-11-30] MEDS: SODIUM CHLORIDE 0.65% NASAL SPRAY 44 ML BTL NASAL SCH ×4 (10:11→20:30)
[2021-11-30] MEDS: BRIMONIDINE TARTRATE 0.2% DROPS 5 ML BTL BOTH EYES SCH (10:11)
[2021-11-30 11:31] LABS: Glucose,Whole Blood 383 mg/dL (75-99)
--- NOTE | 2021-11-30 12:21 | P.PN ---
Subjective Patient is seen for follow-up for acute kidney injury on top of chronic kidney disease. He has severe cardiomyopathy with ejection fraction 10-15%, CK D stage IV baseline creatinine 1.7-2.2 mg/dL. Patient was admitted to the hospital with shortness of breath and gout flareup with increased pain in his left elbow and feet. Currently maintained on IV diuretics. Patient has chronic indwelling Moy catheter for chronic urine retention. Cleaning off itching. Pain in the elbow is improved. Objective - Vital Signs Vital signs: Vital Signs Temp 97.9 F 11/30/21 12:15 Pulse 99 11/30/21 12:15 Resp 16 11/30/21 12:15 BP 93/64 11/30/21 12:15 Pulse Ox 99 11/30/21 12:15 Intake & Output 11/29/21 11/30/21 11/30/21 18:59 06:59 18:59 Intake Total 118 201.229 120 Output Total 2300 700 Balance -2182 201.229 -580 Weight 70.1 kg Intake: Intake, IV Titration 201.229 Amount DOBUTamine DRIP 500 mg In 201.229 Dextrose/Water 1 250ml. bag @ 3.5 MCG/KG/MIN 7.43 mls/hr IV .Q24H [facility] Rx#: [id number] Oral 118 120 Output: Urine 1400 700 Stool 900 Other: Voiding Method Indwelling Catheter Indwelling Catheter Indwelling Catheter - Exam Patient is awake comfortable. Not in any acute distress. Examination of the heart S1 and S2 Examination lungs bilateral breath sounds are heard Abdomen is soft nontender Examination of lower extremity shows edema 2+ bilaterally Left elbow swelling seems to be slightly improved - Labs CBC & Chem 7: 11/30/21 08:09 11/30/21 08:09 Labs: Abnormal Lab Results - Last 24 Hours (Table) 11/29/21 11/29/21 11/30/21 Range/Units 16:37 20:24 05:34 RBC (4.30-5.90) m/uL Hgb (13.0-17.5) gm/dL Hct (39.0-53.0) % MCH (25.0-35.0) pg MCHC (31.0-37.0) g/dL RDW (11.5-15.5) % Lymphocytes # (1.0-4.8) k/uL Sodium (137-145) mmol/L Chloride (98-107) mmol/L BUN (9-20) mg/dL Creatinine (0.66-1.25) mg/dL Glucose (74-99) mg/dL POC Glucose (mg/dL) 331 H 398 H 321 H (75-99) mg/dL Total Bilirubin (0.2-1.3) mg/dL AST (17-59) U/L ALT (4-49) U/L Alkaline Phosphatase (38-126) U/L 11/30/21 11/30/21 11/30/21 Range/Units 08:09 08:09 11:28 RBC 4.18 L (4.30-5.90) m/uL Hgb 10.2 L (13.0-17.5) gm/dL Hct 34.0 L (39.0-53.0) % MCH 24.5 L (25.0-35.0) pg MCHC 30.0 L (31.0-37.0) g/dL RDW 21.7 H (11.5-15.5) % Lymphocytes # 0.7 L (1.0-4.8) k/uL Sodium 127 L (137-145) mmol/L Chloride 85 L (98-107) mmol/L BUN 59 H (9-20) mg/dL Creatinine 2.43 H (0.66-1.25) mg/dL Glucose 300 H (74-99) mg/dL POC Glucose (mg/dL) 383 H (75-99) mg/dL Total Bilirubin 2.1 H (0.2-1.3) mg/dL AST 117 H (17-59) U/L ALT 122 H (4-49) U/L Alkaline Phosphatase 149 H (38-126) U/L Microbiology - Last 24 Hours (Table) 11/27/21 19:38 Urine Culture - Preliminary Urine,Voided Gram Neg Bacilli Assessment and Plan Assessment: 1. Acute kidney injury, cardiorenal. Change Lasix to IV 2. CK D, cardiorenal baseline creatinine about 1.7 mg/dL as of 11/25/2021. NKF stage IIIB 3. Chronic systolic CHF, with ejection fraction less than 10-15% 4. Hypervolemic hyponatremia 5. Gout flareup 6. Mild hyperkalemia associated with acute kidney injury Plan: Continue IV Lasix Check PTH due to itching continue Moy catheter Repeat labs in a.m. Accurate I's and O's
--- NOTE | 2021-11-30 12:58 | P.PN ---
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 Follows with Dr. Eilas Roving [employer] Reporter at the [place]. We have been consulted for congestive heart failure and cardiomyopathy. Patient presents to the emergency department symptoms and shortness of breath that have been progressively worse with past 3 days. Echocardiogram revealed EF < 20%, mild to moderate mitral regu rgitation, severe tricuspid regurgitation. Patient was admitted and started on IV Lasix 40 mg Q8hr per nephrology. Patient seen and examined at bedside, no acute distress. He states his breathing has improved, continues to feel some shortness of breath, but states this is chronic and his baseline. Patient's output is reported at 700ml on the midnight shift. Patient's complaint today is pain from his gout Meds: Dobutamine 360mL daily, IV Lasix 40 mg every 8 hours, metolazone 5 mg twice a day Labs: Hemoglobin 10.2 Sodium 127, potassium 3.9, BUN 59, serum crit 2.43, AST 117, ALT 122, pro BNP 41794. Objective - Vital Signs Vital signs: Vital Signs Temp 97.9 F 11/30/21 12:15 Pulse 99 11/30/21 12:15 Resp 16 11/30/21 12:15 BP 93/64 11/30/21 12:15 Pulse Ox 99 11/30/21 12:15 Intake & Output 11/29/21 11/30/21 11/30/21 18:59 06:59 18:59 Intake Total 118 201.229 120 Output Total 2300 700 Balance -2182 201.229 -580 Weight 70.1 kg Intake: Intake, IV Titration 201.229 Amount DOBUTamine DRIP 500 mg In 201.229 Dextrose/Water 1 250ml. bag @ 3.5 MCG/KG/MIN 7.43 mls/hr IV .Q24H [facility] Rx#: [id number] Oral 118 120 Output: Urine 1400 700 Stool 900 Other: Voiding Method Indwelling Catheter Indwelling Catheter Indwelling Catheter - Exam Vital signs reviewed. CONSTITUTIONAL: No apparent distress. HEENT: Neck Supple. No JVD. No carotid bruit. CHEST EXAMINATION: Lungs crackles bilaterally to auscultation. No chest wall tenderness is noted on palpation or with deep breathing. HEART EXAMINATION: Regular rate and rhythm. S1, S2 heard. Systolic ejection murmur at apex, No gallops or rub. ABDOMEN: Soft, distended. Positive bowel sounds. EXTREMITIES: 2+ peripheral pulses, trace lower extremity edema and no calf tenderness. NEUROLOGIC EXAMINATION: Patient is awake, alert and oriented x3. - Labs CBC & Chem 7: 11/30/21 08:09 11/30/21 08:09 Labs: Abnormal Lab Results - Last 24 Hours (Table) 11/29/21 11/29/21 11/30/21 Range/Units 16:37 20:24 05:34 RBC (4.30-5.90) m/uL Hgb (13.0-17.5) gm/dL Hct (39.0-53.0) % MCH (25.0-35.0) pg MCHC (31.0-37.0) g/dL RDW (11.5-15.5) % Lymphocytes # (1.0-4.8) k/uL Sodium (137-145) mmol/L Chloride (98-107) mmol/L BUN (9-20) mg/dL Creatinine (0.66-1.25) mg/dL Glucose (74-99) mg/dL POC Glucose (mg/dL) 331 H 398 H 321 H (75-99) mg/dL Total Bilirubin (0.2-1.3) mg/dL AST (17-59) U/L ALT (4-49) U/L Alkaline Phosphatase (38-126) U/L 11/30/21 11/30/21 11/30/21 Range/Units 08:09 08:09 11:28 RBC 4.18 L (4.30-5.90) m/uL Hgb 10.2 L (13.0-17.5) gm/dL Hct 34.0 L (39.0-53.0) % MCH 24.5 L (25.0-35.0) pg MCHC 30.0 L (31.0-37.0) g/dL RDW 21.7 H (11.5-15.5) % Lymphocytes # 0.7 L (1.0-4.8) k/uL Sodium 127 L (137-145) mmol/L Chloride 85 L (98-107) mmol/L BUN 59 H (9-20) mg/dL Creatinine 2.43 H (0.66-1.25) mg/dL Glucose 300 H (74-99) mg/dL POC Glucose (mg/dL) 383 H (75-99) mg/dL Total Bilirubin 2.1 H (0.2-1.3) mg/dL AST 117 H (17-59) U/L ALT 122 H (4-49) U/L Alkaline Phosphatase 149 H (38-126) U/L Microbiology - Last 24 Hours (Table) 11/27/21 19:38 Urine Culture - Preliminary Urine,Voided Gram Neg Bacilli Assessment and Plan Assessment: Acute on chronic heart failure with reduced ejection fraction Chronically elevated troponins, do not suspect primary myocardial infarction or acute coronary syndrome. No angina-type symptoms Acute on chronic kidney disease Nonischemic cardiomyopathy ejection fraction less than 20% Essential hypertension, borderline low on heart failure regimen Diabetes mellitus type 2 Plan: Patient states he has dobutamine infusions daily at home Continue with other current cardiac medications Continue IV Lasix, nephrology following assisting in managing lasix Monitor I/Os, daily weights renal function and electrolytes Continue telemetry monitoring Unable to get records from [facility], they state they do not have records of the patient being there. Further recommendations based on clinical course Nurse practitioner note has been reviewed by physician. Signing provider agrees with the documented findings, assessment, and plan of care.
--- NOTE | 2021-11-30 13:42 | XR ---
Left elbow. HISTORY: Swelling COMPARISON: None. TECHNIQUE: 2 views left elbow were obtained. FINDINGS: There is no fracture, dislocation, intraosseous or intra-articular abnormality. There is no radiopaqu e foreign body or abnormal soft tissue calcification. IMPRESSION: No significant abnormality seen.
[2021-11-30] MEDS: DOBUTamine DRIP 500 MG in DEXTROSE/WATER 1 250ML.BAG IV SCH (15:25)
[2021-11-30] MEDS: FUROSEMIDE 40 MG TAB PO SCH (15:28)
[2021-11-30 17:09] LABS: Glucose,Whole Blood 425 mg/dL (75-99)
--- NOTE | 2021-11-30 18:41 | P.PN ---
Subjective This is a pleasant 56 years old male with past medical history of Coronary Artery Disease, COPD, nonischemic cardiomyopathy status post AICD, status post pacemaker, insulin-dependent diabetes mellitus, glaucoma, major depression Presents because of dyspnea for 3 days although his breathing easier now while sitting in bed, he still complaining of from basal crepitation and mild bilateral leg swelling. Also has been complaining of from cough and clear phlegm but thus chronic for him He is complaining of from pain all over his body mainly in his left elbow on both feet, he thinks that he has a gout flareup. However he denies chest pain. He denies any GI or urinary symptoms or DIGESTER symptoms. He vomited twice yesterday and today with no blood but no abdominal pain, no diarrhea, no black stool or GI bleed. No dysuria but is complaining of from chronic Moy catheter secondary to his chronic retention he has for about 6 weeks and he follows up with the [place] urologist. He denies headache or weakness or numbness however he complains from chronic dizziness and lightheadedness, which is chronic with chronic difficulty walking, he has to be held for walking. He denies active symptoms depression symptoms or suicidal/homicidal thoughts. Patient complaining from source in both legs fully recovered, we going to check on him. Also has been complaining of from low appetite for the last 3 days, he stated that he ate breakfast this morning better than the last 3 days. He denies smoking, alcohol or illicit drugs. Labs show an unremarkable CBC with WBC 10.0, hemoglobin 11.4, platelet count 276. INR is 1.6. Sodium is low at 127 and 128, baseline hyponatremia is 132-134 Creatinine elevated on admission 2.6 and 2.4, compared to baseline of 1.3-1.5 Potassium was elevated 7.1 on admission, currently improved on 523. AST elevated 129 and 209. ALT elevated to 55 and 102. Bilirubin elevated 2.3 Troponin is -0.02. ProBNP elevated [address] Chest x-ray, there is diffuse mild hazy opacity and questionable right lower lobe nodular opacity versus artifact. Attention on follow-up. EKG showed sinus tachycardia with occasional ectopic premature complexes, at a rate of 103, QTC 452, no significant ST-T changes but there is generalized poor R-wave progression. in the emergency room patient received pain medication, IV fluids with normal saline 500 MLS, penicillin/dextrose 50%, albuterol, started on ceftriaxone. Also received Kayexalate Physical glucose was low on admission 31, improved currently 74 this morning in Emergency room philosophy specialist and clerical adjudicator been consulted. 11/29/2021 Patient today feels slightly better distal generally weak, he states there is some improvement in his left elbow on bilateral feet pain after he was started on a prednisone for acute gouty attack with elevated uric acid. He is kept on IV Lasix with no tachypnea while in dressed, no orthopnea noted, he has less leg erythema and basal crepitation. Hemodynamically stable. He is on room air. Liver enzymes still elevated and ultrasound showing hepatic steatosis versus hepatocellular disease with possibly enlarged liver and the gallbladder thought secondary to edema and they recommended further imaging, HIDA scan is ordered. The patient's with no abdominal pain or nausea vomiting. But it's only 25-50%, Echocardiogram showed ejection fraction less than 20% with severe tricuspid regurgitation and [id number] mitral regurgitation He has positive hepatitis C IgG, patient told me he is already being treated for hepatitis C and he is already been vaccinated against hepatitis A and B. Sodium at 127. He is also been treated for UTI with ceftriaxone, urine culture growing gram- negative bacilli. Moy catheter was changed in the emergency room, confirmed with patient and bedside nurse. 11/30/2021 Patient reports improvement in his movement, he feels stronger and he can walk further than yesterday without getting shortness of breath, his IV was switched to oral Lasix with cardiology and nephrology team on the case for his acute CHF, his creatinine cam e down to 0.7-2.4, similar to a upon admission. Sodium is stable at 127. Glucose is elevated more than 300, therefore we started his Levemir 20 units twice a day, compared to 50 units at home and NovoLog 5 units with meals compared to 15 units at home. We checked elbow x-ray for him on the left side that was negative for acute process. Patient is with gout responded prednisone 20 mg daily. He has this pain for more movement in his left elbow as well as his left and right feet. He is kept on ceftriaxone and urine culture is growing gram-negative bacilli. HIDA scan is still pending and is going to be done on Thursday. His liver enzymes were elevated upon admission. Repeat labs in the morning Objective - Vital Signs Vital signs: Vital Signs Temp 97.9 F 11/30/21 12:15 Pulse 99 11/30/21 12:15 Resp 16 11/30/21 12:15 BP 93/64 11/30/21 12:15 Pulse Ox 99 11/30/21 12:15 Intake & Output 11/29/21 11/30/21 11/30/21 18:59 06:59 18:59 Intake Total 118 201.229 120 Output Total 2300 700 Balance -2182 201.229 -580 Weight 70.1 kg Intake: Intake, IV Titration 201.229 Amount DOBUTamine DRIP 500 mg In 201.229 Dextrose/Water 1 250ml. bag @ 3.5 MCG/KG/MIN 7.43 mls/hr IV .Q24H [facility] Rx#: [id number] Oral 118 120 Output: Urine 1400 700 Stool 900 Other: Voiding Method Indwelling Catheter Indwelling Catheter Indwelling Catheter - Exam GENERAL: The patient is alert and oriented x3, not in any acute distress. Well developed, well nourished. HEENT: Pupils are round and equally reacting to light. EOMI. No scleral icterus. No conjunctival pallor. Normocephalic, atraumatic. No pharyngeal erythema. No thyromegaly. CARDIOVASCULAR: S1 and S2 present. No murmurs, rubs, or gallops. -PULMONARY: Chest is clear to auscultation, no wheezing or. Bilateral basal crackles ABDOMEN: Soft, nontender, nondistended, normoactive bowel sounds. No palpable organomegaly. MUSCULOSKELETAL: No joint swelling or deformity. -EXTREMITIES: No cyanosis, clubbing, . Bilateral patellar like edema 1+. NEUROLOGICAL: Gross neurological examination did not reveal any focal deficits. Gait exam is deferred SKIN: No rashes. no petechiae. - Labs CBC & Chem 7: 11/30/21 08:09 11/30/21 08:09 Labs: Abnormal Lab Results - Last 24 Hours (Table) 11/29/21 11/29/21 11/30/21 Range/Units 16:37 20:24 05:34 RBC (4.30-5.90) m/uL Hgb (13.0-17.5) gm/dL Hct (39.0-53.0) % MCH (25.0-35.0) pg MCHC (31.0-37.0) g/dL RDW (11.5-15.5) % Lymphocytes # (1.0-4.8) k/uL Sodium (137-145) mmol/L Chloride (98-107) mmol/L BUN (9-20) mg/dL Creatinine (0.66-1.25) mg/dL Glucose (74-99) mg/dL POC Glucose (mg/dL) 331 H 398 H 321 H (75-99) mg/dL Total Bilirubin (0.2-1.3) mg/dL AST (17-59) U/L ALT (4-49) U/L Alkaline Phosphatase (38-126) U/L 11/30/21 11/30/21 11/30/21 Range/Units 08:09 08:09 11:28 RBC 4.18 L (4.30-5.90) m/uL Hgb 10.2 L (13.0-17.5) gm/dL Hct 34.0 L (39.0-53.0) % MCH 24.5 L (25.0-35.0) pg MCHC 30.0 L (31.0-37.0) g/dL RDW 21.7 H (11.5-15.5) % Lymphocytes # 0.7 L (1.0-4.8) k/uL Sodium 127 L (137-145) mmol/L Chloride 85 L (98-107) mmol/L BUN 59 H (9-20) mg/dL Creatinine 2.43 H (0.66-1.25) mg/dL Glucose 300 H (74-99) mg/dL POC Glucose (mg/dL) 383 H (75-99) mg/dL Total Bilirubin 2.1 H (0.2-1.3) mg/dL AST 117 H (17-59) U/L ALT 122 H (4-49) U/L Alkaline Phosphatase 149 H (38-126) U/L Microbiology - Last 24 Hours (Table) 11/27/21 19:38 Urine Culture - Preliminary Urine,Voided Gram Neg Bacilli Assessment and Plan Assessment: Acute urinary tract infection , associated and related to indwelling Moy catheter Patient with evidence of acute systolic and diastolic CHF with ejection fraction less than 20% and severe tricuspid regurgitation Severe hyperkalemia on admission, Improved Acute gout attack with pain in his left elbow and bilateral feet joints, and elevated uric acid, started on prednisone Acute kidney injury, on chronic kidney disease Chronic urinary retention status post indwelling Moy catheter chronic dizziness and lightheadedness, with chronic unsteady gait Elevated liver enzymes Normochromic, normocytic anemia Hyponatremia Questionable right lower lobe nodular opacity versus artifact, recommend follow- up Diabetes mellitus, with hypoglycemia on admission Hyperlipidemia Hypertension Nonischemic cardiomyopathy status post AICD, status post pacemaker Chronic kidney disease, stage III COPD, not in acute exacerbation History of bilateral glaucoma History of major depression, not in activation Plan: This is a pleasant 56 years old male who presents with acute kidney injury, hyperkalemia, UTI, and review of his extensive cardiac disease and nonischemic cardiomyopathy Continue with ceftriaxone follow-up urine culture Monitor creatinine and potassium Change Moy catheter Nephrology and cardiology consult Hold Lantus 50 units twice a day and NovoLog 15 units with meals. and continue with insulin sliding scale.Hold jardians continue with oral Lasix and metolazone till evaluated by clerical adjudicator and philosophy specialist We will order renal and liver ultrasound. Check hepatitis panel, hemoglobin A1c and procalcitonin Labs and medication were reviewed.. Continue same treatment. Continue with symptomatic treatment. Resume home medication. Monitor lytes and vitals. DVT and GI prophylaxis. Further recommendations as per clinical course of the patient DVT prophylaxis: Subcutaneous heparin GI Prophylaxis: Pepcid PT/OT: Pending Prognosis is guarded
[2021-11-30 19:58] LABS: Glucose,Whole Blood 394 mg/dL (75-99)
[2021-11-30] MEDS: INSULIN DETEMIR (LEVEMIR) 100 UNIT/ML SYR SQ SCH (20:28)
[2021-11-30] MEDS: FINASTERIDE 5 MG TAB PO SCH (20:29)
[2021-11-30] MEDS: TAMSULOSIN 0.4 MG CAP.ER.24H PO SCH (20:29)
[2021-12-01] MEDS: hydrOXYzine HCL 25 MG TAB PO PRN ×2 (03:16→12:47)
[2021-12-01 06:27] LABS: Glucose,Whole Blood 306 mg/dL (75-99)
[2021-12-01] MEDS: INSULIN DETEMIR (LEVEMIR) 100 UNIT/ML SYR SQ SCH (06:30)
[2021-12-01] MEDS: INSULIN ASPART (NovoLOG) 100 UNIT/ML VIAL SQ SCH ×7 (06:30→20:41)
[2021-12-01] MEDS: HYDROmorphone 1 MG/ML 1 ML SYRINGE IVP PRN ×2 (06:31→23:52)
[2021-12-01] MEDS: FLUTICASONE 110 MCG INHALER INHALATION SCH ×2 (08:56→20:32)
[2021-12-01] MEDS: HEPARIN SODIUM,PORCINE/PF 5,000 UNIT/0.5 ML SYRINGE SQ SCH ×2 (09:20→20:40)
[2021-12-01] MEDS: busPIRone HCl 5 MG TAB PO SCH (09:21)
[2021-12-01] MEDS: MULTIVITAMINS, THERA 1 EACH TAB PO SCH (09:21)
[2021-12-01] MEDS: metOLazone 5 MG TAB PO SCH ×2 (09:21→15:39)
[2021-12-01] MEDS: predniSONE 20 MG TAB PO SCH (09:22)
[2021-12-01] MEDS: FAMOTIDINE 20 MG TAB PO SCH ×2 (09:22→20:41)
[2021-12-01] MEDS: COLCHICINE 0.6 MG EACH PO SCH (09:22)
[2021-12-01] MEDS: FUROSEMIDE 40 MG TAB PO SCH (09:22)
[2021-12-01] MEDS: CLOTRIMAZOLE 1% CREAM 30 GM TUBE TOPICAL SCH ×2 (09:24→20:50)
[2021-12-01] MEDS: SODIUM CHLORIDE 0.65% NASAL SPRAY 44 ML BTL NASAL SCH ×4 (09:24→20:51)
[2021-12-01] MEDS: BRIMONIDINE TARTRATE 0.2% DROPS 5 ML BTL BOTH EYES SCH (09:24)
[2021-12-01 09:38] LABS: Anisocytosis Moderate; Basophils % (A) 0 %; Eosinophils % (A) 0 %; HCT 35.4 % (39.0-53.0); HGB 10.6 gm/dL (13.0-17.5); Hypochromasia Marked; Lymphocytes # (A) 0.8 k/uL (1.0-4.8); Lymphocytes % (A) 13 %; MCH 24.1 pg (25.0-35.0); MCHC 29.9 g/dL (31.0-37.0); MCV 80.7 fL (80.0-100.0); Mean Platelet Volume 8.1; Microcytosis Slight; Monocytes # (A) 0.5 k/uL (0-1.0); Monocytes % (A) 9 %; Neutrophils # (A) 4.3 k/uL (1.3-7.7); Neutrophils % (A) 74 %; Platelet Count 217 k/uL (150-450); Poikilocytosis Slight; RBC 4.38 m/uL (4.30-5.90); RDW 21.7 % (11.5-15.5); WBC 5.8 k/uL (3.8-10.6)
[2021-12-01 09:43] LABS: Albumin 3.6 g/dL (3.5-5.0); Calcium 8.8 mg/dL (8.4-10.2); Potassium 2.9 mmol/L (3.5-5.1); Total Bilirubin 1.6 mg/dL (0.2-1.3); Total Protein 6.6 g/dL (6.3-8.2)
[2021-12-01 11:43] LABS: Glucose,Whole Blood 187 mg/dL (75-99)
[2021-12-01] MEDS ORDERED: Potassium Replacement Protocol 1 EACH MISC MISCELLANE PRN (13:12)
--- NOTE | 2021-12-01 13:21 | P.PN ---
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 Follows with Dr. Elias Inspector Automatic [employer] at the [place]. We have been consulted for congestive heart failure and cardiomyopathy. Patient presents to the emergency department symptoms and shortness of breath that have been progressively worse with past 3 days. Echocardiogram revealed EF < 20%, mild to moderate mitral regu rgitation, severe tricuspid regurgitation. Patient is seen today up walking around his room with a walker. He is doing well and has no complaints of increased shortness of breath or chest pain. Cr eatinine has improved today was 2.26. She is hypokalemic, potassium is 2.9, will supplement. Patient has been transitioned to by mouth Lasix. He continues with dobutamine and Zaroxolyn. Patient is to undergo a renal ultrasound. Objective - Vital Signs Vital signs: Vital Signs Temp 97.6 F 12/01/21 12:43 Pulse 96 12/01/21 12:43 Resp 17 12/01/21 12:43 BP 106/64 12/01/21 12:43 Pulse Ox 96 12/01/21 12:43 Intake & Output 11/30/21 12/01/21 12/01/21 17:59 06:59 18:59 Intake Total 0 Output Total 1000 Balance -1000 Weight Intake: Intake, IV Titration Amount DOBUTamine DRIP 500 mg In Dextrose/Water 1 250ml. bag @ 3.5 MCG/KG/MIN 7.43 mls/hr IV .Q24H [facility] Rx#: [id number] Oral 0 Output: Urine 1000 Other: Voiding Method Indwelling Catheter - Exam Vital signs reviewed. CONSTITUTIONAL: No apparent distress. HEENT: Neck Supple. No JVD. No carotid bruit. CHEST EXAMINATION: Lungs crackles bilaterally to auscultation. No chest wall tenderness is noted on palpation or with deep breathing. HEART EXAMINATION: Regular rate and rhythm. S1, S2 heard. Systolic ejection murmur at apex, No gallops or rub. ABDOMEN: Soft, distended. Positive bowel sounds. EXTREMITIES: 2+ peripheral pulses, trace lower extremity edema and no calf tenderness. NEUROLOGIC EXAMINATION: Patient is awake, alert and oriented x3. - Labs CBC & Chem 7: 12/01/21 09:21 12/01/21 09:21 Labs: Abnormal Lab Results - Last 24 Hours (Table) 11/30/21 11/30/21 11/30/21 Range/Units 08:09 17:08 19:56 Hgb (13.0-17.5) gm/dL Hct (39.0-53.0) % MCH (25.0-35.0) pg MCHC (31.0-37.0) g/dL RDW (11.5-15.5) % Lymphocytes # (1.0-4.8) k/uL Sodium (137-145) mmol/L Potassium (3.5-5.1) mmol/L Chloride (98-107) mmol/L BUN (9-20) mg/dL Creatinine (0.66-1.25) mg/dL Glucose (74-99) mg/dL POC Glucose (mg/dL) 425 H 394 H (75-99) mg/dL Total Bilirubin (0.2-1.3) mg/dL AST (17-59) U/L ALT (4-49) U/L Alkaline Phosphatase (38-126) U/L PTH Intact 93.1 H (14.0-72.0) pg/mL 12/01/21 12/01/21 12/01/21 Range/Units 06:26 09:21 09:21 Hgb 10.6 L (13.0-17.5) gm/dL Hct 35.4 L (39.0-53.0) % MCH 24.1 L (25.0-35.0) pg MCHC 29.9 L (31.0-37.0) g/dL RDW 21.7 H (11.5-15.5) % Lymphocytes # 0.8 L (1.0-4.8) k/uL Sodium 129 L (137-145) mmol/L Potassium 2.9 L (3.5-5.1) mmol/L Chloride 86 L (98-107) mmol/L BUN 62 H (9-20) mg/dL Creatinine 2.26 H (0.66-1.25) mg/dL Glucose 204 H (74-99) mg/dL POC Glucose (mg/dL) 306 H (75-99) mg/dL Total Bilirubin 1.6 H (0.2-1.3) mg/dL AST 88 H (17-59) U/L ALT 111 H (4-49) U/L Alkaline Phosphatase 168 H (38-126) U/L PTH Intact (14.0-72.0) pg/mL 12/01/21 Range/Units 11:41 Hgb (13.0-17.5) gm/dL Hct (39.0-53.0) % MCH (25.0-35.0) pg MCHC (31.0-37.0) g/dL RDW (11.5-15.5) % Lymphocytes # (1.0-4.8) k/uL Sodium (137-145) mmol/L Potassium (3.5-5.1) mmol/L Chloride (98-107) mmol/L BUN (9-20) mg/dL Creatinine (0.66-1.25) mg/dL Glucose (74-99) mg/dL POC Glucose (mg/dL) 187 H (75-99) mg/dL Total Bilirubin (0.2-1.3) mg/dL AST (17-59) U/L ALT (4-49) U/L Alkaline Phosphatase (38-126) U/L PTH Intact (14.0-72.0) pg/mL Microbiology - Last 24 Hours (Table) 11/27/21 19:38 Urine Culture - Final Urine,Voided Acinetobacter jadyn/haemol Assessment and Plan Assessment: Acute on chronic heart failure with reduced ejection fraction Chronically elevated troponins, do not suspect primary myocardial infarction or acute coronary syndrome. No angina-type symptoms Acute on chronic kidney disease Nonischemic cardiomyopathy ejection fraction less than 20% Essential hypertension, borderline low on heart failure regimen Diabetes mellitus type 2 Plan: Continue with daily dobutamine infusion Supplement potassium Continue with other current cardiac medications Continue PO Lasix, and Zaroxolyn nephrology following assisting in managing lasix Renal ultrasound pending Monitor I/Os, daily weights renal function and electrolytes Continue telemetry monitoring Unable to get records from [facility], they state they do not have records of the patient being there. Further recommendations based on clinical course Nurse practitioner note has been reviewed by physician. Signing provider agrees with the documented findings, assessment, and plan of care.
[2021-12-01] MEDS: POTASSIUM CHLORIDE ER 20 MEQ TAB.ER PO SCH ×3 (13:28→23:47)
--- NOTE | 2021-12-01 14:30 | P.PN ---
Subjective Patient is seen for follow-up for acute kidney injury on top of chronic kidney disease. He has severe cardiomyopathy with ejection fraction 10-15%, CK D stage IV baseline creatinine 1.7-2.2 mg/dL. Patient was admitted to the hospital with shortness of breath and gout flareup with increased pain in his left elbow and feet. Currently maintained on IV diuretics. Patient has chronic indwelling Moy catheter for chronic urine retention. Was c/o itching. Pain in the elbow is improved. Started on dobutamine. Patient states Bumex works better for diuresis. Objective - Vital Signs Vital signs: Vital Signs Temp 97.6 F 12/01/21 12:43 Pulse 96 12/01/21 12:43 Resp 17 12/01/21 12:43 BP 106/64 12/01/21 12:43 Pulse Ox 96 12/01/21 12:43 Intake & Output 11/30/21 12/01/21 12/01/21 17:59 06:59 18:59 Intake Total 0 Output Total 1000 Balance -1000 Weight Intake: Intake, IV Titration Amount DOBUTamine DRIP 500 mg In Dextrose/Water 1 250ml. bag @ 3.5 MCG/KG/MIN 7.43 mls/hr IV .Q24H [facility] Rx#: [id number] Oral 0 Output: Urine 1000 Other: Voiding Method Indwelling Catheter - Exam Patient is awake comfortable. Not in any acute distress. Examination of the heart S1 and S2 Examination lungs bilateral breath sounds are heard, decreased breath sounds at bases Abdomen is soft nontender Examination of lower extremity shows edema 2+ bilaterally Left elbow swelling seems to be slightly improved - Labs CBC & Chem 7: 12/01/21 09:21 12/01/21 09:21 Labs: Abnormal Lab Results - Last 24 Hours (Table) 11/30/21 11/30/21 11/30/21 Range/Units 08:09 17:08 19:56 Hgb (13.0-17.5) gm/dL Hct (39.0-53.0) % MCH (25.0-35.0) pg MCHC (31.0-37.0) g/dL RDW (11.5-15.5) % Lymphocytes # (1.0-4.8) k/uL Sodium (137-145) mmol/L Potassium (3.5-5.1) mmol/L Chloride (98-107) mmol/L BUN (9-20) mg/dL Creatinine (0.66-1.25) mg/dL Glucose (74-99) mg/dL POC Glucose (mg/dL) 425 H 394 H (75-99) mg/dL Total Bilirubin (0.2-1.3) mg/dL AST (17-59) U/L ALT (4-49) U/L Alkaline Phosphatase (38-126) U/L PTH Intact 93.1 H (14.0-72.0) pg/mL 12/01/21 12/01/21 12/01/21 Range/Units 06:26 09:21 09:21 Hgb 10.6 L (13.0-17.5) gm/dL Hct 35.4 L (39.0-53.0) % MCH 24.1 L (25.0-35.0) pg MCHC 29.9 L (31.0-37.0) g/dL RDW 21.7 H (11.5-15.5) % Lymphocytes # 0.8 L (1.0-4.8) k/uL Sodium 129 L (137-145) mmol/L Potassium 2.9 L (3.5-5.1) mmol/L Chloride 86 L (98-107) mmol/L BUN 62 H (9-20) mg/dL Creatinine 2.26 H (0.66-1.25) mg/dL Glucose 204 H (74-99) mg/dL POC Glucose (mg/dL) 306 H (75-99) mg/dL Total Bilirubin 1.6 H (0.2-1.3) mg/dL AST 88 H (17-59) U/L ALT 111 H (4-49) U/L Alkaline Phosphatase 168 H (38-126) U/L PTH Intact (14.0-72.0) pg/mL 12/01/21 Range/Units 11:41 Hgb (13.0-17.5) gm/dL Hct (39.0-53.0) % MCH (25.0-35.0) pg MCHC (31.0-37.0) g/dL RDW (11.5-15.5) % Lymphocytes # (1.0-4.8) k/uL Sodium (137-145) mmol/L Potassium (3.5-5.1) mmol/L Chloride (98-107) mmol/L BUN (9-20) mg/dL Creatinine (0.66-1.25) mg/dL Glucose (74-99) mg/dL POC Glucose (mg/dL) 187 H (75-99) mg/dL Total Bilirubin (0.2-1.3) mg/dL AST (17-59) U/L ALT (4-49) U/L Alkaline Phosphatase (38-126) U/L PTH Intact (14.0-72.0) pg/mL Microbiology - Last 24 Hours (Table) 11/27/21 19:38 Urine Culture - Final Urine,Voided Acinetobacter jadyn/haemol Assessment and Plan Assessment: 1. Acute kidney injury, cardiorenal. Change to Bumex 2. CK D, cardiorenal baseline creatinine about 1.7 mg/dL as of 11/25/2021. NKF stage IIIB 3. Chronic systolic CHF, with ejection fraction less than 10-15% 4. Hypervolemic hyponatremia 5. Gout flareup 6. Mild hyperkalemia associated with acute kidney injury 7. Hypokalemia secondary to diuresis, will replace Plan: Switched to Bumex Replace potassium Check PTH due to itching continue Moy catheter Repeat labs in a.m. Accurate I's and O's Start ULoric or allopurinol in 1-2 days and try to wean down prednisone.
[2021-12-01 17:03] LABS: Glucose,Whole Blood 226 mg/dL (75-99)
[2021-12-01] MEDS ORDERED: CALCIUM CARBONATE 500 MG CHEWABLE PO PRN (17:28)
[2021-12-01] MEDS ORDERED: CEFEPIME 1 GM in SODIUM CHLORIDE 0.9% 50 ML IVPB STA (18:15)
[2021-12-01] MEDS ORDERED: CALCIUM CARBONATE 500 MG CHEWABLE PO ONE (18:18)
[2021-12-01] MEDS ORDERED: INSULIN DETEMIR (LEVEMIR) 100 UNIT/ML SYR SQ ONE (18:30)
--- NOTE | 2021-12-01 18:43 | P.PN ---
Subjective This is a pleasant 56 years old male with past medical history of Coronary Artery Disease, COPD, nonischemic cardiomyopathy status post AICD, status post pacemaker, insulin-dependent diabetes mellitus, glaucoma, major depression Presents because of dyspnea for 3 days although his breathing easier now while sitting in bed, he still complaining of from basal crepitation and mild bilateral leg swelling. Also has been complaining of from cough and clear phlegm but thus chronic for him He is complaining of from pain all over his body mainly in his left elbow on both feet, he thinks that he has a gout flareup. However he denies chest pain. He denies any GI or urinary symptoms or [employer] symptoms. He vomited twice yesterday and today with no blood but no abdominal pain, no diarrhea, no black stool or GI bleed. No dysuria but is complaining of from chronic Moy catheter secondary to his chronic retention he has for about 6 weeks and he follows up with the OR urologist. He denies headache or weakness or numbness however he complains from chronic dizziness and lightheadedness, which is chronic with chronic difficulty walking, he has to be held for walking. He denies active symptoms depression symptoms or suicidal/homicidal thoughts. Patient complaining from source in both legs fully recovered, we going to check on him. Also has been complaining of from low appetite for the last 3 days, he stated that he ate breakfast this morning better than the last 3 days. He denies smoking, alcohol or illicit drugs. Labs show an unremarkable CBC with WBC 10.0, hemoglobin 11.4, platelet count 276. INR is 1.6. Sodium is low at 127 and 128, baseline hyponatremia is 132-134 Creatinine elevated on admission 2.6 and 2.4, compared to baseline of 1.3-1.5 Potassium was elevated 7.1 on admission, currently improved on 523. AST elevated 129 and 209. ALT elevated to 55 and 102. Bilirubin elevated 2.3 Troponin is -0.02. [place] [address] Chest x-ray, there is diffuse mild hazy opacity and questionable right lower lobe nodular opacity versus artifact. Attention on follow-up. EKG showed sinus tachycardia with occasional ectopic premature complexes, at a rate of 103, QTC 452, no significant ST-T changes but there is generalized poor R-wave progression. in the emergency room patient received pain medication, IV fluids with normal saline 500 MLS, penicillin/dextrose 50%, albuterol, started on ceftriaxone. Also received Kayexalate Physical glucose was low on admission 31, improved currently 74 this morning in Emergency room bookmobile driver and gym teacher been consulted. 11/29/2021 Patient today feels slightly better distal generally weak, he states there is some improvement in his left elbow on bilateral feet pain after he was started on a prednisone for acute gouty attack with elevated uric acid. He is kept on IV Lasix with no tachypnea while in dressed, no orthopnea noted, he has less leg erythema and basal crepitation. Hemodynamically stable. He is on room air. Liver enzymes still elevated and ultrasound showing hepatic steatosis versus hepatocellular disease with possibly enlarged liver and the gallbladder thought secondary to edema and they recommended further imaging, HIDA scan is ordered. The patient's with no abdominal pain or nausea vomiting. But it's only 25-50%, Echocardiogram showed ejection fraction less than 20% with severe tricuspid regurgitation and [id number] mitral regurgitation He has positive hepatitis C IgG, patient told me he is already being treated for hepatitis C and he is already been vaccinated against hepatitis A and B. Sodium at 127. He is also been treated for UTI with ceftriaxone, urine culture growing gram- negative bacilli. Moy catheter was changed in the emergency room, confirmed with patient and bedside nurse. 11/30/2021 Patient reports improvement in his movement, he feels stronger and he can walk further than yesterday without getting shortness of breath, his IV was switched to oral Lasix with cardiology and nephrology team on the case for his acute CHF, his creatinine cam e down to 0.7-2.4, similar to a upon admission. Sodium is stable at 127. Glucose is elevated more than 300, therefore we started his Levemir 20 units twice a day, compared to 50 units at home and NovoLog 5 units with meals compared to 15 units at home. We checked elbow x-ray for him on the left side that was negative for acute process. Patient is with gout responded prednisone 20 mg daily. He has this pain for more movement in his left elbow as well as his left and right feet. He is kept on ceftriaxone and urine culture is growing gram-negative bacilli. HIDA scan is still pending and is going to be done on Thursday. His liver enzymes were elevated upon admission. Repeat labs in the morning 12/03/2021 Patient elbow and feet pain and swelling are improving gradually and every day, secondary to his gouty arthritis, prednisone is lowered 20 down to 15 mg daily also start allopurinol starting form tomorrow. His weakness is also improving. He states that he eats decent although he did not like the breakfast today. His glucose is controlled 183 and 226, creatinine slightly improving down to 2.2, sodium improvement to 129, liver enzymes still elevated but trending down nicely. His liver ultrasound showing swollen gallbladder, therefore HIDA scan is ordered for tomorrow. May consider surgery consult as well Pertinent that he is hemodynamically stable. He has positive hepatitis C IgG but states he is been treated and he is aware of this See diagnosis. Cash Management Specialist team on the case. Urine culture is growing Acinetobacter and his antibiotics was adjusted to cefepime, Levaquin could not be given because patient was and Atarax. Attacks is discontinued today. Objective - Vital Signs Vital signs: Vital Signs Temp 97.9 F 12/01/21 09:16 Pulse 97 12/01/21 09:16 Resp 17 12/01/21 09:16 BP 109/69 12/01/21 09:16 Pulse Ox 98 12/01/21 09:16 Intake & Output 11/30/21 12/01/21 12/01/21 17:59 06:59 18:59 Intake Total Output Total Balance Weight Intake: Intake, IV Titration Amount DOBUTamine DRIP 500 mg In Dextrose/Water 1 250ml. bag @ 3.5 MCG/KG/MIN 7.43 mls/hr IV .Q24H [facility] Rx#: [id number] Oral Output: Urine Other: Voiding Method Indwelling Catheter - Exam GENERAL: The patient is alert and oriented x3, not in any acute distress. Well developed, well nourished. HEENT: Pupils are round and equally reacting to light. EOMI. No scleral icterus. No conjunctival pallor. Normocephalic, atraumatic. No pharyngeal erythema. No thyromegaly. CARDIOVASCULAR: S1 and S2 present. No murmurs, rubs, or gallops. -PULMONARY: Chest is clear to auscultation, no wheezing or. Bilateral basal crackles ABDOMEN: Soft, nontender, nondistended, normoactive bowel sounds. No palpable organomegaly. MUSCULOSKELETAL: No joint swelling or deformity. -EXTREMITIES: No cyanosis, clubbing, . Bilateral patellar like edema 1+. NEUROLOGICAL: Gross neurological examination did not reveal any focal deficits. Gait exam is deferred SKIN: No rashes. no petechiae. - Labs CBC & Chem 7: 12/01/21 09:21 12/01/21 09:21 Labs: Abnormal Lab Results - Last 24 Hours (Table) 11/30/21 11/30/21 11/30/21 Range/Units 08:09 08:09 08:09 RBC 4.18 L (4.30-5.90) m/uL Hgb 10.2 L (13.0-17.5) gm/dL Hct 34.0 L (39.0-53.0) % MCH 24.5 L (25.0-35.0) pg MCHC 30.0 L (31.0-37.0) g/dL RDW 21.7 H (11.5-15.5) % Lymphocytes # 0.7 L (1.0-4.8) k/uL Sodium 127 L (137-145) mmol/L Potassium (3.5-5.1) mmol/L Chloride 85 L (98-107) mmol/L BUN 59 H (9-20) mg/dL Creatinine 2.43 H (0.66-1.25) mg/dL Glucose 300 H (74-99) mg/dL POC Glucose (mg/dL) (75-99) mg/dL Total Bilirubin 2.1 H (0.2-1.3) mg/dL AST 117 H (17-59) U/L ALT 122 H (4-49) U/L Alkaline Phosphatase 149 H (38-126) U/L PTH Intact 93.1 H (14.0-72.0) pg/mL 11/30/21 11/30/21 11/30/21 Range/Units 11:28 17:08 19:56 RBC (4.30-5.90) m/uL Hgb (13.0-17.5) gm/dL Hct (39.0-53.0) % MCH (25.0-35.0) pg MCHC (31.0-37.0) g/dL RDW (11.5-15.5) % Lymphocytes # (1.0-4.8) k/uL Sodium (137-145) mmol/L Potassium (3.5-5.1) mmol/L Chloride (98-107) mmol/L BUN (9-20) mg/dL Creatinine (0.66-1.25) mg/dL Glucose (74-99) mg/dL POC Glucose (mg/dL) 383 H 425 H 394 H (75-99) mg/dL Total Bilirubin (0.2-1.3) mg/dL AST (17-59) U/L ALT (4-49) U/L Alkaline Phosphatase (38-126) U/L PTH Intact (14.0-72.0) pg/mL 12/01/21 12/01/21 12/01/21 Range/Units 06:26 09:21 09:21 RBC (4.30-5.90) m/uL Hgb 10.6 L (13.0-17.5) gm/dL Hct 35.4 L (39.0-53.0) % MCH 24.1 L (25.0-35.0) pg MCHC 29.9 L (31.0-37.0) g/dL RDW 21.7 H (11.5-15.5) % Lymphocytes # 0.8 L (1.0-4.8) k/uL Sodium 129 L (137-145) mmol/L Potassium 2.9 L (3.5-5.1) mmol/L Chloride 86 L (98-107) mmol/L BUN 62 H (9-20) mg/dL Creatinine 2.26 H (0.66-1.25) mg/dL Glucose 204 H (74-99) mg/dL POC Glucose (mg/dL) 306 H (75-99) mg/dL Total Bilirubin 1.6 H (0.2-1.3) mg/dL AST 88 H (17-59) U/L ALT 111 H (4-49) U/L Alkaline Phosphatase 168 H (38-126) U/L PTH Intact (14.0-72.0) pg/mL Assessment and Plan Assessment: Acute urinary tract infection , associated and related to indwelling Moy catheter. Patient with evidence of acute systolic and diastolic CHF with ejection fraction less than 20% and severe tricuspid regurgitation Severe hyperkalemia on admission, Improved Acute gout attack with pain in his left elbow and bilateral feet joints, and elevated uric acid, started on prednisone Acute kidney injury, on chronic kidney disease Chronic urinary retention status post indwelling Moy catheter chronic dizziness and lightheadedness, with chronic unsteady gait Elevated liver enzymes Normochromic, normocytic anemia Hyponatremia Questionable right lower lobe nodular opacity versus artifact, recommend follow- up Diabetes mellitus, with hypoglycemia on admission Hyperlipidemia Hypertension Nonischemic cardiomyopathy status post AICD, status post pacemaker Chronic kidney disease, stage III COPD, not in acute exacerbation History of bilateral glaucoma History of major depression, not in activation Plan: This is a pleasant 56 years old male who presents with acute kidney injury, hyperkalemia, UTI, and review of his extensive cardiac disease and nonischemic cardiomyopathy Change antibiotics to cefepime ceftriaxone follow-up urine culture Nephrology and cardiology consult Hold Lantus 25 units twice a day (was 50 at home ) and NovoLog 5 (was 15 units at home) with meals. and continue with insulin sliding scale.Hold jardians continue with oral Lasix and metolazone follow-up HIDA scan and consult surgery team Labs and medication were reviewed.. Continue same treatment. Continue with symptomatic treatment. Resume home medication. Monitor lytes and vitals. DVT and GI prophylaxis. Further recommendations as per clinical course of the patient DVT prophylaxis: Subcutaneous heparin GI Prophylaxis: Pepcid PT/OT: Pending Prognosis is guarded
[2021-12-01 20:36] LABS: Glucose,Whole Blood 237 mg/dL (75-99)
[2021-12-01] MEDS: CALCIUM CARBONATE 500 MG CHEWABLE PO PRN ×2 (20:42→23:47)
[2021-12-01] MEDS: BUMETANIDE 1 MG TAB PO SCH (20:42)
[2021-12-01] MEDS: TAMSULOSIN 0.4 MG CAP.ER.24H PO SCH (20:42)
[2021-12-01] MEDS: FINASTERIDE 5 MG TAB PO SCH (20:42)
[2021-12-02] MEDS: POTASSIUM CHLORIDE ER 20 MEQ TAB.ER PO SCH (01:18)
[2021-12-02] MEDS ORDERED: ACETAMINOPHEN TAB 325 MG TAB PO STA (05:00)
[2021-12-02] MEDS ORDERED: CEFEPIME 1 GM in SODIUM CHLORIDE 0.9% 50 ML IVPB SCH (06:00)
[2021-12-02 06:07] LABS: Glucose,Whole Blood 179 mg/dL (75-99)
[2021-12-02 07:39] LABS: Calcium 8.9 mg/dL (8.4-10.2); Potassium 3.8 mmol/L (3.5-5.1)
[2021-12-02] MEDS ORDERED: POTASSIUM CHLORIDE ER 20 MEQ TAB.ER PO STA (07:42)
[2021-12-02] MEDS ORDERED: allopurinoL 100 MG TAB PO SCH (09:00)
[2021-12-02] MEDS ORDERED: predniSONE 5 MG TAB PO SCH (09:00)
--- NOTE | 2021-12-02 09:59 | P.PN ---
Subjective Progress Note Date: 12/02/21 Principal diagnosis: Severe nonischemic cardiomyopathy The patient is a pleasant 56-year-old gentleman with severe nonischemic cardiomyopathy/stage D heart failure who was admitted to the hospital again with heart failure exacerbation. The patient was seen this morning. He stated "I'm not feeling good". Even though he stated that the shortness of breath is slightly better and also the lower extremities edema. On examination he does have diminished breathing sounds bilaterally and also mild bilateral lower extremities edema. He reports no pain in the chest. Hemodynamically he is stable with a pressure above 90 mmHg systolic and heart rate around 90 beats per minutes. He is in process of being seen at [facility]. Objective - Vital Signs Vital signs: Vital Signs Temp 97.5 F L 12/02/21 04:00 Pulse 98 12/02/21 04:00 Resp 16 12/02/21 04:00 BP 102/67 12/02/21 04:00 Pulse Ox 97 12/02/21 04:00 Intake & Output 12/01/21 12/02/21 12/02/21 18:59 06:59 18:59 Intake Total 1350 Output Total 2100 1800 Balance -750 -1800 Weight 90.6 kg Intake: Oral 1350 Output: Urine 2100 1800 Other: Voiding Method Indwelling Catheter Indwelling Catheter - Constitutional General appearance: Present: no acute distress - Respiratory Respiratory: bilateral: diminished - Cardiovascular Rhythm: regular Heart sounds: normal: S1, S2 - Labs CBC & Chem 7: 12/01/21 09:21 12/02/21 06:48 Labs: Abnormal Lab Results - Last 24 Hours (Table) 12/01/21 12/01/21 12/01/21 Range/Units 11:41 17:00 20:24 Sodium (137-145) mmol/L Chloride (98-107) mmol/L Carbon Dioxide (22-30) mmol/L BUN (9-20) mg/dL Creatinine (0.66-1.25) mg/dL Glucose (74-99) mg/dL POC Glucose (mg/dL) 187 H 226 H 237 H (75-99) mg/dL 12/02/21 12/02/21 Range/Units 06:06 06:48 Sodium 128 L (137-145) mmol/L Chloride 87 L (98-107) mmol/L Carbon Dioxide 32 H (22-30) mmol/L BUN 59 H (9-20) mg/dL Creatinine 1.92 H (0.66-1.25) mg/dL Glucose 173 H (74-99) mg/dL POC Glucose (mg/dL) 179 H (75-99) mg/dL Microbiology - Last 24 Hours (Table) 11/27/21 19:38 Urine Culture - Final Urine,Voided Acinetobacter jadyn/haemol Assessment and Plan Assessment: Assessment #1 severe nonischemic cardiomyopathy #2 chronic kidney disease #3 multiple comorbid conditions Plan #1 continue the current medical regimen #2 follow-up with the patient
[2021-12-02] MEDS: HEPARIN SODIUM,PORCINE/PF 5,000 UNIT/0.5 ML SYRINGE SQ SCH ×2 (10:29→21:42)
[2021-12-02] MEDS: BUMETANIDE 1 MG TAB PO SCH ×2 (10:29→21:44)
[2021-12-02] MEDS: INSULIN DETEMIR (LEVEMIR) 100 UNIT/ML SYR SQ SCH (10:29)
[2021-12-02] MEDS: COLCHICINE 0.6 MG EACH PO SCH (10:30)
[2021-12-02] MEDS: metOLazone 5 MG TAB PO SCH ×2 (10:30→17:46)
[2021-12-02] MEDS: busPIRone HCl 5 MG TAB PO SCH (10:30)
[2021-12-02] MEDS: FAMOTIDINE 20 MG TAB PO SCH ×2 (10:31→21:43)
[2021-12-02] MEDS: SODIUM CHLORIDE 0.65% NASAL SPRAY 44 ML BTL NASAL SCH ×4 (10:31→21:45)
[2021-12-02] MEDS: MULTIVITAMINS, THERA 1 EACH TAB PO SCH (10:31)
--- NOTE | 2021-12-02 10:38 | NM ---
EXAMINATION TYPE: NM hepatobiliary w CCK DATE OF EXAM: 12/02/2021 COMPARISON: NONE HISTORY: Elevated liver enzymes TECHNIQUE: After the intravenous administration of 4.5 mCi Tc 99m Mebrofenin hepatobiliary scintigrap hy is performed. Immediate images post injection. FINDINGS: Exam is somewhat limited due to patient's inability to cooperate There is satisfactory initial accumulation of tracer by the liver. The gallbladder is visualized wit hin 12 minutes. The small bowel activity is noted within 4 minutes. At one hour CCK was administere d, patient was injected with 1.4 mcg of Kinevac, and gallbladder ejection fraction is calculated at 5 7 %, in the normal range. Therefore there is no scintigraphic evidence of cystic or common bile duct obstruction to suggest acute cholecystitis or gallbladder dyskinesia. IMPRESSION: Exam is within normal limits.
[2021-12-02] MEDS: BRIMONIDINE TARTRATE 0.2% DROPS 5 ML BTL BOTH EYES SCH (10:55)
[2021-12-02] MEDS: FLUTICASONE 110 MCG INHALER INHALATION SCH ×2 (10:55→19:31)
[2021-12-02] MEDS: INSULIN ASPART (NovoLOG) 100 UNIT/ML VIAL SQ SCH ×7 (10:55→21:47)
[2021-12-02] MEDS: CLOTRIMAZOLE 1% CREAM 30 GM TUBE TOPICAL SCH ×2 (10:56→21:45)
[2021-12-02] MEDS: DOBUTamine DRIP 500 MG in DEXTROSE/WATER 1 250ML.BAG IV SCH (10:59)
[2021-12-02] MEDS: CIPROFLOXACIN HCL 250 MG TAB PO SCH ×2 (10:59→21:42)
--- NOTE | 2021-12-02 11:45 | P.PN ---
Subjective Patient is seen in follow-up for acute kidney injury on chronic kidney disease. Renal function stable. Still having pain in his elbows. No pain in his feet today. Good urine output. Vital signs are stable. General: Awake and alert. HEENT: Head exam is unremarkable. LUNGS: Breath sounds decreased. HEART: Rate and Rhythm are regular. ABDOMEN: Soft, no distention. EXTREMITITES: 1+ edema. Objective - Vital Signs Vital signs: Vital Signs Temp 97.6 F 12/02/21 10:26 Pulse 103 H 12/02/21 10:26 Resp 15 12/02/21 10:26 BP 98/71 12/02/21 10:26 Pulse Ox 93 L 12/02/21 10:26 Intake & Output 12/01/21 12/02/21 12/02/21 18:59 06:59 18:59 Intake Total 1350 250 Output Total 2100 1800 Balance -750 -1550 Weight 90.6 kg Intake: Intake, IV Titration 250 Amount DOBUTamine DRIP 500 mg In 250 Dextrose/Water 1 250ml. bag @ 3.5 MCG/KG/MIN 7.43 mls/hr IV .Q24H [facility] Rx#: [id number] Oral 1350 Output: Urine 2100 1800 Other: Voiding Method Indwelling Catheter Indwelling Catheter Indwelling Catheter - Labs CBC & Chem 7: 12/01/21 09:21 12/02/21 06:48 Labs: Abnormal Lab Results - Last 24 Hours (Table) 12/01/21 12/01/21 12/01/21 Range/Units 11:41 17:00 20:24 Sodium (137-145) mmol/L Chloride (98-107) mmol/L Carbon Dioxide (22-30) mmol/L BUN (9-20) mg/dL Creatinine (0.66-1.25) mg/dL Glucose (74-99) mg/dL POC Glucose (mg/dL) 187 H 226 H 237 H (75-99) mg/dL 12/02/21 12/02/21 Range/Units 06:06 06:48 Sodium 128 L (137-145) mmol/L Chloride 87 L (98-107) mmol/L Carbon Dioxide 32 H (22-30) mmol/L BUN 59 H (9-20) mg/dL Creatinine 1.92 H (0.66-1.25) mg/dL Glucose 173 H (74-99) mg/dL POC Glucose (mg/dL) 179 H (75-99) mg/dL Microbiology - Last 24 Hours (Table) 11/27/21 19:38 Urine Culture - Final Urine,Voided Acinetobacter jadyn/kaylynn Assessment and Plan Plan: Assessment: 1. Acute kidney injury mostly prerenal secondary to cardiorenal syndrome. Improved. Creatinine 1.92 today. 2. Chronic kidney disease stage IIIB with baseline creatinine in the range of 1.7-2.2 secondary to cardiorenal syndrome. 3. Acute on chronic systolic CHF with ejection fraction of 10-15%. 4. Hypervolemic hyponatremia. 5. Acute gout. 6. UTI with urine culture positive for Acinetobacter on antibiotics. . 7. Diabetes mellitus. Plan: Maintain dobutamine and Bumex. Samsca 7.5 mg once today. Encouraged oral intake. 1500 mL fluid restriction. Patient states allopurinol doesn't work for gout prevention. Consider Uloric.
[2021-12-02 11:54] LABS: Glucose,Whole Blood 251 mg/dL (75-99)
[2021-12-02] MEDS ORDERED: TOLVAPTAN 15 MG 1/2 TABLET PO ONE (12:00)
[2021-12-02] MEDS: ALBUTEROL NEBULIZED 2.5 MG/3 ML INHALATION PRN ×2 (12:29→19:29)
--- NOTE | 2021-12-02 13:26 | P.GSCN ---
History of Present Illness Consult date: 12/02/21 History of present illness: 56-year-old male presents with CHF exacerbation and has been treated as an inpatient for this. He did have workup performed that did include workup of the abdominal cavity. Ascites was found and further workup was performed to evaluate the liver and the gallbladder. Gallbladder was noted to be thickened on ultrasound. HIDA scan revealed no evidence of acute cystic duct obstruction. The patient denies any abdominal pain. He denies any nausea or vomiting. 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 Past Anesthesia/Blood Transfusion Reactions: No Reported Reaction Additional Past Anesthesia/Blood Transfusion Reaction / Comm: Pt has recieved blood in the past without reaction. Type of Cardiac Device: Permanent Pacemaker, AICD Device Placement Date:: 10/2012 Past Psychological History: Anxiety, Depression Smoking Status: Former smoker - Past Family History Father Family Medical History: Diabetes Mellitus Additional Family Medical History / Comment(s): Father had cardiomyopathy. He is . Mother Family Medical History: Hypertension Brother(s) Additional Family Medical History / Comment(s): Cardiomyopathy with heart transplant. Medications and Allergies Home Medications Medication Instructions Recorded Confirmed Type Albuterol Sulfate [Proair Hfa] 1 puff INHALATION RT-Q4H PRN 08/09/20 11/27/21 History Potassium Chloride ER [K-Dur 20] 40 meq PO Q8H 08/09/20 11/27/21 History Brimonidine Tartrate [Alphagan P 1 drop BOTH EYES DAILY 11/29/20 11/27/21 History 0.2% Ophth Soln] Sodium Chloride 0.65% Nasal [Deep 2 spray NASAL QID 11/29/20 11/27/21 History Sea (Saline)] Dextrose Chew [Glucose Chew Tab] 12 gm PO DAILY PRN 01/09/21 11/27/21 History Finasteride [Proscar] 5 mg PO HS 01/09/21 11/27/21 History Spironolactone [Aldactone] 12.5 mg PO DAILY 01/09/21 11/27/21 History Tamsulosin HCl [Flomax] 0.4 mg PO HS 01/09/21 11/27/21 History Acetaminophen Tab [Tylenol] 325 mg PO Q6H PRN 11/27/21 11/27/21 History Beclomethasone Dip 80 Mcg/Puff 1 puff INHALATION RT-BID 11/27/21 11/27/21 History [Qvar 80 mcg] Bumetanide [BUMEX] 2 mg PO BID@0900,1700 11/27/21 11/27/21 History Clotrimazole 1% Cream 1 applic TOPICAL BID 11/27/21 11/27/21 History Colchicine 0.6 mg PO DAILY 11/27/21 11/27/21 History Dobutamine 360 mg IV DIRECTED 11/27/21 11/28/21 History Empagliflozin [Jardiance] 25 mg PO DAILY 11/27/21 11/27/21 History Insulin Aspart [NovoLOG Flexpen] 15 units SQ TID-W/MEALS 11/27/21 11/27/21 Hi story Insulin Glargine [Lantus Vial] 50 unit SQ BID 11/27/21 11/27/21 History Magnesium 420mg 420 mg PO HS 11/27/21 11/27/21 History Multivitamins, Thera [Multivitamin 1 tab PO DAILY 11/27/21 11/27/21 History (formulary)] busPIRone HCL 15 mg PO DAILY 11/27/21 11/27/21 History hydrOXYzine HCL [Atarax] 25 mg PO TID PRN 11/27/21 11/27/21 History metOLazone [Zaroxolyn] 5 mg PO BID 11/27/21 11/27/21 History methocarbamoL [Robaxin] 750 mg PO TID PRN 11/27/21 11/27/21 History oxyCODONE HCL [OxyIR] 10 mg PO BID 11/27/21 11/27/21 History traMADol HCL 50 mg PO QID PRN 11/27/21 11/27/21 History Allergies Allergy/AdvReac Type Severity Reaction Status Date / Time latex AdvReac Rash/Hives Verified 11/27/21 20:51 Surgical - Exam Osteopathic Statement: *. No significant issues noted on an osteopathic str uctural exam other than those noted in the History and Physical/Consult. Vital Signs Temp Pulse Resp BP Pulse Ox 97.0 F L 104 H 18 89/61 99 11/27/21 18:18 11/27/21 18:18 11/27/21 18:18 11/27/21 18:18 11/27/21 18:18 - General no distress - Eyes normal ocular movement - Neck trachea midline - Respiratory normal respiratory effort - Abdomen Abdomen: soft, non tender, no guarding, no rebound, no distended Results - Labs 12/01/21 09:21 12/02/21 06:48 Abnormal Lab Results - Last 24 Hours (Table) 12/01/21 12/01/21 12/02/21 Range/Units 17:00 20:24 06:06 Sodium (137-145) mmol/L Chloride (98-107) mmol/L Carbon Dioxide (22-30) mmol/L BUN (9-20) mg/dL Creatinine (0.66-1.25) mg/dL Glucose (74-99) mg/dL POC Glucose (mg/dL) 226 H 237 H 179 H (75-99) mg/dL 12/02/21 12/02/21 Range/Units 06:48 11:50 Sodium 128 L (137-145) mmol/L Chloride 87 L (98-107) mmol/L Carbon Dioxide 32 H (22-30) mmol/L BUN 59 H (9-20) mg/dL Creatinine 1.92 H (0.66-1.25) mg/dL Glucose 173 H (74-99) mg/dL POC Glucose (mg/dL) 251 H (75-99) mg/dL Microbiology - Last 24 Hours (Table) 11/27/21 19:38 Urine Culture - Final Urine,Voided Acinetobacter jadyn/haemol Diabetes panel 12/01/21 12/02/21 Range/Units 20:20 06:48 Sodium 128 L (137-145) mmol/L Potassium 3.5 3.8 (3.5-5.1) mmol/L Chloride 87 L (98-107) mmol/L Carbon Dioxide 32 H (22-30) mmol/L BUN 59 H (9-20) mg/dL Creatinine 1.92 H (0.66-1.25) mg/dL Glucose 173 H (74-99) mg/dL Calcium 8.9 (8.4-10.2) mg/dL Calcium panel 12/02/21 Range/Units 06:48 Calcium 8.9 (8.4-10.2) mg/dL Pituitary panel 12/01/21 12/02/21 Range/Units 20:20 06:48 Sodium 128 L (137-145) mmol/L Potassium 3.5 3.8 (3.5-5.1) mmol/L Chloride 87 L (98-107) mmol/L Carbon Dioxide 32 H (22-30) mmol/L BUN 59 H (9-20) mg/dL Creatinine 1.92 H (0.66-1.25) mg/dL Glucose 173 H (74-99) mg/dL Calcium 8.9 (8.4-10.2) mg/dL Adrenal panel 12/01/21 12/02/21 Range/Units 20:20 06:48 Sodium 128 L (137-145) mmol/L Potassium 3.5 3.8 (3.5-5.1) mmol/L Chloride 87 L (98-107) mmol/L Carbon Dioxide 32 H (22-30) mmol/L BUN 59 H (9-20) mg/dL Creatinine 1.92 H (0.66-1.25) mg/dL Glucose 173 H (74-99) mg/dL Calcium 8.9 (8.4-10.2) mg/dL Assessment and Plan Plan: 48-year-old male with finding of abdominal ascites and some thickening of the gallbladder. Gallbladder thickening is likely secondary to ascites fluid. I would recommend continued medical management of CHF due to the ascites fluid. Patient denies any abdominal pain and is showing no physical exam signs concerning of biliary disease. HIDA scan was also read within normal limits illustrating no cystic duct obstruction. At this point, there is no plan for any surgical intervention for the gallbladder. Okay to advance diet from a surgical perspective.
[2021-12-02 14:14] LABS: Appearance,Urine Clear (Clear); Bilirubin,Urine Negative (Negative); Blood,Urine Negative (Negative); Color,Urine Light Yellow; Glucose,Urine (UA) Negative (Negative); Ketones,Urine Negative (Negative); Leukocyte Esterase,Urine Trace (Negative); Nitrite,Urine Negative (Negative); PH, Urine 6.5 (5.0-8.0); Protein,Urine Negative (Negative); Specific Gravity,Urine 1.007 (1.001-1.035); Urobilinogen,Urine <2.0 mg/dL (<2.0); WBC,Urine <1 /hpf (0-5)
[2021-12-02 17:16] LABS: Glucose,Whole Blood 196 mg/dL (75-99)
[2021-12-02 20:39] LABS: Glucose,Whole Blood 261 mg/dL (75-99)
[2021-12-02] MEDS: FINASTERIDE 5 MG TAB PO SCH (21:44)
[2021-12-02] MEDS: TAMSULOSIN 0.4 MG CAP.ER.24H PO SCH (21:44)
--- NOTE | 2021-12-03 00:29 | P.CONS ---
History of Present Illness - Reason for Consult Consult date: 12/02/21 Acinetobacter urinary tract infection Requesting physician: Tello Berrios - Chief Complaint shortness of breath x few days - History of Present Illness Patient is a 56-year male with a past medical history significant for coronary artery disease cardiomyopathy COPD status post pacer and defibrillator placement patient also have a urinary retention requiring a chronic indwelling Moy catheter which apparently was changed on arrival to this ER patient prese nting to the hospital on 11/27/2021 for evaluation of increasing shortness of breath and been getting worse for 3 days before presentation to the hospital patient denies having any chest pain or any cough or sputum production patient on presentation to the hospital was afebrile and no fever had recorded subsequently patient did have a normal white count patient did have a UA on the admission we did shows large leukocyte esterase and many WBC occasional bacteria urine culture subsequently has been finalized with Acinetobacter patient was treated with cefepime subsequently switched over to Cipro and infectious disease was consulted for further management of antibiotic therapy patient currently d enies having any suprapubic or flank pain no nausea no vomiting Review of Systems Positive point has been mentioned in the HPI rest of the systems are negative Past Medical History Past Medical History: Coronary Artery Disease (CAD), Heart Failure, COPD, Diabetes Mellitus, Eye Disorder, Prostate Disorder, Renal Disease Additional Past Medical History / Comment(s): 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 Past Anesthesia/Blood Transfusion Reactions: No Reported Reaction Additional Past Anesthesia/Blood Transfusion Reaction / Comm: Pt has recieved blood in the past without reaction. Type of Cardiac Device: Permanent Pacemaker, AICD Device Placement Date:: 10/2012 Past Psychological History: Anxiety, Depression Smoking Status: Former smoker - Past Family History Father Family Medical History: Diabetes Mellitus Additional Family Medical History / Comment(s): Father had cardiomyopathy. He is . Mother Family Medical History: Hypertension Brother(s) Additional Family Medical History / Comment(s): Cardiomyopathy with heart transplant. Medications and Allergies Home Medications Medication Instructions Recorded Confirmed Type Albuterol Sulfate [Proair Hfa] 1 puff INHALATION RT-Q4H PRN 08/09/20 11/27/21 History Potassium Chloride ER [K-Dur 20] 40 meq PO Q8H 08/09/20 11/27/21 History Brimonidine Tartrate [Alphagan P 1 drop BOTH EYES DAILY 11/29/20 11/27/21 History 0.2% Ophth Soln] Sodium Chloride 0.65% Nasal [Deep 2 spray NASAL QID 11/29/20 11/27/21 History Sea (Saline)] Dextrose Chew [Glucose Chew Tab] 12 gm PO DAILY PRN 01/09/21 11/27/21 History Finasteride [Proscar] 5 mg PO HS 01/09/21 11/27/21 History Spironolactone [Aldactone] 12.5 mg PO DAILY 01/09/21 11/27/21 History Tamsulosin HCl [Flomax] 0.4 mg PO HS 01/09/21 11/27/21 History Acetaminophen Tab [Tylenol] 325 mg PO Q6H PRN 11/27/21 11/27/21 History Beclomethasone Dip 80 Mcg/Puff 1 puff INHALATION RT-BID 11/27/21 11/27/21 History [Qvar 80 mcg] Bumetanide [BUMEX] 2 mg PO BID@0900,1700 11/27/21 11/27/21 History Clotrimazole 1% Cream 1 applic TOPICAL BID 11/27/21 11/27/21 History Colchicine 0.6 mg PO DAILY 11/27/21 11/27/21 History Dobutamine 360 mg IV DIRECTED 11/27/21 11/28/21 History Empagliflozin [Jardiance] 25 mg PO DAILY 11/27/21 11/27/21 History Insulin Aspart [NovoLOG Flexpen] 15 units SQ TID-W/MEALS 11/27/21 11/27/21 History Insulin Glargine [Lantus Vial] 50 unit SQ BID 11/27/21 11/27/21 History Magnesium 420mg 420 mg PO HS 11/27/21 11/27/21 History Multivitamins, Thera [Multivitamin 1 tab PO DAILY 11/27/21 11/27/21 History (formulary)] busPIRone HCL 15 mg PO DAILY 11/27/21 11/27/21 History hydrOXYzine HCL [Atarax] 25 mg PO TID PRN 11/27/21 11/27/21 History metOLazone [Zaroxolyn] 5 mg PO BID 11/27/21 11/27/21 History methocarbamoL [Robaxin] 750 mg PO TID PRN 11/27/21 11/27/21 History oxyCODONE HCL [OxyIR] 10 mg PO BID 11/27/21 11/27/21 History traMADol HCL 50 mg PO QID PRN 11/27/21 11/27/21 History Allergies Allergy/AdvReac Type Severity Reaction Status Date / Time latex AdvReac Rash/Hives Verified 11/27/21 20:51 Physical Exam Vitals: Vital Signs Temp Pulse Resp BP BP Pulse Ox 12/02/21 10:26 97.6 F 103 H 15 98/71 93 L 12/02/21 04:00 97.5 F L 98 16 102/67 97 12/02/21 02:00 100 18 12/01/21 23:43 97.7 F 100 18 100/64 97 12/01/21 20:00 97.6 F 98 18 98/64 97 12/01/21 15:38 97.9 F 95 19 106/71 98 12/01/21 12:43 97.6 F 96 17 106/64 96 Intake and Output 12/01/21 12/02/21 12/02/21 22:59 06:59 14:59 Intake Total 1350 250 Output Total 1700 1200 Balance -350 -950 Intake: Intake, IV Titration 250 Amount DOBUTamine DRIP 500 mg In 250 Dextrose/Water 1 250ml. bag @ 3.5 MCG/KG/MIN 7.43 mls/hr IV .Q24H [facility] Rx#: [id number] Oral 1350 Output: Urine 1700 1200 Other: Voiding Method Indwelling Catheter Indwelling Catheter Indwelling Catheter GENERAL DESCRIPTION: Middle-aged male lying in bed, no distress. No tachypnea or accessory muscle of respiration use. HEENT: Shows Pallor , no scleral icterus. Oral mucous membrane is dry. No pharyngeal erythema or thrush NECK: Trachea central, no thyromegaly. LUNGS: Unlabored breathing. Clear to auscultation anteriorly. No wheeze or crackle. HEART: S1, S2, regular rate and rhythm. No loud murmur ABDOMEN: Soft, no tenderness , guarding or rigidity, no organomegaly EXTREMITIES: No edema of feet. SKIN: No rash, no masses palpable. NEUROLOGICAL: The patient is awake, alert, oriented x3, mood and affect normal. Results CBC & Chem 7: 12/01/21 09:21 12/02/21 19:21 Labs: Abnormal Lab Results - Last 24 Hours (Table) 12/01/21 12/01/21 12/02/21 Range/Units 17:00 20:24 06:06 Sodium (137-145) mmol/L Chloride (98-107) mmol/L Carbon Dioxide (22-30) mmol/L BUN (9-20) mg/dL Creatinine (0.66-1.25) mg/dL Glucose (74-99) mg/dL POC Glucose (mg/dL) 226 H 237 H 179 H (75-99) mg/dL 12/02/21 Range/Units 06:48 Sodium 128 L (137-145) mmol/L Chloride 87 L (98-107) mmol/L Carbon Dioxide 32 H (22-30) mmol/L BUN 59 H (9-20) mg/dL Creatinine 1.92 H (0.66-1.25) mg/dL Glucose 173 H (74-99) mg/dL POC Glucose (mg/dL) (75-99) mg/dL Microbiology - Last 24 Hours (Table) 11/27/21 19:38 Urine Culture - Final Urine,Voided Acinetobacter jadyn/haemol Assessment and Plan (1) UTI (urinary tract infection) Current Visit: Yes Status: Acute Code(s): N39.0 - URINARY TRACT INFECTION, SITE NOT SPECIFIED SNOMED Code(s): 13677007 Plan: 1patient with a positive urine culture showing Acinetobacter and this patient did have a positive UA however the patient did not have any fever or elevated white count could be a Moy colonization underlying mild cystitis not entirely excluded. 2-continue the patient on Cipro dose has been adjusted the kidney function 3-repeat UA and urine culture We will follow on clinical condition and cultures to further adjust medication if needed Thank you for this consultation will follow this patient along with you Time with Patient: Greater than 30
[2021-12-03] MEDS: traMADol 50 MG TAB PO PRN (00:55)
[2021-12-03 06:20] LABS: Glucose,Whole Blood 71 mg/dL (75-99)
[2021-12-03] MEDS: INSULIN ASPART (NovoLOG) 100 UNIT/ML VIAL SQ SCH ×7 (06:41→20:48)
[2021-12-03 07:23] LABS: Calcium 8.9 mg/dL (8.4-10.2)
[2021-12-03 07:26] LABS: Anisocytosis Moderate; Basophils % (A) 0 %; Eosinophils # (A) 0.1 k/uL (0-0.7); Eosinophils % (A) 1 %; HCT 37.8 % (39.0-53.0); HGB 11.3 gm/dL (13.0-17.5); Hypochromasia Marked; Lymphocytes # (A) 1.6 k/uL (1.0-4.8); Lymphocytes % (A) 22 %; MCH 24.1 pg (25.0-35.0); MCHC 29.9 g/dL (31.0-37.0); MCV 80.5 fL (80.0-100.0); Mean Platelet Volume 8.8; Microcytosis Slight; Monocytes # (A) 0.7 k/uL (0-1.0); Monocytes % (A) 9 %; Neutrophils # (A) 4.7 k/uL (1.3-7.7); Neutrophils % (A) 64 %; Platelet Count 217 k/uL (150-450); Poikilocytosis Slight; RBC 4.69 m/uL (4.30-5.90); RDW 21.1 % (11.5-15.5); WBC 7.3 k/uL (3.8-10.6)
[2021-12-03] MEDS: FLUTICASONE 110 MCG INHALER INHALATION SCH ×2 (07:42→19:58)
[2021-12-03] MEDS: DOBUTamine DRIP 500 MG in DEXTROSE/WATER 1 250ML.BAG IV SCH ×2 (09:14→17:20)
[2021-12-03] MEDS: SODIUM CHLORIDE 0.65% NASAL SPRAY 44 ML BTL NASAL SCH ×4 (09:24→20:51)
[2021-12-03] MEDS: BUMETANIDE 1 MG TAB PO SCH ×2 (09:24→20:49)
[2021-12-03] MEDS: predniSONE 10 MG TAB PO SCH (09:24)
[2021-12-03] MEDS: FAMOTIDINE 20 MG TAB PO SCH ×2 (09:24→20:50)
[2021-12-03] MEDS: MULTIVITAMINS, THERA 1 EACH TAB PO SCH (09:24)
[2021-12-03] MEDS: busPIRone HCl 5 MG TAB PO SCH (09:24)
[2021-12-03] MEDS: CLOTRIMAZOLE 1% CREAM 30 GM TUBE TOPICAL SCH ×2 (09:25→20:50)
[2021-12-03] MEDS: HEPARIN SODIUM,PORCINE/PF 5,000 UNIT/0.5 ML SYRINGE SQ SCH ×2 (09:26→20:51)
--- NOTE | 2021-12-03 09:35 | P.PN ---
Subjective Progress Note Date: 12/02/21 This is a pleasant 56 years old male with past medical history of Coronary Artery Disease, COPD, nonischemic cardiomyopathy status post AICD, status post pacemaker, insulin-dependent diabetes mellitus, glaucoma, major depression Presents because of dyspnea for 3 days although his breathing easier now while sitting in bed, he still complaining of from basal crepitation and mild bilateral leg swelling. Also has been complaining of from cough and clear phlegm but thus chronic for him He is complaining of from pain all over his body mainly in his left elbow on both feet, he thinks that he has a gout flareup. However he denies chest pain. 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 He vomited twice yesterday and today with no blood but no abdominal pain, no diarrhea, no black stool or GI bleed. No dysuria but is complaining of from chronic Moy catheter secondary to his chronic retention he has for about 6 weeks and he follows up with the [place] urologist. He denies headache or weakness or numbness however he complains from chronic dizziness and lightheadedness, which is chronic with chronic difficulty walking, he has to be held for walking. He denies active symptoms depression symptoms or suicidal/homicidal thoughts. Patient complaining from source in both legs fully recovered, we going to check on him. Also has been complaining of from low appetite for the last 3 days, he stated that he ate breakfast this morning better than the last 3 days. He denies smoking, alcohol or illicit drugs. Labs show an unremarkable CBC with WBC 10.0, hemoglobin 11.4, platelet count 276. INR is 1.6. Sodium is low at 127 and 128, baseline hyponatremia is 132-134 Creatinine elevated on admission 2.6 and 2.4, compared to baseline of 1.3-1.5 Potassium was elevated 7.1 on admission, currently improved on 523. AST elevated 129 and 209. ALT elevated to 55 and 102. Bilirubin elevated 2.3 Troponin is -0.02. ProBNP elevated [id number] Chest x-ray, there is diffuse mild hazy opacity and questionable right lower lobe nodular opacity versus artifact. Attention on follow-up. EKG showed sinus tachycardia with occasional ectopic premature complexes, at a rate of 103, QTC 452, no significant ST-T changes but there is generalized poor R-wave progression. in the emergency room patient received pain medication, IV fluids with normal saline 500 MLS, penicillin/dextrose 50%, albuterol, started on ceftriaxone. Also received Kayexalate Physical glucose was low on admission 31, improved currently 74 this morning in Emergency room office workforce planner and bull rider been consulted. 11/29/2021 Patient today feels slightly better distal generally weak, he states there is some improvement in his left elbow on bilateral feet pain after he was started on a prednisone for acute gouty attack with elevated uric acid. He is kept on IV Lasix with no tachypnea while in dressed, no orthopnea noted, he has less leg erythema and basal crepitation. Hemodynamically stable. He is on room air. Liver enzymes still elevated and ultrasound showing hepatic steatosis versus hepatocellular disease with possibly enlarged liver and the gallbladder thought secondary to edema and they recommended further imaging, HIDA scan is ordered. The patient's with no abdominal pain or nausea vomiting. But it's only 25-50%, Echocardiogram showed ejection fraction less than 20% with severe tricuspid regurgitation and [id number] mitral regurgitation He has positive hepatitis C IgG, patient told me he is already being treated for hepatitis C and he is already been vaccinated against hepatitis A and B. Sodium at 127. He is also been treated for UTI with ceftriaxone, urine culture growing gram- negative bacilli. Moy catheter was changed in the emergency room, confirmed with patient and bedside nurse. 11/30/2021 Patient reports improvement in his movement, he feels stronger and he can walk further than yesterday without getting shortness of breath, his IV was switched to oral Lasix with cardiology and nephrology team on the case for his acute CHF, his creatinine cam e down to 0.7-2.4, similar to a upon admission. Sodium is stable at 127. Glucose is elevated more than 300, therefore we started his Levemir 20 units twice a day, compared to 50 units at home and NovoLog 5 units with meals compared to 15 units at home. We checked elbow x-ray for him on the left side that was negative for acute process. Patient is with gout responded prednisone 20 mg daily. He has this pain for more movement in his left elbow as well as his left and right feet. He is kept on ceftriaxone and urine culture is growing gram-negative bacilli. HIDA scan is still pending and is going to be done on Jey. His liver enzymes were elevated upon admission. Repeat labs in the morning 12/01/2021 Patient elbow and feet pain and swelling are improving gradually and every day, secondary to his gouty arthritis, prednisone is lowered 20 down to 15 mg daily also start allopurinol starting form tomorrow. His weakness is also improving. He states that he eats decent although he did not like the breakfast today. His glucose is controlled 183 and 226, creatinine slightly improving down to 2.2, sodium improvement to 129, liver enzymes still elevated but trending down nicely. His liver ultrasound showing swollen gallbladder, therefore HIDA scan is ordered for tomorrow. May consider surgery consult as well Pertinent that he is hemodynamically stable. He has positive hepatitis C IgG but states he is been treated and he is aware of this See diagnosis. Recapper team on the case. Urine culture is growing Acinetobacter and his antibiotics was adjusted to cefepime, Levaquin could not be given because patient was and Atarax. Attacks is discontinued today. 12/02/2021 Patient is currently lying in the bed. Awake alert and oriented. Complaints of left elbow pain and not feeling well. No fever no chills. No cough or sputum production no nausea vomiting or abdominal pain or diarrhea.. Currently on room air. Laboratory showed sodium 128 potassium 3.8 chloride 87 bicarb is 32 BUN 59 and creatinine 1.19. Renal function is fairly stable. Patient is slightly hyperglycemic with blood sugar 251 this afternoon. Urinalysis is negative for infection. Patient is being continued dobutamine drip and also on metolazone. Current fluid restriction. Urine culture is growing Citrobacter. Cefepime has been discontinued and patient was started on ciprofloxacin. ID was consulted. Patient is also on prednisone increased to 30 mg daily for left elbow gouty arthritis arthritis. Current medications reviewed. Objective - Vital Signs Vital signs: Vital Signs Temp 98.5 F 12/02/21 13:46 Pulse 100 12/02/21 13:46 Resp 17 12/02/21 13:46 BP 106/74 12/02/21 13:46 Pulse Ox 97 12/02/21 13:46 Intake & Output 12/01/21 12/02/21 12/02/21 18:59 06:59 18:59 Intake Total 1350 250 Output Total 2100 1800 1000 Balance -750 -1550 -1000 Weight 90.6 kg Intake: Intake, IV Titration 250 Amount DOBUTamine DRIP 500 mg In 250 Dextrose/Water 1 250ml. bag @ 3.5 MCG/KG/MIN 7.43 mls/hr IV .Q24H [facility] Rx#: [id number] Oral 1350 Output: Urine 2100 1800 1000 Other: Voiding Method Indwelling Catheter Indwelling Catheter Indwelling Catheter - Exam - Exam GENERAL: The patient is alert and oriented x3, not in any acute distress. Well developed, well nourished. HEENT: Pupils are round and equally reacting to light. EOMI. No scleral icterus. No conjunctival pallor. Normocephalic, atraumatic. No pharyngeal erythema. No thyromegaly. CARDIOVASCULAR: S1 and S2 present. No murmurs, rubs, or gallops. -PULMONARY: Chest is clear to auscultation, no wheezing or. Bilateral basal crackles ABDOMEN: Soft, nontender, nondistended, normoactive bowel sounds. No palpable organomegaly. MUSCULOSKELETAL: No joint swelling or deformity. -EXTREMITIES: No cyanosis, clubbing, . Bilateral patellar like edema 1+. NEUROLOGICAL: Gross neurological examination did not reveal any focal deficits. Gait exam is deferred SKIN: No rashes. no petechiae. - Labs CBC & Chem 7: 12/03/21 06:30 12/03/21 06:30 Labs: Abnormal Lab Results - Last 24 Hours (Table) 12/01/21 12/01/21 12/02/21 Range/Units 17:00 20:24 06:06 Sodium (137-145) mmol/L Chloride (98-107) mmol/L Carbon Dioxide (22-30) mmol/L BUN (9-20) mg/dL Creatinine (0.66-1.25) mg/dL Glucose (74-99) mg/dL POC Glucose (mg/dL) 226 H 237 H 179 H (75-99) mg/dL Ur Leukocyte Esterase (Negative) 12/02/21 12/02/21 12/02/21 Range/Units 06:48 11:50 14:00 Sodium 128 L (137-145) mmol/L Chloride 87 L (98-107) mmol/L Carbon Dioxide 32 H (22-30) mmol/L BUN 59 H (9-20) mg/dL Creatinine 1.92 H (0.66-1.25) mg/dL Glucose 173 H (74-99) mg/dL POC Glucose (mg/dL) 251 H (75-99) mg/dL Ur Leukocyte Esterase Trace H (Negative) Microbiology - Last 24 Hours (Table) 11/27/21 19:38 Urine Culture - Final Urine,Voided Acinetobacter jadyn/haemol Assessment and Plan Assessment: Acute urinary tract infection , associated and related to indwelling Moy catheter. Urine culture is growing Citrobacter. Acute systolic and diastolic CHF with ejection fraction less than 20% and severe tricuspid regurgitation Severe hyperkalemia on admission, Improved Hypervolemic hyponatremia Acute gout attack with pain in his left elbow and bilateral feet joints, and elevated uric acid, started on prednisone Acute kidney injury, on chronic kidney disease. Possible cardiorenal. Chronic urinary retention status post indwelling Moy catheter chronic dizziness and lightheadedness, with chronic unsteady gait Elevated liver enzymes Normochromic, normocytic anemia Hyponatremia Questionable right lower lobe nodular opacity versus artifact, recommend follow- up Diabetes mellitus, with hypoglycemia on admission Hyperlipidemia Hypertension Nonischemic cardiomyopathy status post AICD, status post pacemaker Chronic kidney disease, stage III COPD, not in acute exacerbation History of bilateral glaucoma History of major depression, not in activation DVT prophylaxis on heparin subcu. Plan: This is a pleasant 56 years old male who presents with acute kidney injury, h yperkalemia, UTI, and review of his extensive cardiac disease and nonischemic cardiomyopathy Patient is being continued on dobutamine drip and metolazone. Nephrology and cardiology is on board. Monitor renal function. Hold Lantus 25 units twice a day (was 50 at home ) and NovoLog 5 (was 15 units a t home) with meals. and continue with insulin sliding scale.Hold jardians continue with oral Lasix and metolazone Ultrasound of LIVER SHOWED POSSIBLE CHOLECYSTITIS. HIDA SCAN WAS DONE SHOWED NO EVIDENCE OF ACUTE CHOLECYSTITIS. SEEN BY GENERAL SURGERY. Labs and medication were reviewed. Monitor lytes and vitals. DVT and GI prophylaxis. DVT prophylaxis: Subcutaneous heparin GI Prophylaxis: Pepcid PT/OT: Pending Prognosis is guarded Time with Patient: Greater than 30
[2021-12-03] MEDS: BRIMONIDINE TARTRATE 0.2% DROPS 5 ML BTL BOTH EYES SCH (09:46)
--- NOTE | 2021-12-03 09:46 | P.PN ---
Subjective Patient is seen in follow-up for acute kidney injury on chronic kidney disease. Renal function better. Elbow pain improved. Good urine output. No vomiting or diarrhea. Vital signs are stable. General: Awake and alert. HEENT: Head exam is unremarkable. LUNGS: Breath sounds decreased. HEART: Rate and Rhythm are regular. ABDOMEN: Soft, no distention. EXTREMITITES: 1+ edema. Chronic changes noted. Objective - Vital Signs Vital signs: Vital Signs Temp 97.8 F 12/03/21 04:00 Pulse 95 12/03/21 04:00 Resp 16 12/03/21 04:00 BP 102/64 12/03/21 04:00 Pulse Ox 98 12/03/21 04:00 Intake & Output 12/02/21 12/03/21 12/03/21 18:59 06:59 18:59 Intake Total 1170 180 Output Total 1000 3200 350 Balance 170 -3200 -170 Intake: Oral 1170 180 Output: Urine 1000 3200 350 Other: Voiding Method Indwelling Catheter Indwelling Catheter # Voids 0 # Bowel Movements 1 - Labs CBC & Chem 7: 12/03/21 06:30 12/03/21 06:30 Labs: Abnormal Lab Results - Last 24 Hours (Table) 12/02/21 12/02/21 12/02/21 Range/Units 11:50 14:00 17:14 Hgb (13.0-17.5) gm/dL Hct (39.0-53.0) % MCH (25.0-35.0) pg MCHC (31.0-37.0) g/dL RDW (11.5-15.5) % Sodium (137-145) mmol/L Potassium (3.5-5.1) mmol/L Chloride (98-107) mmol/L Carbon Dioxide (22-30) mmol/L BUN (9-20) mg/dL Creatinine (0.66-1.25) mg/dL Glucose (74-99) mg/dL POC Glucose (mg/dL) 251 H 196 H (75-99) mg/dL Ur Leukocyte Esterase Trace H (Negative) 12/02/21 12/03/21 12/03/21 Range/Units 20:38 06:19 06:30 Hgb (13.0-17.5) gm/dL Hct (39.0-53.0) % MCH (25.0-35.0) pg MCHC (31.0-37.0) g/dL RDW (11.5-15.5) % Sodium 132 L (137-145) mmol/L Potassium 3.0 L (3.5-5.1) mmol/L Chloride 88 L (98-107) mmol/L Carbon Dioxide 39 H (22-30) mmol/L BUN 57 H (9-20) mg/dL Creatinine 1.74 H (0.66-1.25) mg/dL Glucose 64 L (74-99) mg/dL POC Glucose (mg/dL) 261 H 71 L (75-99) mg/dL Ur Leukocyte Esterase (Negative) 12/03/21 Range/Units 06:30 Hgb 11.3 L (13.0-17.5) gm/dL Hct 37.8 L (39.0-53.0) % MCH 24.1 L (25.0-35.0) pg MCHC 29.9 L (31.0-37.0) g/dL RDW 21.1 H (11.5-15.5) % Sodium (137-145) mmol/L Potassium (3.5-5.1) mmol/L Chloride (98-107) mmol/L Carbon Dioxide (22-30) mmol/L BUN (9-20) mg/dL Creatinine (0.66-1.25) mg/dL Glucose (74-99) mg/dL POC Glucose (mg/dL) (75-99) mg/dL Ur Leukocyte Esterase (Negative) Assessment and Plan Plan: Assessment: 1. Acute kidney injury mostly prerenal secondary to cardiorenal syndrome. UA benign. Improved. Creatinine 1.74 today. 2. Chronic kidney disease stage IIIB with baseline creatinine in the range of 1.7-2.2 secondary to cardiorenal syndrome. 3. Acute on chronic systolic CHF with ejection fraction of 10-15%. 4. Hypervolemic hyponatremia. Better. Status post [facility] 12/02/2021. 5. Acute gout. 6. UTI with urine culture positive for Acinetobacter on antibiotics. 7. Diabetes mellitus. 8. Hypokalemia from diuresis. Magnesium normal. Plan: Maintain dobutamine and Bumex. Encouraged oral intake. 1500 mL fluid restriction. Replace potassium. Patient states allopurinol doesn't work for gout prevention. Consider Uloric.
[2021-12-03] MEDS: COLCHICINE 0.6 MG EACH PO SCH (09:47)
[2021-12-03] MEDS: CIPROFLOXACIN HCL 250 MG TAB PO SCH ×2 (09:47→21:00)
[2021-12-03] MEDS: metOLazone 5 MG TAB PO SCH ×2 (09:50→17:56)
[2021-12-03] MEDS: POTASSIUM CHLORIDE ER 20 MEQ TAB.ER PO SCH ×3 (11:44→13:05)
[2021-12-03 11:53] VITALS: BMI 30.3
[2021-12-03 12:01] LABS: Glucose,Whole Blood 275 mg/dL (75-99)
[2021-12-03] MEDS: INSULIN DETEMIR (LEVEMIR) 100 UNIT/ML SYR SQ SCH (12:27)
--- NOTE | 2021-12-03 15:03 | P.PN ---
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 Follows with Dr. Elias Client Portfolio Manager at the [facility]. We have been consulted for congestive heart failure and cardiomyopathy. Patient presents to the emergency department symptoms and shortness of breath that have been progressively worse with past 3 days. Echocardiogram revealed EF < 20%, mild to moderate mitral regurgitation, severe tricuspid regurgitation. Patient was admitted and started on IV Lasix 40 mg Q8hr per nephrology. 12/03/2021 Patient seen and examined at bedside, no acute distress. He states his breathing has improved. Patient with 4200mL over the past 24 hours. Meds: Dobutamine 360mL daily, PO Bumex 2mg BID, metolazone 5 mg twice a day Labs: Sodium 132, potassium 3.0, BUN 57, serum creatinine 1.7, magnesium 2.0 PHYSICAL EXAMINATION Vital signs reviewed. CONSTITUTIONAL: No apparent distress. HEENT: Neck Supple. No JVD. No carotid bruit. CHEST EXAMINATION: Lungs crackles bilaterally to auscultation. No chest wall tenderness is noted on palpation or with deep breathing. HEART EXAMINATION: Regular rate and rhythm. S1, S2 heard. Systolic ejection murmur at apex, No gallops or rub. ABDOMEN: Soft, distended. Positive bowel sounds. EXTREMITIES: 2+ peripheral pulses, trace lower extremity edema and no calf tenderness. NEUROLOGIC EXAMINATION: Patient is awake, alert and oriented x3. ASSESSMENT Acute on chronic heart failure with reduced ejection fraction Chronically elevated troponins, do not suspect primary myocardial infarction or acute coronary syndrome. No angina-type symptoms Acute on chronic kidney disease Nonischemic cardiomyopathy ejection fraction less than 20% Essential hypertension, borderline low on heart failure regimen Diabetes mellitus type 2 Hypokalemia PLAN Patient states he has dobutamine infusions daily at home, we will continue this medication Patient transitioned to Bumex per nephrology Monitor I/Os, daily weights renal function and electrolytes Per patient he's been evaluated at [facility] for an LVAD and transplant however he's been told that he is not a candidate for these therapies Further recommendations based on clinical course Nurse practitioner note has been reviewed by physician. Signing provider agrees with the documented findings, assessment, and plan of care. Objective - Vital Signs Vital signs: Vital Signs Temp 97.4 F L 12/03/21 08:00 Pulse 103 H 12/03/21 11:46 Resp 16 12/03/21 11:46 BP 108/78 12/03/21 11:46 Pulse Ox 97 12/03/21 11:46 Intake & Output 12/02/21 12/03/21 12/03/21 18:59 06:59 18:59 Intake Total 1170 180 Output Total 1000 3200 350 Balance 170 -3200 -170 Weight 90.6 kg Intake: Oral 1170 180 Output: Urine 1000 3200 350 Other: Voiding Method Indwelling Catheter Indwelling Catheter Indwelling Catheter # Voids 0 # Bowel Movements 1 - Labs CBC & Chem 7: 12/03/21 06:30 12/03/21 06:30 Labs: Abnormal Lab Results - Last 24 Hours (Table) 12/02/21 12/02/21 12/03/21 Range/Units 17:14 20:38 06:19 Hgb (13.0-17.5) gm/dL Hct (39.0-53.0) % MCH (25.0-35.0) pg MCHC (31.0-37.0) g/dL RDW (11.5-15.5) % Sodium (137-145) mmol/L Potassium (3.5-5.1) mmol/L Chloride (98-107) mmol/L Carbon Dioxide (22-30) mmol/L BUN (9-20) mg/dL Creatinine (0.66-1.25) mg/dL Glucose (74-99) mg/dL POC Glucose (mg/dL) 196 H 261 H 71 L (75-99) mg/dL 12/03/21 12/03/21 12/03/21 Range/Units 06:30 06:30 11:59 Hgb 11.3 L (13.0-17.5) gm/dL Hct 37.8 L (39.0-53.0) % MCH 24.1 L (25.0-35.0) pg MCHC 29.9 L (31.0-37.0) g/dL RDW 21.1 H (11.5-15.5) % Sodium 132 L (137-145) mmol/L Potassium 3.0 L (3.5-5.1) mmol/L Chloride 88 L (98-107) mmol/L Carbon Dioxide 39 H (22-30) mmol/L BUN 57 H (9-20) mg/dL Creatinine 1.74 H (0.66-1.25) mg/dL Glucose 64 L (74-99) mg/dL POC Glucose (mg/dL) 275 H (75-99) mg/dL
[2021-12-03 17:05] LABS: Glucose,Whole Blood 298 mg/dL (75-99)
[2021-12-03] MEDS: ALBUTEROL NEBULIZED 2.5 MG/3 ML INHALATION PRN ×2 (18:12→19:58)
[2021-12-03 20:33] LABS: Glucose,Whole Blood 282 mg/dL (75-99)
[2021-12-03] MEDS: TAMSULOSIN 0.4 MG CAP.ER.24H PO SCH (20:49)
[2021-12-03] MEDS: FINASTERIDE 5 MG TAB PO SCH (20:50)
[2021-12-04] MEDS: POTASSIUM CHLORIDE ER 20 MEQ TAB.ER PO SCH ×3 (04:00→21:46)
[2021-12-04] MEDS: CALCIUM CARBONATE 500 MG CHEWABLE PO PRN ×2 (04:10→09:30)
[2021-12-04] MEDS: traMADol 50 MG TAB PO PRN (04:11)
[2021-12-04 06:29] LABS: Glucose,Whole Blood 123 mg/dL (75-99)
[2021-12-04] MEDS: INSULIN ASPART (NovoLOG) 100 UNIT/ML VIAL SQ SCH ×7 (06:30→21:30)
[2021-12-04 08:31] LABS: Potassium 3.7 mmol/L (3.5-5.1)
[2021-12-04 08:38] LABS: Anisocytosis Moderate; Basophils % (A) 0 %; Eosinophils # (A) 0.1 k/uL (0-0.7); Eosinophils % (A) 1 %; HCT 40.1 % (39.0-53.0); HGB 11.8 gm/dL (13.0-17.5); Hypochromasia Marked; Lymphocytes # (A) 1.4 k/uL (1.0-4.8); Lymphocytes % (A) 20 %; MCH 23.8 pg (25.0-35.0); MCHC 29.3 g/dL (31.0-37.0); MCV 81.3 fL (80.0-100.0); Mean Platelet Volume 8.6; Microcytosis Slight; Monocytes # (A) 0.5 k/uL (0-1.0); Monocytes % (A) 7 %; Neutrophils # (A) 4.8 k/uL (1.3-7.7); Neutrophils % (A) 69 %; Platelet Count 219 k/uL (150-450); Poikilocytosis Slight; RBC 4.94 m/uL (4.30-5.90); RDW 21.2 % (11.5-15.5)
[2021-12-04] MEDS: FLUTICASONE 110 MCG INHALER INHALATION SCH ×2 (08:51→19:57)
[2021-12-04] MEDS: predniSONE 10 MG TAB PO SCH (09:17)
[2021-12-04] MEDS: busPIRone HCl 5 MG TAB PO SCH (09:17)
[2021-12-04] MEDS: BUMETANIDE 1 MG TAB PO SCH ×2 (09:17→21:47)
[2021-12-04] MEDS: HEPARIN SODIUM,PORCINE/PF 5,000 UNIT/0.5 ML SYRINGE SQ SCH ×2 (09:17→22:18)
[2021-12-04] MEDS: INSULIN DETEMIR (LEVEMIR) 100 UNIT/ML SYR SQ SCH (09:17)
[2021-12-04] MEDS: CIPROFLOXACIN HCL 250 MG TAB PO SCH ×2 (09:18→22:11)
[2021-12-04] MEDS: FAMOTIDINE 20 MG TAB PO SCH ×2 (09:18→21:45)
[2021-12-04] MEDS: CLOTRIMAZOLE 1% CREAM 30 GM TUBE TOPICAL SCH ×2 (09:18→22:18)
[2021-12-04] MEDS: BRIMONIDINE TARTRATE 0.2% DROPS 5 ML BTL BOTH EYES SCH (09:18)
[2021-12-04] MEDS: COLCHICINE 0.6 MG EACH PO SCH (09:18)
[2021-12-04] MEDS: metOLazone 5 MG TAB PO SCH ×2 (09:18→17:39)
[2021-12-04] MEDS: MULTIVITAMINS, THERA 1 EACH TAB PO SCH (09:19)
[2021-12-04] MEDS: SODIUM CHLORIDE 0.65% NASAL SPRAY 44 ML BTL NASAL SCH ×3 (09:20→17:14)
--- NOTE | 2021-12-04 09:23 | P.PN ---
Subjective Patient is seen in follow-up for acute kidney injury on chronic kidney disease. Renal function better. Denies any active pain. Good urine output. No vomiting or diarrhea. No changes overnight. Vital signs are stable. General: Awake and alert. HEENT: Head exam is unremarkable. LUNGS: Breath sounds decreased. HEART: Rate and Rhythm are regular. ABDOMEN: Soft, no distention. EXTREMITITES: 1+ edema. Chronic changes noted. Objective - Vital Signs Vital signs: Vital Signs Temp 97.8 F 12/04/21 08:00 Pulse 101 H 12/04/21 08:00 Resp 18 12/04/21 08:00 BP 85/47 12/04/21 08:00 Pulse Ox 97 12/04/21 08:00 Intake & Output 12/03/21 12/04/21 12/04/21 18:59 06:59 18:59 Intake Total 405.501 Output Total 2049 1650 Balance -1644.499 -1650 Weight 90.6 kg Intake: Intake, IV Titration 225.501 Amount DOBUTamine DRIP 500 mg In 225.501 Dextrose/Water 1 250ml. bag @ 3.5 MCG/KG/MIN 7.43 mls/hr IV .Q24H [facility] Rx#: [id number] Oral 180 Output: Urine 2049 1649 Other: Voiding Method Indwelling Catheter Indwelling Catheter # Voids 0 - Labs CBC & Chem 7: 12/04/21 07:32 12/04/21 07:32 Labs: Abnormal Lab Results - Last 24 Hours (Table) 12/03/21 12/03/21 12/03/21 Range/Units 11:59 17:02 20:32 Hgb (13.0-17.5) gm/dL MCH (25.0-35.0) pg MCHC (31.0-37.0) g/dL RDW (11.5-15.5) % Sodium (137-145) mmol/L Chloride (98-107) mmol/L Carbon Dioxide (22-30) mmol/L BUN (9-20) mg/dL Creatinine (0.66-1.25) mg/dL Glucose (74-99) mg/dL POC Glucose (mg/dL) 275 H 298 H 282 H (75-99) mg/dL 03/16/22 03/16/22 03/16/22 Range/Units 06:26 07:32 07:32 Hgb 11.8 L (13.0-17.5) gm/dL MCH 23.8 L (25.0-35.0) pg MCHC 29.3 L (31.0-37.0) g/dL RDW 21.2 H (11.5-15.5) % Sodium 129 L (137-145) mmol/L Chloride 87 L (98-107) mmol/L Carbon Dioxide 35 H (22-30) mmol/L BUN 53 H (9-20) mg/dL Creatinine 1.64 H (0.66-1.25) mg/dL Glucose 100 H (74-99) mg/dL POC Glucose (mg/dL) 123 H (75-99) mg/dL Assessment and Plan Plan: Assessment: 1. Acute kidney injury mostly prerenal secondary to cardiorenal syndrome. UA benign. Improved. Creatinine 1.64 today. 2. Chronic kidney disease stage IIIB with baseline creatinine in the range of 1.7-2.2 secondary to cardiorenal syndrome. 3. Acute on chronic systolic CHF with ejection fraction of 10-15%. 4. Hypervolemic hyponatremia. Better. Status post [facility] 12/02/2021. 5. Acute gout. 6. UTI with urine culture positive for Acinetobacter on antibiotics. 7. Diabetes mellitus. 8. Hypokalemia from diuresis. Magnesium normal. replaced. Improved. Plan: Maintain dobutamine and Bumex. Encouraged oral intake. Maintain low salt diet. He does not want fluid restriction. Potassium being replaced. Patient states allopurinol doesn't work for gout prevention. Consider Uloric. Patient has been advised to follow a low-salt diet and 40 ounce fluid re striction per day upon discharge. He is advised to monitor his weight closely at home and to call if edema worsens or gains more than 3 pounds in 1 week duration. Follow up outpatient in 1 week. Repeat BMP and magnesium level 2-3 days postdischarge.
[2021-12-04 11:55] LABS: Glucose,Whole Blood 277 mg/dL (75-99)
--- NOTE | 2021-12-04 12:35 | P.PN ---
Subjective Progress Note Date: 12/03/21 Principal diagnosis: Acinetobacter urinary tract infection Patient is a 56-year-old male with a past medical history taken for coronary artery disease cardiomyopathy COPD in this patient did have urine retention requiring Moy catheter presenting to the hospital for evaluation of increasing shortness of breath patient also have a UA obtained with a culture subsequently came back positive for Acinetobacter. On today's evaluation that is 12/03/2021, the patient denies having any fever or any chills patient is breathing comfortably denies having any chest pain or cou gh no abdominal pain and no diarrhea Objective - Vital Signs Vital signs: Vital Signs Temp 97.4 F L 12/03/21 08:00 Pulse 103 H 12/03/21 11:46 Resp 16 12/03/21 11:46 BP 108/78 12/03/21 11:46 Pulse Ox 97 12/03/21 11:46 Intake & Output 12/02/21 12/03/21 12/03/21 18:59 06:59 18:59 Intake Total 1170 180 Output Total 1000 3200 350 Balance 170 -3200 -170 Weight 90.6 kg Intake: Oral 1170 180 Output: Urine 1000 3200 350 Other: Voiding Method Indwelling Catheter Indwelling Catheter Indwelling Catheter # Voids 0 # Bowel Movements 1 - Exam GENERAL DESCRIPTION: Middle-aged male lying in bed, no distress. No tachypnea or accessory muscle of respiration use. LUNGS: Unlabored breathing. Decreased breath sound at the base HEART: S1, S2, regular rate and rhythm. No loud murmur ABDOMEN: Soft, no tenderness , guarding or rigidity, no organomegaly EXTREMITIES: No edema of feet. - Labs CBC & Chem 7: 12/04/21 07:32 12/04/21 07:32 Labs: Abnormal Lab Results - Last 24 Hours (Table) 12/02/21 12/02/21 12/02/21 Range/Units 14:00 17:14 20:38 Hgb (13.0-17.5) gm/dL Hct (39.0-53.0) % MCH (25.0-35.0) pg MCHC (31.0-37.0) g/dL RDW (11.5-15.5) % Sodium (137-145) mmol/L Potassium (3.5-5.1) mmol/L Chloride (98-107) mmol/L Carbon Dioxide (22-30) mmol/L BUN (9-20) mg/dL Creatinine (0.66-1.25) mg/dL Glucose (74-99) mg/dL POC Glucose (mg/dL) 196 H 261 H (75-99) mg/dL Ur Leukocyte Esterase Trace H (Negative) 12/03/21 12/03/21 12/03/21 Range/Units 06:19 06:30 06:30 Hgb 11.3 L (13.0-17.5) gm/dL Hct 37.8 L (39.0-53.0) % MCH 24.1 L (25.0-35.0) pg MCHC 29.9 L (31.0-37.0) g/dL RDW 21.1 H (11.5-15.5) % Sodium 132 L (137-145) mmol/L Potassium 3.0 L (3.5-5.1) mmol/L Chloride 88 L (98-107) mmol/L Carbon Dioxide 39 H (22-30) mmol/L BUN 57 H (9-20) mg/dL Creatinine 1.74 H (0.66-1.25) mg/dL Glucose 64 L (74-99) mg/dL POC Glucose (mg/dL) 71 L (75-99) mg/dL Ur Leukocyte Esterase (Negative) 12/03/21 Range/Units 11:59 Hgb (13.0-17.5) gm/dL Hct (39.0-53.0) % MCH (25.0-35.0) pg MCHC (31.0-37.0) g/dL RDW (11.5-15.5) % Sodium (137-145) mmol/L Potassium (3.5-5.1) mmol/L Chloride (98-107) mmol/L Carbon Dioxide (22-30) mmol/L BUN (9-20) mg/dL Creatinine (0.66-1.25) mg/dL Glucose (74-99) mg/dL POC Glucose (mg/dL) 275 H (75-99) mg/dL Ur Leukocyte Esterase (Negative) Assessment and Plan (1) UTI (urinary tract infection) Current Visit: Yes Status: Acute Code(s): N39.0 - URINARY TRACT INFECTION, SITE NOT SPECIFIED SNOMED Code(s): 51548555 Plan: 1patient with a positive urine culture showing Acinetobacter and this patient did have a positive UA however the patient did not have any fever or elevated white count could be a Moy colonization underlying mild cystitis not entirely excluded. 2-continue the patient on Cipro dose has been adjusted the kidney function 3-repeat UA Was not significantly positive Time with Patient: Less than 30
--- NOTE | 2021-12-04 12:36 | P.PN ---
Subjective Progress Note Date: 12/04/21 Principal diagnosis: Acinetobacter urinary tract infection Patient is a 56-year-old male with a past medical history taken for coronary artery disease cardiomyopathy COPD in this patient did have urine retention requiring Moy catheter presenting to the hospital for evaluation of increasing shortness of breath patient also have a UA obtained with a culture subsequently came back positive for Acinetobacter. On today's evaluation that is , the patient remains to be afebrile, patient is breathing comfortably on room air, denies any chest pain no abdominal pain and no diarrhea Objective - Vital Signs Vital signs: Vital Signs Temp 97.8 F 12/04/21 08:00 Pulse 101 H 12/04/21 08:00 Resp 18 12/04/21 08:00 BP 85/47 12/04/21 08:00 Pulse Ox 97 12/04/21 08:00 Intake & Output 12/03/21 12/04/21 12/04/21 18:59 06:59 18:59 Intake Total 405.501 Output Total 2049 1650 900 Balance -1644.499 -1650 -900 Weight 90.6 kg Intake: Intake, IV Titration 225.501 Amount DOBUTamine DRIP 500 mg In 225.501 Dextrose/Water 1 250ml. bag @ 3.5 MCG/KG/MIN 7.43 mls/hr IV .Q24H [facility] Rx#: [id number] Oral 180 Output: Urine 2049 1650 Stool 900 Other: Voiding Method Indwelling Catheter Indwelling Catheter Indwelling Catheter # Voids 0 - Exam GENERAL DESCRIPTION: Middle-aged male lying in bed, no distress. No tachypnea or accessory muscle of respiration use. LUNGS: Unlabored breathing. Decreased breath sound at the base HEART: S1, S2, regular rate and rhythm. No loud murmur ABDOMEN: Soft, no tenderness , guarding or rigidity, no organomegaly EXTREMITIES: No edema of feet. - Labs CBC & Chem 7: 12/04/21 07:32 12/04/21 07:32 Labs: Abnormal Lab Results - Last 24 Hours (Table) 12/03/21 12/03/21 12/04/21 Range/Units 17:02 20:32 06:26 Hgb (13.0-17.5) gm/dL MCH (25.0-35.0) pg MCHC (31.0-37.0) g/dL RDW (11.5-15.5) % Sodium (137-145) mmol/L Chloride (98-107) mmol/L Carbon Dioxide (22-30) mmol/L BUN (9-20) mg/dL Creatinine (0.66-1.25) mg/dL Glucose (74-99) mg/dL POC Glucose (mg/dL) 298 H 282 H 123 H (75-99) mg/dL 12/04/21 12/04/21 12/04/21 Range/Units 07:32 07:32 11:54 Hgb 11.8 L (13.0-17.5) gm/dL MCH 23.8 L (25.0-35.0) pg MCHC 29.3 L (31.0-37.0) g/dL RDW 21.2 H (11.5-15.5) % Sodium 129 L (137-145) mmol/L Chloride 87 L (98-107) mmol/L Carbon Dioxide 35 H (22-30) mmol/L BUN 53 H (9-20) mg/dL Creatinine 1.64 H (0.66-1.25) mg/dL Glucose 100 H (74-99) mg/dL POC Glucose (mg/dL) 277 H (75-99) mg/dL Assessment and Plan (1) UTI (urinary tract infection) Current Visit: Yes Status: Acute Code(s): N39.0 - URINARY TRACT INFECTION, SITE NOT SPECIFIED SNOMED Code(s): 15287928 Plan: 1patient with a positive urine culture showing Acinetobacter and this patient did have a positive UA however the patient did not have any fever or elevated white count could be a Moy colonization underlying mild cystitis not entirely excluded, The patient repeat UA was not significantly positive, patient to continue with Cipro for a few days and monitor his clinical course closely Time with Patient: Less than 30
--- NOTE | 2021-12-04 14:15 | P.PN ---
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 Follows with Dr. Elias Locomotive Observer at the [facility]. We have been consulted for congestive heart failure and cardiomyopathy. Patient presents to the emergency department symptoms and shortness of breath that have been progressively worse with past 3 days. Echocardiogram revealed EF < 20%, mild to moderate mitral regurgitation, severe tricuspid regurgitation. Patient was admitted and started on IV Lasix 40 mg Q8hr per nephrology. 12/04/2021 Patient seen and examined at bedside, no acute distress. He states his breathing has improved. He appears comfortable on exam. No chest pain. No shortness of breath. Patient with 3700mL over the past 24 hours. Meds: Dobutamine 360mL daily, PO Bumex 2mg BID, metolazone 5 mg twice a day. H is blood pressure continues to be low. Labs: Sodium 129, potassium 3.7, BUN 53, serum creatinine 1.64. PHYSICAL EXAMINATION Vital signs reviewed. CONSTITUTIONAL: No apparent distress. HEENT: Neck Supple. No JVD. No carotid bruit. CHEST EXAMINATION: Lungs clear bilaterally to auscultation. No chest wall tenderness is noted on palpation or with deep breathing. HEART EXAMINATION: Regular rate and rhythm. S1, S2 heard. Systolic ejection murmur at apex, No gallops or rub. ABDOMEN: Soft, distended. Positive bowel sounds. EXTREMITIES: 2+ peripheral pulses, trace lower extremity edema and no calf tenderness. NEUROLOGIC EXAMINATION: Patient is awake, alert and oriented x3. ASSESSMENT Acute on chronic heart failure with reduced ejection fraction, appears to be in refractory heart failure unable to tolerate heart failure regimen. Chronically elevated troponins, do not suspect primary myocardial infarction or acute coronary syndrome. No angina-type symptoms Acute on chronic kidney disease Nonischemic cardiomyopathy ejection fraction less than 20% Essential hypertension, borderline low on heart failure regimen Diabetes mellitus type 2 Hypokalemia PLAN Patient transitioned to Bumex per nephrology, continue PO Bumex Continue with dobutmine daily Monitor I/Os, daily weights renal function and electrolytes while inpatient Patient appears to be in refractory heart failure and unable to tolerate heart failure regimen. Per patient he's been evaluated at [facility] for an LVAD and transplant however he's been told that he is not a candidate for these therapies Nurse practitioner note has been reviewed by physician. Signing provider agrees with the documented findings, assessment, and plan of care. Objective - Vital Signs Vital signs: Vital Signs Temp 97.9 F 12/04/21 12:00 Pulse 99 12/04/21 13:02 Resp 18 12/04/21 12:00 BP 94/59 12/04/21 12:00 Pulse Ox 98 12/04/21 12:00 Intake & Output 12/03/21 12/04/21 12/04/21 18:59 06:59 18:59 Intake Total 405.501 Output Total 2049 1650 1800 Balance -1644.499 -1650 -1800 Weight 90.6 kg Intake: Intake, IV Titration 225.501 Amount DOBUTamine DRIP 500 mg In 225.501 Dextrose/Water 1 250ml. bag @ 3.5 MCG/KG/MIN 7.43 mls/hr IV .Q24H [facility] Rx#: [id number] Oral 180 Output: Urine 2049 165 Stool 1800 Other: Voiding Method Indwelling Catheter Indwelling Catheter Indwelling Catheter # Voids 0 - Labs CBC & Chem 7: 12/04/21 07:32 12/04/21 07:32 Labs: Abnormal Lab Results - Last 24 Hours (Table) 12/03/21 12/03/21 12/04/21 Range/Units 17:02 20:32 06:26 Hgb (13.0-17.5) gm/dL MCH (25.0-35.0) pg MCHC (31.0-37.0) g/dL RDW (11.5-15.5) % Sodium (137-145) mmol/L Chloride (98-107) mmol/L Carbon Dioxide (22-30) mmol/L BUN (9-20) mg/dL Creatinine (0.66-1.25) mg/dL Glucose (74-99) mg/dL POC Glucose (mg/dL) 298 H 282 H 123 H (75-99) mg/dL 12/04/21 12/04/21 12/04/21 Range/Units 07:32 07:32 11:54 Hgb 11.8 L (13.0-17.5) gm/dL MCH 23.8 L (25.0-35.0) pg MCHC 29.3 L (31.0-37.0) g/dL RDW 21.2 H (11.5-15.5) % Sodium 129 L (137-145) mmol/L Chloride 87 L (98-107) mmol/L Carbon Dioxide 35 H (22-30) mmol/L BUN 53 H (9-20) mg/dL Creatinine 1.64 H (0.66-1.25) mg/dL Glucose 100 H (74-99) mg/dL POC Glucose (mg/dL) 277 H (75-99) mg/dL
[2021-12-04 16:51] LABS: Glucose,Whole Blood 345 mg/dL (75-99)
[2021-12-04] MEDS: DOBUTamine DRIP 500 MG in DEXTROSE/WATER 1 250ML.BAG IV SCH ×2 (17:14→22:11)
[2021-12-04 19:45] LABS: Glucose,Whole Blood 331 mg/dL (75-99)
[2021-12-04] MEDS: FINASTERIDE 5 MG TAB PO SCH (21:45)
[2021-12-04] MEDS: TAMSULOSIN 0.4 MG CAP.ER.24H PO SCH (21:46)
[2021-12-05] MEDS: traMADol 50 MG TAB PO PRN (04:53)
[2021-12-05] MEDS: SODIUM CHLORIDE 0.65% NASAL SPRAY 44 ML BTL NASAL SCH ×5 (04:56→23:23)
[2021-12-05 06:16] LABS: Glucose,Whole Blood 59 mg/dL (75-99)
[2021-12-05 06:31] LABS: Glucose,Whole Blood 58 mg/dL (75-99)
[2021-12-05 06:49] LABS: Glucose,Whole Blood 93 mg/dL (75-99)
[2021-12-05] MEDS: FLUTICASONE 110 MCG INHALER INHALATION SCH ×2 (07:24→20:14)
[2021-12-05 07:34] LABS: Anisocytosis Moderate; Basophils % (A) 0 %; Eosinophils # (A) 0.1 k/uL (0-0.7); Eosinophils % (A) 1 %; HCT 39.9 % (39.0-53.0); HGB 11.8 gm/dL (13.0-17.5); Hypochromasia Marked; Lymphocytes # (A) 1.6 k/uL (1.0-4.8); Lymphocytes % (A) 17 %; MCH 24.2 pg (25.0-35.0); MCHC 29.5 g/dL (31.0-37.0); MCV 81.9 fL (80.0-100.0); Mean Platelet Volume 8.4; Microcytosis Slight; Monocytes # (A) 0.7 k/uL (0-1.0); Monocytes % (A) 8 %; Neutrophils # (A) 6.7 k/uL (1.3-7.7); Neutrophils % (A) 73 %; Platelet Count 229 k/uL (150-450); Poikilocytosis Slight; RBC 4.88 m/uL (4.30-5.90); RDW 20.9 % (11.5-15.5); WBC 9.2 k/uL (3.8-10.6)
[2021-12-05 08:02] LABS: Calcium 8.7 mg/dL (8.4-10.2); Potassium 3.8 mmol/L (3.5-5.1)
[2021-12-05] MEDS: INSULIN ASPART (NovoLOG) 100 UNIT/ML VIAL SQ SCH ×7 (08:55→21:51)
[2021-12-05] MEDS: busPIRone HCl 5 MG TAB PO SCH (09:08)
[2021-12-05] MEDS: MULTIVITAMINS, THERA 1 EACH TAB PO SCH (09:08)
[2021-12-05] MEDS: FAMOTIDINE 20 MG TAB PO SCH ×2 (09:08→21:50)
[2021-12-05] MEDS: HEPARIN SODIUM,PORCINE/PF 5,000 UNIT/0.5 ML SYRINGE SQ SCH ×2 (09:08→21:50)
[2021-12-05] MEDS: INSULIN DETEMIR (LEVEMIR) 100 UNIT/ML SYR SQ SCH (09:08)
[2021-12-05] MEDS: BUMETANIDE 1 MG TAB PO SCH ×2 (09:08→21:49)
[2021-12-05] MEDS: predniSONE 10 MG TAB PO SCH (09:08)
[2021-12-05] MEDS: CIPROFLOXACIN HCL 250 MG TAB PO SCH ×2 (09:09→23:22)
[2021-12-05] MEDS: metOLazone 5 MG TAB PO SCH ×2 (09:09→17:33)
[2021-12-05] MEDS: COLCHICINE 0.6 MG EACH PO SCH (09:09)
[2021-12-05] MEDS: CLOTRIMAZOLE 1% CREAM 30 GM TUBE TOPICAL SCH ×2 (09:10→23:23)
[2021-12-05] MEDS: BRIMONIDINE TARTRATE 0.2% DROPS 5 ML BTL BOTH EYES SCH (09:10)
--- NOTE | 2021-12-05 09:19 | P.PN ---
Subjective Patient is seen in follow-up for acute kidney injury on chronic kidney disease. Renal function stable. Denies any active pain. Good urine output. No vomiting or diarrhea. No changes overnight. Vital signs are stable. General: Awake and alert. HEENT: Head exam is unremarkable. LUNGS: Breath sounds decreased. HEART: Rate and Rhythm are regular. ABDOMEN: Soft, no distention. EXTREMITITES: 1+ edema. Chronic changes noted. Objective - Vital Signs Vital signs: Vital Signs Temp 97.6 F 12/05/21 04:00 Pulse 106 H 12/05/21 04:00 Resp 18 12/05/21 04:00 BP 113/74 12/05/21 04:00 Pulse Ox 99 12/05/21 04:00 Intake & Output 12/04/21 12/05/21 12/05/21 18:59 06:59 18:59 Intake Total 214.356 Output Total 1800 3150 Balance -1800 -2739.649 Weight 87 kg Intake: Intake, IV Titration 214.356 Amount DOBUTamine DRIP 500 mg In 214.356 Dextrose/Water 1 250ml. bag @ 3.5 MCG/KG/MIN 7.43 mls/hr IV .Q24H [facility] Rx#: [id number] Output: Urine 1350 Stool 1800 1800 Other: Voiding Method Indwelling Catheter Indwelling Catheter - Labs CBC & Chem 7: 12/05/21 07:13 12/05/21 07:13 Labs: Abnormal Lab Results - Last 24 Hours (Table) 12/04/21 12/04/21 12/04/21 Range/Units 11:54 16:49 19:44 Hgb (13.0-17.5) gm/dL MCH (25.0-35.0) pg MCHC (31.0-37.0) g/dL RDW (11.5-15.5) % Sodium (137-145) mmol/L Chloride (98-107) mmol/L Carbon Dioxide (22-30) mmol/L BUN (9-20) mg/dL Creatinine (0.66-1.25) mg/dL Glucose (74-99) mg/dL POC Glucose (mg/dL) 277 H 345 H 331 H (75-99) mg/dL 12/05/21 12/05/21 12/05/21 Range/Units 06:14 06:30 07:13 Hgb 11.8 L (13.0-17.5) gm/dL MCH 24.2 L (25.0-35.0) pg MCHC 29.5 L (31.0-37.0) g/dL RDW 20.9 H (11.5-15.5) % Sodium (137-145) mmol/L Chloride (98-107) mmol/L Carbon Dioxide (22-30) mmol/L BUN (9-20) mg/dL Creatinine (0.66-1.25) mg/dL Glucose (74-99) mg/dL POC Glucose (mg/dL) 59 L 58 L (75-99) mg/dL 12/05/21 Range/Units 07:13 Hgb (13.0-17.5) gm/dL MCH (25.0-35.0) pg MCHC (31.0-37.0) g/dL RDW (11.5-15.5) % Sodium 129 L (137-145) mmol/L Chloride 86 L (98-107) mmol/L Carbon Dioxide 34 H (22-30) mmol/L BUN 51 H (9-20) mg/dL Creatinine 1.66 H (0.66-1.25) mg/dL Glucose 105 H (74-99) mg/dL POC Glucose (mg/dL) (75-99) mg/dL Assessment and Plan Plan: Assessment: 1. Acute kidney injury mostly prerenal secondary to cardiorenal syndrome. UA benign. Improved. Renal function stable. Creatinine 1.66 today. 2. Chronic kidney disease stage IIIB with baseline creatinine in the range of 1.7-2.2 secondary to cardiorenal syndrome. 3. Acute on chronic systolic CHF with ejection fraction of 10-15%. 4. Hypervolemic hyponatremia. Better. Status post [facility] 12/02/2021. Stable. 5. Acute gout. 6. UTI with urine culture positive for Acinetobacter on antibiotics. 7. Diabetes mellitus. 8. Hypokalemia from diuresis. Magnesium normal. Replaced. Improved. Plan: Maintain dobutamine and Bumex. Encouraged oral intake. Maintain low salt diet. He does not want fluid restriction. Patient states allopurinol doesn't work for gout prevention. Consider Uloric. Patient has been advised to follow a low-salt diet and 40 ounce fluid restriction per day upon discharge. He is advised to monitor his weight closely at home and to call if edema worsens or gains more than 3 pounds in 1 week duration. Follow up outpatient in 1 week. Repeat BMP and magnesium level 2-3 days postdischarge.
--- NOTE | 2021-12-05 10:43 | P.PN ---
Subjective Progress Note Date: 12/03/21 This is a pleasant 56 years old male with past medical history of Coronary Artery Disease, COPD, nonischemic cardiomyopathy status post AICD, status post pacemaker, insulin-dependent diabetes mellitus, glaucoma, major depression Presents because of dyspnea for 3 days although his breathing easier now while sitting in bed, he still complaining of from basal crepitation and mild bilateral leg swelling. Also has been complaining of from cough and clear phlegm but thus chronic for him He is complaining of from pain all over his body mainly in his left elbow on both feet, he thinks that he has a gout flareup. However he denies chest pain. He denies any GI or urinary symptoms or VARNISH FILTERER symptoms. He vomited twice yesterday and today with no blood but no abdominal pain, no diarrhea, no black stool or GI bleed. No dysuria but is complaining of from chronic Moy catheter secondary to his chronic retention he has for about 6 weeks and he follows up with the [facility] urologist. He denies headache or weakness or numbness however he complains from chronic dizziness and lightheadedness, which is chronic with chronic difficulty walking, he has to be held for walking. He denies active symptoms depression symptoms or suicidal/homicidal thoughts. Patient complaining from source in both legs fully recovered, we going to check on him. Also has been complaining of from low appetite for the last 3 days, he stated that he ate breakfast this morning better than the last 3 days. He denies smoking, alcohol or illicit drugs. Labs show an unremarkable CBC with WBC 10.0, hemoglobin 11.4, platelet count 276. INR is 1.6. Sodium is low at 127 and 128, baseline hyponatremia is 132-134 Creatinine elevated on admission 2.6 and 2.4, compared to baseline of 1.3-1.5 Potassium was elevated 7.1 on admission, currently improved on 523. AST elevated 129 and 209. ALT elevated to 55 and 102. Bilirubin elevated 2.3 Troponin is -0.02. ProBNP elevated 11072 Chest x-ray, there is diffuse mild hazy opacity and questionable right lower lobe nodular opacity versus artifact. Attention on follow-up. EKG showed sinus tachycardia with occasional ectopic premature complexes, at a rate of 103, QTC 452, no significant ST-T changes but there is generalized poor R-wave progression. in the emergency room patient received pain medication, IV fluids with normal saline 500 MLS, penicillin/dextrose 50%, albuterol, started on ceftriaxone. Also received Kayexalate Physical glucose was low on admission 31, improved currently 74 this morning in Emergency room or first assist registered nurse and lawn and tree service spray supervisor been consulted. 11/29/2021 Patient today feels slightly better distal generally weak, he states there is some improvement in his left elbow on bilateral feet pain after he was started on a prednisone for acute gouty attack with elevated uric acid. He is kept on IV Lasix with no tachypnea while in dressed, no orthopnea noted, he has less leg erythema and basal crepitation. Hemodynamically stable. He is on room air. Liver enzymes still elevated and ultrasound showing hepatic steatosis versus hepatocellular disease with possibly enlarged liver and the gallbladder thought secondary to edema and they recommended further imaging, HIDA scan is ordered. The patient's with no abdominal pain or nausea vomiting. But it's only 25-50%, Echocardiogram showed ejection fraction less than 20% with severe tricuspid regurgitation and [id number] mitral regurgitation He has positive hepatitis C IgG, patient told me he is already being treated for hepatitis C and he is already been vaccinated against hepatitis A and B. Sodium at 127. He is also been treated for UTI with ceftriaxone, urine culture growing gram- negative bacilli. Moy catheter was changed in the emergency room, confirmed with patient and bedside nurse. 11/30/2021 Patient reports improvement in his movement, he feels stronger and he can walk further than yesterday without getting shortness of breath, his IV was switched to oral Lasix with cardiology and nephrology team on the case for his acute CHF, his creatinine cam e down to 0.7-2.4, similar to a upon admission. Sodium is stable at 127. Glucose is elevated more than 300, therefore we started his Levemir 20 units twice a day, compared to 50 units at home and NovoLog 5 units with meals compared to 15 units at home. We checked elbow x-ray for him on the left side that was negative for acute process. Patient is with gout responded prednisone 20 mg daily. He has this pain for more movement in his left elbow as well as his left and right feet. He is kept on ceftriaxone and urine culture is growing gram-negative bacilli. HIDA scan is still pending and is going to be done on Jey. His liver enzymes were elevated upon admission. Repeat labs in the morning 12/01/2021 Patient elbow and feet pain and swelling are improving gradually and every day, secondary to his gouty arthritis, prednisone is lowered 20 down to 15 mg daily also start allopurinol starting form tomorrow. His weakness is also improving. He states that he eats decent although he did not like the breakfast today. His glucose is controlled 183 and 226, creatinine slightly improving down to 2.2, sodium improvement to 129, liver enzymes still elevated but trending down nicely. His liver ultrasound showing swollen gallbladder, therefore HIDA scan is ordered for tomorrow. May consider surgery consult as well Pertinent that he is hemodynamically stable. He has positive hepatitis C IgG but states he is been treated and he is aware of this See diagnosis. Cyber Systems Engineer team on the case. Urine culture is growing Acinetobacter and his antibiotics was adjusted to cefepime, Levaquin could not be given because patient was and Atarax. Attacks is discontinued today. 12/02/2021 Patient is currently lying in the bed. Awake alert and oriented. Complaints of left elbow pain and not feeling well. No fever no chills. No cough or sputum production no nausea vomiting or abdominal pain or diarrhea.. Currently on room air. Laboratory showed sodium 128 potassium 3.8 chloride 87 bicarb is 32 BUN 59 and creatinine 1.19. Renal function is fairly stable. Patient is slightly hyperglycemic with blood sugar 251 this afternoon. Urinalysis is negative for infection. Patient is being continued dobutamine drip and also on metolazone. Current fluid restriction. Urine culture is growing Citrobacter. Cefepime has been discontinued and patient was started on ciprofloxacin. ID was consulted. Patient is also on prednisone increased to 30 mg daily for left elbow gouty arthritis arthritis. 12/03/2021 Patient is currently lying in the bed. No complaints of chest pain. Left elbow pain is better. No complaints of nausea or vomiting. Shortness of breath is improving and leg swelling improved as well. Patient is being continued on dobutamine drip and also on Bumex and metolazone. Nephrology and cardiology is on board. Laboratory data showed WBC 7.3 hemoglobin 11.3 and platelets 217 sodium 132 potassium 3.0 chloride 88 bicarb is 39 BUN 57 and creatinine 1.74. Potassium is being replaced. Patient is also on prednisone 30 mg daily for gouty arthritis flare. Current medications reviewed. Objective - Vital Signs Vital signs: Vital Signs Temp 97.6 F 12/03/21 15:31 Pulse 107 H 12/03/21 15:31 Resp 19 12/03/21 15:31 BP 110/76 12/03/21 15:31 Pulse Ox 98 12/03/21 15:31 Intake & Output 12/02/21 12/03/21 12/03/21 18:59 06:59 18:59 Intake Total 1170 180 Output Total 1000 3200 350 Balance 170 -3200 -170 Weight 90.6 kg Intake: Oral 1170 180 Output: Urine 1000 3200 350 Other: Voiding Method Indwelling Catheter Indwelling Catheter Indwelling Catheter # Voids 0 # Bowel Movements 1 - Exam - Exam GENERAL: The patient is alert and oriented x3, not in any acute distress. Well developed, well nourished. HEENT: Pupils are round and equally reacting to light. EOMI. No scleral icterus. No conjunctival pallor. Normocephalic, atraumatic. No pharyngeal erythema. No thyromegaly. CARDIOVASCULAR: S1 and S2 present. No murmurs, rubs, or gallops. -PULMONARY: Chest is clear to auscultation, no wheezing or. Bilateral basal crackles ABDOMEN: Soft, nontender, nondistended, normoactive bowel sounds. No palpable organomegaly. MUSCULOSKELETAL: No joint swelling or deformity. -EXTREMITIES: No cyanosis, clubbing, . Bilateral patellar like edema 1+. Left elbow minimal swelling with redness. NEUROLOGICAL: Gross neurological examination did not reveal any focal deficits. Gait exam is deferred SKIN: No rashes. no petechiae. - Labs CBC & Chem 7: 12/05/21 07:13 12/05/21 07:13 Labs: Abnormal Lab Results - Last 24 Hours (Table) 12/02/21 12/02/21 12/03/21 Range/Units 17:14 20:38 06:19 Hgb (13.0-17.5) gm/dL Hct (39.0-53.0) % MCH (25.0-35.0) pg MCHC (31.0-37.0) g/dL RDW (11.5-15.5) % Sodium (137-145) mmol/L Potassium (3.5-5.1) mmol/L Chloride (98-107) mmol/L Carbon Dioxide (22-30) mmol/L BUN (9-20) mg/dL Creatinine (0.66-1.25) mg/dL Glucose (74-99) mg/dL POC Glucose (mg/dL) 196 H 261 H 71 L (75-99) mg/dL 12/03/21 12/03/21 12/03/21 Range/Units 06:30 06:30 11:59 Hgb 11.3 L (13.0-17.5) gm/dL Hct 37.8 L (39.0-53.0) % MCH 24.1 L (25.0-35.0) pg MCHC 29.9 L (31.0-37.0) g/dL RDW 21.1 H (11.5-15.5) % Sodium 132 L (137-145) mmol/L Potassium 3.0 L (3.5-5.1) mmol/L Chloride 88 L (98-107) mmol/L Carbon Dioxide 39 H (22-30) mmol/L BUN 57 H (9-20) mg/dL Creatinine 1.74 H (0.66-1.25) mg/dL Glucose 64 L (74-99) mg/dL POC Glucose (mg/dL) 275 H (75-99) mg/dL Assessment and Plan Assessment: Acute urinary tract infection , associated and related to indwelling Moy catheter. Urine culture is growing Citrobacter. Acute systolic and diastolic CHF with ejection fraction less than 20% and severe tricuspid regurgitation Severe hyperkalemia on admission, Improved Hypervolemic hyponatremia Acute gout attack with pain in his left elbow and bilateral feet joints, and elevated uric acid, started on prednisone Acute kidney injury, on chronic kidney disease. Possible cardiorenal. Chronic urinary retention status post indwelling Moy catheter chronic dizziness and lightheadedness, with chronic unsteady gait Elevated liver enzymes Normochromic, normocytic anemia Hyponatremia Questionable right lower lobe nodular opacity versus artifact, recommend follow- up Diabetes mellitus, with hypoglycemia on admission Hyperlipidemia Hypertension Nonischemic cardiomyopathy status post AICD, status post pacemaker Chronic kidney disease, stage III COPD, not in acute exacerbation History of bilateral glaucoma History of major depression, not in activation DVT prophylaxis on heparin subcu. Plan: This is a pleasant 56 years old male who presents with acute kidney injury, hype rkalemia, UTI, and review of his extensive cardiac disease and nonischemic cardiomyopathy Patient is being continued on dobutamine drip and metolazone. Nephrology and cardiology is on board. Monitor renal function. Hold Lantus 25 units twice a day (was 50 at home ) and NovoLog 5 (was 15 units at home) with meals. and continue with insulin sliding scale.Hold jardians continue with oral Lasix and metolazone Ultrasound of LIVER SHOWED POSSIBLE CHOLECYSTITIS. HIDA SCAN WAS DONE SHOWED NO EVIDENCE OF ACUTE CHOLECYSTITIS. SEEN BY GENERAL SURGERY. Labs and medication were reviewed. Monitor lytes and vitals. DVT and GI prophylaxis. DVT prophylaxis: Subcutaneous heparin GI Prophylaxis: Pepcid PT/OT: Pending Prognosis is guarded Time with Patient: Greater than 30
--- NOTE | 2021-12-05 10:45 | P.PN ---
Subjective Progress Note Date: 12/04/21 This is a pleasant 56 years old male with past medical history of Coronary Artery Disease, COPD, nonischemic cardiomyopathy status post AICD, status post pacemaker, insulin-dependent diabetes mellitus, glaucoma, major depression Presents because of dyspnea for 3 days although his breathing easier now while sitting in bed, he still complaining of from basal crepitation and mild bilateral leg swelling. Also has been complaining of from cough and clear phlegm but thus chronic for him He is complaining of from pain all over his body mainly in his left elbow on both feet, he thinks that he has a gout flareup. However he denies chest pain. He denies any GI or urinary symptoms or IT TECHNICAL ARCHITECT symptoms. He vomited twice yesterday and today with no blood but no abdominal pain, no diarrhea, no black stool or GI bleed. No dysuria but is complaining of from chronic Moy catheter secondary to his chronic retention he has for about 6 weeks and he follows up with the [facility] urologist. He denies headache or weakness or numbness however he complains from chronic dizziness and lightheadedness, which is chronic with chronic difficulty walking, he has to be held for walking. He denies active symptoms depression symptoms or suicidal/homicidal thoughts. Patient complaining from source in both legs fully recovered, we going to check on him. Also has been complaining of from low appetite for the last 3 days, he stated that he ate breakfast this morning better than the last 3 days. He denies smoking, alcohol or illicit drugs. Labs show an unremarkable CBC with WBC 10.0, hemoglobin 11.4, platelet count 276. INR is 1.6. Sodium is low at 127 and 128, baseline hyponatremia is 132-134 Creatinine elevated on admission 2.6 and 2.4, compared to baseline of 1.3-1.5 Potassium was elevated 7.1 on admission, currently improved on 523. AST elevated 129 and 209. ALT elevated to 55 and 102. Bilirubin elevated 2.3 Troponin is -0.02. ProBNP elevated 24897 Chest x-ray, there is diffuse mild hazy opacity and questionable right lower lobe nodular opacity versus artifact. Attention on follow-up. EKG showed sinus tachycardia with occasional ectopic premature complexes, at a rate of 103, QTC 452, no significant ST-T changes but there is generalized poor R-wave progression. in the emergency room patient received pain medication, IV fluids with normal saline 500 MLS, penicillin/dextrose 50%, albuterol, started on ceftriaxone. Also received Kayexalate Physical glucose was low on admission 31, improved currently 74 this morning in Emergency room cash register operator and personal banker been consulted. 11/29/2021 Patient today feels slightly better distal generally weak, he states there is some improvement in his left elbow on bilateral feet pain after he was started on a prednisone for acute gouty attack with elevated uric acid. He is kept on IV Lasix with no tachypnea while in dressed, no orthopnea noted, he has less leg erythema and basal crepitation. Hemodynamically stable. He is on room air. Liver enzymes still elevated and ultrasound showing hepatic steatosis versus hepatocellular disease with possibly enlarged liver and the gallbladder thought secondary to edema and they recommended further imaging, HIDA scan is ordered. The patient's with no abdominal pain or nausea vomiting. But it's only 25-50%, Echocardiogram showed ejection fraction less than 20% with severe tricuspid regurgitation and [id number] mitral regurgitation He has positive hepatitis C IgG, patient told me he is already being treated for hepatitis C and he is already been vaccinated against hepatitis A and B. Sodium at 127. He is also been treated for UTI with ceftriaxone, urine culture growing gram- negative bacilli. Moy catheter was changed in the emergency room, confirmed with patient and bedside nurse. 11/30/2021 Patient reports improvement in his movement, he feels stronger and he can walk further than yesterday without getting shortness of breath, his IV was switched to oral Lasix with cardiology and nephrology team on the case for his acute CHF, his creatinine cam e down to 0.7-2.4, similar to a upon admission. Sodium is stable at 127. Glucose is elevated more than 300, therefore we started his Levemir 20 units twice a day, compared to 50 units at home and NovoLog 5 units with meals compared to 15 units at home. We checked elbow x-ray for him on the left side that was negative for acute process. Patient is with gout responded prednisone 20 mg daily. He has this pain for more movement in his left elbow as well as his left and right feet. He is kept on ceftriaxone and urine culture is growing gram-negative bacilli. HIDA scan is still pending and is going to be done on Jey. His liver enzymes were elevated upon admission. Repeat labs in the morning 12/01/2021 Patient elbow and feet pain and swelling are improving gradually and every day, secondary to his gouty arthritis, prednisone is lowered 20 down to 15 mg daily also start allopurinol starting form tomorrow. His weakness is also improving. He states that he eats decent although he did not like the breakfast today. His glucose is controlled 183 and 226, creatinine slightly improving down to 2.2, sodium improvement to 129, liver enzymes still elevated but trending down nicely. His liver ultrasound showing swollen gallbladder, therefore HIDA scan is ordered for tomorrow. May consider surgery consult as well Pertinent that he is hemodynamically stable. He has positive hepatitis C IgG but states he is been treated and he is aware of this See diagnosis. Engagement Executive team on the case. Urine culture is growing Acinetobacter and his antibiotics was adjusted to cefepime, Levaquin could not be given because patient was and Atarax. Attacks is discontinued today. 12/02/2021 Patient is currently lying in the bed. Awake alert and oriented. Complaints of left elbow pain and not feeling well. No fever no chills. No cough or sputum production no nausea vomiting or abdominal pain or diarrhea.. Currently on room air. Laboratory showed sodium 128 potassium 3.8 chloride 87 bicarb is 32 BUN 59 and creatinine 1.19. Renal function is fairly stable. Patient is slightly hyperglycemic with blood sugar 251 this afternoon. Urinalysis is negative for infection. Patient is being continued dobutamine drip and also on metolazone. Current fluid restriction. Urine culture is growing Citrobacter. Cefepime has been discontinued and patient was started on ciprofloxacin. ID was consulted. Patient is also on prednisone increased to 30 mg daily for left elbow gouty arthritis arthritis. 12/03/2021 Patient is currently lying in the bed. No complaints of chest pain. Left elbow pain is better. No complaints of nausea or vomiting. Shortness of breath is improving and leg swelling improved as well. Patient is being continued on dobutamine drip and also on Bumex and metolazone. Nephrology and cardiology is on board. Laboratory data showed WBC 7.3 hemoglobin 11.3 and platelets 217 sodium 132 potassium 3.0 chloride 88 bicarb is 39 BUN 57 and creatinine 1.74. Potassium is being replaced. Patient is also on prednisone 30 mg daily for gouty arthritis flare. 12/04/2021 Patient is currently resting in the bed. Awake alert and oriented x3. Shortness of breath is much improved. Leg swelling is improved as well. Continued on dobutamine drip dobutamine drip and metolazone and Bumex. Blood pressure is low with SBP in upper 80s. Patient is being continued on prednisone for acute gouty arthritis pain. Labor atory showed sodium 129 potassium 3.7 chloride 87 bicarb 35 BUN 1053 and creatinine 1.64 WBC 7.0 hemoglobin 9.8 and platelets 217 blood sugar is better controlled. Cardiology and nephrology is on board. Current medications reviewed. Objective - Vital Signs Vital signs: Vital Signs Temp 98 F 12/04/21 16:00 Pulse 77 12/04/21 16:00 Resp 18 12/04/21 16:00 BP 109/74 12/04/21 16:00 Pulse Ox 96 12/04/21 16:00 Intake & Output 12/04/21 12/04/21 12/05/21 06:59 18:59 06:59 Output Total 1650 1800 1350 Balance -1650 -1800 -1350 Output: Urine 1650 1350 Stool 1800 Other: Voiding Method Indwelling Catheter Indwelling Catheter # Voids 0 - Exam - Exam GENERAL: The patient is alert and oriented x3, not in any acute distress. Well developed, well nourished. HEENT: Pupils are round and equally reacting to light. EOMI. No scleral icterus. No conjunctival pallor. Normocephalic, atraumatic. No pharyngeal erythema. No thyromegaly. CARDIOVASCULAR: S1 and S2 present. No murmurs, rubs, or gallops. -PULMONARY: Chest is clear to auscultation, no wheezing or. Bilateral basal crackles ABDOMEN: Soft, nontender, nondistended, normoactive bowel sounds. No palpable organomegaly. MUSCULOSKELETAL: No joint swelling or deformity. -EXTREMITIES: No cyanosis, clubbing, . Bilateral patellar like edema 1+. NEUROLOGICAL: Gross neurological examination did not reveal any focal deficits. Gait exam is deferred SKIN: No rashes. no petechiae. - Labs CBC & Chem 7: 12/05/21 07:13 12/05/21 07:13 Labs: Abnormal Lab Results - Last 24 Hours (Table) 03/12/04/21 12/04/21 Range/Units 06:26 07:32 07:32 Hgb 11.8 L (13.0-17.5) gm/dL MCH 23.8 L (25.0-35.0) pg MCHC 29.3 L (31.0-37.0) g/dL RDW 21.2 H (11.5-15.5) % Sodium 129 L (137-145) mmol/L Chloride 87 L (98-107) mmol/L Carbon Dioxide 35 H (22-30) mmol/L BUN 53 H (9-20) mg/dL Creatinine 1.64 H (0.66-1.25) mg/dL Glucose 100 H (74-99) mg/dL POC Glucose (mg/dL) 123 H (75-99) mg/dL 12/04/21 12/04/21 12/04/21 Range/Units 11:54 16:49 19:44 Hgb (13.0-17.5) gm/dL MCH (25.0-35.0) pg MCHC (31.0-37.0) g/dL RDW (11.5-15.5) % Sodium (137-145) mmol/L Chloride (98-107) mmol/L Carbon Dioxide (22-30) mmol/L BUN (9-20) mg/dL Creatinine (0.66-1.25) mg/dL Glucose (74-99) mg/dL POC Glucose (mg/dL) 277 H 345 H 331 H (75-99) mg/dL Assessment and Plan Assessment: Acute urinary tract infection , associated and related to indwelling Moy catheter. Urine culture is growing Citrobacter. Acute systolic and diastolic CHF with ejection fraction less than 20% and severe tricuspid regurgitation Severe hyperkalemia on admission, Improved Hypervolemic hyponatremia Acute gout attack with pain in his left elbow and bilateral feet joints, and elevated uric acid, started on prednisone Acute kidney injury, on chronic kidney disease. Possible cardiorenal. Chronic urinary retention status post indwelling Moy catheter chronic dizziness and lightheadedness, with chronic unsteady gait Elevated liver enzymes Normochromic, normocytic anemia Hyponatremia Questionable right lower lobe nodular opacity versus artifact, recommend follow- up Diabetes mellitus, with hypoglycemia on admission Hyperlipidemia Hypertension Nonischemic cardiomyopathy status post AICD, status post pacemaker Chronic kidney disease, stage III COPD, not in acute exacerbation History of bilateral glaucoma History of major depression, not in activation DVT prophylaxis on heparin subcu. Plan: This is a pleasant 56 years old male who presents with acute kidney injury, hyperkalemia, UTI, and review of his extensive cardiac disease and nonischemic cardiomyopathy Patient is being continued on dobutamine drip and metolazone, bumex. Nephrology and cardiology is on board. Monitor renal function. Lantus 25 units daily (was 50 at home ) and NovoLog 5 (was 15 units at home) with meals. and continue with insulin sliding scale. Hold jardians. Ultrasound of LIVER SHOWED POSSIBLE CHOLECYSTITIS. HIDA SCAN WAS DONE SHOWED NO EVIDENCE OF ACUTE CHOLECYSTITIS. SEEN BY GENERAL SURGERY. Labs and medication were reviewed. Monitor lytes and vitals. DVT and GI prophylaxis. DVT prophylaxis: Subcutaneous heparin GI Prophylaxis: Pepcid PT/OT: Pending Prognosis is guarded Time with Patient: Greater than 30
[2021-12-05 11:50] LABS: Glucose,Whole Blood 126 mg/dL (75-99)
--- NOTE | 2021-12-05 13:21 | P.PN ---
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 Follows with Dr. Elias Retinal Surgeon at the [facility]. We have been consulted for congestive heart failure and cardiomyopathy. Patient presents to the emergency department symptoms and shortness of breath that have been progressively worse with past 3 days. Echocardiogram revealed EF < 20%, mild to moderate mitral regurgitation, severe tricuspid regurgitation. Patient was admitted and started on IV Lasix 40 mg Q8hr per nephrology. 12/05/2021 Patient seen and examined at bedside, no acute distress. Patient is feel well, better today than yesterday. He appears comfortable on exam. No chest pain. No shortness of breath. No symptoms of orthopnea or PND. Patient with 4950mL over the past 24 hours. Meds: Dobutamine 360mL daily, PO Bumex 2mg BID, metolazone 5 mg twice a day. His blood pressure continues to be low. BP 100/69 Labs: Sodium 129, potassium 3.8, BUN 51, serum creatinine 1.66. PHYSICAL EXAMINATION Vital signs reviewed. CONSTITUTIONAL: No apparent distress. HEENT: Neck Supple. No JVD. No carotid bruit. CHEST EXAMINATION: Lungs clear bilaterally to auscultation. HEART EXAMINATION: Regular rate and rhythm. S1, S2 heard. Systolic ejection murmur at apex, No gallops or rub. ABDOMEN: Soft, distended. Positive bowel sounds. EXTREMITIES: 2+ peripheral pulses, trace lower extremity edema and no calf tenderness. NEUROLOGIC EXAMINATION: Patient is awake, alert and oriented x3. ASSESSMENT Acute on chronic heart failure with reduced ejection fraction, appears to be in refractory heart failure unable to tolerate heart failure regimen. Chronically elevated troponins, do not suspect primary myocardial infarction or acute coronary syndrome. No angina-type symptoms Acute on chronic kidney disease Nonischemic cardiomyopathy ejection fraction less than 20% Essential hypertension, borderline low on heart failure regimen Diabetes mellitus type 2 Hypokalemia PLAN Patient transitioned to Bumex per nephrology, continue PO Bumex Continue with dobutmine infusions daily Monitor I/Os, daily weights renal function and electrolytes while inpatient Patient appears to be in refractory heart failure and unable to tolerate heart failure regimen. Per patient he's been evaluated at [facility] and [facility] for an LVAD and transplant evaluation however he's been told that he is not a candidate for these therapies. Patient states he would like to be discharged today, from a cardiology perspective ok to discharge today on current regimen and close follow up outpatient. Prognosis is guarded. Nurse practitioner note has been reviewed by physician. Signing provider agrees with the documented findings, assessment, and plan of care. Objective - Vital Signs Vital signs: Vital Signs Temp 97.7 F 12/05/21 08:56 Pulse 102 H 12/05/21 08:56 Resp 18 12/05/21 08:56 BP 100/69 12/05/21 08:56 Pulse Ox 100 12/05/21 08:56 Intake & Output 12/04/21 12/05/21 12/05/21 18:59 06:59 18:59 Intake Total 214.356 260 Output Total 1800 3150 Balance -1800 -2935.644 260 Weight 87 kg Intake: Intake, IV Titration 214.356 Amount DOBUTamine DRIP 500 mg In 214.356 Dextrose/Water 1 250ml. bag @ 3.5 MCG/KG/MIN 7.43 mls/hr IV .Q24H [facility] Rx#: [id number] Oral 260 Output: Urine 1350 Stool 1800 1800 Other: Voiding Method Indwelling Catheter Indwelling Catheter Indwelling Catheter - Labs CBC & Chem 7: 12/05/21 07:13 12/05/21 07:13 Labs: Abnormal Lab Results - Last 24 Hours (Table) 12/04/21 12/04/21 12/05/21 Range/Units 16:49 19:44 06:14 Hgb (13.0-17.5) gm/dL MCH (25.0-35.0) pg MCHC (31.0-37.0) g/dL RDW (11.5-15.5) % Sodium (137-145) mmol/L Chloride (98-107) mmol/L Carbon Dioxide (22-30) mmol/L BUN (9-20) mg/dL Creatinine (0.66-1.25) mg/dL Glucose (74-99) mg/dL POC Glucose (mg/dL) 345 H 331 H 59 L (75-99) mg/dL 12/05/21 12/05/21 12/05/21 Range/Units 06:30 07:13 07:13 Hgb 11.8 L (13.0-17.5) gm/dL MCH 24.2 L (25.0-35.0) pg MCHC 29.5 L (31.0-37.0) g/dL RDW 20.9 H (11.5-15.5) % Sodium 129 L (137-145) mmol/L Chloride 86 L (98-107) mmol/L Carbon Dioxide 34 H (22-30) mmol/L BUN 51 H (9-20) mg/dL Creatinine 1.66 H (0.66-1.25) mg/dL Glucose 105 H (74-99) mg/dL POC Glucose (mg/dL) 58 L (75-99) mg/dL 12/05/21 Range/Units 11:48 Hgb (13.0-17.5) gm/dL MCH (25.0-35.0) pg MCHC (31.0-37.0) g/dL RDW (11.5-15.5) % Sodium (137-145) mmol/L Chloride (98-107) mmol/L Carbon Dioxide (22-30) mmol/L BUN (9-20) mg/dL Creatinine (0.66-1.25) mg/dL Glucose (74-99) mg/dL POC Glucose (mg/dL) 126 H (75-99) mg/dL
[2021-12-05 16:31] LABS: Glucose,Whole Blood 276 mg/dL (75-99)
--- NOTE | 2021-12-05 16:59 | P.PN ---
Subjective Progress Note Date: 12/05/21 Principal diagnosis: Acinetobacter urinary tract infection Patient is a 56-year-old male with a past medical history taken for coronary artery disease cardiomyopathy COPD in this patient did have urine retention requiring Moy catheter presenting to the hospital for evaluation of increasing shortness of breath patient also have a UA obtained with a culture subsequently came back positive for Acinetobacter. On today's evaluation that is 12/05/2021, the patient denies any fever or any chills, patient is breathing comfortably on room air, the patient denies any chest pain no abdominal pain and no diarrhea Objective - Vital Signs Vital signs: Vital Signs Temp 97.7 F 12/05/21 08:56 Pulse 102 H 12/05/21 08:56 Resp 18 12/05/21 08:56 BP 100/69 12/05/21 08:56 Pulse Ox 100 12/05/21 08:56 Intake & Output 12/04/21 12/05/21 12/05/21 18:59 06:59 18:59 Intake Total 214.356 260 Output Total 1800 3150 Balance -1800 -2935.644 260 Weight 87 kg Intake: Intake, IV Titration 214.356 Amount DOBUTamine DRIP 500 mg In 214.356 Dextrose/Water 1 250ml. bag @ 3.5 MCG/KG/MIN 7.43 mls/hr IV .Q24H [facility] Rx#: [id number] Oral 260 Output: Urine 1350 Stool 1800 1800 Other: Voiding Method Indwelling Catheter Indwelling Catheter Indwelling Catheter - Exam GENERAL DESCRIPTION: Middle-aged male lying in bed, no distress. No tachypnea or accessory muscle of respiration use. LUNGS: Unlabored breathing. Decreased breath sound at the base HEART: S1, S2, regular rate and rhythm. No loud murmur ABDOMEN: Soft, no tenderness , guarding or rigidity, no organomegaly EXTREMITIES: No edema of feet. - Labs CBC & Chem 7: 12/05/21 07:13 12/05/21 07:13 Labs: Abnormal Lab Results - Last 24 Hours (Table) 12/04/21 12/04/21 12/05/21 Range/Units 16:49 19:44 06:14 Hgb (13.0-17.5) gm/dL MCH (25.0-35.0) pg MCHC (31.0-37.0) g/dL RDW (11.5-15.5) % Sodium (137-145) mmol/L Chloride (98-107) mmol/L Carbon Dioxide (22-30) mmol/L BUN (9-20) mg/dL Creatinine (0.66-1.25) mg/dL Glucose (74-99) mg/dL POC Glucose (mg/dL) 345 H 331 H 59 L (75-99) mg/dL 12/05/21 12/05/21 12/05/21 Range/Units 06:30 07:13 07:13 Hgb 11.8 L (13.0-17.5) gm/dL MCH 24.2 L (25.0-35.0) pg MCHC 29.5 L (31.0-37.0) g/dL RDW 20.9 H (11.5-15.5) % Sodium 129 L (137-145) mmol/L Chloride 86 L (98-107) mmol/L Carbon Dioxide 34 H (22-30) mmol/L BUN 51 H (9-20) mg/dL Creatinine 1.66 H (0.66-1.25) mg/dL Glucose 105 H (74-99) mg/dL POC Glucose (mg/dL) 58 L (75-99) mg/dL 12/05/21 Range/Units 11:48 Hgb (13.0-17.5) gm/dL MCH (25.0-35.0) pg MCHC (31.0-37.0) g/dL RDW (11.5-15.5) % Sodium (137-145) mmol/L Chloride (98-107) mmol/L Carbon Dioxide (22-30) mmol/L BUN (9-20) mg/dL Creatinine (0.66-1.25) mg/dL Glucose (74-99) mg/dL POC Glucose (mg/dL) 126 H (75-99) mg/dL Assessment and Plan (1) UTI (urinary tract infection) Current Visit: Yes Status: Acute Code(s): N39.0 - URINARY TRACT INFECTION, SITE NOT SPECIFIED SNOMED Code(s): 17459159 Plan: 1patient with a positive urine culture showing Acinetobacter and this patient did have a positive UA however the patient did not have any fever or elevated white count could be a Moy colonization underlying mild cystitis not entirely excluded, The patient repeat UA was not significantly positive, patient to continue with Cipro 3 days to finish his course of therapy Time with Patient: Less than 30
[2021-12-05 20:16] LABS: Glucose,Whole Blood 307 mg/dL (75-99)
[2021-12-05] MEDS: FINASTERIDE 5 MG TAB PO SCH (21:49)
[2021-12-05] MEDS: TAMSULOSIN 0.4 MG CAP.ER.24H PO SCH (21:49)
[2021-12-06 06:16] LABS: Glucose,Whole Blood 177 mg/dL (75-99)
[2021-12-06] MEDS: INSULIN ASPART (NovoLOG) 100 UNIT/ML VIAL SQ SCH ×2 (07:08→07:09)
[2021-12-06] MEDS: DOBUTamine DRIP 500 MG in DEXTROSE/WATER 1 250ML.BAG IV SCH (07:10)
[2021-12-06 07:28] LABS: Anisocytosis Moderate; Basophils % (A) 0 %; Eosinophils # (A) 0.1 k/uL (0-0.7); Eosinophils % (A) 1 %; HCT 41.4 % (39.0-53.0); HGB 11.6 gm/dL (13.0-17.5); Hypochromasia Marked; Lymphocytes # (A) 1.5 k/uL (1.0-4.8); Lymphocytes % (A) 18 %; MCH 22.9 pg (25.0-35.0); MCHC 28.1 g/dL (31.0-37.0); MCV 81.6 fL (80.0-100.0); Mean Platelet Volume 7.5; Microcytosis Slight; Monocytes # (A) 0.6 k/uL (0-1.0); Monocytes % (A) 7 %; Neutrophils # (A) 6.1 k/uL (1.3-7.7); Neutrophils % (A) 72 %; Platelet Count 215 k/uL (150-450); Poikilocytosis Slight; RBC 5.07 m/uL (4.30-5.90); RDW 20.5 % (11.5-15.5); WBC 8.4 k/uL (3.8-10.6)
[2021-12-06 07:40] LABS: Calcium 8.8 mg/dL (8.4-10.2); Potassium 3.7 mmol/L (3.5-5.1)
[2021-12-06] MEDS: FLUTICASONE 110 MCG INHALER INHALATION SCH (08:29)
[2021-12-06] MEDS: INSULIN DETEMIR (LEVEMIR) 100 UNIT/ML SYR SQ SCH (08:38)
[2021-12-06] MEDS: HEPARIN SODIUM,PORCINE/PF 5,000 UNIT/0.5 ML SYRINGE SQ SCH (08:39)
[2021-12-06] MEDS: BRIMONIDINE TARTRATE 0.2% DROPS 5 ML BTL BOTH EYES SCH (08:40)
[2021-12-06] MEDS: metOLazone 5 MG TAB PO SCH (08:40)
[2021-12-06] MEDS: CIPROFLOXACIN HCL 250 MG TAB PO SCH (08:41)
[2021-12-06] MEDS: COLCHICINE 0.6 MG EACH PO SCH (08:41)
[2021-12-06] MEDS: MULTIVITAMINS, THERA 1 EACH TAB PO SCH (08:42)
[2021-12-06] MEDS: BUMETANIDE 1 MG TAB PO SCH (08:42)
[2021-12-06] MEDS: predniSONE 10 MG TAB PO SCH (08:42)
[2021-12-06] MEDS: FAMOTIDINE 20 MG TAB PO SCH (08:42)
[2021-12-06] MEDS: busPIRone HCl 5 MG TAB PO SCH (08:42)
[2021-12-06] MEDS: CLOTRIMAZOLE 1% CREAM 30 GM TUBE TOPICAL SCH (08:43)
[2021-12-06] MEDS: SODIUM CHLORIDE 0.65% NASAL SPRAY 44 ML BTL NASAL SCH (08:45)
[2021-12-06] MEDS ORDERED: POTASSIUM CHLORIDE ER 20 MEQ TAB.ER PO STA (09:44)
--- NOTE | 2021-12-06 09:44 | P.PN ---
Subjective Patient is seen in follow-up for acute kidney injury on chronic kidney disease. Renal function stable. Denies any active pain. Good urine output. No vomiting or diarrhea. No changes overnight. Plan for discharge home today. Vital signs are stable. General: Awake and alert. HEENT: Head exam is unremarkable. LUNGS: Breath sounds decreased. HEART: Rate and Rhythm are regular. ABDOMEN: Soft, no distention. EXTREMITITES: Trace edema. Chronic changes noted. Objective - Vital Signs Vital signs: Vital Signs Temp 96.2 F L 12/06/21 04:00 Pulse 106 H 12/06/21 04:00 Resp 18 12/06/21 04:00 BP 94/66 12/06/21 04:00 Pulse Ox 94 L 12/06/21 04:00 Intake & Output 12/05/21 12/06/21 12/06/21 18:59 06:59 18:59 Intake Total 1480 363.066 Output Total 3000 Balance 1480 -3000 363.066 Intake: Intake, IV Titration 245.066 Amount DOBUTamine DRIP 500 mg In 245.066 Dextrose/Water 1 250ml. bag @ 3.5 MCG/KG/MIN 7.43 mls/hr IV .Q24H [facility] Rx#: [id number] Oral 1480 118 Output: Urine 1200 Uretheral (Moy) 1200 Stool 1800 Other: Voiding Method Indwelling Catheter Indwelling Catheter - Labs CBC & Chem 7: 12/06/21 07:11 12/06/21 07:11 Labs: Abnormal Lab Results - Last 24 Hours (Table) 12/05/21 12/05/21 12/05/21 Range/Units 11:48 16:27 20:12 Hgb (13.0-17.5) gm/dL MCH (25.0-35.0) pg MCHC (31.0-37.0) g/dL RDW (11.5-15.5) % Sodium (137-145) mmol/L Chloride (98-107) mmol/L Carbon Dioxide (22-30) mmol/L BUN (9-20) mg/dL Creatinine (0.66-1.25) mg/dL Glucose (74-99) mg/dL POC Glucose (mg/dL) 126 H 276 H 307 H (75-99) mg/dL 12/06/21 12/06/21 12/06/21 Range/Units 06:12 07:11 07:11 Hgb 11.6 L (13.0-17.5) gm/dL MCH 22.9 L (25.0-35.0) pg MCHC 28.1 L (31.0-37.0) g/dL RDW 20.5 H (11.5-15.5) % Sodium 130 L (137-145) mmol/L Chloride 84 L (98-107) mmol/L Carbon Dioxide 38 H (22-30) mmol/L BUN 54 H (9-20) mg/dL Creatinine 1.67 H (0.66-1.25) mg/dL Glucose 156 H (74-99) mg/dL POC Glucose (mg/dL) 177 H (75-99) mg/dL Assessment and Plan Plan: Assessment: 1. Acute kidney injury mostly prerenal secondary to cardiorenal syndrome. UA benign. Improved. Renal function stable. Creatinine 1.67. 2. Chronic kidney disease stage IIIB with baseline creatinine in the range of 1.7-2.2 secondary to cardiorenal syndrome. 3. Acute on chronic systolic CHF with ejection fraction of 10-15%. 4. Hypervolemic hyponatremia. Better. Status post [facility] 12/02/2021. Stable. 5. Acute gout. Improved. No pain at this time. 6. UTI with urine culture positive for Acinetobacter on antibiotics. 7. Diabetes mellitus. 8. Hypokalemia from diuresis. Magnesium normal. Replaced. Plan: Maintain dobutamine and Bumex. Encouraged oral intake. Maintain low salt diet. He does not want fluid restriction. Patient states allopurinol doesn't work for gout prevention. Consider Uloric. Patient has been advised to follow a low-salt diet and 40 ounce fluid restriction per day upon discharge. He is advised to monitor his weight closely at home and to call if edema worsens or gains more than 3 pounds in 1 week duration. Follow up outpatient in 1 week. Repeat BMP and magnesium level 2-3 days postdischarge.
--- NOTE | 2021-12-06 11:22 | P.PN ---
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 Follows with Dr. Elias Hydraulic Governor Assembler at the [facility]. We have been consulted for congestive heart failure and cardiomyopathy. Patient presents to the emergency department symptoms and shortness of breath that have been progressively worse with past 3 days. Echocardiogram revealed EF < 20%, mild to moderate mitral regurgitation, severe tricuspid regurgitation. Patient was admitted and started on IV Lasix 40 mg Q8hr per nephrology. 12/06/2021 Patient seen and examined at bedside, no acute distress. Patient is feel well, better today than yesterday. He appears comfortable on exam. No chest pain. No shortness of breath. No symptoms of orthopnea or PND. Patient with good urine output 3000mL over the past 24 hours. Meds: Dobutamine 360mL daily, PO Bumex 2mg BID, metolazone 5 mg twice a day. His blood pressure continues to be low. BP 100/69 Labs: Sodium 130, potassium 3.7, BUN 54, serum creatinine 1.67. PHYSICAL EXAMINATION Vital signs reviewed. CONSTITUTIONAL: No apparent distress. HEENT: Neck Supple. No JVD. No carotid bruit. CHEST EXAMINATION: Lungs clear bilaterally to auscultation. HEART EXAMINATION: Regular rate and rhythm. S1, S2 heard. Systolic ejection murmur at apex, No gallops or rub. ABDOMEN: Soft, distended. Positive bowel sounds. EXTREMITIES: 2+ peripheral pulses, trace lower extremity edema and no calf tenderness. NEUROLOGIC EXAMINATION: Patient is awake, alert and oriented x3. ASSESSMENT Acute on chronic heart failure with reduced ejection fraction, appears to be in refractory heart failure unable to tolerate heart failure regimen. Chronically elevated troponins, do not suspect primary myocardial infarction or acute coronary syndrome. No angina-type symptoms Acute on chronic kidney disease Nonischemic cardiomyopathy ejection fraction less than 20% Essential hypertension, borderline low on heart failure regimen Diabetes mellitus type 2 Hypokalemia PLAN Patient transitioned to Bumex per nephrology, continue PO Bumex Continue with dobutmine infusions daily Monitor I/Os, daily weights renal function and electrolytes while inpatient Patient appears to be in refractory heart failure and unable to tolerate heart failure regimen. Per patient he's been evaluated at [facility] and [facility] for an LVAD and transplant evaluation however he's been told that he is not a candidate for these therapies. Patient states he would like to be discharged today, from a cardiology pe rspective ok to discharge today on current regimen and close follow up outpatient. Prognosis is guarded. Nurse practitioner note has been reviewed by physician. Signing provider agrees with the documented findings, assessment, and plan of care. Objective - Vital Signs Vital signs: Vital Signs Temp 97.4 F L 12/06/21 08:00 Pulse 101 H 12/06/21 08:00 Resp 16 12/06/21 08:00 BP 102/71 12/06/21 08:00 Pulse Ox 99 12/06/21 08:00 Intake & Output 12/05/21 12/06/21 12/06/21 18:59 06:59 18:59 Intake Total 1480 363.066 Output Total 3000 Balance 1480 -3000 363.066 Intake: Intake, IV Titration 245.066 Amount DOBUTamine DRIP 500 mg In 245.066 Dextrose/Water 1 250ml. bag @ 3.5 MCG/KG/MIN 7.43 mls/hr IV .Q24H [facility] Rx#: [id number] Oral 1480 118 Output: Urine 1200 Uretheral (Moy) 1200 Stool 1800 Other: Voiding Method Indwelling Catheter Indwelling Catheter Indwelling Catheter - Labs CBC & Chem 7: 12/06/21 07:11 12/06/21 07:11 Labs: Abnormal Lab Results - Last 24 Hours (Table) 12/05/21 12/05/21 12/05/21 Range/Units 11:48 16:27 20:12 Hgb (13.0-17.5) gm/dL MCH (25.0-35.0) pg MCHC (31.0-37.0) g/dL RDW (11.5-15.5) % Sodium (137-145) mmol/L Chloride (98-107) mmol/L Carbon Dioxide (22-30) mmol/L BUN (9-20) mg/dL Creatinine (0.66-1.25) mg/dL Glucose (74-99) mg/dL POC Glucose (mg/dL) 126 H 276 H 307 H (75-99) mg/dL 12/06/21 12/06/21 12/06/21 Range/Units 06:12 07:11 07:11 Hgb 11.6 L (13.0-17.5) gm/dL MCH 22.9 L (25.0-35.0) pg MCHC 28.1 L (31.0-37.0) g/dL RDW 20.5 H (11.5-15.5) % Sodium 130 L (137-145) mmol/L Chloride 84 L (98-107) mmol/L Carbon Dioxide 38 H (22-30) mmol/L BUN 54 H (9-20) mg/dL Creatinine 1.67 H (0.66-1.25) mg/dL Glucose 156 H (74-99) mg/dL POC Glucose (mg/dL) 177 H (75-99) mg/dL
[2021-12-06 11:48] LABS: Glucose,Whole Blood 195 mg/dL (75-99)
[2021-12-06 11:58] VITALS: BP 98/69; PULSE 107; RESP 18; TEMP 97.5
== END 2021-12-06 12:51 | disposition home or self-care (01) | DRG 698 ==
LOC: EC 18:17 → 3SCARD 21:39
PROVIDERS: ADMIT Internal Medicine; ATTEND Internal Medicine
DX: T83.511A Infection and inflammatory reaction due to indwelling urethral catheter, initial encounter (principal); I50.43 Acute on chronic combined systolic (congestive) and diastolic (congestive) heart failure; I13.0 Hypertensive heart and chronic kidney disease with heart failure and stage 1 through stage 4 chronic kidney disease, or unspecified chronic kidney disease; E87.1 Hypo-osmolality and hyponatremia; E87.2 Acidosis; N17.9 Acute kidney failure, unspecified; B15.9 Hepatitis A without hepatic coma; I42.0 Dilated cardiomyopathy; I42.8 Other cardiomyopathies; N39.0 Urinary tract infection, site not specified; I50.84 End stage heart failure; F41.9 Anxiety disorder, unspecified; F32.A Depression, unspecified; I08.1 Rheumatic disorders of both mitral and tricuspid valves; B19.20 Unspecified viral hepatitis C without hepatic coma; D63.1 Anemia in chronic kidney disease; E11.22 Type 2 diabetes mellitus with diabetic chronic kidney disease; E11.649 Type 2 diabetes mellitus with hypoglycemia without coma; E11.65 Type 2 diabetes mellitus with hyperglycemia; E78.5 Hyperlipidemia, unspecified; E87.5 Hyperkalemia; E87.6 Hypokalemia; Z79.01 Long term (current) use of anticoagulants; I25.10 Atherosclerotic heart disease of native coronary artery without angina pectoris; R62.7 Adult failure to thrive; J44.9 Chronic obstructive pulmonary disease, unspecified; M10.9 Gout, unspecified; R94.5 Abnormal results of liver function studies; M19.90 Unspecified osteoarthritis, unspecified site; N18.32 Chronic kidney disease, stage 3b; T50.2X5A Adverse effect of carbonic-anhydrase inhibitors, benzothiadiazides and other diuretics, initial encounter; Z79.4 Long term (current) use of insulin; Z79.51 Long term (current) use of inhaled steroids; Z79.82 Long term (current) use of aspirin; Z79.84 Long term (current) use of oral hypoglycemic drugs; Z79.899 Other long term (current) drug therapy; Z82.49 Family history of ischemic heart disease and other diseases of the circulatory system; Z83.3 Family history of diabetes mellitus; Z87.01 Personal history of pneumonia (recurrent); Z87.891 Personal history of nicotine dependence; Z95.810 Presence of automatic (implantable) cardiac defibrillator; Z98.890 Other specified postprocedural states; Z79.891 Long term (current) use of opiate analgesic; Z91.040 Latex allergy status
CPT/HCPCS: 36415; 71046; 76705; 76770; 78227; 80048; 80053; 80074; 80162; 81001; 82550; 82607; 82746; 83036; 83605; 83735; 83880; 83970; 84132; 84145; 84484; 84550; 85025; 85610; 85730; 87077; 87086; 87186; 93005; 93306; 94640; 94760; 96361; 96374; 96375; 99291

== ENCOUNTER → 2021-12-09 | Outpatient (CLI) | payer OTHER, MEDICARE ==
[2021-12-10 00:26] LABS: African American GFR (CKD) 37.1 (60.0-200.0); Anion Gap 18.6 mmol/L (10.00-18.00); BUN/Creat Ratio 28.45 Ratio (12.00-20.00); Blood Urea Nitrogen 62.3 mg/dL (9.0-27.0); Calcium 9.5 mg/dL (8.7-10.3); Carbon Dioxide 25.7 mmol/L (20.0-27.5); Potassium 4.2 mmol/L (3.5-5.5)
== END | disposition home or self-care (01) ==
LOC: LABWHC1 15:07
PROVIDERS: ATTEND Internal Medicine
DX: I50.9 Heart failure, unspecified (principal)
CPT/HCPCS: 36415; 80048

== ENCOUNTER 2021-12-10 19:08 | Observation (INO) | payer MEDICARE, OTHER ==
[2021-12-10] MEDS ORDERED: SODIUM CHLORIDE 0.9% 1,000 ML IV STA (20:19)
--- NOTE | 2021-12-10 20:20 | ED ---
General Adult HPI - General Chief complaint: Shortness of Breath Stated complaint: MARCO ANTONIO Time Seen by Provider: 12/10/21 19:43 Source: patient Mode of arrival: ambulatory Limitations: no limitations - History of Present Illness Initial comments: Dictation was produced using [employer] dictation software. please excuse any grammatical, word or spelling errors. Chief Complaint: 56-year-old male with history of 12% cardiac ejection fraction presents to the emergency department for shortness of breath. History of Present Illness: Patient is a 56-year-old male who states that his ejection fraction is around 12%. Patient has history of severe heart failure requiring IV medications administered through a PICC line help his heart. Zara ent states short of breath for the last several days. His national sales director is Dr. Leeanne sharif. Does have history of AICD placement. Denies any coughing. No chest pain. No leg swelling. Chart review shows that patient was admitted earlier this month by cardiology discharged per patient request. Patient allegedly not a candidate for a bad or heart transplant. The ROS documented in this emergency department record has been reviewed and confirmed by me. Those systems with pertinent positive or negative responses have been documented in the HPI. All other systems are other negative and/or noncontributory. PHYSICAL EXAM: General Impression: Alert and oriented x3, not in acute distress HEENT: Normocephalic atraumatic, extra-ocular movements intact, pupils equal and reactive to light bilaterally, mucous membranes moist. Cardiovascular: Heart regular rate and rhythm Chest: Able to complete full sentences, no retractions, no tachypnea Abdomen: abdomen soft, non-tender, non-distended, no organomegaly Musculoskeletal: Pulses present and equal in all extremities, no peripheral edema Motor: no focal deficits noted Neurological: CN II-XII grossly intact, no focal motor or sensory deficits noted Skin: Intact with no visualized rashes Psych: Normal affect and mood ED course: 56-year-old male presents to emergency room for shortness of breath. He has severe heart failure. Signs upon arrival shows heart rate of 113, worse vital signs within acceptable limits. Laboratory evaluation obtained. CBC within acceptable limits. Coag panel is negative. Sodium is 127 which is around his baseline. 3 markers are elevated 2.13 and BUN of 64. This is slightly above his baseline from previous admission. Rest of labs within acceptable limits. Brain natruretic peptide is 15,800. Patient reevaluated bedside. He started on IV fluids for treatment of tachycardia and borderline low blood pressure. Patient reevaluated bedside at 9:30 PM. He is not showing signs of respiratory distress. Appropriate bedside. However given patient's significant cardiac history patient will be admitted for medical monitoring. Case discussed with Brinda Chaudhari who is willing to accetp patient care on Behalf of [facility] hospitalist group. EKG interpretation: Ventricular rate 111, sinus tachycardia,. Interval 154, Q is 110, QTc 483. No WI prolongation, no QTC prolongation, no ST or T-wave changes noted. EKG compared to 11/27/2021 showing no changes. Overall, this EKG is unremarkable - Related Data Home Medications Medication Instructions Recorded Confirmed Albuterol Sulfate [Proair Hfa] 1 puff INHALATION RT-Q4H PRN 08/09/20 11/27/21 Brimonidine Tartrate [Alphagan P 1 drop BOTH EYES DAILY 11/29/20 11/27/21 0.2% Ophth Soln] Sodium Chloride 0.65% Nasal [Deep 2 spray NASAL QID 11/29/20 11/27/21 Sea (Saline)] Dextrose Chew [Glucose Chew Tab] 12 gm PO DAILY PRN 01/09/21 11/27/21 Finasteride [Proscar] 5 mg PO HS 01/09/21 11/27/21 Spironolactone [Aldactone] 12.5 mg PO DAILY 01/09/21 11/27/21 Tamsulosin HCl [Flomax] 0.4 mg PO HS 01/09/21 11/27/21 Acetaminophen Tab [Tylenol] 325 mg PO Q6H PRN 11/27/21 11/27/21 Beclomethasone Dip 80 Mcg/Puff 1 puff INHALATION RT-BID 11/27/21 11/27/21 [Qvar 80 mcg] Bumetanide [BUMEX] 2 mg PO BID@0900,1700 11/27/21 11/27/21 Clotrimazole 1% Cream 1 applic TOPICAL BID 11/27/21 11/27/21 Colchicine 0.6 mg PO DAILY 11/27/21 11/27/21 Dobutamine 360 mg IV DIRECTED 11/27/21 11/28/21 Empagliflozin [Jardiance] 25 mg PO DAILY 11/27/21 11/27/21 Magnesium 420mg 420 mg PO HS 11/27/21 11/27/21 Multivitamins, Thera [Multivitamin 1 tab PO DAILY 11/27/21 11/27/21 (formulary)] busPIRone HCL 15 mg PO DAILY 11/27/21 11/27/21 hydrOXYzine HCL [Atarax] 25 mg PO TID PRN 11/27/21 11/27/21 metOLazone [Zaroxolyn] 5 mg PO BID 11/27/21 11/27/21 methocarbamoL [Robaxin] 750 mg PO TID PRN 11/27/21 11/27/21 oxyCODONE HCL [OxyIR] 10 mg PO BID 11/27/21 11/27/21 traMADol HCL 50 mg PO QID PRN 11/27/21 11/27/21 Previous Rx's Medication Instructions Recorded Ciprofloxacin HCl [Cipro] 250 mg PO BID 3 Days #6 tab 12/06/21 INSULIN ASPART (NovoLOG) [NovoLOG 5 unit SQ AC-TID ml 12/06/21 (formulary)] Insulin Detemir (Levemir) [Levemir] 25 unit SQ DAILY@0700 ml 12/06/21 Potassium Chloride ER [K-Dur 20] 40 meq PO DAILY #0 12/06/21 predniSONE See Taper PO DIRECTED #9 tab 12/06/21 Allergies Allergy/AdvReac Type Severity Reaction Status Date / Time latex AdvReac Rash/Hives Verified 12/10/21 19:22 Review of Systems ROS Statement: Those systems with pertinent positive or pertinent negative responses have been documented in the HPI. ROS Other: All systems not noted in ROS Statement are negative. Past Medical History Past Medical History: Coronary Artery Disease (CAD), Heart Failure, COPD, Diabetes Mellitus, Eye Disorder, Prostate Disorder, Renal Disease Additional Past Medical History / Comment(s): Hereditary nonischemic cardiomyop athy/ has AICD/pacer, has thrombus R atrial AICD lead, chronic CHF, IDDM type II, neuropathy bilateral feet and pt states he has not been able to stand d/t pain, palpitations, BPH, recent IDC pt states d/t unablilty to void, CKD stage III, gout bilateral feet and L elbow, chronic pain, History of Any Multi-Drug Resistant Organisms: None Reported Past Surgical History: AICD, Heart Catheterization, Pacemaker Additional Past Surgical History / Comment(s): 10/2012 pacer/defibrillator, picc line double lumen R arm. Past Anesthesia/Blood Transfusion Reactions: No Reported Reaction Additional Past Anesthesia/Blood Transfusion Reaction / Comment(s): Pt has recieved blood in the past without reaction. Type of Cardiac Device: Permanent Pacemaker, AICD Device Placement Date:: 10/2012 Past Psychological History: Anxiety, Depression Smoking Status: Former smoker Past Alcohol Use History: None Reported Past Drug Use History: None Reported - Past Family History Father Family Medical History: Diabetes Mellitus Additional Family Medical History / Comment(s): Father had cardiomyopathy. He is . Mother Family Medical History: Hypertension Brother(s) Additional Family Medical History / Comment(s): Cardiomyopathy with heart transplant. General Exam Limitations: no limitations Course Vital Signs 12/10/21 19:19 Temperature 98.2 F Pulse Rate 113 H Respiratory 20 Rate Blood Pressure 95/67 O2 Sat by Pulse 100 Oximetry Medical Decision Making - Lab Data Result diagrams: 12/10/21 20:44 12/10/21 20:44 Lab Results 12/10/21 12/10/21 12/10/21 Range/Units 20:44 20:44 20:44 WBC 11.4 H (3.8-10.6) k/uL RBC 5.78 (4.30-5.90) m/uL Hgb 13.8 (13.0-17.5) gm/dL Hct 45.1 (39.0-53.0) % MCV 78.0 L (80.0-100.0) fL MCH 23.9 L (25.0-35.0) pg MCHC 30.7 L (31.0-37.0) g/dL RDW 21.2 H (11.5-15.5) % Plt Count 298 (150-450) k/uL MPV 8.0 Neutrophils % 84 % Lymphocytes % 9 % Monocytes % 4 % Eosinophils % 0 % Basophils % 0 % Neutrophils # 9.6 H (1.3-7.7) k/uL Lymphocytes # 1.1 (1.0-4.8) k/uL Monocytes # 0.5 (0-1.0) k/uL Eosinophils # 0.0 (0-0.7) k/uL Basophils # 0.0 (0-0.2) k/uL Hypochromasia Marked Poikilocytosis Slight Anisocytosis Moderate Microcytosis Moderate PT 12.9 H (9.0-12.0) sec INR 1.2 H (<1.2) APTT 23.6 (22.0-30.0) sec Sodium 127 L (137-145) mmol/L Potassium 4.0 (3.5-5.1) mmol/L Chloride 83 L (98-107) mmol/L Carbon Dioxide 26 (22-30) mmol/L Anion Gap 18 mmol/L BUN 64 H (9-20) mg/dL Creatinine 2.13 H (0.66-1.25) mg/dL Est GFR (CKD-EPI)AfAm 38 (>60 ml/min/1.73 sqM) Est GFR (CKD-EPI)NonAf 33 (>60 ml/min/1.73 sqM) Glucose 265 H (74-99) mg/dL Plasma Lactic Acid Grover (0.7-2.0) mmol/L Calcium 9.2 (8.4-10.2) mg/dL Magnesium 2.7 H (1.6-2.3) mg/dL Total Bilirubin 2.0 H (0.2-1.3) mg/dL AST 33 (17-59) U/L ALT 31 (4-49) U/L Alkaline Phosphatase 142 H (38-126) U/L NT-Pro-B Natriuret Pep pg/mL Total Protein 8.1 (6.3-8.2) g/dL Albumin 4.7 (3.5-5.0) g/dL 12/10/21 12/10/21 Range/Units 20:44 20:44 WBC (3.8-10.6) k/uL RBC (4.30-5.90) m/uL Hgb (13.0-17.5) gm/dL Hct (39.0-53.0) % MCV (80.0-100.0) fL MCH (25.0-35.0) pg MCHC (31.0-37.0) g/dL RDW (11.5-15.5) % Plt Count (150-450) k/uL MPV Neutrophils % % Lymphocytes % % Monocytes % % Eosinophils % % Basophils % % Neutrophils # (1.3-7.7) k/uL Lymphocytes # (1.0-4.8) k/uL Monocytes # (0-1.0) k/uL Eosinophils # (0-0.7) k/uL Basophils # (0-0.2) k/uL Hypochromasia Poikilocytosis Anisocytosis Microcytosis PT (9.0-12.0) sec INR (<1.2) APTT (22.0-30.0) sec Sodium (137-145) mmol/L Potassium (3.5-5.1) mmol/L Chloride (98-107) mmol/L Carbon Dioxide (22-30) mmol/L Anion Gap mmol/L BUN (9-20) mg/dL Creatinine (0.66-1.25) mg/dL Est GFR (CKD-EPI)AfAm (>60 ml/min/1.73 sqM) Est GFR (CKD-EPI)NonAf (>60 ml/min/1.73 sqM) Glucose (74-99) mg/dL Plasma Lactic Acid Grover 1.8 (0.7-2.0) mmol/L Calcium (8.4-10.2) mg/dL Magnesium (1.6-2.3) mg/dL Total Bilirubin (0.2-1.3) mg/dL AST (17-59) U/L ALT (4-49) U/L Alkaline Phosphatase (38-126) U/L NT-Pro-B Natriuret Pep 94420 pg/mL Total Protein (6.3-8.2) g/dL Albumin (3.5-5.0) g/dL Disposition Clinical Impression: Dyspnea Disposition: ADMITTED IP TO THIS HOSP Condition: Fair Referrals: [facility] [Primary Care Provider] - 1-2 days
[2021-12-10 20:54] LABS: Anisocytosis Moderate; Basophils % (A) 0 %; Eosinophils % (A) 0 %; HCT 45.1 % (39.0-53.0); HGB 13.8 gm/dL (13.0-17.5); Hypochromasia Marked; Lymphocytes # (A) 1.1 k/uL (1.0-4.8); Lymphocytes % (A) 9 %; MCH 23.9 pg (25.0-35.0); MCHC 30.7 g/dL (31.0-37.0); Microcytosis Moderate; Monocytes # (A) 0.5 k/uL (0-1.0); Monocytes % (A) 4 %; Neutrophils # (A) 9.6 k/uL (1.3-7.7); Neutrophils % (A) 84 %; Platelet Count 298 k/uL (150-450); Poikilocytosis Slight; RBC 5.78 m/uL (4.30-5.90); RDW 21.2 % (11.5-15.5); WBC 11.4 k/uL (3.8-10.6)
[2021-12-10 21:03] LABS: Albumin 4.7 g/dL (3.5-5.0); Calcium 9.2 mg/dL (8.4-10.2); Magnesium 2.7 mg/dL (1.6-2.3); Total Protein 8.1 g/dL (6.3-8.2)
[2021-12-10 21:04] LABS: INR 1.2 (<1.2); Partial Thromboplastin Time 23.6 sec (22.0-30.0); Prothrombin Time 12.9 sec (9.0-12.0)
--- NOTE | 2021-12-10 21:13 | XR ---
EXAMINATION TYPE: XR chest 2V DATE OF EXAM: 12/10/2021 9:01 PM COMPARISON: Chest radiograph 12/07/2021, CT chest 10/04/2020. TECHNIQUE: XR chest 2V Frontal and lateral views of the chest. CLINICAL INDICATION:Male, 56 years old with history of dyspnea; FINDINGS: Lungs/Pleura: There is no evidence of pleural effusion, focal consolidation, or pneumothorax. Pulmonary vascularity: Unremarkable. Heart/mediastinum: Cardiomediastinal silhouette is enlarged and stable. Single-lead cardiac conduct ion device overlying the left hemithorax with lead projecting over the right ventricle. Musculoskeletal: No acute osseous pathology. Deformity of the right chest wall as seen on prior's. Other findings: Tubing projecting over the heart is new from prior. Lines/Tubes: Right-sided PICC line with distal tip at the cavoatrial junction. IMPRESSION: 1. No acute cardiopulmonary disease/process. 2. Persistent cardiomegaly. 3. New catheter-like density projecting over the heart, this is no definitively visualized on latera l view and likely outside the patient. Attention on follow-up imaging 4. Right PICC with distal tip in appropriate position.
[2021-12-10] MEDS ORDERED: NALOXONE 0.4 MG/ML 1 ML VIAL IV PRN (21:26)
[2021-12-10] MEDS ORDERED: SODIUM CHLORIDE 0.9% 1,000 ML IV SCH (21:30)
[2021-12-10 21:38] VITALS: RESP 18
[2021-12-11] MEDS ORDERED: diphenhydrAMINE 50 MG/ML 1 ML VIAL IVP STA (02:07)
[2021-12-11 07:29] LABS: Glucose,Whole Blood 127 mg/dL (75-99)
[2021-12-11] MEDS ORDERED: diphenhydrAMINE 25 MG CAP PO PRN (09:58)
--- NOTE | 2021-12-11 10:12 | P.CRDCN ---
History of Present Illness History of present illness: Patient is a pleasant 56-year-old male with history of nonischemic cardiomyopathy (known EF <20%), AICD placement, chronic heart failure with reduced EF, diabetes mellitus type 2, COPD, history of questionable thrombus attached to right atrial lead and treated with anticoagulation, COPD, CKD. Follows with Dr. [facility] at [facility]. We have been consulted for congestive heart failure. Patient presents to the emergency department with symptoms of shortness of breath for the past few days since discharge. Patient was recently admitted from 11/27/21-12/06/21 for congestive heart failure. He was followed by cardiology and nephrology and was diuresed with IV Lasix and transitioned to PO Bumex. He diuresed well. He was stable for discharge and requested to go home. Patient was unable to tolerate ACEI or beta star due to hypotension. He denies any chest pain, palpititations, lightheadedness or dizziness. DIAGNOSTICS: EKG sinus tachycardia, occasional PVCs, heart rate 111, no acute ST-T wave abnormalities, prior EKG was similar findings Echocardiogram 11/28/21 revealed EF < 20%, mild to moderate mitral regurgitation, severe tricuspid regurgitation. Chest x-ray with no acute cardiopulmonary process, persistent cardiomegaly, right PICC noted Labs, sodium 127, potassium 4.0, BUN 63, serum creatinine 2.1, magnesium 2.7, troponin 0.04, proBNP 15,800, WBC 11.4, hemoglobin 13.8, platelets 298 Current home medications include spironolactone 12.5 mg daily, dobutamine 360 mg IV, Bumex 2 mg twice a day REVIEW OF SYSTEMS At the time of my exam: CONSTITUTIONAL: Denies fever or chills. CARDIOVASCULAR: Denies chest pain, +shortness of breath, orthopnea, PND or palpitations. RESPIRATORY: Denies cough. GASTROINTESTINAL: Denies abdominal pain, diarrhea, constipation, nausea or vomiting. MUSCULOSKELETAL: Denies myalgias. NEUROLOGIC: Denies numbness, tingling, headacbe or weakness. ENDOCRINE: Denies fatigue, weight change, polydipsia or polyurina. GENITOURINARY: Denies burning, hematuria or urgency with micturation. HEMATOLOGIC: Denies history of anemia or bleeding. PHYSICAL EXAMINATION Vital signs reviewed. CONSTITUTIONAL: No apparent distress. HEENT: Head is normocephalic. Pupils are equal, round. Sclerae anicteric. Neck Supple. No JVD. No carotid bruit. CHEST EXAMINATION: Lungs clear bilaterally to auscultation. No chest wall tenderness is noted on palpation or with deep breathing. HEART EXAMINATION: Regular rate and rhythm. S1, S2 heard. Systolic ejection murmur at apex, No gallops or rub. ABDOMEN: Soft, distended. Positive bowel sounds. EXTREMITIES: 2+ peripheral pulses, trace lower extremity edema and no calf tenderness. NEUROLOGIC EXAMINATION: Patient is awake, alert and oriented x3. ASSESSMENT Chronic heart failure with reduced ejection fraction, and has not been able to tolerate heart failure regimen. Chronically elevated troponins, do not suspect primary myocardial infarction or acute coronary syndrome. No angina-type symptoms Chronic kidney disease Nonischemic cardiomyopathy ejection fraction less than 20% Essential hypertension, borderline low on heart failure regimen Diabetes mellitus type 2 Hypokalemia PLAN From a cardiology perspective, patient does not appear to be in acute heart failure at this time. Monitor I/Os, daily weights renal function and electrolytes while inpatient Per patient he's been evaluated at [facility] and [facility] for an LVAD and transplant evaluation however he's been told that he is not a candidate for these therapies. Further recommendations based on clinical course Nurse practitioner note has been reviewed by physician. Signing provider agrees with the documented findings, assessment, and plan of care. Past Medical History Past Medical History: Coronary Artery Disease (CAD), Heart Failure, COPD, Diabetes Mellitus, Eye Disorder, Prostate Disorder, Renal Disease Additional Past Medical History / Comment(s): 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 Past Anesthesia/Blood Transfusion Reactions: No Reported Reaction Additional Past Anesthesia/Blood Transfusion Reaction / Comment(s): Pt has recieved blood in the past without reaction. Type of Cardiac Device: Permanent Pacemaker, AICD Device Placement Date:: 10/2012 Past Psychological History: Anxiety, Depression Smoking Status: Former smoker Past Alcohol Use History: None Reported Past Drug Use History: None Reported - Past Family History Father Family Medical History: Diabetes Mellitus Additional Family Medical History / Comment(s): Father had cardiomyopathy. He is . Mother Family Medical History: Hypertension Brother(s) Additional Family Medical History / Comment(s): Cardiomyopathy with heart transplant. Medications and Allergies Home Medications Medication Instructions Recorded Confirmed Type Albuterol Sulfate [Proair Hfa] 1 puff INHALATION RT-Q4H PRN 08/09/20 12/10/21 History Brimonidine Tartrate [Alphagan P 1 drop BOTH EYES DAILY@89911/29/20 12/10/21 History 0.2% Ophth Soln] Sodium Chloride 0.65% Nasal [Deep 2 spray NASAL QID 11/29/20 12/10/21 History Sea (Saline)] Dextrose Chew [Glucose Chew Tab] 12 gm PO DAILY PRN 01/09/21 12/10/21 History Finasteride [Proscar] 5 mg PO HS@209901/09/21 12/10/21 History Spironolactone [Aldactone] 12.5 mg PO DAILY@89901/09/21 12/10/21 History Tamsulosin HCl [Flomax] 0.4 mg PO HS@209901/09/21 12/10/21 History Acetaminophen Tab [Tylenol] 325 mg PO Q6H PRN 11/27/21 12/10/21 History Beclomethasone Dip 80 Mcg/Puff 1 puff INHALATION RT-BID@899,209911/27/21 12/10/21 History [Qvar 80 mcg] Bumetanide [BUMEX] 2 mg PO BID@0900,1700 11/27/21 12/10/21 History Clotrimazole 1% Cream 1 applic TOPICAL BID@899,209911/27/21 12/10/21 History Colchicine 0.6 mg PO DAILY@89911/27/21 12/10/21 History Dobutamine 360 mg IV DIRECTED 11/27/21 12/10/21 History Empagliflozin [Jardiance] 25 mg PO DAILY@89911/27/2122 History Magnesium 420mg 420 mg PO HS@2100 11/27/21 12/10/21 History Multivitamins, Thera [Multivitamin 1 tab PO DAILY@0900 11/27/21 12/10/21 History (formulary)] busPIRone HCL 15 mg PO DAILY@0900 11/27/21 12/10/21 History hydrOXYzine HCL [Atarax] 25 mg PO TID 11/27/21 12/10/21 History metOLazone [Zaroxolyn] 5 mg PO BID@0900,1700 11/27/21 12/10/21 History methocarbamoL [Robaxin] 750 mg PO TID PRN 11/27/21 12/10/21 History oxyCODONE HCL [OxyIR] 10 mg PO BID@0900,2100 11/27/21 12/10/21 History traMADol HCL 50 mg PO QID PRN 11/27/21 12/10/21 History INSULIN ASPART (NovoLOG) [NovoLOG 5 unit SQ AC-TID ml 12/06/21 12/10/21 Rx (formulary)] Insulin Detemir (Levemir) [Levemir] 25 unit SQ DAILY@0700 ml 12/06/21 12/10/21 Rx Potassium Chloride ER [K-Dur 20] 40 meq PO DAILY #0 12/06/21 12/10/21 Rx predniSONE See Taper PO DIRECTED #9 tab 12/06/21 12/10/21 Rx Allergies Allergy/AdvReac Type Severity Reaction Status Date / Time latex AdvReac Rash/Hives Verified 12/10/21 21:58 Physical Exam Vitals: Vital Signs Temp Pulse Resp BP Pulse Ox 12/11/21 06:45 97 18 93/66 95 12/11/21 05:00 99 18 93/62 97 12/11/21 03:29 109 H 18 112/84 97 12/11/21 00:00 102 H 18 111/78 98 12/10/21 23:37 108 H 18 117/87 98 12/10/21 21:37 101 H 18 108/86 97 12/10/21 19:19 98.2 F 113 H 20 95/67 100 Intake and Output 12/10/21 12/11/21 12/11/21 22:59 06:59 14:59 Other: Weight 69.853 kg Results 12/10/21 20:44 12/10/21 20:44 Cardiac Enzymes 12/10/21 12/10/21 Range/Units 20:44 20:44 AST 33 (17-59) U/L Troponin I 0.043 H* (0.000-0.034) ng/mL Coagulation 12/10/21 Range/Units 20:44 PT 12.9 H (9.0-12.0) sec APTT 23.6 (22.0-30.0) sec CBC 12/10/21 Range/Units 20:44 WBC 11.4 H (3.8-10.6) k/uL RBC 5.78 (4.30-5.90) m/uL Hgb 13.8 (13.0-17.5) gm/dL Hct 45.1 (39.0-53.0) % Plt Count 298 (150-450) k/uL Comprehensive Metabolic Panel 12/10/21 Range/Units 20:44 Sodium 127 L (137-145) mmol/L Potassium 4.0 (3.5-5.1) mmol/L Chloride 83 L (98-107) mmol/L Carbon Dioxide 26 (22-30) mmol/L BUN 64 H (9-20) mg/dL Creatinine 2.13 H (0.66-1.25) mg/dL Glucose 265 H (74-99) mg/dL Calcium 9.2 (8.4-10.2) mg/dL AST 33 (17-59) U/L ALT 31 (4-49) U/L Alkaline Phosphatase 142 H (38-126) U/L Total Protein 8.1 (6.3-8.2) g/dL Albumin 4.7 (3.5-5.0) g/dL Current Medications Generic Name Dose Route Start Last Admin Trade Name Freq PRN Reason Stop Dose Admin Sodium Chloride 1,000 mls @ 20 mls/hr 12/10/21 21:30 12/11/21 02:20 Saline 0.9% IV 20 mls/hr .Q24H YASMANI Administration Naloxone HCl 0.2 mg 12/10/21 21:26 Naloxone 0.4 Mg/Ml 1 Ml Vial IV Q2M PRN Opioid Reversal Intake and Output 12/10/21 12/11/21 12/11/21 22:59 06:59 14:59 Other: Weight 69.853 kg 12/10/21 20:44 12/10/21 20:44
[2021-12-11] MEDS ORDERED: DOBUTAMINE IV SCH (10:15)
[2021-12-11] MEDS ORDERED: ACETAMINOPHEN TAB 325 MG TAB PO PRN (11:09)
[2021-12-11] MEDS ORDERED: ALBUTEROL HFA INHALER INHALATION PRN (11:09)
[2021-12-11] MEDS ORDERED: traMADol 50 MG TAB PO PRN (11:09)
[2021-12-11] MEDS ORDERED: FUROSEMIDE 10 MG/ML 10 ML VIAL IV STA (11:56)
[2021-12-11] MEDS ORDERED: BUMETANIDE 1 MG TAB PO SCH (12:00)
[2021-12-11 12:01] LABS: Glucose,Whole Blood 152 mg/dL (75-99)
--- NOTE | 2021-12-11 12:03 | P.DS ---
Providers Date of admission: 12/10/21 21:26 Attending physician: Rosalinda Mccarthy Consults: 12/10/21 21:27 Consult Physician Routine Consulting Provider: Chan Fallon Consult Reason/Comments: heart failure Do you want consulting provider notified?: Yes Primary care physician: [facility] Hospital Course: Please refer to history of present illness for further details Patient Condition at Discharge: Fair Plan - Discharge Summary Discharge Rx Participant: No New Discharge Prescriptions: No Action Albuterol Sulfate [Proair Hfa] 1 puff INHALATION RT-Q4H PRN PRN Reason: Shortness Of Breath Sodium Chloride 0.65% Nasal [Deep Sea (Saline)] 2 spray NASAL QID Brimonidine Tartrate [Alphagan P 0.2% Ophth Soln] 1 drop BOTH EYES DAILY@0900 Dextrose Chew [Glucose Chew Tab] 12 gm PO DAILY PRN PRN Reason: low blood sugar Spironolactone [Aldactone] 12.5 mg PO DAILY@0900 methocarbamoL [Robaxin] 750 mg PO TID PRN PRN Reason: Muscle Pain Magnesium 420mg 420 mg PO HS@2100 hydrOXYzine HCL [Atarax] 25 mg PO TID Clotrimazole 1% Cream 1 applic TOPICAL BID@0900,2100 Beclomethasone Dip 80 Mcg/Puff [Qvar 80 mcg] 1 puff INHALATION RT- BID@0900,2100 metOLazone [Zaroxolyn] 5 mg PO BID@0900,1700 Bumetanide [BUMEX] 2 mg PO BID@0900,1700 Dobutamine 360 mg IV DIRECTED Insulin Detemir (Levemir) [Levemir] 25 unit SQ DAILY@0700 ml predniSONE See Taper PO DIRECTED #9 tab Tamsulosin HCl [Flomax] 0.4 mg PO HS@2100 Finasteride [Proscar] 5 mg PO HS@2100 Multivitamins, Thera [Multivitamin (formulary)] 1 tab PO DAILY@0900 Empagliflozin [Jardiance] 25 mg PO DAILY@0900 busPIRone HCL 15 mg PO DAILY@0900 Acetaminophen Tab [Tylenol] 325 mg PO Q6H PRN PRN Reason: Pain traMADol HCL 50 mg PO QID PRN PRN Reason: Pain Colchicine 0.6 mg PO DAILY@0900 oxyCODONE HCL [OxyIR] 10 mg PO BID@899,2099 INSULIN ASPART (NovoLOG) [NovoLOG (formulary)] 5 unit SQ AC-TID ml Potassium Chloride ER [K-Dur 20] 40 meq PO DAILY #0 Discharge Medication List Albuterol Sulfate [Proair Hfa] 1 puff INHALATION RT-Q4H PRN 08/09/20 [History] Brimonidine Tartrate [Alphagan P 0.2% Ophth Soln] 1 drop BOTH EYES DAILY@89911/29/20 [History] Sodium Chloride 0.65% Nasal [Deep Sea (Saline)] 2 spray NASAL QID 11/29/20 [History] Dextrose Chew [Glucose Chew Tab] 12 gm PO DAILY PRN 01/09/21 [History] Finasteride [Proscar] 5 mg PO HS@209901/09/21 [History] Spironolactone [Aldactone] 12.5 mg PO DAILY@89901/09/21 [History] Tamsulosin HCl [Flomax] 0.4 mg PO HS@209901/09/21 [History] Acetaminophen Tab [Tylenol] 325 mg PO Q6H PRN 11/27/21 [History] Beclomethasone Dip 80 Mcg/Puff [Qvar 80 mcg] 1 puff INHALATION RT-BID@899,209911/27/21 [History] Bumetanide [BUMEX] 2 mg PO BID@0900,1700 11/27/21 [History] Clotrimazole 1% Cream 1 applic TOPICAL BID@899,209911/27/21 [History] Colchicine 0.6 mg PO DAILY@89911/27/21 [History] Dobutamine 360 mg IV DIRECTED 11/27/21 [History] Empagliflozin [Jardiance] 25 mg PO DAILY@89911/27/21 [History] Magnesium 420mg 420 mg PO HS@209911/27/21 [History] Multivitamins, Thera [Multivitamin (formulary)] 1 tab PO DAILY@89911/27/21 [History] busPIRone HCL 15 mg PO DAILY@89911/27/21 [History] hydrOXYzine HCL [Atarax] 25 mg PO TID 11/27/21 [History] metOLazone [Zaroxolyn] 5 mg PO BID@00,1700 11/27/21 [History] methocarbamoL [Robaxin] 750 mg PO TID PRN 11/27/21 [History] oxyCODONE HCL [OxyIR] 10 mg PO BID@0900,2100 11/27/21 [History] traMADol HCL 50 mg PO QID PRN 11/27/21 [History] INSULIN ASPART (NovoLOG) [NovoLOG (formulary)] 5 unit SQ AC-TID ml 12/06/21 [Rx] Insulin Detemir (Levemir) [Levemir] 25 unit SQ DAILY@0700 ml 12/06/21 [Rx] Potassium Chloride ER [K-Dur 20] 40 meq PO DAILY #0 12/06/21 [Rx] predniSONE See Taper PO DIRECTED #9 tab 12/06/21 [Rx] Follow up Appointment(s)/Referral(s): Infusion Services,[facility] Specialty [REFERRING] - [facility],Home Care [NON-STAFF] - [facility],Clinic [Primary Care Provider] - 1-2 days Ambulatory/Diagnostic Orders: Basic Metabolic Panel [LAB.AMB] Time Frame: 3 Days, Location: None Selected Patient Instructions/Handouts: Dyspnea (DC)
--- NOTE | 2021-12-11 12:03 | P.HPIM ---
History of Present Illness 56-year-old male with history of ischemic cardiomyopathy of less than 15% on a continuous dobutamine drip at home and in AICD not a candidate for heart transplant or LVAD for which patient was assessed in the past was recently disch arged from Hospital comes back again with the main complaints of itching everywhere patient does have dry skin is also having shortness of breath on and off no significant orthopnea paroxysmal assessment dyspnea. Patient is on Bumex and Aldactone. Patient is also be hyponatremic. Patient had elevated BNP of 15,000 the 500 which is same as his last hospitalization when he was failure to clinically patient doesn't have any significant JVD, chest x-ray did not show any pulmonary edema or pedal edema. Patient follows up with the cardiology at the [facility]. REVIEW OF SYSTEMS: CONSTITUTIONAL: No fever, no malaise, no fatigue. HEENT: No recent visual problems or hearing problems. Denied any sore throat. CARDIOVASCULAR: No chest pain, orthopnea, PND, no palpitations, no syncope. PULMONARY: no cough, no hemoptysis. GASTROINTESTINAL: No diarrhea, no nausea, no vomiting, no abdominal pain. NEUROLOGICAL: No headaches, no weakness, no numbness. HEMATOLOGICAL: Denies any bleeding or petechiae. GENITOURINARY: Denies any burning micturition, frequency, or urgency. MUSCULOSKELETAL/RHEUMATOLOGICAL: Denies any joint pain, swelling, or any muscle pain. ENDOCRINE: Denies any polyuria or polydipsia. The rest of the 14-point review of systems is negative. PHYSICAL EXAMINATION: GENERAL: The patient is alert and oriented x3, not in any acute distress. Well developed, well nourished. HEENT: Pupils are round and equally reacting to light. EOMI. No scleral icterus. No conjunctival pallor. Normocephalic, atraumatic. No pharyngeal erythema. No thyromegaly. CARDIOVASCULAR: S1 and S2 present. No murmurs, rubs, or gallops. PULMONARY: Chest is clear to auscultation, no wheezing or crackles. ABDOMEN: Soft, nontender, nondistended, normoactive bowel sounds. No palpable organomegaly. MUSCULOSKELETAL: No joint swelling or deformity. EXTREMITIES: No cyanosis, clubbing, or pedal edema. NEUROLOGICAL: Gross neurological examination did not reveal any focal deficits. SKIN: Dry skin Assessment and plan -On and off shortness of breath probably because of his very poor ejection fraction although patient may be in mild acute heart failure all given 1 dose of IV Lasix basic metabolic profile will be repeated in couple days and patient will be discharged today. Patient will be resumed on his home dose of diuretics and Bumex no further recommendations from a cardiology patient has mildly elevated troponin this is secondary to chronic kidney disease and chronic congestive heart failure. -Itching secondary to dry skin patient was advised to apply lotion. Patient is already in one anticholinergic medication/ antihistamine medication him a more Benadryl considering his poor ejection fraction and poor myocardial function is not good and Benadryl is not beneficial as this is not an ALLERGIC reaction. -Troponin elevation: Secondary to chronic kidney disease and chronic heart failure -Hyponatremia which is chronic and he is a pleasant sodium is 127 which is mildly lower than his baseline and this is probably secondary to mild heart failure exacerbation patient will be given a dose of Lasix -Coronary artery disease -COPD without any acute exacerbation -Type 2 diabetes mellitus uncontrolled on admission but fairly well controlled blood sugars now -Benign prostatic hypertrophy -Severe ischemic cardiomyopathy with AICD in place Past Medical History Past Medical History: Coronary Artery Disease (CAD), Heart Failure, COPD, Diabetes Mellitus, Eye Disorder, Prostate Disorder, Renal Disease Additional Past Medical History / Comment(s): 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 Past Anesthesia/Blood Transfusion Reactions: No Reported Reaction Additional Past Anesthesia/Blood Transfusion Reaction / Comment(s): Pt has recieved blood in the past without reaction. Type of Cardiac Device: Permanent Pacemaker, AICD Device Placement Date:: 10/2012 Past Psychological History: Anxiety, Depression Smoking Status: Former smoker Past Alcohol Use History: None Reported Past Drug Use History: None Reported - Past Family History Father Family Medical History: Diabetes Mellitus Additional Family Medical History / Comment(s): Father had cardiomyopathy. He is . Mother Family Medical History: Hypertension Brother(s) Additional Family Medical History / Comment(s): Cardiomyopathy with heart transplant. Medications and Allergies Home Medications Medication Instructions Recorded Confirmed Type Albuterol Sulfate [Proair Hfa] 1 puff INHALATION RT-Q4H PRN 08/09/20 12/10/21 History Brimonidine Tartrate [Alphagan P 1 drop BOTH EYES DAILY@89911/29/20 12/10/21 History 0.2% Ophth Soln] Sodium Chloride 0.65% Nasal [Deep 2 spray NASAL QID 11/29/20 12/10/21 History Sea (Saline)] Dextrose Chew [Glucose Chew Tab] 12 gm PO DAILY PRN 01/09/21 12/10/21 History Finasteride [Proscar] 5 mg PO HS@209901/09/21 12/10/21 History Spironolactone [Aldactone] 12.5 mg PO DAILY@89901/09/21 12/10/21 History Tamsulosin HCl [Flomax] 0.4 mg PO HS@209901/09/21 12/10/21 History Acetaminophen Tab [Tylenol] 325 mg PO Q6H PRN 11/27/21 12/10/21 History Beclomethasone Dip 80 Mcg/Puff 1 puff INHALATION RT-BID@0900,209911/27/21 12/10/21 History [Qvar 80 mcg] Bumetanide [BUMEX] 2 mg PO BID@0900,1700 11/27/21 12/10/21 History Clotrimazole 1% Cream 1 applic TOPICAL BID@00,209911/27/21 12/10/21 History Colchicine 0.6 mg PO DAILY@89911/27/21 12/10/21 History Dobutamine 360 mg IV DIRECTED 11/27/21 12/10/21 History Empagliflozin [Jardiance] 25 mg PO DAILY@00 11/27/21 12/10/21 History Magnesium 420mg 420 mg PO HS@209911/27/21 12/10/21 History Multivitamins, Thera [Multivitamin 1 tab PO DAILY@89911/27/21 12/10/21 History (formulary)] busPIRone HCL 15 mg PO DAILY@0900 11/27/21 12/10/21 History hydrOXYzine HCL [Atarax] 25 mg PO TID 11/27/21 12/10/21 History metOLazone [Zaroxolyn] 5 mg PO BID@0900,1700 11/27/21 12/10/21 History methocarbamoL [Robaxin] 750 mg PO TID PRN 11/27/21 12/10/21 History oxyCODONE HCL [OxyIR] 10 mg PO BID@0900,2100 11/27/21 12/10/21 History traMADol HCL 50 mg PO QID PRN 11/27/21 12/10/21 History INSULIN ASPART (NovoLOG) [NovoLOG 5 unit SQ AC-TID ml 12/06/21 12/10/21 Rx (formulary)] Insulin Detemir (Levemir) [Levemir] 25 unit SQ DAILY@0700 ml 12/06/21 12/10/21 Rx Potassium Chloride ER [K-Dur 20] 40 meq PO DAILY #0 12/06/21 12/10/21 Rx predniSONE See Taper PO DIRECTED #9 tab 12/06/21 12/10/21 Rx Allergies Allergy/AdvReac Type Severity Reaction Status Date / Time latex AdvReac Rash/Hives Verified 12/10/21 21:58 Physical Exam Vitals: Vital Signs Temp Pulse Pulse Resp BP BP Pulse Ox 12/11/21 07:14 97.4 F L 104 H 18 112/78 98 12/11/21 06:45 97 18 93/66 95 12/11/21 05:00 99 18 93/62 97 12/11/21 03:29 109 H 18 112/84 97 12/11/21 00:00 102 H 18 111/78 98 12/10/21 23:37 108 H 18 117/87 98 12/10/21 21:37 101 H 18 108/86 97 12/10/21 19:19 98.2 F 113 H 20 95/67 100 Intake and Output 12/10/21 12/11/21 12/11/21 22:59 06:59 14:59 Other: Voiding Method Indwelling Catheter Weight 69.853 kg 69.853 kg Results CBC & Chem 7: 12/10/21 20:44 12/10/21 20:44 Labs: Abnormal Lab Results - Last 24 Hours (Table) 12/10/21 12/10/21 12/10/21 Range/Units 20:44 20:44 20:44 WBC 11.4 H (3.8-10.6) k/uL MCV 78.0 L (80.0-100.0) fL MCH 23.9 L (25.0-35.0) pg MCHC 30.7 L (31.0-37.0) g/dL RDW 21.2 H (11.5-15.5) % Neutrophils # 9.6 H (1.3-7.7) k/uL PT 12.9 H (9.0-12.0) sec INR 1.2 H (<1.2) Sodium 127 L (137-145) mmol/L Chloride 83 L (98-107) mmol/L BUN 64 H (9-20) mg/dL Creatinine 2.13 H (0.66-1.25) mg/dL Glucose 265 H (74-99) mg/dL POC Glucose (mg/dL) (75-99) mg/dL Magnesium 2.7 H (1.6-2.3) mg/dL Total Bilirubin 2.0 H (0.2-1.3) mg/dL Alkaline Phosphatase 142 H (38-126) U/L Troponin I (0.000-0.034) ng/mL 12/10/21 12/11/21 12/11/21 Range/Units 20:44 07:18 11:50 WBC (3.8-10.6) k/uL MCV (80.0-100.0) fL MCH (25.0-35.0) pg MCHC (31.0-37.0) g/dL RDW (11.5-15.5) % Neutrophils # (1.3-7.7) k/uL PT (9.0-12.0) sec INR (<1.2) Sodium (137-145) mmol/L Chloride (98-107) mmol/L BUN (9-20) mg/dL Creatinine (0.66-1.25) mg/dL Glucose (74-99) mg/dL POC Glucose (mg/dL) 127 H 152 H (75-99) mg/dL Magnesium (1.6-2.3) mg/dL Total Bilirubin (0.2-1.3) mg/dL Alkaline Phosphatase (38-126) U/L Troponin I 0.043 H* (0.000-0.034) ng/mL Thrombosis Risk Factor Assmnt - Choose All That Apply Any of the Below Risk Factors Present?: Yes Each Factor Represents 1 point: Age 41-60 years Other Risk Factors: Yes Other congenital or acquired thrombophilia - If yes, enter type in comment: Yes Thrombosis Risk Factor Assessment Total Risk Factor Score: 1 Thrombosis Risk Factor Assessment Level: Low Risk
[2021-12-11] MEDS ORDERED: INSULIN ASPART (NovoLOG) 100 UNIT/ML VIAL SQ SCH (12:30)
[2021-12-11 14:19] VITALS: BP 113/78; PULSE 95; TEMP 98.2
[2021-12-11] MEDS ORDERED: metOLazone 5 MG TAB PO SCH (17:00)
[2021-12-11] MEDS ORDERED: FLUTICASONE 110 MCG INHALER INHALATION SCH (20:00)
[2021-12-11] MEDS ORDERED: FINASTERIDE 5 MG TAB PO SCH (21:00)
[2021-12-11] MEDS ORDERED: TAMSULOSIN 0.4 MG CAP.ER.24H PO SCH (21:00)
[2021-12-12] MEDS ORDERED: INSULIN DETEMIR (LEVEMIR) 100 UNIT/ML SYR SQ SCH (07:00)
[2021-12-12] MEDS ORDERED: BRIMONIDINE TARTRATE 0.2% DROPS 5 ML BTL BOTH EYES SCH (09:00)
[2021-12-12] MEDS ORDERED: busPIRone HCl 5 MG TAB PO SCH (09:00)
[2021-12-12] MEDS ORDERED: SPIRONOLACTONE 25 MG TAB PO SCH (09:00)
== END 2021-12-11 14:40 | disposition home or self-care (01) ==
LOC: EC 19:08 → 6NMEDSUR 21:26
PROVIDERS: ADMIT Hospitalist; ATTEND Hospitalist
DX: R06.02 Shortness of breath (principal); I13.0 Hypertensive heart and chronic kidney disease with heart failure and stage 1 through stage 4 chronic kidney disease, or unspecified chronic kidney disease; E11.22 Type 2 diabetes mellitus with diabetic chronic kidney disease; N18.30 Chronic kidney disease, stage 3 unspecified; I50.22 Chronic systolic (congestive) heart failure; L85.3 Xerosis cutis; I25.10 Atherosclerotic heart disease of native coronary artery without angina pectoris; J44.9 Chronic obstructive pulmonary disease, unspecified; E11.65 Type 2 diabetes mellitus with hyperglycemia; N40.0 Benign prostatic hyperplasia without lower urinary tract symptoms; I25.5 Ischemic cardiomyopathy; E87.1 Hypo-osmolality and hyponatremia; E87.6 Hypokalemia; R00.0 Tachycardia, unspecified; R03.1 Nonspecific low blood-pressure reading; I49.3 Ventricular premature depolarization; I42.8 Other cardiomyopathies; E11.40 Type 2 diabetes mellitus with diabetic neuropathy, unspecified; G62.9 Polyneuropathy, unspecified; F32.A Depression, unspecified; F41.9 Anxiety disorder, unspecified; G89.29 Other chronic pain; Z95.828 Presence of other vascular implants and grafts; Z95.810 Presence of automatic (implantable) cardiac defibrillator; Z87.891 Personal history of nicotine dependence; Z79.84 Long term (current) use of oral hypoglycemic drugs; Z79.899 Other long term (current) drug therapy; Z79.51 Long term (current) use of inhaled steroids; Z79.4 Long term (current) use of insulin; Z79.891 Long term (current) use of opiate analgesic; Z91.040 Latex allergy status; Z83.3 Family history of diabetes mellitus; Z82.49 Family history of ischemic heart disease and other diseases of the circulatory system
CPT/HCPCS: 96375; 96361; 96374; 99285; 36415; 93005; 83880; 80053; 83605; 83735; 84484; 85025; 85610; 85730; 71046; G0378 ×2; J1200; J1940

== ENCOUNTER 2021-12-20 13:52 | Emergency (ER) | payer OTHER ==
--- NOTE | 2021-12-20 14:35 | ED ---
General Adult HPI - General Chief complaint: Shortness of Breath Stated complaint: SOB,Pain, PCP called Time Seen by Provider: 12/20/21 14:02 Source: patient, RN notes reviewed, old records reviewed Mode of arrival: ambulatory Limitations: no limitations - History of Present Illness Initial comments: 56-year-old male history of cardiomyopathy on continuous dopamine infusion presenting for evaluation of dyspnea and cyanosis. There was home care nursing who indicated that the patient had a low blood pressure and was apparently cyanotic. His dopamine infusion had been interrupted secondary to a pump issue. At the time of presentation his pump is currently working is on his base rate of dopamine. [facility] According to family member at bedside he had been given 6 months to live approximately 4 months ago. He is complaining of dyspnea. He is also having upper back pain. - Related Data Home Medications Medication Instructions Recorded Confirmed Brimonidine Tartrate [Alphagan P 1 drop BOTH EYES DAILY@0900 11/29/20 12/20/21 0.2% Ophth Soln] Dextrose Chew [Glucose Chew Tab] 12 gm PO DAILY PRN 01/09/21 12/20/21 Spironolactone [Aldactone] 12.5 mg PO DAILY@0900 01/09/21 12/20/21 Tamsulosin HCl [Flomax] 0.4 mg PO HS@209901/09/21 12/20/21 Acetaminophen Tab [Tylenol] 325 mg PO Q6H PRN 11/27/21 12/20/21 Beclomethasone Dip 80 Mcg/Puff 1 puff INHALATION RT-DAILY 11/27/21 12/20/21 [Qvar 80 mcg] Bumetanide [BUMEX] 2 mg PO BID@0900,1700 11/27/21 12/20/21 Colchicine 0.6 mg PO DAILY@0900 11/27/21 12/20/21 Dobutamine 360 mg IV DIRECTED 11/27/21 12/20/21 Empagliflozin [Jardiance] 25 mg PO DAILY@0900 11/27/21 12/20/21 Magnesium 420mg 420 mg PO HS@2100 11/27/21 12/20/21 Multivitamins, Thera [Multivitamin 1 tab PO DAILY@0900 11/27/21 12/20/21 (formulary)] busPIRone HCL 15 mg PO DAILY@0900 11/27/21 12/20/21 hydrOXYzine HCL [Atarax] 25 mg PO TID PRN 11/27/21 12/20/21 methocarbamoL [Robaxin] 750 mg PO TID PRN 11/27/21 12/20/21 Apixaban [Eliquis] 5 mg PO BID 12/20/21 12/20/21 INSULIN ASPART (NovoLOG) [NovoLOG 20 unit SQ AC-BRKFST 12/20/21 12/20/21 (formulary)] INSULIN ASPART (NovoLOG) [NovoLOG 20 unit SQ AC-LUNCH 12/20/21 12/20/21 (formulary)] INSULIN ASPART (NovoLOG) [NovoLOG 30 unit SQ AC-SUPPER 12/20/21 12/20/21 (formulary)] Insulin Glargine [Lantus Vial] 65 unit SQ BID 12/20/21 12/20/21 Ipratropium-Albuterol Nebulize 3 ml INHALATION RT-QID PRN 12/20/21 12/20/21 [Duoneb 0.5 mg-3 mg/3 ml Soln] Potassium Chloride ER [K-Dur 20] 40 meq PO Q8H 12/20/21 12/20/21 diphenhydrAMINE [Benadryl] 25 mg PO TID PRN 12/20/21 12/20/21 Allergies Allergy/AdvReac Type Severity Reaction Status Date / Time latex AdvReac Rash/Hives Verified 12/20/21 14:46 Review of Systems ROS Statement: Those systems with pertinent positive or pertinent negative responses have been documented in the HPI. ROS Other: All systems not noted in ROS Statement are negative. Past Medical History Past Medical History: Coronary Artery Disease (CAD), Heart Failure, COPD, Diabetes Mellitus, Eye Disorder, Prostate Disorder, Renal Disease Additional Past Medical History / Comment(s): 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 Past Anesthesia/Blood Transfusion Reactions: No Reported Reaction Additional Past Anesthesia/Blood Transfusion Reaction / Comment(s): Pt has recieved blood in the past without reaction. Type of Cardiac Device: Permanent Pacemaker, AICD Device Placement Date:: 10/2012 Past Psychological History: Anxiety, Depression Smoking Status: Former smoker Past Alcohol Use History: None Reported Past Drug Use History: None Reported - Past Family History Father Family Medical History: Diabetes Mellitus Additional Family Medical History / Comment(s): Father had cardiomyopathy. He is . Mother Family Medical History: Hypertension Brother(s) Additional Family Medical History / Comment(s): Cardiomyopathy with heart transplant. General Exam Limitations: no limitations General appearance: alert, in no apparent distress Head exam: Present: atraumatic, normocephalic Eye exam: Present: normal appearance, PERRL Neck exam: Present: normal inspection. Absent: tenderness Respiratory exam: Present: rales, decreased breath sounds. Absent: respiratory distress Cardiovascular Exam: Present: regular rate, normal rhythm GI/Abdominal exam: Present: soft. Absent: distended, tenderness Extremities exam: Present: normal inspection, normal capillary refill Neurological exam: Present: alert, oriented X3, CN II-XII intact. Absent: motor sensory deficit Psychiatric exam: Present: normal affect, normal mood Skin exam: Present: warm, dry, intact. Absent: cyanosis, diaphoretic Course Vital Signs 12/20/21 12/20/21 13:56 14:13 Temperature 97 F L Pulse Rate 69 Respiratory 36 H 18 Rate Blood Pressure 99/69 O2 Sat by Pulse 95 Oximetry EKG Findings - EKG Comments: EKG Findings:: EKG: Sinus tachycardia left atrial enlargement intraventricular conduction delay, rate of 100, TN interval 144, QRS duration 110, QTC [address] segment elevation. Medical Decision Making - Medical Decision Making 46-year-old male history of cardiomyopathy with very low EF status post defibrillator as well as continuous dopamine drip. Patient had presented for evaluation of dyspnea, low oxygen, and a pump failure. This was at the time of attempting to switch to a new pump. He was placed back on his old pump and dopamine was reinitiated. At the time my evaluation patient is ill appearing mildly to What to 95% on room air. His blood pressure is low. Workup is initiated for this patient including chest x-ray, EKG, and laboratory testing. Chest x-ray shows chronic findings without guero heart failure. No pneumothorax. No focal pneumonia. Patient's CBC shows stable hemoglobin, no leukocytosis. He has a sodium 125 which is chronic for this patient. Kidney function is at baseline. Troponin is negative. BNP is elevated at 13,000. I did have a lengthy discussion about this patient's goals of care and his wishes today. He wishes to be discharged. He states he's feeling better. He is aware that he has a limited number of days. He states he will return if things worsen. His mother is at bedside and is agreeable with this plan. - Lab Data Result diagrams: 12/20/21 14:38 12/20/21 14:38 Lab Results 12/20/21 12/20/21 12/20/21 Range/Units 14:35 14:38 14:38 WBC 8.3 (3.8-10.6) k/uL RBC 5.52 (4.30-5.90) m/uL Hgb 13.3 (13.0-17.5) gm/dL Hct 44.0 (39.0-53.0) % MCV 79.8 L (80.0-100.0) fL MCH 24.0 L (25.0-35.0) pg MCHC 30.1 L (31.0-37.0) g/dL RDW 22.0 H (11.5-15.5) % Plt Count 109 L D (150-450) k/uL MPV 9.1 Neutrophils % 67 % Lymphocytes % 23 % Monocytes % 6 % Eosinophils % 1 % Basophils % 0 % Neutrophils # 5.6 (1.3-7.7) k/uL Lymphocytes # 1.9 (1.0-4.8) k/uL Monocytes # 0.5 (0-1.0) k/uL Eosinophils # 0.1 (0-0.7) k/uL Basophils # 0.0 (0-0.2) k/uL Hypochromasia Marked Poikilocytosis Slight Anisocytosis Moderate Microcytosis Moderate PT 12.2 H (9.0-12.0) sec INR 1.2 H (<1.2) APTT 22.1 (22.0-30.0) sec Sodium (137-145) mmol/L Potassium (3.5-5.1) mmol/L Chloride (98-107) mmol/L Carbon Dioxide (22-30) mmol/L Anion Gap mmol/L BUN (9-20) mg/dL Creatinine (0.66-1.25) mg/dL Est GFR (CKD-EPI)AfAm (>60 ml/min/1.73 sqM) Est GFR (CKD-EPI)NonAf (>60 ml/min/1.73 sqM) Glucose (74-99) mg/dL POC Glucose (mg/dL) 256 H (75-99) mg/dL POC Glu Plaster Foreman ID Karli Abreu Calcium (8.4-10.2) mg/dL Magnesium (1.6-2.3) mg/dL Total Bilirubin (0.2-1.3) mg/dL AST (17-59) U/L ALT (4-49) U/L Alkaline Phosphatase (38-126) U/L Troponin I (0.000-0.034) ng/mL NT-Pro-B Natriuret Pep pg/mL Total Protein (6.3-8.2) g/dL Albumin (3.5-5.0) g/dL 12/20/21 12/20/21 12/20/21 Range/Units 14:38 14:38 14:38 WBC (3.8-10.6) k/uL RBC (4.30-5.90) m/uL Hgb (13.0-17.5) gm/dL Hct (39.0-53.0) % MCV (80.0-100.0) fL MCH (25.0-35.0) pg MCHC (31.0-37.0) g/dL RDW (11.5-15.5) % Plt Count (150-450) k/uL MPV Neutrophils % % Lymphocytes % % Monocytes % % Eosinophils % % Basophils % % Neutrophils # (1.3-7.7) k/uL Lymphocytes # (1.0-4.8) k/uL Monocytes # (0-1.0) k/uL Eosinophils # (0-0.7) k/uL Basophils # (0-0.2) k/uL Hypochromasia Poikilocytosis Anisocytosis Microcytosis PT (9.0-12.0) sec INR (<1.2) APTT (22.0-30.0) sec Sodium 125 L (137-145) mmol/L Potassium 4.9 (3.5-5.1) mmol/L Chloride 86 L (98-107) mmol/L Carbon Dioxide 22 (22-30) mmol/L Anion Gap 17 mmol/L BUN 52 H (9-20) mg/dL Creatinine 1.97 H (0.66-1.25) mg/dL Est GFR (CKD-EPI)AfAm 42 (>60 ml/min/1.73 sqM) Est GFR (CKD-EPI)NonAf 37 (>60 ml/min/1.73 sqM) Glucose 254 H (74-99) mg/dL POC Glucose (mg/dL) (75-99) mg/dL POC Glu Plaster Foreman ID Calcium 9.2 (8.4-10.2) mg/dL Magnesium 2.7 H (1.6-2.3) mg/dL Total Bilirubin 1.9 H (0.2-1.3) mg/dL AST 23 (17-59) U/L ALT 18 (4-49) U/L Alkaline Phosphatase 169 H (38-126) U/L Troponin I 0.029 (0.000-0.034) ng/mL NT-Pro-B Natriuret Pep 64379 pg/mL Total Protein 7.6 (6.3-8.2) g/dL Albumin 4.5 (3.5-5.0) g/dL Disposition Clinical Impression: AICD (automatic cardioverter/defibrillator) present, Dyspnea, Congestive heart failure Disposition: HOME SELF-CARE Condition: Poor Instructions (If sedation given, give patient instructions): Heart Failure (DC) Is patient prescribed a controlled substance at d/c from ED?: No Referrals: [facility],Clinic [Primary Care Provider] - 1-2 days Time of Disposition: 15:48
[2021-12-20 14:38] LABS: Glucose,Whole Blood 256 mg/dL (75-99)
--- NOTE | 2021-12-20 14:59 | XR ---
EXAMINATION TYPE: XR chest 2V DATE OF EXAM: 12/20/2021 COMPARISON: Chest x-ray 12/10/2021 HISTORY: Difficulty breathing TECHNIQUE: Frontal and lateral views of the chest are obtained. FINDINGS: There is no focal air space opacity, pleural effusion, or pneumothorax seen. The cardiac silhouette size is within normal limits. Prominent lung volumes with flattening the hemidiaphragms ar e consistent with underlying COPD. There is a generator in the left pectoral region, lead is present within the right ventricle. The heart is enlarged. There is a right sided PICC line, distal tip is wi thin the right atrium. No evident pneumothorax or pleural effusion. Deformity of the anterior right f ourth rib is running. IMPRESSION: Stable cardiomegaly, correlate for COPD
[2021-12-20 15:03] LABS: Albumin 4.5 g/dL (3.5-5.0); Calcium 9.2 mg/dL (8.4-10.2); Magnesium 2.7 mg/dL (1.6-2.3); Potassium 4.9 mmol/L (3.5-5.1); Total Bilirubin 1.9 mg/dL (0.2-1.3); Total Protein 7.6 g/dL (6.3-8.2)
[2021-12-20 15:05] LABS: Anisocytosis Moderate; Basophils % (A) 0 %; Eosinophils # (A) 0.1 k/uL (0-0.7); Eosinophils % (A) 1 %; HGB 13.3 gm/dL (13.0-17.5); Hypochromasia Marked; Lymphocytes # (A) 1.9 k/uL (1.0-4.8); Lymphocytes % (A) 23 %; MCHC 30.1 g/dL (31.0-37.0); MCV 79.8 fL (80.0-100.0); Mean Platelet Volume 9.1; Microcytosis Moderate; Monocytes # (A) 0.5 k/uL (0-1.0); Monocytes % (A) 6 %; Neutrophils # (A) 5.6 k/uL (1.3-7.7); Neutrophils % (A) 67 %; Poikilocytosis Slight; RBC 5.52 m/uL (4.30-5.90); WBC 8.3 k/uL (3.8-10.6)
[2021-12-20 15:11] LABS: Platelet Count 109 k/uL (150-450)
[2021-12-20 15:15] LABS: INR 1.2 (<1.2); Partial Thromboplastin Time 22.1 sec (22.0-30.0); Prothrombin Time 12.2 sec (9.0-12.0)
[2021-12-20 16:06] VITALS: BP 106/68; PULSE 96; RESP 20; TEMP 98
== END 2021-12-20 16:13 | disposition home or self-care (01) ==
LOC: EC 13:52
DX: R06.09 Other forms of dyspnea (principal); T82.9XXA Unspecified complication of cardiac and vascular prosthetic device, implant and graft, initial encounter; I50.32 Chronic diastolic (congestive) heart failure; E11.22 Type 2 diabetes mellitus with diabetic chronic kidney disease; N18.30 Chronic kidney disease, stage 3 unspecified; I25.10 Atherosclerotic heart disease of native coronary artery without angina pectoris; J44.9 Chronic obstructive pulmonary disease, unspecified; F41.9 Anxiety disorder, unspecified; F32.A Depression, unspecified; Z79.01 Long term (current) use of anticoagulants; Z79.4 Long term (current) use of insulin; Z91.040 Latex allergy status; Z95.0 Presence of cardiac pacemaker; Z87.891 Personal history of nicotine dependence; X58.XXXA Exposure to other specified factors, initial encounter
CPT/HCPCS: 36415; 71046; 80053; 83735; 83880; 84484; 85025; 85610; 85730; 93005; 99285

== ENCOUNTER 2022-01-11 22:01 | Emergency (ER) | payer MEDICARE, OTHER ==
[2022-01-11 22:15] VITALS: PULSE 100; RESP 18
--- NOTE | 2022-01-12 00:51 | ED ---
Male Urogenital HPI - General Chief complaint: Urogenital Stated complaint: Cath Change Time Seen by Provider: 01/12/22 00:25 Source: patient, RN notes reviewed Mode of arrival: wheelchair Limitations: no limitations - History of Present Illness Initial comments: This is a pleasant 56-year-old male with a history of benign prostatic hypertrophy, chronic urinary retention and chronic Moy catheter use. Patient has a chronic indwelling catheter which is due to be changed this week. According to the patient's caregiver the Moy catheter bag has sprung a leak. Patient here to get the sister switched out. Patient denies any fever or chills. No discomfort. No abdominal pain. No flank pain. No headache, no fever or chills, no changes in vision or hearing, no sore throat or difficulty with speech, no neck pain, no chest pain or shortness of breath, no abdominal pain, no nausea or vomiting, no changes in urination or bowel movements, no numbness or tingling, no extremity pain, no skin rashes or lesions. Medical, surgical, social, and family history reviewed. - Related Data Home Medications Medication Instructions Recorded Confirmed Brimonidine Tartrate [Alphagan P 1 drop BOTH EYES DAILY@0900 11/29/20 12/25/21 0.2% Ophth Soln] Dextrose Chew [Glucose Chew Tab] 12 gm PO DAILY PRN 01/09/21 12/25/21 Spironolactone [Aldactone] 12.5 mg PO DAILY@0900 01/09/21 12/25/21 Tamsulosin HCl [Flomax] 0.4 mg PO HS@209901/09/21 12/25/21 Acetaminophen Tab [Tylenol] 325 mg PO Q6H PRN 11/27/21 12/25/21 Beclomethasone Dip 80 Mcg/Puff 1 puff INHALATION RT-DAILY 11/27/21 12/25/21 [Qvar 80 mcg] Colchicine 0.6 mg PO DAILY@89911/27/21 12/25/21 Dobutamine 360 mg IV DIRECTED 11/27/21 12/25/21 Empagliflozin [Jardiance] 25 mg PO DAILY@0900 11/27/21 12/25/21 Magnesium 420mg 420 mg PO HS@209911/27/21 12/25/21 Multivitamins, Thera [Multivitamin 1 tab PO DAILY@0900 11/27/21 12/25/21 (formulary)] busPIRone HCL 15 mg PO DAILY@0900 11/27/21 12/25/21 hydrOXYzine HCL [Atarax] 25 mg PO TID PRN 11/27/21 12/25/21 methocarbamoL [Robaxin] 750 mg PO TID PRN 11/27/21 12/25/21 Apixaban [Eliquis] 5 mg PO BID 12/20/21 12/25/21 Ipratropium-Albuterol Nebulize 3 ml INHALATION RT-QID PRN 12/20/21 12/25/21 [Duoneb 0.5 mg-3 mg/3 ml Soln] Potassium Chloride ER [K-Dur 20] 40 meq PO Q8H 12/20/21 12/25/21 Previous Rx's Medication Instructions Recorded INSULIN ASPART (NovoLOG) [NovoLOG 5 unit SQ AC-TID ml 12/26/21 (formulary)] Insulin Detemir (Levemir) [Levemir] 35 unit SQ DAILY@0700 ml 12/26/21 Allergies Allergy/AdvReac Type Severity Reaction Status Date / Time latex AdvReac Rash/Hives Verified 01/11/22 22:15 Review of Systems ROS Statement: Those systems with pertinent positive or pertinent negative responses have been documented in the HPI. ROS Other: All systems not noted in ROS Statement are negative. Past Medical History Past Medical History: Coronary Artery Disease (CAD), Heart Failure, COPD, Diabetes Mellitus, Eye Disorder, Prostate Disorder, Renal Disease Additional Past Medical History / Comment(s): 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 Past Anesthesia/Blood Transfusion Reactions: No Reported Reaction Additional Past Anesthesia/Blood Transfusion Reaction / Comment(s): Pt has recieved blood in the past without reaction. Type of Cardiac Device: Permanent Pacemaker, AICD Device Placement Date:: 10/2012 Past Psychological History: Anxiety, Depression Smoking Status: Former smoker Past Alcohol Use History: None Reported Past Drug Use History: None Reported - Past Family History Father Family Medical History: Diabetes Mellitus Additional Family Medical History / Comment(s): Father had cardiomyopathy. He is . Mother Family Medical History: Hypertension Brother(s) Additional Family Medical History / Comment(s): Cardiomyopathy with heart transplant. General Exam Limitations: no limitations General appearance: alert, in no apparent distress Head exam: Present: atraumatic, normocephalic, normal inspection Eye exam: Present: normal appearance, PERRL, EOMI. Absent: scleral icterus, conjunctival injection, periorbital swelling ENT exam: Present: normal exam, mucous membranes moist. Absent: TM's normal bilaterally, normal external ear exam Neck exam: Present: normal inspection. Absent: tenderness, meningismus, lymphadenopathy Respiratory exam: Present: normal lung sounds bilaterally. Absent: respiratory distress, wheezes, rales, rhonchi, stridor Cardiovascular Exam: Present: regular rate, normal rhythm, normal heart sounds. Absent: systolic murmur, diastolic murmur, rubs, gallop, clicks GI/Abdominal exam: Present: soft, normal bowel sounds. Absent: distended, tenderness, guarding, rebound, rigid exam: Present: normal inspection, other (Moy catheter noted, draining yellow fluid.). Absent: testicular tenderness, urethral discharge Extremities exam: Present: normal inspection, full ROM, normal capillary refill. Absent: tenderness, pedal edema, joint swelling, calf tenderness Back exam: Present: normal inspection Neurological exam: Present: alert, oriented X3, CN II-XII intact Psychiatric exam: Present: normal affect, normal mood Skin exam: Present: warm, dry, intact, normal color. Absent: rash Course Vital Signs 01/11/22 22:13 Temperature 97.9 F Pulse Rate 100 Respiratory 18 Rate Blood Pressure 91/79 O2 Sat by Pulse 100 Oximetry Medical Decision Making - Medical Decision Making Folic acid switched out. Patient told to make a follow-up appointment with his urologist at the [facility]. Patient was told to return to the ER for any signs or symptoms worsen. Told to return immediately if any other problems arise. All questions answered. Treatment plan discussed. Patient in agreement Every effort has been made to ensure accuracy of this dictation. However, due to the limitations of electronic medical records and dictation devices, errors in charting still occur. Disposition Clinical Impression: Moy catheter problem Disposition: HOME SELF-CARE Condition: Good Instructions (If sedation given, give patient instructions): Moy Catheter Placement and Care (ED) Additional Instructions: Patient was told to return to the ER for any signs or symptoms worsen. Told to return immediately if any other problems arise. All questions answered. Treatment plan discussed. Patient in agreement Every effort has been made to ensure accuracy of this dictation. However, due to the limitations of electronic medical records and dictation devices, errors in charting still occur. Is patient prescribed a controlled substance at d/c from ED?: No Referrals: [facility],Clinic [Primary Care Provider] - 1-2 days Time of Disposition: 00:53
[2022-01-12 01:05] VITALS: BP 105/85; TEMP 98.4
== END 2022-01-12 01:05 | disposition home or self-care (01) ==
LOC: EC 22:01
DX: T83.091A Other mechanical complication of indwelling urethral catheter, initial encounter (principal); E11.22 Type 2 diabetes mellitus with diabetic chronic kidney disease; E11.40 Type 2 diabetes mellitus with diabetic neuropathy, unspecified; N18.30 Chronic kidney disease, stage 3 unspecified; I50.9 Heart failure, unspecified; I25.10 Atherosclerotic heart disease of native coronary artery without angina pectoris; J44.9 Chronic obstructive pulmonary disease, unspecified; F41.9 Anxiety disorder, unspecified; F32.A Depression, unspecified; N40.0 Benign prostatic hyperplasia without lower urinary tract symptoms; Z79.01 Long term (current) use of anticoagulants; Z79.4 Long term (current) use of insulin; Z79.51 Long term (current) use of inhaled steroids; Z79.899 Other long term (current) drug therapy; Z87.891 Personal history of nicotine dependence; Z95.0 Presence of cardiac pacemaker
CPT/HCPCS: 99283

== ENCOUNTER 2022-01-15 16:32 | Inpatient (IN) | payer OTHER, MEDICARE ==
[2022-01-15] MEDS ORDERED: FUROSEMIDE 10 MG/ML 4 ML VIAL IV STA (18:19)
--- NOTE | 2022-01-15 18:26 | ED ---
General Adult HPI - General Chief complaint: Shortness of Breath Stated complaint: SOB,Swelling,Wt Gain Time Seen by Provider: 01/15/22 18:07 Source: patient, RN notes reviewed Mode of arrival: wheelchair Limitations: no limitations - History of Present Illness Initial comments: Patient is a pleasant 56-year-old male presenting to the emergency department difficulty breathing. Onset of symptoms was last night. Patient does have history of CHF with ejection fraction only 10-12%. Patient is on constant infusion. Patient does have mild cough. Patient does have some swelling of his legs. Symptoms are similar to previous CHF. Patient has gained 13 pounds last 5 days. - Related Data Home Medications Medication Instructions Recorded Confirmed Brimonidine Tartrate [Alphagan P 1 drop BOTH EYES DAILY@89911/29/20 01/15/22 0.2% Ophth Soln] Dextrose Chew [Glucose Chew Tab] 12 gm PO DAILY PRN 01/09/21 01/15/22 Spironolactone [Aldactone] 12.5 mg PO DAILY@89901/09/21 01/15/22 Tamsulosin HCl [Flomax] 0.4 mg PO HS@209901/09/21 01/15/22 Acetaminophen Tab [Tylenol] 325 mg PO Q6H PRN 11/27/21 01/15/22 Beclomethasone Dip 80 Mcg/Puff 1 puff INHALATION RT-DAILY 11/27/21 01/15/22 [Qvar 80 mcg] Colchicine 0.6 mg PO DAILY@00 11/27/21 01/15/22 Dobutamine 360 mg IV DIRECTED 11/27/21 01/15/22 Empagliflozin [Jardiance] 25 mg PO DAILY@89911/27/21 01/15/22 Magnesium 420mg 420 mg PO HS@209911/27/21 01/15/22 Multivitamins, Thera [Multivitamin 1 tab PO DAILY@89911/27/21 01/15/22 (formulary)] busPIRone HCL 15 mg PO DAILY@00 11/27/21 01/15/22 hydrOXYzine HCL [Atarax] 25 mg PO TID PRN 11/27/21 01/15/22 methocarbamoL [Robaxin] 750 mg PO TID PRN 11/27/21 01/15/22 Apixaban [Eliquis] 5 mg PO BID 12/20/21 01/15/22 Ipratropium-Albuterol Nebulize 3 ml INHALATION RT-QID PRN 12/20/21 01/15/22 [Duoneb 0.5 mg-3 mg/3 ml Soln] Potassium Chloride ER [K-Dur 20] 40 meq PO Q8H 12/20/21 01/15/22 Previous Rx's Medication Instructions Recorded INSULIN ASPART (NovoLOG) [NovoLOG 5 unit SQ AC-TID ml 12/26/21 (formulary)] Insulin Detemir (Levemir) [Levemir] 35 unit SQ DAILY@0700 ml 12/26/21 Allergies Allergy/AdvReac Type Severity Reaction Status Date / Time latex Allergy Rash/Hives Verified 01/15/22 19:20 Review of Systems ROS Statement: Those systems with pertinent positive or pertinent negative responses have been documented in the HPI. ROS Other: All systems not noted in ROS Statement are negative. Constitutional: Denies: fever Eyes: Denies: eye pain ENT: Denies: ear pain Respiratory: Reports: as per HPI, cough, dyspnea Cardiovascular: Reports: dyspnea on exertion, orthopnea. Denies: chest pain Endocrine: Reports: fatigue Gastrointestinal: Denies: abdominal pain Genitourinary: Denies: dysuria Musculoskeletal: Denies: back pain Skin: Denies: rash Neurological: Denies: weakness Past Medical History Past Medical History: Coronary Artery Disease (CAD), Heart Failure, COPD, Diabetes Mellitus, Eye Disorder, Prostate Disorder, Renal Disease Additional Past Medical History / Comment(s): 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 Past Anesthesia/Blood Transfusion Reactions: No Reported Reaction Additional Past Anesthesia/Blood Transfusion Reaction / Comment(s): Pt has recieved blood in the past without reaction. Type of Cardiac Device: Permanent Pacemaker, AICD Device Placement Date:: 10/2012 Past Psychological History: Anxiety, Depression Smoking Status: Former smoker Past Alcohol Use History: None Reported Past Drug Use History: None Reported - Past Family History Father Family Medical History: Diabetes Mellitus Additional Family Medical History / Comment(s): Father had cardiomyopathy. He is . Mother Family Medical History: Hypertension Brother(s) Additional Family Medical History / Comment(s): Cardiomyopathy with heart stern splant. General Exam Limitations: no limitations General appearance: alert, in no apparent distress Head exam: Present: normocephalic Eye exam: Present: normal appearance Neck exam: Present: normal inspection Respiratory exam: Present: rales (Mild bilateral bases) Cardiovascular Exam: Present: regular rate, normal rhythm GI/Abdominal exam: Present: soft. Absent: tenderness Extremities exam: Present: pedal edema. Absent: calf tenderness Neurological exam: Present: alert Psychiatric exam: Present: normal affect, normal mood Skin exam: Present: normal color Course Vital Signs 01/15/22 01/15/22 17:08 19:46 Temperature 97.1 F L Pulse Rate 106 H 99 Respiratory 22 18 Rate Blood Pressure 99/68 103/69 O2 Sat by Pulse 97 98 Oximetry EKG Findings - EKG Comments: EKG Findings:: Sinus tachycardia 103. MS 163. QRS 104. QT 364. QTC 423. Right axis. Poor R-wave progression. No acute ST change. Medical Decision Making - Medical Decision Making Patient reevaluated and resting complain bed. Patient updated on results and plan. Case discussed with Dr. dot montague, who will admit covering for va call. - Lab Data Result diagrams: 01/15/22 18:54 01/15/22 18:54 Lab Results 01/15/22 01/15/22 01/15/22 Range/Units 18:54 18:54 18:54 WBC 9.7 (3.8-10.6) k/uL RBC 5.58 (4.30-5.90) m/uL Hgb 13.3 (13.0-17.5) gm/dL Hct 45.7 (39.0-53.0) % MCV 81.9 (80.0-100.0) fL MCH 23.8 L (25.0-35.0) pg MCHC 29.1 L (31.0-37.0) g/dL RDW 20.5 H (11.5-15.5) % Plt Count 200 D (150-450) k/uL MPV 8.7 Neutrophils % 77 % Lymphocytes % 13 % Monocytes % 7 % Eosinophils % 1 % Basophils % 1 % Neutrophils # 7.4 (1.3-7.7) k/uL Lymphocytes # 1.3 (1.0-4.8) k/uL Monocytes # 0.6 (0-1.0) k/uL Eosinophils # 0.1 (0-0.7) k/uL Basophils # 0.1 (0-0.2) k/uL Hypochromasia Marked Poikilocytosis Slight Anisocytosis Moderate Microcytosis Slight PT 13.1 H (9.0-12.0) sec INR 1.2 H (<1.2) APTT 22.6 (22.0-30.0) sec Sodium 129 L (137-145) mmol/L Potassium 4.4 (3.5-5.1) mmol/L Chloride 91 L (98-107) mmol/L Carbon Dioxide 28 (22-30) mmol/L Anion Gap 10 mmol/L BUN 47 H (9-20) mg/dL Creatinine 1.96 H (0.66-1.25) mg/dL Est GFR (CKD-EPI)AfAm 43 (>60 ml/min/1.73 sqM) Est GFR (CKD-EPI)NonAf 37 (>60 ml/min/1.73 sqM) Glucose 182 H (74-99) mg/dL Plasma Lactic Acid Grover (0.7-2.0) mmol/L Calcium 8.8 (8.4-10.2) mg/dL Total Bilirubin 2.6 H (0.2-1.3) mg/dL AST 35 (17-59) U/L ALT 21 (4-49) U/L Alkaline Phosphatase 166 H (38-126) U/L Troponin I (0.000-0.034) ng/mL NT-Pro-B Natriuret Pep pg/mL Total Protein 7.2 (6.3-8.2) g/dL Albumin 4.1 (3.5-5.0) g/dL 01/15/22 01/15/22 01/15/22 Range/Units 18:54 18:54 18:54 WBC (3.8-10.6) k/uL RBC (4.30-5.90) m/uL Hgb (13.0-17.5) gm/dL Hct (39.0-53.0) % MCV (80.0-100.0) fL MCH (25.0-35.0) pg MCHC (31.0-37.0) g/dL RDW (11.5-15.5) % Plt Count (150-450) k/uL MPV Neutrophils % % Lymphocytes % % Monocytes % % Eosinophils % % Basophils % % Neutrophils # (1.3-7.7) k/uL Lymphocytes # (1.0-4.8) k/uL Monocytes # (0-1.0) k/uL Eosinophils # (0-0.7) k/uL Basophils # (0-0.2) k/uL Hypochromasia Poikilocytosis Anisocytosis Microcytosis PT (9.0-12.0) sec INR (<1.2) APTT (22.0-30.0) sec Sodium (137-145) mmol/L Potassium (3.5-5.1) mmol/L Chloride (98-107) mmol/L Carbon Dioxide (22-30) mmol/L Anion Gap mmol/L BUN (9-20) mg/dL Creatinine (0.66-1.25) mg/dL Est GFR (CKD-EPI)AfAm (>60 ml/min/1.73 sqM) Est GFR (CKD-EPI)NonAf (>60 ml/min/1.73 sqM) Glucose (74-99) mg/dL Plasma Lactic Acid Grover 1.7 (0.7-2.0) mmol/L Calcium (8.4-10.2) mg/dL Total Bilirubin (0.2-1.3) mg/dL AST (17-59) U/L ALT (4-49) U/L Alkaline Phosphatase (38-126) U/L Troponin I 0.025 (0.000-0.034) ng/mL NT-Pro-B Natriuret Pep 94793 pg/mL Total Protein (6.3-8.2) g/dL Albumin (3.5-5.0) g/dL - Radiology Data Radiology results: image reviewed (Chest x-ray shows cardiomegaly. No acute change.) Disposition Clinical Impression: Congestive heart failure Disposition: ADMITTED IP TO THIS HOSP Is patient prescribed a controlled substance at d/c from ED?: No Referrals: [facility],Clinic [Primary Care Provider] - 1-2 days Time of Disposition: 20:18
[2022-01-15 19:08] LABS: INR 1.2 (<1.2); Partial Thromboplastin Time 22.6 sec (22.0-30.0); Prothrombin Time 13.1 sec (9.0-12.0)
[2022-01-15 19:16] LABS: Albumin 4.1 g/dL (3.5-5.0); Anisocytosis Moderate; Basophils # (A) 0.1 k/uL (0-0.2); Basophils % (A) 1 %; Calcium 8.8 mg/dL (8.4-10.2); Eosinophils # (A) 0.1 k/uL (0-0.7); Eosinophils % (A) 1 %; HCT 45.7 % (39.0-53.0); HGB 13.3 gm/dL (13.0-17.5); Hypochromasia Marked; Lymphocytes # (A) 1.3 k/uL (1.0-4.8); Lymphocytes % (A) 13 %; MCH 23.8 pg (25.0-35.0); MCHC 29.1 g/dL (31.0-37.0); MCV 81.9 fL (80.0-100.0); Mean Platelet Volume 8.7; Microcytosis Slight; Monocytes # (A) 0.6 k/uL (0-1.0); Monocytes % (A) 7 %; Neutrophils # (A) 7.4 k/uL (1.3-7.7); Neutrophils % (A) 77 %; Poikilocytosis Slight; Potassium 4.4 mmol/L (3.5-5.1); RBC 5.58 m/uL (4.30-5.90); RDW 20.5 % (11.5-15.5); Total Bilirubin 2.6 mg/dL (0.2-1.3); Total Protein 7.2 g/dL (6.3-8.2); WBC 9.7 k/uL (3.8-10.6)
[2022-01-15 19:30] LABS: Platelet Count 200 k/uL (150-450)
--- NOTE | 2022-01-15 19:55 | XR ---
EXAMINATION TYPE: XR chest 2V DATE OF EXAM: 01/15/2022 COMPARISON: 12/20/2021 HISTORY: Difficulty breathing TECHNIQUE: 2 views FINDINGS: Heart is borderline enlarged. There is right lateral rib deformity with some mild pleural t hickening. There are chest leads. There is left axillary pacemaker. No heart failure seen. Costophren ic angles are clear. There is right central venous catheter with tip in the superior vena cava. IMPRESSION: No active cardiopulmonary disease. No change.
[2022-01-15] MEDS ORDERED: ASPIRIN 325 MG TAB PO STA (20:18)
[2022-01-15] MEDS: NITROGLYCERIN OINT 1 INCH/GM PACKET TOPICAL SCH (22:55)
[2022-01-15] MEDS: FUROSEMIDE 10 MG/ML 4 ML VIAL IV SCH (22:57)
[2022-01-15] MEDS ORDERED: IPRATROPIUM-ALBUTEROL 3 ML NEB INHALATION PRN (23:31)
--- NOTE | 2022-01-15 23:34 | P.HPIM ---
History of Present Illness H&P Date: 01/15/22 The patient is a 56-year-old male with an extensive PMH including severe systolic CHF EF less than 20%, status post AICD placement, intracardiac thrombus on Eliquis, type II DM, hypertension, BPH who presents to the emergency room with complaints of shortness of breath. Patient reports his symptoms started last night with quickly progressing severe shortness of breath, which did not allow him to sleep all night. He reports that his symptoms are very similar to his prior episodes of CHF exacerbation. Reports compliance with all his medications at home. Denied any excessive fluid or salt intake. Further denied experiencing chest discomfort, nausea, vomiting, diaphoresis. Denied fever, ch ills, cough, abdominal pain, diarrhea. Patient underwent an extensive evaluation in the emergency room with chest x-ray that revealed no acute abnormalities with EKG showing sinus tachycardia 103 bpm with left atrial enlargement, flattened T waves in leads V5 and V6. Laboratory evaluation revealed a proBNP of 10,500, troponin 0.025, glucose 183, sodium 129, chloride 91, BUN 47, and creatinine 1.96. Review of systems: Pertinent positives and negatives as discussed in HPI, a complete review of systems was performed and all other systems are negative. Physical examination: General: non toxic, no distress, appears older than stated age, normal weight Derm: no unusual rashes/lesions no unusual ecchymoses, warm, dry Head: atraumatic, normocephalic, symmetric Eyes: EOMI, no lid lag, anicteric sclera, pupils equal round reactive to light ENT: Nose and ears atraumatic, no thrush, no pharyngeal erythema Neck: No thyromegaly, no cervical lymphadenopathy, trachea midline, supple Mouth: no lip lesion, mucus membranes moist Cardiovascular: S1S2 reg, no murmur, positive posterior tibial pulse bilateral, no edema, capillary refill less than 2 seconds Lungs: Bibasilar rales without wheezing or rhonchi, no accessory muscle use Abdominal: soft, nontender to palpation, no guarding, no appreciable organomegaly, normal bowel sounds Ext: no gross muscle atrophy, muscle strength 5 out of 5 in all 4 extremities grossly, no contractures, Neuro: CN II-XI grossly intact, light touch intact all 4 extremities, finger to nose within normal limits, Psych: Alert, oriented, appropriate affect Assessment/plan Acute systolic CHF exacerbation -Lasix IV -Monitor electrolytes -Cardiology consult -Cardiac monitoring -Intake and output -Daily weights Hyponatremia -Suspected due to cardiorenal syndrome -Monitor for now -Continue with CHF management as per above Chronic kidney disease, at baseline Chronic conditions: Type II DM, intracardiac thrombus, hypertension, BPH -Continue with home meds -Insulin sliding scale and blood glucose monitoring -Levemir 20 units daily at bedtime DVT prophylaxis -Eliquis The patient is admitted with an anticipated greater than 2 midnight stay for evaluation of CHF CODE STATUS: No Code Discussed with: Patient Anticipated discharge date: 01/[address]: Home Past Medical History Past Medical History: Coronary Artery Disease (CAD), Heart Failure, COPD, Diabetes Mellitus, Eye Disorder, Prostate Disorder, Renal Disease Additional Past Medical History / Comment(s): 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 Past Anesthesia/Blood Transfusion Reactions: No Reported Reaction Additional Past Anesthesia/Blood Transfusion Reaction / Comment(s): Pt has recieved blood in the past without reaction. Type of Cardiac Device: Permanent Pacemaker, AICD Device Placement Date:: 10/2012 Past Psychological History: Anxiety, Depression Additional Psychological History / Comment(s): Pt resides with his mother. He states lately d/t bilateral foot pain he has been unable to stand. Pt states he has a cane, walker and travel chair. He has home care thru [place]. His mother is his chain saw driver. Smoking Status: Former smoker Past Alcohol Use History: None Reported Additional Past Alcohol Use History / Comment(s): Pt started smoking in 1974 and quit in 2015. Past Drug Use History: None Reported - Past Family History Father Family Medical History: Diabetes Mellitus Additional Family Medical History / Comment(s): Father had cardiomyopathy. He is . Mother Family Medical History: Hypertension Brother(s) Additional Family Medical History / Comment(s): Cardiomyopathy with heart transplant. Medications and Allergies Home Medications Medication Instructions Recorded Confirmed Type Brimonidine Tartrate [Alphagan P 1 drop BOTH EYES DAILY@0900 11/29/20 01/15/22 History 0.2% Ophth Soln] Dextrose Chew [Glucose Chew Tab] 12 gm PO DAILY PRN 01/09/21 01/15/22 History Spironolactone [Aldactone] 12.5 mg PO DAILY@0900 01/09/21 01/15/22 History Tamsulosin HCl [Flomax] 0.4 mg PO HS@2100 01/09/21 01/15/22 History Acetaminophen Tab [Tylenol] 325 mg PO Q6H PRN 11/27/21 01/15/22 History Beclomethasone Dip 80 Mcg/Puff 1 puff INHALATION RT-DAILY 11/27/21 01/15/22 History [Qvar 80 mcg] Colchicine 0.6 mg PO DAILY@0900 11/27/21 01/15/22 History Dobutamine 360 mg IV DIRECTED 11/27/21 01/15/22 History Empagliflozin [Jardiance] 25 mg PO DAILY@0900 11/27/21 01/15/22 History Magnesium 420mg 420 mg PO HS@2100 11/27/21 01/15/22 History Multivitamins, Thera [Multivitamin 1 tab PO DAILY@0900 11/27/21 01/15/22 History (formulary)] busPIRone HCL 15 mg PO DAILY@0900 11/27/21 01/15/22 History hydrOXYzine HCL [Atarax] 25 mg PO TID PRN 11/27/21 01/15/22 History methocarbamoL [Robaxin] 750 mg PO TID PRN 11/27/21 01/15/22 History Apixaban [Eliquis] 5 mg PO BID 12/20/21 01/15/22 History Ipratropium-Albuterol Nebulize 3 ml INHALATION RT-QID PRN 12/20/21 01/15/22 History [Duoneb 0.5 mg-3 mg/3 ml Soln] Potassium Chloride ER [K-Dur 20] 40 meq PO Q8H 12/20/21 01/15/22 History INSULIN ASPART (NovoLOG) [NovoLOG 5 unit SQ AC-TID ml 12/26/21 01/15/22 Rx (formulary)] Insulin Detemir (Levemir) [Levemir] 35 unit SQ DAILY@0700 ml 12/26/21 01/15/22 Rx Allergies Allergy/AdvReac Type Severity Reaction Status Date / Time latex Allergy Rash/Hives Verified 01/15/22 19:20 Physical Exam Vitals: Vital Signs Temp Pulse Pulse Resp BP BP Pulse Ox 01/15/22 22:28 97.6 F 100 18 97/73 98 01/15/22 19:46 99 18 103/69 98 01/15/22 17:08 97.1 F L 106 H 22 99/68 97 Intake and Output 01/15/22 01/15/22 01/16/22 14:59 22:59 06:59 Other: Weight 61.689 kg Results CBC & Chem 7: 01/15/22 18:54 01/15/22 18:54 Labs: Abnormal Lab Results - Last 24 Hours (Table) 01/15/22 01/15/22 01/15/22 Range/Units 18:54 18:54 18:54 MCH 23.8 L (25.0-35.0) pg MCHC 29.1 L (31.0-37.0) g/dL RDW 20.5 H (11.5-15.5) % PT 13.1 H (9.0-12.0) sec INR 1.2 H (<1.2) Sodium 129 L (137-145) mmol/L Chloride 91 L (98-107) mmol/L BUN 47 H (9-20) mg/dL Creatinine 1.96 H (0.66-1.25) mg/dL Glucose 182 H (74-99) mg/dL Total Bilirubin 2.6 H (0.2-1.3) mg/dL Alkaline Phosphatase 166 H (38-126) U/L Thrombosis Risk Factor Assmnt - Choose All That Apply Each Factor Represents 1 point: Age 41-60 years Thrombosis Risk Factor Assessment Total Risk Factor Score: 1 Thrombosis Risk Factor Assessment Level: Low Risk
[2022-01-15] MEDS ORDERED: INSULIN DETEMIR (LEVEMIR) 100 UNIT/ML SYR SQ SCH (23:45)
--- NOTE | 2022-01-16 | P.PN ---
Progress Note - Text Progress Note Date: 01/15/22 Advanced Care Planning: Diagnoses: Severe systolic CHF with exacerbation Discussion: Person(s) present and participating in discussion: Patient Summary: Discussed the patient's goals of care in great detail. The patient reported that in light of his severe cardiomyopathy and multiple other conditions, that he wishes to be a DO NOT RESUSCITATE. He reports having discussed this in detail with his family members including his mother. He does not wish to undergo CPR or be placed on life support in the event of cardiac arrest but may wish to have elective forms of life support on a case by case basis. A total of 16 minutes of face to face time was spent discussing advanced care planning.
[2022-01-16] MEDS ORDERED: methocarbamoL 750 MG TAB PO PRN (01:00)
[2022-01-16] MEDS: POTASSIUM CHLORIDE ER 20 MEQ TAB.ER PO SCH ×3 (01:04→11:49)
[2022-01-16] MEDS: DOBUTamine DRIP 500 MG in DEXTROSE/WATER 1 250ML.BAG IV SCH (01:09)
[2022-01-16 06:22] LABS: Glucose,Whole Blood 51 mg/dL (75-99)
[2022-01-16] MEDS: INSULIN ASPART (NovoLOG) 100 UNIT/ML VIAL SQ SCH ×4 (06:25→21:38)
[2022-01-16 06:40] LABS: Glucose,Whole Blood 59 mg/dL (75-99)
[2022-01-16 06:59] LABS: Glucose,Whole Blood 75 mg/dL (75-99)
[2022-01-16] MEDS: FLUTICASONE 110 MCG INHALER INHALATION SCH ×2 (07:33→15:36)
[2022-01-16] MEDS: busPIRone HCl 5 MG TAB PO SCH (09:59)
[2022-01-16] MEDS: COLCHICINE 0.6 MG EACH PO SCH (09:59)
[2022-01-16] MEDS: APIXABAN 5 MG TAB PO SCH ×2 (09:59→21:37)
[2022-01-16] MEDS: MULTIVITAMINS, THERA 1 EACH TAB PO SCH (09:59)
[2022-01-16] MEDS: ASPIRIN 325 MG TAB PO SCH (09:59)
[2022-01-16] MEDS: SPIRONOLACTONE 25 MG TAB PO SCH (10:00)
[2022-01-16] MEDS: NITROGLYCERIN OINT 1 INCH/GM PACKET TOPICAL SCH ×4 (10:00→23:29)
[2022-01-16] MEDS: FUROSEMIDE 10 MG/ML 4 ML VIAL IV SCH ×2 (10:00→22:07)
[2022-01-16 10:32] LABS: Calcium 8.6 mg/dL (8.4-10.2); Magnesium 2.7 mg/dL (1.6-2.3); Potassium 5.3 mmol/L (3.5-5.1)
[2022-01-16 10:49] VITALS: BMI 21.6
--- NOTE | 2022-01-16 11:36 | P.CRDCN ---
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 Patient was admitted with acute on chronic congestive heart failure exacerbation. His chest x-ray shows no acute cardiopulmonary disease or process.patient is on IV Lasix. his EKG shows sinus rhythm withleft atrial enlargement. his Echo in November 2021 showed a severe left ventricular systolic dysfunction EF less than 20%. lab showed a BNP of 10,500, troponin 0.025, BUN/creatinine 47, creatinine 1.96. patient is seen today resting in bed comfortably in no signs of acute distress. He denies chest pain or shortness of breath. Review of Systems REVIEW OF SYSTEMS At the time of my exam: CONSTITUTIONAL: Denies fever or chills. EYES: Negative for vision changes ENT: Negative for hearing loss CARDIOVASCULAR: Denies chest pain, shortness of breath, diaphoresis, orthopnea, PND or palpitations. VASCULAR: Denies edema RESPIRATORY: Denies cough. GASTROINTESTINAL: Denies abdominal pain, diarrhea, constipation, nausea or vomiting. MUSCULOSKELETAL: Denies myalgias. NEUROLOGIC: Denies numbness, tingling, headache or weakness. ENDOCRINE: Denies fatigue, weight change, polydipsia or polyurina. GENITOURINARY: Denies burning, hematuria or urgency with micturation. HEMATOLOGIC: Denies history of anemia or bleeding. DERMATOLOGY: Denies rash or skin sores PSYCH: Negative for depression or hallucinations. Past Medical History Past Medical History: Coronary Artery Disease (CAD), Heart Failure, COPD, Diabetes Mellitus, Eye Disorder, Prostate Disorder, Renal Disease Additional Past Medical History / Comment(s): Hereditary nonischemic card iomyopathy/ has AICD/pacer, has thrombus R atrial AICD lead, chronic CHF, IDDM type II, neuropathy bilateral feet and pt states he has not been able to stand d/t pain, palpitations, BPH, recent IDC pt states d/t unablilty to void, CKD stage III, gout bilateral feet and L elbow, chronic pain, History of Any Multi-Drug Resistant Organisms: None Reported Past Surgical History: AICD, Heart Catheterization, Pacemaker Additional Past Surgical History / Comment(s): 10/2012 pacer/defibrillator, picc line double lumen R arm. Past Anesthesia/Blood Transfusion Reactions: No Reported Reaction Additional Past Anesthesia/Blood Transfusion Reaction / Comment(s): Pt has recieved blood in the past without reaction. Type of Cardiac Device: Permanent Pacemaker, AICD Device Placement Date:: 10/2012 Past Psychological History: Anxiety, Depression Additional Psychological History / Comment(s): Pt resides with his mother. He states lately d/t bilateral foot pain he has been unable to stand. Pt states he has a cane, walker and travel chair. He has home care thru [place]. 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 Smoking Status: Former smoker Past Alcohol Use History: None Reported Additional Past Alcohol Use History / Comment(s): Pt started smoking in 1974 and quit in 2015. Past Drug Use History: None Reported - Past Family History Father Family Medical History: Diabetes Mellitus Additional Family Medical History / Comment(s): Father had cardiomyopathy. He is . Mother Family Medical History: Hypertension Brother(s) Additional Family Medical History / Comment(s): Cardiomyopathy with heart transplant. Medications and Allergies Home Medications Medication Instructions Recorded Confirmed Type Brimonidine Tartrate [Alphagan P 1 drop BOTH EYES DAILY@89911/29/20 01/15/22 History 0.2% Ophth Soln] Dextrose Chew [Glucose Chew Tab] 12 gm PO DAILY PRN 01/09/21 01/15/22 History Spironolactone [Aldactone] 12.5 mg PO DAILY@0901/09/21 01/15/22 History Tamsulosin HCl [Flomax] 0.4 mg PO HS@2100 01/09/21 01/15/22 History Acetaminophen Tab [Tylenol] 325 mg PO Q6H PRN 11/27/21 01/15/22 History Beclomethasone Dip 80 Mcg/Puff 1 puff INHALATION RT-DAILY 11/27/21 01/15/22 History [Qvar 80 mcg] Colchicine 0.6 mg PO DAILY@0900 11/27/21 01/15/22 History Dobutamine 360 mg IV DIRECTED 11/27/21 01/15/22 History Empagliflozin [Jardiance] 25 mg PO DAILY@89911/27/21 01/15/22 History Magnesium 420mg 420 mg PO HS@2100 11/27/21 01/15/22 History Multivitamins, Thera [Multivitamin 1 tab PO DAILY@0900 11/27/21 01/15/22 History (formulary)] busPIRone HCL 15 mg PO DAILY@0900 11/27/21 01/15/22 History hydrOXYzine HCL [Atarax] 25 mg PO TID PRN 11/27/21 01/15/22 History methocarbamoL [Robaxin] 750 mg PO TID PRN 11/27/21 01/15/22 History Apixaban [Eliquis] 5 mg PO BID 12/20/21 01/15/22 History Ipratropium-Albuterol Nebulize 3 ml INHALATION RT-QID PRN 12/20/21 01/15/22 History [Duoneb 0.5 mg-3 mg/3 ml Soln] Potassium Chloride ER [K-Dur 20] 40 meq PO Q8H 12/20/21 01/15/22 History INSULIN ASPART (NovoLOG) [NovoLOG 5 unit SQ AC-TID ml 12/26/21 01/15/22 Rx (formulary)] Insulin Detemir (Levemir) [Levemir] 35 unit SQ DAILY@0700 ml 12/26/21 01/15/22 Rx Allergies Allergy/AdvReac Type Severity Reaction Status Date / Time latex Allergy Rash/Hives Verified 01/15/22 19:20 Physical Exam Vitals: Vital Signs Temp Pulse Pulse Resp BP BP Pulse Ox 01/16/22 08:03 95 01/16/22 08:00 97.6 F 64 18 87/62 98 01/16/22 04:00 97.5 F L 94 16 99/69 99 01/16/22 02:00 100 18 01/15/22 22:28 97.6 F 100 18 97/73 98 01/15/22 19:46 99 18 103/69 98 01/15/22 17:08 97.1 F L 106 H 22 99/68 97 Intake and Output 01/15/22 01/16/22 01/16/22 22:59 06:59 14:59 Intake Total 120 Output Total 300 Balance -180 Intake: Oral 120 Output: Urine 300 Other: Voiding Method Indwelling Catheter Indwelling Catheter Weight 61.689 kg 64.4 kg 64.4 kg General: The patient is awake and alert, in no distress, and does not appear acutely ill. Skin: Skin is warm and dry and no rashes or lesions are noted. Eye: Pupils are equal, round and reactive to light, extra-ocular movements are intact; there is normal conjunctiva bilaterally. Ears, nose, mouth and throat: There are moist mucous membranes and no oral lesions. Neck: The neck is supple, there is no tenderness or JVD. Cardiovascular: There is irregular regular rate and rhythm. No murmur, rub or gallop is appreciated. Respiratory: Lungs are clear to auscultation, respirations are non-labored, breath sounds are equal. Gastrointestinal: Soft, non-distended, non-tender abdomen without masses or organomegaly noted. There is no rebound or guarding present. Bowel sounds are unremarkable. Back: There is no tenderness to palpation in the midline. There is no obvious deformity. Musculoskeletal: Normal ROM, no tenderness, There is no pedal edema. There is no calf tenderness or swelling. Extremities: Mild bilateral pitting edema Vascular: Femoral pulse is normal. Posterior tibial pulses are normal .Dorsalis pedis is palpable. Neurological: CN II-XII intact. There are no obvious motor or sensory deficits. Speech is normal. Psychiatric: Cooperative, appropriate mood & affect, normal judgment Results 01/15/22 18:54 01/16/22 10:00 Cardiac Enzymes 01/15/22 01/15/22 01/15/22 Range/Units 18:54 18:54 21:11 AST 35 (17-59) U/L Troponin I 0.025 0.027 (0.000-0.034) ng/mL 01/16/22 Range/Units 00:48 AST (17-59) U/L Troponin I 0.036 H* (0.000-0.034) ng/mL Coagulation 01/15/22 Range/Units 18:54 PT 13.1 H (9.0-12.0) sec APTT 22.6 (22.0-30.0) sec CBC 01/15/22 Range/Units 18:54 WBC 9.7 (3.8-10.6) k/uL RBC 5.58 (4.30-5.90) m/uL Hgb 13.3 (13.0-17.5) gm/dL Hct 45.7 (39.0-53.0) % Plt Count 200 D (150-450) k/uL Comprehensive Metabolic Panel 01/15/22 01/16/22 Range/Units 18:54 10:00 Sodium 129 L 130 L (137-145) mmol/L Potassium 4.4 5.3 H (3.5-5.1) mmol/L Chloride 91 L 94 L (98-107) mmol/L Carbon Dioxide 28 26 (22-30) mmol/L BUN 47 H 48 H (9-20) mg/dL Creatinine 1.96 H 1.93 H (0.66-1.25) mg/dL Glucose 182 H 157 H (74-99) mg/dL Calcium 8.8 8.6 (8.4-10.2) mg/dL AST 35 (17-59) U/L ALT 21 (4-49) U/L Alkaline Phosphatase 166 H (38-126) U/L Total Protein 7.2 (6.3-8.2) g/dL Albumin 4.1 (3.5-5.0) g/dL Current Medications Generic Name Dose Route Start Last Admin Trade Name Freq PRN Reason Stop Dose Admin Albuterol/Ipratropium 3 ml 01/15/22 23:31 Ipratropium-Albuterol 3 Ml Neb INHALATION RT-QID PRN Shortness Of Breath Apixaban 5 mg 01/16/22 09:00 01/16/22 09:59 Apixaban 5 Mg Tab PO 5 mg BID YASMANI Administration Protocol Aspirin 325 mg 01/16/22 09:00 01/16/22 09:59 Aspirin 325 Mg Tab PO 325 mg DAILY YASMANI Administration Buspirone HCl 15 mg 01/16/22 09:00 01/16/22 09:59 Buspirone Hcl 5 Mg Tab PO 15 mg DAILY@0900 YASMANI Administration Colchicine 0.6 mg 01/16/22 09:00 01/16/22 09:59 Colchicine 0.6 Mg Each PO 0.6 mg DAILY@0900 YASMANI Administration Fluticasone Propionate 1 puff 01/16/22 08:00 01/16/22 07:33 Fluticasone 110 Mcg Inhaler INHALATION 1 puff RT-DAILY YASMANI Administration Furosemide 40 mg 01/15/22 22:00 01/16/22 10:00 Furosemide 10 Mg/Ml 4 Ml Vial IV 40 mg Q12H YASMANI Administration Dobutamine HCl/Dextrose 500 mg 250 mls @ 6.477 mls/hr 01/16/22 01:00 01/16/22 01:09 / IV Solution IV 3.5 mcg/kg/min .Q24H YASMANI 6.477 mls/hr Administration 3.5 MCG/KG/MIN Insulin Aspart 0 unit 01/16/22 07:30 01/16/22 06:25 Insulin Aspart (Novolog) 100 Unit/Ml Vial SQ Not Given ACHS REPLACED BY [facility] Protocol Insulin Detemir 10 unit 01/16/22 21:00 Insulin Detemir (Levemir) 100 Unit/Ml Syr SQ HS REPLACED BY [facility] Methocarbamol 750 mg 01/16/22 01:00 Methocarbamol 750 Mg Tab PO TID PRN Muscle Pain Multivitamins 1 each 01/16/22 09:00 01/16/22 09:59 Multivitamins, Thera 1 Each Tab PO 1 each DAILY@0900 REPLACED BY [facility] Administration Nitroglycerin 0.5 inch 01/15/22 22:00 01/16/22 10:00 Nitroglycerin Oint 1 Inch/Gm Packet TOPICAL 0.5 inch QID REPLACED BY [facility] Administration Potassium Chloride 40 meq 01/15/22 23:45 01/16/22 07:08 Potassium Chloride Er 20 Meq Tab.Er PO 40 meq Q8H YASMANI Administration Sodium Chloride 10 ml 01/15/22 21:00 01/16/22 10:09 Sodium Chloride 0.9% Flush 10 Ml Syringe IV 10 ml BID YASMANI Administration Spironolactone 12.5 mg 01/16/22 09:00 01/16/22 10:00 Spironolactone 25 Mg Tab PO 12.5 mg DAILY@0900 REPLACED BY [facility] Administration Tamsulosin HCl 0.4 mg 01/16/22 21:00 Tamsulosin 0.4 Mg Cap.Er.24h PO HS@2100 REPLACED BY [facility] Intake and Output 01/15/22 01/16/22 01/16/22 22:59 06:59 14:59 Intake Total 120 Output Total 300 Balance -180 Intake: Oral 120 Output: Urine 300 Other: Voiding Method Indwelling Catheter Indwelling Catheter Weight 61.689 kg 64.4 kg 64.4 kg Patient Weight 01/17/22 06:59 Weight 64.4 kg 01/15/22 18:54 04/28/22 10:00 Assessment and Plan Assessment: acute on chronic systolic congestive heart failure Nonischemic cardiomyopathy Elevated troponins probably due to renal insufficiency and acute on chronic congestive heart failure Plan: continue with IV Lasix Continue with Eliquis for possible thrombosis on the right atrial lead Continue with all other current cardiac medications Previous echocardiogram reviewed Continue with telemetry monitoring Further recommendations based on clinical course The above impression and plan of care have been discussed and directed by the signing physician. Genoveva Quigley, nurse practitioner, acting as scribe for signing physician.
[2022-01-16 11:43] LABS: Glucose,Whole Blood 201 mg/dL (75-99)
[2022-01-16 16:35] LABS: Glucose,Whole Blood 202 mg/dL (75-99)
[2022-01-16 20:37] LABS: Glucose,Whole Blood 243 mg/dL (75-99)
[2022-01-16] MEDS ORDERED: INSULIN DETEMIR (LEVEMIR) 100 UNIT/ML SYR SQ SCH ×2 (21:00)
[2022-01-16] MEDS: TAMSULOSIN 0.4 MG CAP.ER.24H PO SCH (21:37)
--- NOTE | 2022-01-16 22:24 | P.PN ---
Subjective Progress Note Date: 01/16/22 (delayed charting seen at 1045) Patient is a 56-year-old male for history of severe systolic congestive heart failure and an ejection fraction of less than 20% status post AICD on chronic dobutamine infusion, intracardiac thrombus on eloquent, diabetes mellitus type 2, and hypertension who presented to the ER with complaints of severe shortness of breath. In the ER he underwent an extensive evaluation. Chest x-ray showed no acute abnormalities, laboratory analysis showed a BNP of 10,500, troponin mildly elevated at 0.025, sodium 129, chloride 91, BUN 47, creatinine 1.96. He is admitted and started on IV diuresis. His dobutamine infusion was continued. Cardiology was consulted. Patient seen and examined at bedside. He states that her shortness of breath is much improved, his abdominal distention is better, and he feel that his legs are unchanged. He reports that he follows with Dr. Elias lotus [facility]. He is not a candidate for an LVAD or cardiac transplantation. He has been given 6 months to live but feels as though his prayers will help him survive greater than 6 months. He has caretakers at home. Assessment/plan: Acute exacerbation of systolic congestive heart failure with ejection fraction less than 20% Hereditary nonischemic cardiomyopathy status post AICD Mouth moderate mitral regurgitation, severe tricuspid regurgitation -Continue with IV Lasix, Aldactone -Continue with dobutamine drip -Strict I's and O's, daily weights -Cardiology recommendations. Hyperkalemia -Hold scheduled potassium replacements -Follow levels Hyponatremia secondary to fluid overload -Continue with Lasix -Follow sodium levels Chronic kidney disease stage III -Appears at baseline -Follow closely with diuresis Diabetes mellitus type II insulin requiring -Sliding-scale insulin -Follow blood sugars -Continue with Levemir - jardiance on hold - A1C 7.8 Intracardiac thrombus -Continue with eloquent Chronic: Hypertension BPH COPD Neuropathy Objective - Vital Signs Vital signs: Vital Signs Temp 98 F 01/16/22 20:00 Pulse 95 01/16/22 20:00 Resp 18 01/16/22 20:00 BP 108/76 01/16/22 20:00 Pulse Ox 98 01/16/22 20:00 Intake & Output 01/16/22 01/16/22 01/17/22 06:59 18:59 06:59 Intake Total 340 Output Total 1000 Balance -660 Weight 64.4 kg 64.4 kg Intake: Oral 340 Output: Urine 1000 Other: Voiding Method Indwelling Catheter Indwelling Catheter - Labs CBC & Chem 7: 01/15/22 18:54 01/16/22 10:00 Labs: Abnormal Lab Results - Last 24 Hours (Table) 01/16/22 01/16/22 01/16/22 Range/Units 00:48 06:21 06:39 Sodium (137-145) mmol/L Potassium (3.5-5.1) mmol/L Chloride (98-107) mmol/L BUN (9-20) mg/dL Creatinine (0.66-1.25) mg/dL Glucose (74-99) mg/dL POC Glucose (mg/dL) 51 L 59 L (75-99) mg/dL Magnesium (1.6-2.3) mg/dL Troponin I 0.036 H* (0.000-0.034) ng/mL 01/16/22 01/16/22 01/16/22 Range/Units 10:00 11:41 16:33 Sodium 130 L (137-145) mmol/L Potassium 5.3 H (3.5-5.1) mmol/L Chloride 94 L (98-107) mmol/L BUN 48 H (9-20) mg/dL Creatinine 1.93 H (0.66-1.25) mg/dL Glucose 157 H (74-99) mg/dL POC Glucose (mg/dL) 201 H 202 H (75-99) mg/dL Magnesium 2.7 H (1.6-2.3) mg/dL Troponin I (0.000-0.034) ng/mL 01/16/22 Range/Units 20:35 Sodium (137-145) mmol/L Potassium (3.5-5.1) mmol/L Chloride (98-107) mmol/L BUN (9-20) mg/dL Creatinine (0.66-1.25) mg/dL Glucose (74-99) mg/dL POC Glucose (mg/dL) 243 H (75-99) mg/dL Magnesium (1.6-2.3) mg/dL Troponin I (0.000-0.034) ng/mL
[2022-01-17] MEDS: DOBUTamine DRIP 500 MG in DEXTROSE/WATER 1 250ML.BAG IV SCH (02:15)
[2022-01-17] MEDS: hydrOXYzine HCL 25 MG TAB PO SCH ×4 (03:10→21:08)
[2022-01-17 04:01] LABS: Albumin 3.4 g/dL (3.5-5.0); Calcium 8.3 mg/dL (8.4-10.2); Magnesium 2.6 mg/dL (1.6-2.3); Potassium 4.8 mmol/L (3.5-5.1); Total Bilirubin 1.6 mg/dL (0.2-1.3); Total Protein 6.2 g/dL (6.3-8.2)
[2022-01-17] MEDS: INSULIN ASPART (NovoLOG) 100 UNIT/ML VIAL SQ SCH ×4 (06:06→21:15)
[2022-01-17 06:32] LABS: Glucose,Whole Blood 55 mg/dL (75-99)
[2022-01-17 06:32] LABS: Glucose,Whole Blood 58 mg/dL (75-99)
[2022-01-17 06:52] LABS: Glucose,Whole Blood 95 mg/dL (75-99)
[2022-01-17] MEDS: FLUTICASONE 110 MCG INHALER INHALATION SCH (08:07)
[2022-01-17] MEDS: MULTIVITAMINS, THERA 1 EACH TAB PO SCH (08:37)
[2022-01-17] MEDS: APIXABAN 5 MG TAB PO SCH ×2 (08:38→21:08)
[2022-01-17] MEDS: SPIRONOLACTONE 25 MG TAB PO SCH (08:38)
[2022-01-17] MEDS: ASPIRIN 325 MG TAB PO SCH (08:38)
[2022-01-17] MEDS: NITROGLYCERIN OINT 1 INCH/GM PACKET TOPICAL SCH ×5 (08:38→21:10)
[2022-01-17] MEDS: busPIRone HCl 5 MG TAB PO SCH (08:38)
[2022-01-17] MEDS: COLCHICINE 0.6 MG EACH PO SCH (08:39)
--- NOTE | 2022-01-17 10:41 | P.NPCON ---
History of Present Illness - Reason for Consult chronic renal failure, hyponatremia - History of Present Illness Reason for consultation: Chronic kidney disease and hyponatremia History of present illness: Patient is a 56-year-old male seen in consultation for chronic kidney disease and hyponatremia. Patient has chronic kidney disease stage IIIB secondary to cardiorenal syndrome with baseline creatinine in the range of 1.6-2. Patient presented to the hospital 01/15/2022 with shortness of breath. Patient states he had gained about 13 pounds over 5 days and was told to go to the hospital by his home care nurse. Patient has chronic systolic CHF with ejection fraction of 10-15%. He also has a chronic Moy catheter. He is maintained on dobutamine infusion outpatient. Patient states he takes diuretic outpatient but is unsure if it's Lasix or Bumex. He is currently receiving IV Lasix 40 mg twice daily. He is also on spironolactone. Nonoliguric. No fever or chills. No vomiting diarrhea. Edema improving. Currently on room air. Blood pressure stable. Denies chest pain or shortness of breath. Patient's sodium level was 129 on admission was 127 today. Patient states he does monitor his fluid intake. Vital signs are stable. General: No acute distress. HEENT: Head exam is unremarkable. LUNGS: Breath sounds decreased. HEART: Rate and Rhythm are regular. ABDOMEN: Soft, no distention. EXTREMITITES: 1+ edema. Past Medical History Past Medical History: Coronary Artery Disease (CAD), Heart Failure, COPD, Diabetes Mellitus, Eye Disorder, Prostate Disorder, Renal Disease Additional Past Medical History / Comment(s): 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 Past Anesthesia/Blood Transfusion Reactions: No Reported Reaction Additional Past Anesthesia/Blood Transfusion Reaction / Comment(s): Pt has recieved blood in the past without reaction. Type of Cardiac Device: Permanent Pacemaker, AICD Device Placement Date:: 10/2012 Past Psychological History: Anxiety, Depression Additional Psychological History / Comment(s): Pt resides with his mother. He states lately d/t bilateral foot pain he has been unable to stand. Pt states he has a cane, walker and travel chair. He has home care thru [place]. 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 Smoking Status: Former smoker Past Alcohol Use History: None Reported Additional Past Alcohol Use History / Comment(s): Pt started smoking in 1974 and quit in 2015. Past Drug Use History: None Reported - Past Family History Father Family Medical History: Diabetes Mellitus Additional Family Medical History / Comment(s): Father had cardiomyopathy. He is . Mother Family Medical History: Hypertension Brother(s) Additional Family Medical History / Comment(s): Cardiomyopathy with heart transplant. Medications and Allergies Home Medications Medication Instructions Recorded Confirmed Type Brimonidine Tartrate [Alphagan P 1 drop BOTH EYES DAILY@89911/29/20 01/15/22 History 0.2% Ophth Soln] Dextrose Chew [Glucose Chew Tab] 12 gm PO DAILY PRN 01/09/21 01/15/22 History Spironolactone [Aldactone] 12.5 mg PO DAILY@89901/09/21 01/15/22 History Tamsulosin HCl [Flomax] 0.4 mg PO HS@209901/09/21 01/15/22 History Acetaminophen Tab [Tylenol] 325 mg PO Q6H PRN 11/27/21 01/15/22 History Beclomethasone Dip 80 Mcg/Puff 1 puff INHALATION RT-DAILY 11/27/21 01/15/22 History [Qvar 80 mcg] Colchicine 0.6 mg PO DAILY@00 11/27/21 01/15/22 History Dobutamine 360 mg IV DIRECTED 11/27/21 01/15/22 History Empagliflozin [Jardiance] 25 mg PO DAILY@00 11/27/21 01/15/22 History Magnesium 420mg 420 mg PO HS@2100 11/27/21 01/15/22 History Multivitamins, Thera [Multivitamin 1 tab PO DAILY@89911/27/21 01/15/22 History (formulary)] busPIRone HCL 15 mg PO DAILY@0900 11/27/21 01/15/22 History hydrOXYzine HCL [Atarax] 25 mg PO TID PRN 11/27/21 01/15/22 History methocarbamoL [Robaxin] 750 mg PO TID PRN 11/27/21 01/15/22 History Apixaban [Eliquis] 5 mg PO BID 12/20/21 01/15/22 History Ipratropium-Albuterol Nebulize 3 ml INHALATION RT-QID PRN 12/20/21 01/15/22 History [Duoneb 0.5 mg-3 mg/3 ml Soln] Potassium Chloride ER [K-Dur 20] 40 meq PO Q8H 12/20/21 01/15/22 History INSULIN ASPART (NovoLOG) [NovoLOG 5 unit SQ AC-TID ml 12/26/21 01/15/22 Rx (formulary)] Insulin Detemir (Levemir) [Levemir] 35 unit SQ DAILY@0700 ml 12/26/21 01/15/22 Rx Allergies Allergy/AdvReac Type Severity Reaction Status Date / Time latex Allergy Rash/Hives Verified 01/15/22 19:20 Physical Exam Vitals: Vital Signs Temp Pulse Resp BP Pulse Ox 01/17/22 08:00 98 20 111/85 96 01/17/22 03:09 97.5 F L 97 18 100/73 99 01/17/22 00:00 97.5 F L 96 16 99/76 99 01/16/22 20:00 98 F 95 16 108/76 98 01/16/22 16:17 97.3 F L 97 17 95/73 98 01/16/22 15:40 100 01/16/22 11:50 98.2 F 85 17 95/71 100 Intake and Output 01/16/22 01/17/22 01/17/22 22:59 06:59 14:59 Intake Total 220 120 Output Total 700 1100 Balance -480 -1100 120 Intake: Oral 220 120 Output: Urine 700 1100 Uretheral (Moy) 500 Other: Voiding Method Indwelling Catheter Indwelling Catheter Indwelling Catheter Weight 65.6 kg Results - Lab Results Most recent lab results Calcium 8.3 mg/dL (8.4-10.2) L 01/17/22 03:25 Magnesium 2.6 mg/dL (1.6-2.3) H 01/17/22 03:25 01/15/22 18:54 01/17/22 03:25 Assessment and Plan Plan: Assessment: 1. Chronic kidney disease stage IIIB with baseline creatinine in the range of 1.62 secondary to cardiorenal syndrome. 2. Acute on chronic systolic CHF. 3. Volume overload. 4. Hypervolemic hyponatremia. Plan: Maintain IV Lasix. Low-salt diet. Patient refusing fluid restriction. I will give him a dose of 7.5 mg once today. Continue to monitor renal function and urine output. Thank you for the consultation. I will continue to follow patient with you during his hospital stay.
[2022-01-17] MEDS: FUROSEMIDE 10 MG/ML 4 ML VIAL IV SCH ×2 (10:45→17:03)
[2022-01-17] MEDS ORDERED: TOLVAPTAN 15 MG 1/2 TABLET PO ONE (11:00)
--- NOTE | 2022-01-17 11:40 | P.PN ---
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 Patient was admitted with acute on chronic congestive heart failure exacerbation. His chest x-ray shows no acute cardiopulmonary disease or proc ess.patient is on IV Lasix. his EKG shows sinus rhythm withleft atrial enlargement. his Echo in November 2021 showed a severe left ventricular systolic dysfunction EF less than 20%. lab showed a BNP of 10,500, troponin 0.025, BUN/creatinine 47, creatinine 1.96. patient is seen today resting in bed comf ortably in no signs of acute distress. He denies chest pain or shortness of breath. 01/17/2022 Patient examined this morning at the bedside. Patient denies chest pain or pressure. He denies having shortness of breath at the time of my examination. He continues to report lower extremity edema. His weight has actually gone up since yesterday. He remains on IV Lasix 40 mg Q12 hours. PHYSICAL EXAM: VITAL SIGNS: Reviewed. GENERAL: Well-developed in no acute distress. NECK: Supple. No JVD or thyromegaly LUNGS: Respirations even and unlabored. Lungs diminished to auscultation bilaterally with crackles and left lower base. HEART: Regular rate and rhythm. S1 and S2 heard. EXTREMITIES: Normal range of motion. No clubbing or cyanosis. Peripheral pulses intact. 2+ bilateral lower extremity edema ASSESSMENT: Acute on chronic congestive heart failure with reduced ejection fraction History of nonischemic cardiomyopathy with previous AICD implantation Abnormal troponins, likely secondary to kidney function and CHF, not indicative of acute coronary syndrome acute kidney injury Intracardiac thrombus PLAN: Continue current cardiac medications Continue IV lasix. Increase dosage to q8 hours Monitor kidney function Further recommendations pending patient course Nurse practitioner note has been reviewed by physician. Signing provider agrees with the documented findings, assessment, and plan of care. Objective - Vital Signs Vital signs: Vital Signs Temp 97.5 F L 01/17/22 03:09 Pulse 98 01/17/22 08:00 Resp 20 01/17/22 08:00 BP 111/85 01/17/22 08:00 Pulse Ox 96 01/17/22 08:00 Intake & Output 01/16/22 01/17/22 01/17/22 18:59 06:59 18:59 Intake Total 340 120 Output Total 1000 1100 Balance -660 -1100 120 Weight 64.4 kg 65.6 kg Intake: Oral 340 120 Output: Urine 1000 1100 Uretheral (Moy) 500 Other: Voiding Method Indwelling Catheter Indwelling Catheter Indwelling Catheter - Labs CBC & Chem 7: 01/15/22 18:54 01/17/22 03:25 Labs: Abnormal Lab Results - Last 24 Hours (Table) 01/16/22 01/16/22 01/16/22 Range/Units 11:41 16:33 20:35 Sodium (137-145) mmol/L Chloride (98-107) mmol/L BUN (9-20) mg/dL Creatinine (0.66-1.25) mg/dL POC Glucose (mg/dL) 201 H 202 H 243 H (75-99) mg/dL Calcium (8.4-10.2) mg/dL Magnesium (1.6-2.3) mg/dL Total Bilirubin (0.2-1.3) mg/dL Alkaline Phosphatase (38-126) U/L Total Protein (6.3-8.2) g/dL Albumin (3.5-5.0) g/dL 01/17/22 01/17/22 01/17/22 Range/Units 03:25 06:00 06:18 Sodium 127 L (137-145) mmol/L Chloride 93 L (98-107) mmol/L BUN 46 H (9-20) mg/dL Creatinine 1.83 H (0.66-1.25) mg/dL POC Glucose (mg/dL) 55 L 58 L (75-99) mg/dL Calcium 8.3 L (8.4-10.2) mg/dL Magnesium 2.6 H (1.6-2.3) mg/dL Total Bilirubin 1.6 H (0.2-1.3) mg/dL Alkaline Phosphatase 149 H (38-126) U/L Total Protein 6.2 L (6.3-8.2) g/dL Albumin 3.4 L (3.5-5.0) g/dL
[2022-01-17 11:58] LABS: Glucose,Whole Blood 203 mg/dL (75-99)
--- NOTE | 2022-01-17 15:32 | P.PN ---
Subjective Progress Note Date: 01/17/22 (delayed charting seen at 10am) Principal diagnosis: shortness of breath Patient is a 56-year-old male for history of severe systolic congestive heart failure and an ejection fraction of less than 20% status post AICD on chronic dobutamine infusion, intracardiac thrombus on eliquis, diabetes mellitus type 2, and hypertension who presented to the ER with complaints of severe shortness of breath. In the ER he underwent an extensive evaluation. Chest x-ray showed no acute abnormalities, laboratory analysis showed a BNP of 10,500, troponin mildly elevated at 0.025, sodium 129, chloride 91, BUN 47, creatinine 1.96. He is admitted and started on IV diuresis. His dobutamine infusion was continued. Cardiology was consulted. He continued to have hyponatremia and nephrology was consulted he was given a dose of Samsca 01/17. Patient seen and examined at bedside. He states that he thinks his abd distension is not improved, he continues to breath well, he is feeling uncomf ortable today but not short of breath. General: ill appearing, no distress, appears older than stated age Derm: warm, dry Head: atraumatic, normocephalic, symmetric Eyes: EOMI, no lid lag, anicteric sclera Mouth: no lip lesion, mucus membranes moist Cardiovascular: S1S2 reg, no murmur, positive posterior tibial pulse bilateral, Lungs: Decreased bs bilateral bases, no rhonchi, no rales , no accessory muscle use Abdominal: + abdominal distension, soft, nontender to palpation, no guarding, no appreciable organomegaly Ext: no gross muscle atrophy, 2+ edema, no contractures Neuro: CN II-XI grossly intact, no focal neuro deficits Psych: Alert, oriented, appropriate affect Assessment/plan: Acute exacerbation of systolic congestive heart failure with ejection fraction less than 20% Hereditary nonischemic cardiomyopathy status post AICD Mouth moderate mitral regurgitation, severe tricuspid regurgitation -Continue with IV Lasix, Aldactone -Continue with dobutamine drip -Strict I's and O's, daily weights -Cardiology recommendations. Hyponatremia secondary to fluid overload -Continue with Lasix, increased - nephrology consulted and samsca X1 01/17 -Follow sodium levels Chronic kidney disease stage III -Appears at baseline -Follow closely with diuresis Diabetes mellitus type II insulin requiring, hypoglycemia episode -Sliding-scale insulin -Follow blood sugars -Decreased Levemir - jardiance on hold - A1C 7.8 Intracardiac thrombus -Continue with eliquis Chronic: Hypertension BPH COPD Neuropathy Hyperkalemia, resolved DVT prophylaxis: eliquis Discussed with: patient, nursing Anticipated discharge: in 2-[address]: A total of 35minutes was spent on the care of this complex patient more than 50% of the time was spent in counseling and care coordination. Active Medications Generic Name Dose Route Start Last Admin Trade Name Freq PRN Reason Stop Dose Admin Albuterol/Ipratropium 3 ml 01/15/22 23:31 Ipratropium-Albuterol 3 Ml Neb INHALATION RT-QID PRN Shortness Of Breath Apixaban 5 mg 01/16/22 09:00 01/17/22 08:38 Apixaban 5 Mg Tab PO 5 mg BID YASMANI Administration Protocol Buspirone HCl 15 mg 01/16/22 09:00 01/17/22 08:38 Buspirone Hcl 5 Mg Tab PO 15 mg DAILY@0900 YASMANI Administration Colchicine 0.6 mg 01/16/22 09:00 01/17/22 08:39 Colchicine 0.6 Mg Each PO 0.6 mg DAILY@0900 YASMANI Administration Fluticasone Propionate 1 puff 01/16/22 08:00 01/17/22 08:07 Fluticasone 110 Mcg Inhaler INHALATION 1 puff RT-DAILY YASMANI Administration Furosemide 40 mg 01/17/22 16:00 Furosemide 10 Mg/Ml 4 Ml Vial IV Q8HR YASMANI Hydroxyzine HCl 25 mg 01/17/22 03:00 01/17/22 08:38 Hydroxyzine Hcl 25 Mg Tab PO 25 mg TID YASMANI Administration Dobutamine HCl/Dextrose 500 mg 250 mls @ 6.477 mls/hr 01/16/22 01:00 01/17/22 02:15 / IV Solution IV Not Given .Q24H YASMANI 3.5 MCG/KG/MIN Insulin Aspart 0 unit 01/16/22 07:30 01/17/22 12:27 Insulin Aspart (Novolog) 100 Unit/Ml Vial SQ 2 unit ACHS YASMANI Administration Protocol Insulin Detemir 5 unit 01/17/22 21:00 Insulin Detemir (Levemir) 100 Unit/Ml Syr SQ HS [facility] Methocarbamol 750 mg 01/16/22 01:00 Methocarbamol 750 Mg Tab PO TID PRN Muscle Pain Multivitamins 1 each 01/16/22 09:00 01/17/22 08:37 Multivitamins, Thera 1 Each Tab PO 1 each DAILY@0900 [facility] Administration Nitroglycerin 0.5 inch 01/15/22 22:00 01/17/22 14:37 Nitroglycerin Oint 1 Inch/Gm Packet TOPICAL Not Given QID [facility] Sodium Chloride 10 ml 01/15/22 21:00 01/17/22 10:45 Sodium Chloride 0.9% Flush 10 Ml Syringe IV 10 ml BID YASMANI Administration Spironolactone 12.5 mg 01/16/22 09:00 01/17/22 08:38 Spironolactone 25 Mg Tab PO 12.5 mg DAILY@0900 [facility] Administration Tamsulosin HCl 0.4 mg 01/16/22 21:00 01/16/22 21:37 Tamsulosin 0.4 Mg Cap.Er.24h PO 0.4 mg HS@2100 [facility] Administration Objective - Vital Signs Vital signs: Vital Signs Temp 97.8 F 01/17/22 12:00 Pulse 95 01/17/22 12:00 Resp 20 01/17/22 12:00 BP 111/73 01/17/22 12:00 Pulse Ox 99 01/17/22 12:00 Intake & Output 01/16/22 01/17/22 01/17/22 18:59 06:59 18:59 Intake Total 340 147.96 Output Total 1000 1100 Balance -660 -1100 147.96 Weight 64.4 kg 65.6 kg Intake: Intake, IV Titration 27.96 Amount DOBUTamine DRIP 500 mg In 27.96 Dextrose/Water 1 250ml. bag @ 3.5 MCG/KG/MIN 6. 477 mls/hr IV .Q24H [facility] Rx#:[id number] Oral 340 120 Output: Urine 1000 1100 Uretheral (Moy) 500 Other: Voiding Method Indwelling Catheter Indwelling Catheter Indwelling Catheter - Labs CBC & Chem 7: 01/15/22 18:54 01/17/22 03:25 Labs: Abnormal Lab Results - Last 24 Hours (Table) 01/16/22 01/16/22 01/17/22 Range/Units 16:33 20:35 03:25 Sodium 127 L (137-145) mmol/L Chloride 93 L (98-107) mmol/L BUN 46 H (9-20) mg/dL Creatinine 1.83 H (0.66-1.25) mg/dL POC Glucose (mg/dL) 202 H 243 H (75-99) mg/dL Calcium 8.3 L (8.4-10.2) mg/dL Magnesium 2.6 H (1.6-2.3) mg/dL Total Bilirubin 1.6 H (0.2-1.3) mg/dL Alkaline Phosphatase 149 H (38-126) U/L Total Protein 6.2 L (6.3-8.2) g/dL Albumin 3.4 L (3.5-5.0) g/dL 01/17/22 01/17/22 01/17/22 Range/Units 06:00 06:18 11:50 Sodium (137-145) mmol/L Chloride (98-107) mmol/L BUN (9-20) mg/dL Creatinine (0.66-1.25) mg/dL POC Glucose (mg/dL) 55 L 58 L 203 H (75-99) mg/dL Calcium (8.4-10.2) mg/dL Magnesium (1.6-2.3) mg/dL Total Bilirubin (0.2-1.3) mg/dL Alkaline Phosphatase (38-126) U/L Total Protein (6.3-8.2) g/dL Albumin (3.5-5.0) g/dL
[2022-01-17] MEDS ORDERED: ALTEPLASE 2 MG VIAL (CATHFLO) IV STA (16:34)
[2022-01-17 16:47] LABS: Glucose,Whole Blood 287 mg/dL (75-99)
[2022-01-17] MEDS: NYSTATIN 100,000 UNIT/GM POWD 15 GM TOPICAL SCH ×2 (17:03→21:10)
[2022-01-17] MEDS: CIPROFLOXACIN 0.3% OPHTH SOLN 5 ML BTL BOTH EYES SCH ×2 (17:04→21:09)
[2022-01-17 20:46] LABS: Glucose,Whole Blood 280 mg/dL (75-99)
[2022-01-17] MEDS: TAMSULOSIN 0.4 MG CAP.ER.24H PO SCH (21:08)
[2022-01-17] MEDS: INSULIN DETEMIR (LEVEMIR) 100 UNIT/ML SYR SQ SCH (21:11)
[2022-01-18] MEDS: CIPROFLOXACIN 0.3% OPHTH SOLN 5 ML BTL BOTH EYES SCH ×7 (00:09→23:13)
[2022-01-18] MEDS: FUROSEMIDE 10 MG/ML 4 ML VIAL IV SCH ×4 (00:09→23:22)
[2022-01-18] MEDS: DOBUTamine DRIP 500 MG in DEXTROSE/WATER 1 250ML.BAG IV SCH ×2 (02:54→23:21)
[2022-01-18 05:41] LABS: Glucose,Whole Blood 100 mg/dL (75-99)
[2022-01-18] MEDS: INSULIN ASPART (NovoLOG) 100 UNIT/ML VIAL SQ SCH ×4 (05:47→20:28)
[2022-01-18] MEDS: FLUTICASONE 110 MCG INHALER INHALATION SCH (08:50)
[2022-01-18 09:11] LABS: Calcium 8.2 mg/dL (8.4-10.2); Magnesium 2.6 mg/dL (1.6-2.3); Potassium 4.7 mmol/L (3.5-5.1)
--- NOTE | 2022-01-18 09:33 | P.PN ---
Subjective Patient is seen in follow-up for chronic kidney disease and hyponatremia. Sodium level better. Renal function stable. Good urine output. Nonoliguric. No active complaints. Vital signs are stable. General: No acute distress. HEENT: Head exam is unremarkable. LUNGS: Breath sounds decreased. HEART: Rate and Rhythm are regular. ABDOMEN: Soft, no distention. EXTREMITITES: 1+ edema. Objective - Vital Signs Vital signs: Vital Signs Temp 97.4 F L 01/18/22 04:00 Pulse 95 01/18/22 04:00 Resp 14 01/18/22 04:00 BP 103/77 01/18/22 04:00 Pulse Ox 98 01/18/22 04:00 Intake & Output 01/17/22 01/18/22 01/18/22 18:59 06:59 18:59 Intake Total 1107.96 360 Output Total 1000 2800 Balance 107.96 -2800 360 Weight 65.9 kg Intake: Intake, IV Titration 27.96 Amount DOBUTamine DRIP 500 mg In 27.96 Dextrose/Water 1 250ml. bag @ 3.5 MCG/KG/MIN 6. 477 mls/hr IV .Q24H [facility] Rx#:[id number] Oral 1080 360 Output: Urine 1000 2800 Other: Voiding Method Indwelling Catheter Indwelling Catheter # Bowel Movements 1 - Labs CBC & Chem 7: 01/15/22 18:54 01/18/22 08:00 Labs: Abnormal Lab Results - Last 24 Hours (Table) 01/17/22 01/17/22 01/17/22 Range/Units 11:50 16:42 20:44 Sodium (137-145) mmol/L Chloride (98-107) mmol/L BUN (9-20) mg/dL Creatinine (0.66-1.25) mg/dL Glucose (74-99) mg/dL POC Glucose (mg/dL) 203 H 287 H 280 H (75-99) mg/dL Calcium (8.4-10.2) mg/dL Magnesium (1.6-2.3) mg/dL 01/18/22 01/18/22 Range/Units 05:36 08:00 Sodium 130 L (137-145) mmol/L Chloride 93 L (98-107) mmol/L BUN 48 H (9-20) mg/dL Creatinine 1.77 H (0.66-1.25) mg/dL Glucose 60 L (74-99) mg/dL POC Glucose (mg/dL) 100 H (75-99) mg/dL Calcium 8.2 L (8.4-10.2) mg/dL Magnesium 2.6 H (1.6-2.3) mg/dL Assessment and Plan Plan: Assessment: 1. Chronic kidney disease stage IIIB with baseline creatinine in the range of 1.6-2 secondary to cardiorenal syndrome. 2. Acute on chronic systolic CHF. On continuous dobutamine. 3. Volume overload. 4. Hypervolemic hyponatremia. Improved. Plan: Maintain IV Lasix - transition to oral Bumex 2 mg twice daily upon discharge. Low-salt diet. Patient refusing fluid restriction. Status post Samsca given 01/17/2022. Continue to monitor renal function and urine output. Patient has been strongly advised to maintain a low-salt diet and a 40 ounce of fluid restriction per day upon discharge. He is advised to monitor his weight closely at home and to notify physician if gains more than 3 pounds in 1 week duration or if edema worsens. Follow-up outpatient 1 week post discharge.
[2022-01-18] MEDS: hydrOXYzine HCL 25 MG TAB PO SCH ×3 (09:57→20:24)
[2022-01-18] MEDS: busPIRone HCl 5 MG TAB PO SCH (09:57)
[2022-01-18] MEDS: APIXABAN 5 MG TAB PO SCH ×2 (09:58→20:23)
[2022-01-18] MEDS: COLCHICINE 0.6 MG EACH PO SCH (09:58)
[2022-01-18] MEDS: SPIRONOLACTONE 25 MG TAB PO SCH (09:58)
[2022-01-18] MEDS: NITROGLYCERIN OINT 1 INCH/GM PACKET TOPICAL SCH ×5 (09:58→20:25)
[2022-01-18] MEDS: MULTIVITAMINS, THERA 1 EACH TAB PO SCH (09:58)
[2022-01-18 12:13] LABS: Glucose,Whole Blood 233 mg/dL (75-99)
--- NOTE | 2022-01-18 12:14 | P.PN ---
Subjective Progress Note Date: 01/18/22 Patient is examined today resting comfortably in bed with no signs of acute distress. Patient denies chest pain or increased shortness of breath. Patient continues to have moderate pitting lower extremity edema. Patient will continue on IV Lasix 40 mg every 8 hours Objective - Vital Signs Vital signs: Vital Signs Temp 97.4 F L 01/18/22 04:00 Pulse 95 01/18/22 04:00 Resp 14 01/18/22 04:00 BP 103/77 01/18/22 04:00 Pulse Ox 98 01/18/22 04:00 Intake & Output 01/17/22 01/18/22 01/18/22 18:59 06:59 18:59 Intake Total 1107.96 360 Output Total 1000 2800 Balance 107.96 -2800 360 Weight 65.9 kg Intake: Intake, IV Titration 27.96 Amount DOBUTamine DRIP 500 mg In 27.96 Dextrose/Water 1 250ml. bag @ 3.5 MCG/KG/MIN 6. 477 mls/hr IV .Q24H [facility] Rx#:[id number] Oral 1080 360 Output: Urine 1000 2800 Other: Voiding Method Indwelling Catheter Indwelling Catheter # Bowel Movements 1 - Exam PHYSICAL EXAM: VITAL SIGNS: Reviewed. GENERAL: Well-developed in no acute distress. HEENT: Head is normocephalic. Pupils are equal, round. Sclerae anicteric. Mucous membranes of the mouth are moist. NECK: Supple. No JVD or thyromegaly RESPIRATORY: Respirations even and unlabored. Lungs diminished with crackles in the left lower bases CARDIO: Regular rate and rhythm. S1 and S2 heard. No murmur or gallops. EXTREMITIES: Normal range of motion. No clubbing or cyanosis. Peripheral pulse s intact. Moderate pitting bilateral lower extremity edema NEURO: Orientated to person, time, mood is appropriate - Labs CBC & Chem 7: 01/15/22 18:54 01/18/22 08:00 Labs: Abnormal Lab Results - Last 24 Hours (Table) 01/17/22 01/17/22 01/18/22 Range/Units 16:42 20:44 05:36 Sodium (137-145) mmol/L Chloride (98-107) mmol/L BUN (9-20) mg/dL Creatinine (0.66-1.25) mg/dL Glucose (74-99) mg/dL POC Glucose (mg/dL) 287 H 280 H 100 H (75-99) mg/dL Calcium (8.4-10.2) mg/dL Magnesium (1.6-2.3) mg/dL 01/18/22 Range/Units 08:00 Sodium 130 L (137-145) mmol/L Chloride 93 L (98-107) mmol/L BUN 48 H (9-20) mg/dL Creatinine 1.77 H (0.66-1.25) mg/dL Glucose 60 L (74-99) mg/dL POC Glucose (mg/dL) (75-99) mg/dL Calcium 8.2 L (8.4-10.2) mg/dL Magnesium 2.6 H (1.6-2.3) mg/dL Assessment and Plan Assessment: Acute on chronic congestive heart failure with reduced ejection fraction History of nonischemic cardiomyopathy with previous AICD implantation Abnormal troponins, likely secondary to kidney function and CHF, not indicative of acute coronary syndrome acute kidney injury Intracardiac thrombus Plan: continue with IV Lasix Continue with Eliquis for possible thrombosis on the right atrial lead Continue with all other current cardiac medications Continue with telemetry monitoring Further recommendations based on clinical course The above impression and plan of care have been discussed and directed by the signing physician. Genoveva Quigley, nurse practitioner, acting as scribe for signing physician.
[2022-01-18] MEDS: NYSTATIN 100,000 UNIT/GM POWD 15 GM TOPICAL SCH ×3 (12:50→20:24)
--- NOTE | 2022-01-18 15:27 | P.PN ---
Subjective Progress Note Date: 01/18/22 (delayed charting seen at 1030) Principal diagnosis: shortness of breath Patient is a 56-year-old male for history of severe systolic congestive heart failure and an ejection fraction of less than 20% status post AICD on chronic dobutamine infusion, intracardiac thrombus on eliquis, diabetes mellitus type 2, and hypertension who presented to the ER with complaints of severe shortness of breath. In the ER he underwent an extensive evaluation. Chest x-ray showed no acute abnormalities, laboratory analysis showed a BNP of 10,500, troponin mildly elevated at 0.025, sodium 129, chloride 91, BUN 47, creatinine 1.96. He is admitted and started on IV diuresis. His dobutamine infusion was continued. Cardiology was consulted. He continued to have hyponatremia and nephrology was consulted he was given a dose of Samsca 01/17. Patient seen and examined at bedside. He continues to be unable to get comfortable. Breathing continues to be at baseline. He continues to have i tching in his right groin area. He states his left eye continues to be red and irritated with some drainage of the right eye is significantly improved. General: ill appearing, no distress, appears older than stated age Derm: warm, dry Head: atraumatic, normocephalic, symmetric Eyes: EOMI, no lid lag, a conjunctival erythema of left eye, erythema and swelling of left eyelid and to lesser extent right eyelid Mouth: no lip lesion, mucus membranes moist Cardiovascular: S1S2 reg, no murmur, positive posterior tibial pulse bilateral, Lungs: Decreased bs bilateral bases, no rhonchi, no rales , no accessory muscle use Abdominal: + abdominal distension decreased from yesteryda, soft, nontender to palpation, no guarding, no appreciable organomegaly Ext: no gross muscle atrophy, 1+ edema, no contractures Neuro: CN II-XI grossly intact, no focal neuro deficits Psych: Alert, oriented, appropriate affect Assessment/plan: Acute exacerbation of systolic congestive heart failure with ejection fraction less than 20% Hereditary nonischemic cardiomyopathy status post AICD Mouth moderate mitral regurgitation, severe tricuspid regurgitation -Continue with IV Lasix, Aldactone -Continue with dobutamine drip -Strict I's and O's, daily weights -Cardiology recommendations appreciated - palliative care eval on thursday Conjunctivitis - cipro gtt X 5 days Hyponatremia secondary to fluid overload -Continue with Lasix, increased - nephrology recs georgesca X1 01/17, bumex on discharge -Follow sodium levels Chronic kidney disease stage III -Appears at baseline -Follow closely with diuresis Diabetes mellitus type II insulin requiring, hypoglycemia episode -Sliding-scale insulin -Follow blood sugars -Decreased Levemir - jardiance on hold - A1C 7.8 Intracardiac thrombus -Continue with eliquis Chronic: Hypertension BPH COPD Neuropathy Hyperkalemia, resolved DVT prophylaxis: eliquis Discussed with: patient, nursing Anticipated discharge: in 2-[address]: A total of 35minutes was spent on the care of this complex patient more than 50% of the time was spent in counseling and care coordination. Active Medications Generic Name Dose Route Start Last Admin Trade Name Freq PRN Reason Stop Dose Admin Albuterol/Ipratropium 3 ml 01/15/22 23:31 Ipratropium-Albuterol 3 Ml Neb INHALATION RT-QID PRN Shortness Of Breath Apixaban 5 mg 01/16/22 09:00 01/18/22 09:58 Apixaban 5 Mg Tab PO 5 mg BID YASMANI Administration Protocol Buspirone HCl 15 mg 01/16/22 09:00 01/18/22 09:57 Buspirone Hcl 5 Mg Tab PO 15 mg DAILY@0900 YASMANI Administration Ciprofloxacin 2 drops 01/17/22 16:45 01/18/22 12:49 Ciprofloxacin 0.3% Ophth Soln 5 Ml Btl BOTH EYES 2 drops Q4HR YASMANI Administration Colchicine 0.6 mg 01/16/22 09:00 01/18/22 09:58 Colchicine 0.6 Mg Each PO 0.6 mg DAILY@0900 YASMANI Administration Fluticasone Propionate 1 puff 01/16/22 08:00 01/18/22 08:50 Fluticasone 110 Mcg Inhaler INHALATION 1 puff RT-DAILY YASMANI Administration Furosemide 40 mg 01/17/22 16:00 01/18/22 09:57 Furosemide 10 Mg/Ml 4 Ml Vial IV 40 mg Q8HR YASMANI Administration Hydroxyzine HCl 25 mg 01/17/22 03:00 01/18/22 09:57 Hydroxyzine Hcl 25 Mg Tab PO 25 mg TID YASMANI Administration Dobutamine HCl/Dextrose 500 mg 250 mls @ 6.477 mls/hr 01/16/22 01:00 01/18/22 02:54 / IV Solution IV Not Given .Q24H YASMANI 3.5 MCG/KG/MIN Insulin Aspart 0 unit 01/16/22 07:30 01/18/22 12:47 Insulin Aspart (Novolog) 100 Unit/Ml Vial SQ 3 unit ACHS [facility] Administration Protocol Insulin Detemir 5 unit 01/17/22 21:00 01/17/22 21:11 Insulin Detemir (Levemir) 100 Unit/Ml Syr SQ 5 unit HS [facility] Administration Methocarbamol 750 mg 01/16/22 01:00 Methocarbamol 750 Mg Tab PO TID PRN Muscle Pain Multivitamins 1 each 01/16/22 09:00 01/18/22 09:58 Multivitamins, Thera 1 Each Tab PO 1 each DAILY@0900 [facility] Administration Nitroglycerin 0.5 inch 01/15/22 22:00 01/18/22 15:21 Nitroglycerin Oint 1 Inch/Gm Packet TOPICAL Not Given QID [facility] Nystatin 1 applic 01/17/22 16:45 01/18/22 12:50 Nystatin 100,000 Unit/Gm Powd 15 Gm TOPICAL 1 applic TID [facility] Administration Protocol Sodium Chloride 10 ml 01/15/22 21:00 01/17/22 21:10 Sodium Chloride 0.9% Flush 10 Ml Syringe IV 10 ml BID YASMANI Administration Spironolactone 12.5 mg 01/16/22 09:00 01/18/22 09:58 Spironolactone 25 Mg Tab PO 12.5 mg DAILY@0900 [facility] Administration Tamsulosin HCl 0.4 mg 01/16/22 21:00 01/17/22 21:08 Tamsulosin 0.4 Mg Cap.Er.24h PO 0.4 mg HS@2100 [facility] Administration Objective - Vital Signs Vital signs: Vital Signs Temp 97.3 F L 01/18/22 08:00 Pulse 98 01/18/22 14:00 Resp 20 01/18/22 14:00 BP 108/77 01/18/22 12:00 Pulse Ox 96 01/18/22 12:00 Intake & Output 01/17/22 01/18/22 01/18/22 18:59 06:59 18:59 Intake Total 1107.96 720 Output Total 1000 2800 Balance 107.96 -2800 720 Weight 65.9 kg Intake: Intake, IV Titration 27.96 Amount DOBUTamine DRIP 500 mg In 27.96 Dextrose/Water 1 250ml. bag @ 3.5 MCG/KG/MIN 6. 477 mls/hr IV .Q24H [facility] Rx#:[id number] Oral 1080 720 Output: Urine 1000 2800 Other: Voiding Method Indwelling Catheter Indwelling Catheter Indwelling Catheter # Bowel Movements 1 - Labs CBC & Chem 7: 01/15/22 18:54 01/18/22 08:00 Labs: Abnormal Lab Results - Last 24 Hours (Table) 01/17/22 01/17/22 01/18/22 Range/Units 16:42 20:44 05:36 Sodium (137-145) mmol/L Chloride (98-107) mmol/L BUN (9-20) mg/dL Creatinine (0.66-1.25) mg/dL Glucose (74-99) mg/dL POC Glucose (mg/dL) 287 H 280 H 100 H (75-99) mg/dL Calcium (8.4-10.2) mg/dL Magnesium (1.6-2.3) mg/dL 01/18/22 01/18/22 Range/Units 08:00 11:57 Sodium 130 L (137-145) mmol/L Chloride 93 L (98-107) mmol/L BUN 48 H (9-20) mg/dL Creatinine 1.77 H (0.66-1.25) mg/dL Glucose 60 L (74-99) mg/dL POC Glucose (mg/dL) 233 H (75-99) mg/dL Calcium 8.2 L (8.4-10.2) mg/dL Magnesium 2.6 H (1.6-2.3) mg/dL
[2022-01-18 17:03] LABS: Glucose,Whole Blood 300 mg/dL (75-99)
[2022-01-18] MEDS: TAMSULOSIN 0.4 MG CAP.ER.24H PO SCH (20:23)
[2022-01-18] MEDS: INSULIN DETEMIR (LEVEMIR) 100 UNIT/ML SYR SQ SCH (20:24)
[2022-01-18 20:25] LABS: Glucose,Whole Blood 319 mg/dL (75-99)
[2022-01-19] MEDS: CIPROFLOXACIN 0.3% OPHTH SOLN 5 ML BTL BOTH EYES SCH ×6 (03:51→23:25)
[2022-01-19 06:00] LABS: Glucose,Whole Blood 187 mg/dL (75-99)
[2022-01-19] MEDS: INSULIN ASPART (NovoLOG) 100 UNIT/ML VIAL SQ SCH ×4 (06:24→21:06)
[2022-01-19] MEDS: FLUTICASONE 110 MCG INHALER INHALATION SCH (08:41)
[2022-01-19] MEDS: COLCHICINE 0.6 MG EACH PO SCH (09:08)
[2022-01-19] MEDS: hydrOXYzine HCL 25 MG TAB PO SCH ×3 (09:08→21:05)
[2022-01-19] MEDS: MULTIVITAMINS, THERA 1 EACH TAB PO SCH (09:08)
[2022-01-19] MEDS: APIXABAN 5 MG TAB PO SCH ×2 (09:08→21:05)
[2022-01-19] MEDS: NYSTATIN 100,000 UNIT/GM POWD 15 GM TOPICAL SCH ×3 (09:09→21:07)
[2022-01-19] MEDS: busPIRone HCl 5 MG TAB PO SCH (09:09)
[2022-01-19] MEDS: FUROSEMIDE 10 MG/ML 4 ML VIAL IV SCH ×3 (09:09→23:24)
[2022-01-19 09:12] LABS: Calcium 8.1 mg/dL (8.4-10.2); Magnesium 2.5 mg/dL (1.6-2.3); Potassium 4.6 mmol/L (3.5-5.1)
[2022-01-19] MEDS: NITROGLYCERIN OINT 1 INCH/GM PACKET TOPICAL SCH ×4 (09:21→21:06)
[2022-01-19 11:51] LABS: Glucose,Whole Blood 324 mg/dL (75-99)
--- NOTE | 2022-01-19 12:12 | P.PN ---
Subjective Patient is seen in follow-up for chronic kidney disease and hyponatremia. Sodium level fairly stable at 129 today. Renal function stable. Good urine output. Nonoliguric. On room air. Blood pressure 86/64 this morning. Vital signs are stable. Blood pressure in the lower side. General: No acute distress. HEENT: Head exam is unremarkable. LUNGS: Breath sounds decreased. HEART: Rate and Rhythm are regular. ABDOMEN: Soft, no distention. EXTREMITITES: 1+ edema. Objective - Vital Signs Vital signs: Vital Signs Temp 97.7 F 01/19/22 08:00 Pulse 98 01/19/22 08:00 Resp 18 01/19/22 08:00 BP 86/64 01/19/22 08:00 Pulse Ox 96 01/19/22 08:00 Intake & Output 01/18/22 01/19/22 01/19/22 18:59 06:59 18:59 Intake Total 720 240 Output Total 1200 1200 Balance -480 -1200 240 Weight 68 kg Intake: Oral 720 240 Output: Urine 1200 1200 Other: Voiding Method Indwelling Catheter Indwelling Catheter Indwelling Catheter - Labs CBC & Chem 7: 01/15/22 18:54 01/19/22 08:01 Labs: Abnormal Lab Results - Last 24 Hours (Table) 01/18/22 01/18/22 01/18/22 Range/Units 11:57 17:01 20:21 Sodium (137-145) mmol/L Chloride (98-107) mmol/L BUN (9-20) mg/dL Creatinine (0.66-1.25) mg/dL Glucose (74-99) mg/dL POC Glucose (mg/dL) 233 H 300 H 319 H (75-99) mg/dL Calcium (8.4-10.2) mg/dL Magnesium (1.6-2.3) mg/dL 01/19/22 01/19/22 01/19/22 Range/Units 05:58 08:01 11:46 Sodium 129 L (137-145) mmol/L Chloride 91 L (98-107) mmol/L BUN 44 H (9-20) mg/dL Creatinine 1.80 H (0.66-1.25) mg/dL Glucose 213 H (74-99) mg/dL POC Glucose (mg/dL) 187 H 324 H (75-99) mg/dL Calcium 8.1 L (8.4-10.2) mg/dL Magnesium 2.5 H (1.6-2.3) mg/dL Assessment and Plan Plan: Assessment: 1. Chronic kidney disease stage IIIB with baseline creatinine in the range of 1.6-2 secondary to cardiorenal syndrome. 2. Acute on chronic systolic CHF. On continuous dobutamine. 3. Volume overload. 4. Hypervolemic hyponatremia. Plan: Maintain IV Lasix - transition to oral Bumex 2 mg twice daily upon discharge. Low-salt diet. Patient refusing fluid restriction. Status post Samsca given 01/17/2022. Repeat another dose today. Add midodrine. Continue to monitor renal function and urine output. Patient has been strongly advised to maintain a low-salt diet and a 40 ounce of fluid restriction per day upon discharge. He is advised to monitor his weight closely at home and to notify physician if gains more than 3 pounds in 1 week duration or if edema worsens. Follow-up outpatient 1 week post discharge.
[2022-01-19] MEDS: MIDODRINE 5 MG TAB PO SCH ×2 (12:33→17:04)
[2022-01-19] MEDS: SPIRONOLACTONE 25 MG TAB PO SCH (12:33)
[2022-01-19] MEDS ORDERED: TOLVAPTAN 15 MG 1/2 TABLET PO ONE (13:00)
--- NOTE | 2022-01-19 14:24 | P.PN ---
Subjective Progress Note Date: 01/19/22 Patient is examined today sleeping comfortably in bed. Patient denies chest pain or chest pressure. He states his shortness of breath is the same as it always is. Patient has had very minimal improvement in his moderate lower extremity edema. Patient will continue on IV Lasix 40 mg every 8 hours. Patient had an episode of hypotension, continue with midodrine 5 mg 3 times a day at this time will continue to monitor closely Objective - Vital Signs Vital signs: Vital Signs Temp 97.7 F 01/19/22 08:00 Pulse 98 01/19/22 08:00 Resp 18 01/19/22 08:00 BP 86/64 01/19/22 08:00 Pulse Ox 96 01/19/22 08:00 Intake & Output 01/18/22 01/19/22 01/19/22 18:59 06:59 18:59 Intake Total 720 240 Output Total 1200 1200 Balance -480 -1200 240 Weight 68 kg Intake: Oral 720 240 Output: Urine 1200 1200 Other: Voiding Method Indwelling Catheter Indwelling Catheter Indwelling Catheter - Exam PHYSICAL EXAM: VITAL SIGNS: Reviewed. GENERAL: Well-developed in no acute distress. HEENT: Head is normocephalic. Pupils are equal, round. Sclerae anicteric. Mucous membranes of the mouth are moist. NECK: Supple. No JVD or thyromegaly RESPIRATORY: Respirations even and unlabored. Lungs diminished with crackles in the left lower bases CARDIO: Regular rate and rhythm. S1 and S2 heard. No murmur or gallops. EXTREMITIES: Normal range of motion. No clubbing or cyanosis. Peripheral pulses intact. Moderate pitting bilateral lower extremity edema NEURO: Orientated to person, time, mood is appropriate - Labs CBC & Chem 7: 01/15/22 18:54 01/19/22 08:01 Labs: Abnormal Lab Results - Last 24 Hours (Table) 01/18/22 01/18/22 01/19/22 Range/Units 17:01 20:21 05:58 Sodium (137-145) mmol/L Chloride (98-107) mmol/L BUN (9-20) mg/dL Creatinine (0.66-1.25) mg/dL Glucose (74-99) mg/dL POC Glucose (mg/dL) 300 H 319 H 187 H (75-99) mg/dL Calcium (8.4-10.2) mg/dL Magnesium (1.6-2.3) mg/dL 01/19/22 01/19/22 Range/Units 08:01 11:46 Sodium 129 L (137-145) mmol/L Chloride 91 L (98-107) mmol/L BUN 44 H (9-20) mg/dL Creatinine 1.80 H (0.66-1.25) mg/dL Glucose 213 H (74-99) mg/dL POC Glucose (mg/dL) 324 H (75-99) mg/dL Calcium 8.1 L (8.4-10.2) mg/dL Magnesium 2.5 H (1.6-2.3) mg/dL Assessment and Plan Assessment: Acute on chronic congestive heart failure with reduced ejection fraction History of nonischemic cardiomyopathy with previous AICD implantation Abnormal troponins, likely secondary to kidney function and CHF, not indicative of acute coronary syndrome acute kidney injury Intracardiac thrombus Plan: continue with IV Lasix Continue with Eliquis for possible thrombosis on the right atrial lead Continue with all other current cardiac medications Continue with telemetry monitoring Further recommendations based on clinical course The above impression and plan of care have been discussed and directed by the signing physician. Genoveva Quigley, nurse practitioner, acting as scribe for signing physician.
[2022-01-19 16:35] LABS: Glucose,Whole Blood 348 mg/dL (75-99)
--- NOTE | 2022-01-19 17:58 | P.PN ---
Subjective Progress Note Date: 01/19/22 (delayed charting seen at 1250) Principal diagnosis: shortness of breath Patient is a 56-year-old male for history of severe systolic congestive heart failure and an ejection fraction of less than 20% status post AICD on chronic dobutamine infusion, intracardiac thrombus on eliquis, diabetes mellitus type 2, and hypertension who presented to the ER with complaints of severe shortness of breath. In the ER he underwent an extensive evaluation. Chest x-ray showed no acute abnormalities, laboratory analysis showed a BNP of 10,500, troponin mildly elevated at 0.025, sodium 129, chloride 91, BUN 47, creatinine 1.96. He is admitted and started on IV diuresis. His dobutamine infusion was continued. Cardiology was consulted. He continued to have hyponatremia and nephrology was consulted he was given a dose of Samsca 01/17. Patient seen and examined at bedside. Not feeling well today. No chest pain, + shortness of breath, + abd distension. General: ill appearing, no distress, appears older than stated age Derm: warm, dry Head: atraumatic, normocephalic, symmetric Eyes: EOMI, no lid lag, a conjunctival erythema of left eye, erythema and swelling of left eyelid and to lesser extent right eyelid--resolved Mouth: no lip lesion, mucus membranes moist Cardiovascular: S1S2 reg, no murmur, positive posterior tibial pulse bilateral, Lungs: Decreased bs bilateral bases, no rhonchi, no rales , no accessory muscle use Abdominal: + abdominal distension decreased from yesteryda, soft, nontender to palpation, no guarding, no appreciable organomegaly Ext: no gross muscle atrophy, 1+ edema, no contractures Neuro: CN II-XI grossly intact, no focal neuro deficits Psych: Alert, oriented, appropriate affect Assessment/plan: Acute exacerbation of systolic congestive heart failure with ejection fraction less than 20% Hereditary nonischemic cardiomyopathy status post AICD Mouth moderate mitral regurgitation, severe tricuspid regurgitation -Continue with IV Lasix, Aldactone -Continue with dobutamine drip -Strict I's and O's, daily weights -Cardiology recommendations appreciated - palliative care eval on thursday - Cardio added midodrine for hypotension Conjunctivitis - cipro gtt X 5 days Hyponatremia secondary to fluid overload -Continue with Lasix, increased - nephrology recs samsca X1 01/17, bumex on discharge, was on 2 mg BID at home prior -Follow sodium levels Chronic kidney disease stage III -Appears at baseline -Follow closely with diuresis Diabetes mellitus type II insulin requiring, hypoglycemia episode -Sliding-scale insulin -Follow blood sugars -Decreased Levemir - jardiance on hold - A1C 7.8 Intracardiac thrombus -Continue with eliquis Chronic: Hypertension BPH COPD Neuropathy Hyperkalemia, resolved DVT prophylaxis: eliquis Discussed with: patient, nursing Anticipated discharge: in 2-[address]: A total of 35minutes was spent on the care of this complex patient more than 50% of the time was spent in counseling and care coordination. Active Medications Generic Name Dose Route Start Last Admin Trade Name Freq PRN Reason Stop Dose Admin Albuterol/Ipratropium 3 ml 01/15/22 23:31 Ipratropium-Albuterol 3 Ml Neb INHALATION RT-QID PRN Shortness Of Breath Apixaban 5 mg 01/16/22 09:00 01/19/22 09:08 Apixaban 5 Mg Tab PO 5 mg BID YASMANI Administration Protocol Buspirone HCl 15 mg 01/16/22 09:00 01/19/22 09:09 Buspirone Hcl 5 Mg Tab PO 15 mg DAILY@0900 YASMANI Administration Ciprofloxacin 2 drops 01/17/22 16:45 01/19/22 17:05 Ciprofloxacin 0.3% Ophth Soln 5 Ml Btl BOTH EYES 2 drops Q4HR YASMANI Administration Colchicine 0.6 mg 01/16/22 09:00 01/19/22 09:08 Colchicine 0.6 Mg Each PO 0.6 mg DAILY@0900 YASMANI Administration Fluticasone Propionate 1 puff 01/16/22 08:00 01/19/22 08:41 Fluticasone 110 Mcg Inhaler INHALATION 1 puff RT-DAILY YASMANI Administration Furosemide 40 mg 01/17/22 16:00 01/19/22 17:04 Furosemide 10 Mg/Ml 4 Ml Vial IV 40 mg Q8HR YASMANI Administration Hydroxyzine HCl 25 mg 01/17/22 03:00 01/19/22 17:08 Hydroxyzine Hcl 25 Mg Tab PO 25 mg TID YASMANI Administration Dobutamine HCl/Dextrose 500 mg 250 mls @ 6.477 mls/hr 01/16/22 01:00 01/18/22 23:21 / IV Solution IV 3.5 mcg/kg/min .Q24H YASMANI 6.477 mls/hr Administration 3.5 MCG/KG/MIN Insulin Aspart 0 unit 01/16/22 07:30 01/19/22 17:05 Insulin Aspart (Novolog) 100 Unit/Ml Vial SQ 6 unit ACHS [facility] Administration Protocol Insulin Detemir 5 unit 01/17/22 21:00 01/18/22 20:24 Insulin Detemir (Levemir) 100 Unit/Ml Syr SQ 5 unit HS [facility] Administration Methocarbamol 750 mg 01/16/22 01:00 01/18/22 17:59 Methocarbamol 750 Mg Tab PO 750 mg TID PRN Administration Muscle Pain Midodrine 5 mg 01/19/22 12:30 01/19/22 17:04 Midodrine 5 Mg Tab PO 5 mg AC-TID YASMANI Administration Multivitamins 1 each 01/16/22 09:00 01/19/22 09:08 Multivitamins, Thera 1 Each Tab PO 1 each DAILY@0900 [facility] Administration Nitroglycerin 0.5 inch 01/15/22 22:00 01/19/22 17:18 Nitroglycerin Oint 1 Inch/Gm Packet TOPICAL Not Given QID YASMANI Nystatin 1 applic 01/17/22 16:45 01/19/22 17:04 Nystatin 100,000 Unit/Gm Powd 15 Gm TOPICAL 1 applic TID [facility] Administration Protocol Sodium Chloride 10 ml 01/15/22 21:00 01/19/22 17:04 Sodium Chloride 0.9% Flush 10 Ml Syringe IV 10 ml BID YASMANI Administration Spironolactone 12.5 mg 01/16/22 09:00 01/19/22 12:33 Spironolactone 25 Mg Tab PO 12.5 mg DAILY@0900 [facility] Administration Tamsulosin HCl 0.4 mg 01/16/22 21:00 01/18/22 20:23 Tamsulosin 0.4 Mg Cap.Er.24h PO 0.4 mg HS@2100 [facility] Administration Objective - Vital Signs Vital signs: Vital Signs Temp 97.3 F L 01/19/22 16:00 Pulse 96 01/19/22 16:00 Resp 18 01/19/22 16:00 BP 113/80 01/19/22 16:00 Pulse Ox 99 01/19/22 16:00 Intake & Output 01/18/22 01/19/22 01/19/22 18:59 06:59 18:59 Intake Total 720 1798 Output Total 1200 1200 575 Balance -480 -1200 1223 Weight 68 kg Intake: Oral 720 1798 Output: Urine 1200 1200 575 Other: Voiding Method Indwelling Catheter Indwelling Catheter Indwelling Catheter - Labs CBC & Chem 7: 01/15/22 18:54 01/19/22 08:01 Labs: Abnormal Lab Results - Last 24 Hours (Table) 01/18/22 01/19/22 01/19/22 Range/Units 20:21 05:58 08:01 Sodium 129 L (137-145) mmol/L Chloride 91 L (98-107) mmol/L BUN 44 H (9-20) mg/dL Creatinine 1.80 H (0.66-1.25) mg/dL Glucose 213 H (74-99) mg/dL POC Glucose (mg/dL) 319 H 187 H (75-99) mg/dL Calcium 8.1 L (8.4-10.2) mg/dL Magnesium 2.5 H (1.6-2.3) mg/dL 01/19/22 01/19/22 Range/Units 11:46 16:32 Sodium (137-145) mmol/L Chloride (98-107) mmol/L BUN (9-20) mg/dL Creatinine (0.66-1.25) mg/dL Glucose (74-99) mg/dL POC Glucose (mg/dL) 324 H 348 H (75-99) mg/dL Calcium (8.4-10.2) mg/dL Magnesium (1.6-2.3) mg/dL
[2022-01-19 20:40] LABS: Glucose,Whole Blood 321 mg/dL (75-99)
[2022-01-19] MEDS: TAMSULOSIN 0.4 MG CAP.ER.24H PO SCH (21:05)
[2022-01-19] MEDS: INSULIN DETEMIR (LEVEMIR) 100 UNIT/ML SYR SQ SCH (21:06)
[2022-01-20] MEDS: CIPROFLOXACIN 0.3% OPHTH SOLN 5 ML BTL BOTH EYES SCH ×6 (05:42→23:15)
[2022-01-20 06:15] LABS: Glucose,Whole Blood 286 mg/dL (75-99)
[2022-01-20] MEDS: DOBUTamine DRIP 500 MG in DEXTROSE/WATER 1 250ML.BAG IV SCH ×3 (06:26→09:51)
[2022-01-20] MEDS: MIDODRINE 5 MG TAB PO SCH ×3 (06:27→18:29)
[2022-01-20] MEDS: INSULIN ASPART (NovoLOG) 100 UNIT/ML VIAL SQ SCH ×5 (06:27→21:06)
[2022-01-20 08:07] LABS: Calcium 8.1 mg/dL (8.4-10.2); Magnesium 2.4 mg/dL (1.6-2.3); Potassium 4.9 mmol/L (3.5-5.1)
[2022-01-20] MEDS: FLUTICASONE 110 MCG INHALER INHALATION SCH (08:13)
[2022-01-20] MEDS: FUROSEMIDE 10 MG/ML 4 ML VIAL IV SCH (09:47)
[2022-01-20] MEDS: SPIRONOLACTONE 25 MG TAB PO SCH (09:47)
[2022-01-20] MEDS: COLCHICINE 0.6 MG EACH PO SCH (09:47)
[2022-01-20] MEDS: MULTIVITAMINS, THERA 1 EACH TAB PO SCH (09:47)
[2022-01-20] MEDS: busPIRone HCl 5 MG TAB PO SCH (09:47)
[2022-01-20] MEDS: APIXABAN 5 MG TAB PO SCH ×2 (09:47→21:05)
[2022-01-20] MEDS: hydrOXYzine HCL 25 MG TAB PO SCH ×3 (09:48→21:05)
[2022-01-20] MEDS: NITROGLYCERIN OINT 1 INCH/GM PACKET TOPICAL SCH ×3 (09:48→21:07)
[2022-01-20] MEDS: NYSTATIN 100,000 UNIT/GM POWD 15 GM TOPICAL SCH ×3 (09:52→21:06)
--- NOTE | 2022-01-20 10:22 | P.PN ---
Subjective Patient is seen in follow-up for chronic kidney disease and hyponatremia. Sodium level 126 today. Renal function stable. Good urine output. Nono liguric. On 4 L nasal cannula. Blood pressure stable. Vital signs are stable. General: No acute distress. HEENT: Head exam is unremarkable. LUNGS: Breath sounds decreased. HEART: Rate and Rhythm are regular. ABDOMEN: Soft, no distention. EXTREMITITES: 1+ edema. Objective - Vital Signs Vital signs: Vital Signs Temp 97.4 F L 01/20/22 04:00 Pulse 95 01/20/22 04:00 Resp 16 01/20/22 04:00 BP 98/74 01/20/22 04:00 Pulse Ox 98 01/20/22 04:00 Intake & Output 01/19/22 01/20/22 01/20/22 18:59 06:59 18:59 Intake Total 1798 1670 223.457 Output Total 575 1830 Balance 1223 -160 223.457 Weight 68.2 kg Intake: IV 20 Invasive Line 1 10 Invasive Line 2 10 Intake, IV Titration 223.457 Amount DOBUTamine DRIP 500 mg In 223.457 Dextrose/Water 1 250ml. bag @ 3.5 MCG/KG/MIN 6. 477 mls/hr IV .Q24H [facility] Rx#:[id number] Oral 1798 1650 Output: Urine 575 1830 Other: Voiding Method Indwelling Catheter Indwelling Catheter - Labs CBC & Chem 7: 01/15/22 18:54 01/20/22 07:03 Labs: Abnormal Lab Results - Last 24 Hours (Table) 01/19/22 01/19/22 01/19/22 Range/Units 11:46 16:32 20:38 Sodium (137-145) mmol/L Chloride (98-107) mmol/L BUN (9-20) mg/dL Creatinine (0.66-1.25) mg/dL Glucose (74-99) mg/dL POC Glucose (mg/dL) 324 H 348 H 321 H (75-99) mg/dL Calcium (8.4-10.2) mg/dL Magnesium (1.6-2.3) mg/dL 01/20/22 01/20/22 Range/Units 06:13 07:03 Sodium 126 L (137-145) mmol/L Chloride 89 L (98-107) mmol/L BUN 44 H (9-20) mg/dL Creatinine 1.81 H (0.66-1.25) mg/dL Glucose 223 H (74-99) mg/dL POC Glucose (mg/dL) 286 H (75-99) mg/dL Calcium 8.1 L (8.4-10.2) mg/dL Magnesium 2.4 H (1.6-2.3) mg/dL Assessment and Plan Plan: Assessment: 1. Chronic kidney disease stage IIIB with baseline creatinine in the range of 1.6-2 secondary to cardiorenal syndrome. 2. Acute on chronic systolic CHF. On continuous dobutamine. 3. Volume overload. 4. Hypervolemic hyponatremia. Plan: Change IV Lasix to 60 mg twice daily - transition to oral Bumex 2 mg twice daily upon discharge. Low-salt diet. Patient refusing fluid restriction. Patient has received 2 doses of Samsca this admission. I will give him another dose today. Maintain midodrine. Check serum and urine osmolality and urine sodium level. Check TSH and cortisol level. Continue to monitor renal function and urine output. Patient has been strongly advised to maintain a low-salt diet and a 40 ounce of fluid restriction per day upon discharge. He is advised to monitor his weight closely at home and to notify physician if gains more than 3 pounds in 1 week duration or if edema worsens. Follow-up outpatient 1 week post discharge.
--- NOTE | 2022-01-20 10:34 | P.CONS ---
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 Patient reports his symptoms started last night with quickly progressing severe shortness of breath, which did not allow him to sleep all night. Patient states he had gained about 13 pounds over 5 days and was told to go to the hospital by his home care nurse. He is maintained on dobutamine infusion outpatient. He reports that his symptoms are very similar to his prior episodes of CHF exacerbation. Reports compliance with all his medications at home and states he does monitor his fluid intake. Review of Systems Review Of Systems: Constitutional: No fever, no chills, no night sweats. Reports weakness and fatigue. HEENT: No headache. No blurred vision or double vision, no loss of vision. No loss of Hearing, no ringing in the ears, no dizziness. No nasal drainage or congestion. Lungs: Reports shortness of breath with activity and cough, no sputum production. No wheezing. Cardiovascular: No chest pain, re[prts mild lower extremity edema. No palpitations. Reports paroxysmal nocturnal dyspnea and orthopnea. No lightheadedness or dizziness. No syncopal episodes. Abdominal: No abdominal pain. No nausea, vomiting. No diarrhea. No constipation. No bloody or tarry stools.. . Genitourinary: Chroic muñoz Musculoskeletal: No myalgias. Reports muscle weakness No frequent falls. No back pain. No neck pain. Integumentary: No wounds, no lesions. No rash or pruritus. No unusual bruising. No change in hair or nails. Neurologic: No aphasia. No facial droop. No change in mentation. No head injury. No headache. No paralysis. No paresthesia. Psychiatric: No depression. No anxiety. No mood swings. Past Medical History Past Medical History: Coronary Artery Disease (CAD), Heart Failure, COPD, Diabetes Mellitus, Eye Disorder, Prostate Disorder, Renal Disease Additional Past Medical History / Comment(s): 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 Past Anesthesia/Blood Transfusion Reactions: No Reported Reaction Additional Past Anesthesia/Blood Transfusion Reaction / Comm: Pt has recieved blood in the past without reaction. Type of Cardiac Device: Permanent Pacemaker, AICD Device Placement Date:: 10/2012 Past Psychological History: Anxiety, Depression Additional Psychological History / Comment(s): Pt resides with his mother. He states lately d/t bilateral foot pain he has been unable to stand. Pt states he has a cane, walker and travel chair. He has home care thru [place]. His mother is his pizza delivery driver. Smoking Status: Former smoker Past Alcohol Use History: None Reported Additional Past Alcohol Use History / Comment(s): Pt started smoking in 1974 and quit in 2015. Past Drug Use History: None Reported - Past Family History Father Family Medical History: Diabetes Mellitus Additional Family Medical History / Comment(s): Father had cardiomyopathy. He is . Mother Family Medical History: Hypertension Brother(s) Additional Family Medical History / Comment(s): Cardiomyopathy with heart transplant. Medications and Allergies Home Medications Medication Instructions Recorded Confirmed Type Brimonidine Tartrate [Alphagan P 1 drop BOTH EYES DAILY@0900 11/29/20 01/15/22 History 0.2% Ophth Soln] Dextrose Chew [Glucose Chew Tab] 12 gm PO DAILY PRN 01/09/21 01/15/22 History Spironolactone [Aldactone] 12.5 mg PO DAILY@0900 01/09/21 01/15/22 History Tamsulosin HCl [Flomax] 0.4 mg PO HS@2100 01/09/21 01/15/22 History Acetaminophen Tab [Tylenol] 325 mg PO Q6H PRN 11/27/21 01/15/22 History Beclomethasone Dip 80 Mcg/Puff 1 puff INHALATION RT-DAILY 11/27/21 01/15/22 History [Qvar 80 mcg] Colchicine 0.6 mg PO DAILY@0900 11/27/21 01/15/22 History Dobutamine 360 mg IV DIRECTED 11/27/21 01/15/22 History Empagliflozin [Jardiance] 25 mg PO DAILY@0900 11/27/21 01/15/22 History Magnesium 420mg 420 mg PO HS@2100 11/27/21 01/15/22 History Multivitamins, Thera [Multivitamin 1 tab PO DAILY@89911/27/21 01/15/22 History (formulary)] busPIRone HCL 15 mg PO DAILY@89911/27/21 01/15/22 History hydrOXYzine HCL [Atarax] 25 mg PO TID PRN 11/27/21 01/15/22 History methocarbamoL [Robaxin] 750 mg PO TID PRN 11/27/21 01/15/22 History Apixaban [Eliquis] 5 mg PO BID 12/20/21 01/15/22 History Ipratropium-Albuterol Nebulize 3 ml INHALATION RT-QID PRN 12/20/21 01/15/22 History [Duoneb 0.5 mg-3 mg/3 ml Soln] Potassium Chloride ER [K-Dur 20] 40 meq PO Q8H 12/20/21 01/15/22 History INSULIN ASPART (NovoLOG) [NovoLOG 5 unit SQ AC-TID ml 12/26/21 01/15/22 Rx (formulary)] Insulin Detemir (Levemir) [Levemir] 35 unit SQ DAILY@0700 ml 12/26/21 01/15/22 Rx Allergies Allergy/AdvReac Type Severity Reaction Status Date / Time latex Allergy Rash/Hives Verified 01/15/22 19:20 Physical Exam Vitals: Vital Signs Temp Pulse Resp BP Pulse Ox 01/20/22 04:00 97.4 F L 95 16 98/74 98 01/20/22 00:00 97.3 F L 101 H 18 105/78 98 01/19/22 20:00 97.2 F L 101 H 18 97/63 97 01/19/22 16:00 97.3 F L 96 18 113/80 99 01/19/22 14:00 98 18 01/19/22 12:00 97.3 F L 102 H 18 104/75 97 Intake and Output 01/19/22 01/20/22 01/20/22 22:59 06:59 14:59 Intake Total 1460 1650 Output Total 1105 1300 Balance 355 350 Intake: IV 20 Invasive Line 1 10 Invasive Line 2 10 Oral 1440 1650 Output: Urine 1105 1300 Other: Voiding Method Indwelling Catheter Indwelling Catheter Weight 68.2 kg General: Ill appearing, no acute distress, appears older than stated age Derm: Warm and dry Head: atraumatic, normocephalic, symmetric Eyes: EOMI, no lid lag, wearing glassses Mouth: no lip lesion, mucus membranes moist Cardiovascular: S1, S2 regular rate and rhythm, no murmur, +1 positive posterior tibial pulse bilateral Lungs: Decreased bs bilateral bases, no rhonchi, no rales , no accessory muscle use, currently on 4L NC. Abdominal: + abdominal distension, slightly firm, nontender to palpation, no guarding Ext: no gross muscle atrophy, 1+ loer extremity edema, no contractures Neuro: CN II-XI grossly intact, no focal neuro deficits Psych: Alert, oriented, appropriate affect Results CBC & Chem 7: 01/15/22 18:54 01/20/22 07:03 Labs: Abnormal Lab Results - Last 24 Hours (Table) 01/19/22 01/19/22 01/19/22 Range/Units 11:46 16:32 20:38 Sodium (137-145) mmol/L Chloride (98-107) mmol/L BUN (9-20) mg/dL Creatinine (0.66-1.25) mg/dL Glucose (74-99) mg/dL POC Glucose (mg/dL) 324 H 348 H 321 H (75-99) mg/dL Calcium (8.4-10.2) mg/dL Magnesium (1.6-2.3) mg/dL 01/20/22 01/20/22 Range/Units 06:13 07:03 Sodium 126 L (137-145) mmol/L Chloride 89 L (98-107) mmol/L BUN 44 H (9-20) mg/dL Creatinine 1.81 H (0.66-1.25) mg/dL Glucose 223 H (74-99) mg/dL POC Glucose (mg/dL) 286 H (75-99) mg/dL Calcium 8.1 L (8.4-10.2) mg/dL Magnesium 2.4 H (1.6-2.3) mg/dL Chest x-ray: report reviewed, image reviewed Assessment and Plan Assessment: Social - The patient is unable to work and is on disability. He is an [employer] . He is a and states his approximately one year ago. They were at the time of her passing away. He does not have children and lives alone. He is a former smoker, smoked for approximately 40 years and quit in Jul 2020. He states he was incarcerated for four years for Meth use. He reports no illegal drug use since March 2020. Spiritual/Cultural - The patient states he is very synagogue. He views his shaheed as a source of comfort and strength. He is Buddhism and goes to [employer]. No cultural or synagogue practices/restrictions identified. Functional - Prior to admission the patient was able to walk independently with a walker or cane. He is continent and was able to use the bathroom independently. He did not require assistance bathing. He was able to prepare his own meals and feed himself. He does not drive. He states he can but chooses not to. His mother provides transportation for him. He manages his own medication and finances. Psych/emotional - He is alert and oriented x 3. He reports a history of depression and anxiety, but denies any now. He takes Buspar. He denies any suicidal thoughts or PTSD. He believes he has an excellent support system from his mother and family. Symptoms: * Pain - denies currently, takes Cochicine for Gout * Energy level - very weak and fatigued. Continue Midodrine to raise BP * SOB - no sob while at rest, only on exertion. no home O2 use. Reports dry cough. Continue Albuteral neb, Dobutamine, Flovent, Lasix, and Aldactone * Insomnia - denies * N/V - denies * Anxiety/depression - denies, continue Buspar * Confusion/agitation - none * Appetite/dysphagia/weight loss - Reports a fair appetite, eats 2 meals a day at home, eats small meals. Denies any dysphagia. 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 * Constipation - denies, LBM 01/19 * Incontinence - chronic muñoz, continue Flomax * Itch - denies, takes Atarax prn NYHA class IV Goals - Education regarding disease process and progression provided. The patient stated that he was told he has less than six months left to live and that he is not a candidate for a LVAD or transplant. Palliative care and hospice philosophies and support services explained to patient. He was very adamant that he does not want hospice involvement. He stated that he already has outpatient palliative care visits home. He believes that when it is his time the Lord will take him. He states he has had over 20 hospital admissions since July 2020 and he is alright with coming back to the hospital for treatment when needed. He said "I have no choice, right?" It was explained that he does have a choice, but he interrupted and said "then I choose to come back and forth to the hospital." He recently fired his caregivers for stealing from him. He plans on eventually finding new ones. He states he has no goals, he is just going to take things one day at a time. His plan is to go back home. His mother is DPOA, knows his wishes, and will make medical decisions for him when he in unable to do so. Code status - DNR Thank ou for this consult. Will continue to follow this patient. Jenniffer Yepez [facility] [id number] Email: [email or web address] Time with Patient: Greater than 30
[2022-01-20] MEDS ORDERED: TOLVAPTAN 15 MG 1/2 TABLET PO ONE (11:00)
[2022-01-20 11:45] LABS: Glucose,Whole Blood 414 mg/dL (75-99)
[2022-01-20] MEDS: ALPRAZolam 0.5 MG TAB PO PRN ×2 (12:23→21:05)
--- NOTE | 2022-01-20 14:38 | P.PN ---
Subjective Patient is a pleasant 56-year-old male with history of nonischemic cardiomyopathy (known EF <20%), AICD placement, chronic heart failure with reduced EF now stage D heart failure, diabetes mellitus type 2, COPD, history of questionable thrombus attached to right atrial lead and treated with anticoagulation, COPD, CKD. Follows with Dr. Elias Car Sander at the [facility]. We have been consulted for congestive heart failure. Patient presents to the emerg ency department for worsening shortness of breath. Echocardiogram 11/28/21 revealed EF < 20%, mild to moderate mitral regurgitation, severe tricuspid regurgitation. Patient seen and examined at bedside, he is very tearful this morning about his prognosis and health condition. His breathing has improved however. He is maintained on IV Lasix 60mg BID, Eliquis 5mg BID, IV Dobutamine, midodrine, spironolactone 12.5mg daily, Tolvaptan Labs, Na 126, K 4.9, BUN 44, sCr 1.81, Mag 2.4. PHYSICAL EXAMINATION Vital signs reviewed. CONSTITUTIONAL: No apparent distress. HEENT: Neck Supple. No JVD. CHEST EXAMINATION: Lungs diminished bilaterally to auscultation. No chest wall tenderness is noted on palpation or with deep breathing. HEART EXAMINATION: Regular rate and rhythm. S1, S2 heard. Systolic ejection murmur at apex, No gallops or rub. ABDOMEN: Soft, distended. Positive bowel sounds. EXTREMITIES: 2+ peripheral pulses, trace lower extremity edema and no calf tenderness. NEUROLOGIC EXAMINATION: Patient is awake, alert and oriented x3. ASSESSMENT Acute on chronic Stage D heart failure with reduced ejection fraction, and has not been able to tolerate heart failure regimen. Chronically elevated troponins, do not suspect primary myocardial infarction or acute coronary syndrome. No angina-type symptoms Chronic kidney disease Nonischemic cardiomyopathy ejection fraction less than 20% Essential hypertension, borderline low on heart failure regimen Diabetes mellitus type 2 Hypokalemia History of Intercardiac thrombus on Eliquis Hyponatremia, likely due to volume overload PLAN Patient is in stage D heart failure. He has been evaluated at [facility] for an LVAD and transplant evaluation however he's been told that he is not a candidate for these therapies. We recommending continuing current medical therapy with IV Lasix, IV Dobutamine, spironolactone, midodrine. Nephrology following Continue to monitor renal function and urine output Further recommendations based on clinical course Nurse practitioner note has been reviewed by physician. Signing provider agrees with the documented findings, assessment, and plan of care. Objective - Vital Signs Vital signs: Vital Signs Temp 97.4 F L 01/20/22 04:00 Pulse 95 01/20/22 04:00 Resp 16 01/20/22 04:00 BP 98/74 01/20/22 04:00 Pulse Ox 98 01/20/22 04:00 Intake & Output 01/19/22 01/20/22 01/20/22 18:59 06:59 18:59 Intake Total 1798 1670 223.457 Output Total 575 1830 Balance 1223 -160 223.457 Weight 68.2 kg Intake: IV 20 Invasive Line 1 10 Invasive Line 2 10 Intake, IV Titration 223.457 Amount DOBUTamine DRIP 500 mg In 223.457 Dextrose/Water 1 250ml. bag @ 3.5 MCG/KG/MIN 6. 477 mls/hr IV .Q24H [facility] Rx#:[id number] Oral 1798 1650 Output: Urine 575 1830 Other: Voiding Method Indwelling Catheter Indwelling Catheter - Labs CBC & Chem 7: 01/15/22 18:54 01/20/22 07:03 Labs: Abnormal Lab Results - Last 24 Hours (Table) 01/19/22 01/19/22 01/20/22 Range/Units 16:32 20:38 06:13 Sodium (137-145) mmol/L Chloride (98-107) mmol/L BUN (9-20) mg/dL Creatinine (0.66-1.25) mg/dL Glucose (74-99) mg/dL POC Glucose (mg/dL) 348 H 321 H 286 H (75-99) mg/dL Osmolality (280-301) mosm/kg Calcium (8.4-10.2) mg/dL Magnesium (1.6-2.3) mg/dL 01/20/22 01/20/22 01/20/22 Range/Units 07:03 07:03 11:43 Sodium 126 L (137-145) mmol/L Chloride 89 L (98-107) mmol/L BUN 44 H (9-20) mg/dL Creatinine 1.81 H (0.66-1.25) mg/dL Glucose 223 H (74-99) mg/dL POC Glucose (mg/dL) 414 H (75-99) mg/dL Osmolality 278 L (280-301) mosm/kg Calcium 8.1 L (8.4-10.2) mg/dL Magnesium 2.4 H (1.6-2.3) mg/dL
[2022-01-20 16:19] LABS: Glucose,Whole Blood 358 mg/dL (75-99)
--- NOTE | 2022-01-20 19:57 | P.PN ---
Subjective Progress Note Date: 01/20/22 (delayed charting seen 1500) Principal diagnosis: shortness of breath Patient is a 56-year-old male for history of severe systolic congestive heart failure and an ejection fraction of less than 20% status post AICD on chronic dobutamine infusion, intracardiac thrombus on eliquis, diabetes mellitus type 2, and hypertension who presented to the ER with complaints of severe shortness of breath. In the ER he underwent an extensive evaluation. Chest x-ray showed no acute abnormalities, laboratory analysis showed a BNP of 10,500, troponin mildly elevated at 0.025, sodium 129, chloride 91, BUN 47, creatinine 1.96. He is admitted and started on IV diuresis. His dobutamine infusion was continued. Cardiology was consulted. He continued to have hyponatremia and nephrology was consulted he was given a dose of Samsca 01/17. Patient seen and examined at bedside. Feeling tired and weak. + SOB, no nausea, updet about fluid restriction. Concerned about what happens next General: ill appearing, no distress, appears older than stated age Derm: warm, dry Head: atraumatic, normocephalic, symmetric Eyes: EOMI, no lid lag, a conjunctival erythema of left eye Mouth: no lip lesion, mucus membranes moist Cardiovascular: S1S2 reg, no murmur, positive posterior tibial pulse bilateral, Lungs: Decreased bs bilateral bases, no rhonchi, no rales , + accessory muscle use, + 3 word conversational dyspnea Abdominal: + abdominal distension, soft, nontender to palpation, no guarding, no appreciable organomegaly Ext: no gross muscle atrophy, 1+ edema, no contractures Neuro: CN II-XI grossly intact, no focal neuro deficits Psych: Alert, oriented, appropriate affect Assessment/plan: Acute exacerbation of systolic congestive heart failure with ejection fraction less than 20% Hereditary nonischemic cardiomyopathy status post AICD Mouth moderate mitral regurgitation, severe tricuspid regurgitation -Continue with IV Lasix, Aldactone -Continue with dobutamine drip -Strict I's and O's, daily weights -Cardiology recommendations appreciated - palliative care recs appreciated - Cardio added midodrine for hypotension Conjunctivitis - cipro gtt X 5 days Hyponatremia secondary to fluid overload -Continue with Lasix, increased - nephrology recs samsca X1 01/17, bumex on discharge, was on 2 mg BID at home prior -Follow sodium levels Chronic kidney disease stage III -Appears at baseline -Follow closely with diuresis Diabetes mellitus type II insulin requiring, hypoglycemia episode -Sliding-scale insulin -Follow blood sugars -Decreased Levemir - jardiance on hold - A1C 7.8 Intracardiac thrombus -Continue with eliquis Chronic: Hypertension BPH COPD Neuropathy Hyperkalemia, resolved DVT prophylaxis: eliquis Discussed with: patient, nursing Anticipated discharge: in 2-[address]: A total of 35minutes was spent on the care of this complex patient more than 50% of the time was spent in counseling and care coordination. Active Medications Generic Name Dose Route Start Last Admin Trade Name Freq PRN Reason Stop Dose Admin Albuterol/Ipratropium 3 ml 01/15/22 23:31 Ipratropium-Albuterol 3 Ml Neb INHALATION RT-QID PRN Shortness Of Breath Alprazolam 0.5 mg 01/20/22 12:02 01/20/22 12:23 Alprazolam 0.5 Mg Tab PO 0.5 mg TID PRN Administration Anxiety Apixaban 5 mg 01/16/22 09:00 01/20/22 09:47 Apixaban 5 Mg Tab PO 5 mg BID YASMANI Administration Protocol Buspirone HCl 15 mg 01/16/22 09:00 01/20/22 09:47 Buspirone Hcl 5 Mg Tab PO 15 mg DAILY@0900 YASMANI Administration Ciprofloxacin 2 drops 01/17/22 16:45 01/20/22 18:31 Ciprofloxacin 0.3% Ophth Soln 5 Ml Btl BOTH EYES 2 drops Q4HR YASMANI Administration Colchicine 0.6 mg 01/16/22 09:00 01/20/22 09:47 Colchicine 0.6 Mg Each PO 0.6 mg DAILY@0900 YASMANI Administration Fluticasone Propionate 1 puff 01/16/22 08:00 01/20/22 08:13 Fluticasone 110 Mcg Inhaler INHALATION 1 puff RT-DAILY YASMANI Administration Furosemide 60 mg 01/20/22 21:00 Furosemide 10 Mg/Ml 10 Ml Vial IV BID YASMANI Hydroxyzine HCl 25 mg 01/17/22 03:00 01/20/22 18:29 Hydroxyzine Hcl 25 Mg Tab PO 25 mg TID YASMANI Administration Dobutamine HCl/Dextrose 500 mg 250 mls @ 6.477 mls/hr 01/16/22 01:00 01/20/22 09:51 / IV Solution IV 3.5 mcg/kg/min .Q24H YASMANI 6.477 mls/hr Administration 3.5 MCG/KG/MIN Insulin Aspart 0 unit 01/16/22 07:30 01/20/22 18:29 Insulin Aspart (Novolog) 100 Unit/Ml Vial SQ 7 unit ACHS [facility] Administration Protocol Insulin Aspart 2 unit 01/20/22 17:30 01/20/22 18:30 Insulin Aspart (Novolog) 100 Unit/Ml Vial SQ 2 unit AC-TID YASMANI Administration Insulin Detemir 5 unit 01/17/22 21:00 01/19/22 21:06 Insulin Detemir (Levemir) 100 Unit/Ml Syr SQ 5 unit HS YASMANI Administration Methocarbamol 750 mg 01/16/22 01:00 01/18/22 17:59 Methocarbamol 750 Mg Tab PO 750 mg TID PRN Administration Muscle Pain Midodrine 5 mg 01/19/22 12:30 01/20/22 18:29 Midodrine 5 Mg Tab PO 5 mg AC-TID YASMANI Administration Multivitamins 1 each 01/16/22 09:00 01/20/22 09:47 Multivitamins, Thera 1 Each Tab PO 1 each DAILY@0900 [facility] Administration Nitroglycerin 0.5 inch 01/15/22 22:00 01/20/22 18:30 Nitroglycerin Oint 1 Inch/Gm Packet TOPICAL Not Given QID [facility] Nystatin 1 applic 01/17/22 16:45 01/20/22 18:31 Nystatin 100,000 Unit/Gm Powd 15 Gm TOPICAL 1 applic TID [facility] Administration Protocol Sodium Chloride 10 ml 01/15/22 21:00 01/20/22 09:48 Sodium Chloride 0.9% Flush 10 Ml Syringe IV 10 ml BID YASMANI Administration Spironolactone 12.5 mg 01/16/22 09:00 01/20/22 09:47 Spironolactone 25 Mg Tab PO 12.5 mg DAILY@0900 [facility] Administration Tamsulosin HCl 0.4 mg 01/16/22 21:00 01/19/22 21:05 Tamsulosin 0.4 Mg Cap.Er.24h PO 0.4 mg HS@2100 [facility] Administration Objective - Vital Signs Vital signs: Vital Signs Temp 97.6 F 01/20/22 16:00 Pulse 102 H 01/20/22 16:00 Resp 12 01/20/22 16:00 BP 95/73 01/20/22 16:00 Pulse Ox 99 01/20/22 16:00 Intake & Output 01/20/22 01/20/22 01/21/22 06:59 18:59 06:59 Intake Total 1670 1123.457 Output Total 1830 Balance -160 1123.457 Weight 68.2 kg Intake: IV 20 Invasive Line 1 10 Invasive Line 2 10 Intake, IV Titration 223.457 Amount DOBUTamine DRIP 500 mg In 223.457 Dextrose/Water 1 250ml. bag @ 3.5 MCG/KG/MIN 6. 477 mls/hr IV .Q24H [facility] Rx#:[id number] Oral 1650 900 Output: Urine 1830 Other: Voiding Method Indwelling Catheter Indwelling Catheter - Labs CBC & Chem 7: 01/15/22 18:54 01/20/22 07:03 Labs: Abnormal Lab Results - Last 24 Hours (Table) 01/19/22 01/20/22 01/20/22 Range/Units 20:38 06:13 07:03 Sodium 126 L (137-145) mmol/L Chloride 89 L (98-107) mmol/L BUN 44 H (9-20) mg/dL Creatinine 1.81 H (0.66-1.25) mg/dL Glucose 223 H (74-99) mg/dL POC Glucose (mg/dL) 321 H 286 H (75-99) mg/dL Osmolality (280-301) mosm/kg Calcium 8.1 L (8.4-10.2) mg/dL Magnesium 2.4 H (1.6-2.3) mg/dL 01/20/22 01/20/22 01/20/22 Range/Units 07:03 11:43 16:16 Sodium (137-145) mmol/L Chloride (98-107) mmol/L BUN (9-20) mg/dL Creatinine (0.66-1.25) mg/dL Glucose (74-99) mg/dL POC Glucose (mg/dL) 414 H 358 H (75-99) mg/dL Osmolality 278 L (280-301) mosm/kg Calcium (8.4-10.2) mg/dL Magnesium (1.6-2.3) mg/dL
--- NOTE | 2022-01-20 20:05 | P.PN ---
Progress Note - Text Progress Note Date: 01/20/22 Advanced Care Planning: Diagnoses: Cardiomyopathy Discussion: Person(s) present and participating in discussion:Paco Summary: Meet with palliative care today and had a very guero conversation with his nurse. We had along discussion about what happens next. He is not interested in hospice care. He assumed that when they told him he had 6 months it meant that he would for sure have until February.We discussed his continued decline despite negative fluid balance and what that means. He has reached out to his tube knitter at the [facility] for answers. He is very concerned that no one told him what would look like. The 2 most likely scenarios we discussed is sudden from arrhythmia vs slow with progressive dyspnea which appears to be occurring at this time. Goals Identified by Paco during our conversation. 1. Understand what to expect as nears 2. Not feel like he is dying of thirst 3. Not feel like he is drowning 4. Dying at home without hospice-- would want comfort meds and we discussed the use of morphine, ativan, and haldol and what relief each provides. 5. Feeling supported by his care team to retain as much self determination as possible. He will continue discussion with palliative care, he has [facility] palliative care services at home already. We discussed if he continues to feel worse each day A total of 42 minutes of face to face time was spent discussing advanced care planning.
[2022-01-20 20:10] LABS: Glucose,Whole Blood 275 mg/dL (75-99)
[2022-01-20] MEDS: INSULIN DETEMIR (LEVEMIR) 100 UNIT/ML SYR SQ SCH (21:05)
[2022-01-20] MEDS: TAMSULOSIN 0.4 MG CAP.ER.24H PO SCH (21:05)
[2022-01-20] MEDS: FUROSEMIDE 10 MG/ML 10 ML VIAL IV SCH (21:06)
[2022-01-21] MEDS: CIPROFLOXACIN 0.3% OPHTH SOLN 5 ML BTL BOTH EYES SCH ×6 (04:40→23:58)
[2022-01-21 06:04] LABS: Glucose,Whole Blood 249 mg/dL (75-99)
[2022-01-21] MEDS: INSULIN ASPART (NovoLOG) 100 UNIT/ML VIAL SQ SCH ×7 (06:26→21:34)
[2022-01-21] MEDS: MIDODRINE 5 MG TAB PO SCH ×3 (06:26→16:43)
[2022-01-21] MEDS: NITROGLYCERIN OINT 1 INCH/GM PACKET TOPICAL SCH ×2 (08:43→11:00)
[2022-01-21] MEDS: SPIRONOLACTONE 25 MG TAB PO SCH (08:48)
[2022-01-21] MEDS: ALPRAZolam 0.5 MG TAB PO PRN ×2 (08:48→16:43)
[2022-01-21] MEDS: APIXABAN 5 MG TAB PO SCH ×2 (08:48→21:33)
[2022-01-21] MEDS: COLCHICINE 0.6 MG EACH PO SCH (08:49)
[2022-01-21] MEDS: MULTIVITAMINS, THERA 1 EACH TAB PO SCH (08:49)
[2022-01-21] MEDS: hydrOXYzine HCL 25 MG TAB PO SCH ×3 (08:49→22:43)
[2022-01-21] MEDS: busPIRone HCl 5 MG TAB PO SCH (08:49)
[2022-01-21] MEDS: FUROSEMIDE 10 MG/ML 10 ML VIAL IV SCH ×2 (08:49→21:33)
[2022-01-21] MEDS: NYSTATIN 100,000 UNIT/GM POWD 15 GM TOPICAL SCH ×3 (08:50→21:34)
[2022-01-21] MEDS: FLUTICASONE 110 MCG INHALER INHALATION SCH (09:16)
[2022-01-21 10:05] LABS: ALT 15 U/L (4-49); AST 30 U/L (17-59); African American GFR (CKD) 45 (>60 ml/min/1.73 sqM); Albumin 3.3 g/dL (3.5-5.0); Alkaline Phosphatase 183 U/L (38-126); Anion Gap 11 mmol/L; Blood Urea Nitrogen 46 mg/dL (9-20); Calcium 7.9 mg/dL (8.4-10.2); Carbon Dioxide 26 mmol/L (22-30); Chloride 92 mmol/L (98-107); Glucose 282 mg/dL (74-99); Magnesium 2.4 mg/dL (1.6-2.3); Non-African American GFR(CKD) 39 (>60 ml/min/1.73 sqM); Potassium 4.4 mmol/L (3.5-5.1); Sodium 129 mmol/L (137-145); Total Bilirubin 1.5 mg/dL (0.2-1.3); Total Protein 5.9 g/dL (6.3-8.2)
--- NOTE | 2022-01-21 10:47 | P.PN ---
Subjective Patient is seen in follow-up for chronic kidney disease and hyponatremia. Sodium level 129 today. Renal function stable. Good urine output. Nono liguric. On 4 L nasal cannula. Blood pressure stable. Feels weak. Vital signs are stable. General: No acute distress. HEENT: Head exam is unremarkable. LUNGS: Breath sounds decreased. HEART: Rate and Rhythm are regular. ABDOMEN: Soft, no distention. EXTREMITITES: 1+ edema. Objective - Vital Signs Vital signs: Vital Signs Temp 97.3 F L 01/21/22 09:03 Pulse 70 01/21/22 09:03 Resp 17 01/21/22 09:03 BP 106/67 01/21/22 09:03 Pulse Ox 99 01/21/22 09:03 Intake & Output 01/20/22 01/21/22 01/21/22 18:59 06:59 18:59 Intake Total 1123.457 10 240 Output Total 1370 Balance 1123.457 -1360 240 Intake: IV 10 Invasive Line 1 10 Intake, IV Titration 223.457 Amount DOBUTamine DRIP 500 mg In 223.457 Dextrose/Water 1 250ml. bag @ 3.5 MCG/KG/MIN 6. 477 mls/hr IV .Q24H [facility] Rx#:[id number] Oral 900 240 Output: Urine 1370 Other: Voiding Method Indwelling Catheter Indwelling Catheter Indwelling Catheter - Labs CBC & Chem 7: 01/15/22 18:54 01/21/22 09:13 Labs: Abnormal Lab Results - Last 24 Hours (Table) 01/20/22 01/20/22 01/20/22 Range/Units 07:03 11:43 16:16 Sodium (137-145) mmol/L Chloride (98-107) mmol/L BUN (9-20) mg/dL Creatinine (0.66-1.25) mg/dL Glucose (74-99) mg/dL POC Glucose (mg/dL) 414 H 358 H (75-99) mg/dL Osmolality 278 L (280-301) mosm/kg Calcium (8.4-10.2) mg/dL Magnesium (1.6-2.3) mg/dL Total Bilirubin (0.2-1.3) mg/dL Alkaline Phosphatase (38-126) U/L Total Protein (6.3-8.2) g/dL Albumin (3.5-5.0) g/dL TSH (0.465-4.680) mIU/L Ur Random Sodium (40-220) mmol/L 01/20/22 01/20/22 01/21/22 Range/Units 17:28 20:08 06:03 Sodium (137-145) mmol/L Chloride (98-107) mmol/L BUN (9-20) mg/dL Creatinine (0.66-1.25) mg/dL Glucose (74-99) mg/dL POC Glucose (mg/dL) 275 H 249 H (75-99) mg/dL Osmolality (280-301) mosm/kg Calcium (8.4-10.2) mg/dL Magnesium (1.6-2.3) mg/dL Total Bilirubin (0.2-1.3) mg/dL Alkaline Phosphatase (38-126) U/L Total Protein (6.3-8.2) g/dL Albumin (3.5-5.0) g/dL TSH (0.465-4.680) mIU/L Ur Random Sodium <20 L (40-220) mmol/L 01/21/22 Range/Units 09:13 Sodium 129 L (137-145) mmol/L Chloride 92 L (98-107) mmol/L BUN 46 H (9-20) mg/dL Creatinine 1.86 H (0.66-1.25) mg/dL Glucose 282 H (74-99) mg/dL POC Glucose (mg/dL) (75-99) mg/dL Osmolality (280-301) mosm/kg Calcium 7.9 L (8.4-10.2) mg/dL Magnesium 2.4 H (1.6-2.3) mg/dL Total Bilirubin 1.5 H (0.2-1.3) mg/dL Alkaline Phosphatase 183 H (38-126) U/L Total Protein 5.9 L (6.3-8.2) g/dL Albumin 3.3 L (3.5-5.0) g/dL TSH 22.200 H (0.465-4.680) mIU/L Ur Random Sodium (40-220) mmol/L Assessment and Plan Plan: Assessment: 1. Chronic kidney disease stage IIIB with baseline creatinine in the range of 1.6-2 secondary to cardiorenal syndrome. 2. Acute on chronic systolic CHF. On continuous dobutamine. 3. Volume overload. 4. Hypervolemic hyponatremia. Also component of excess water intake. Urine sodium less than 20 and urine osmolality 158. Cortisol level not low. TSH pe nding. Plan: Maintain IV Lasix - transition to oral Bumex 2 mg twice daily upon discharge. Low-salt diet. Patient refusing fluid restriction. Patient has received 2 doses of Samsca this admission. I will give him another dose today. Maintain midodrine. Continue to monitor renal function and urine output. Patient has been strongly advised to maintain a low-salt diet and a 40 ounce of fluid restriction per day upon discharge. He is advised to monitor his weight closely at home and to notify physician if gains more than 3 pounds in 1 week duration or if edema worsens. Follow-up outpatient 1 week post discharge. Prognosis guarded.
[2022-01-21 11:35] LABS: T4, Free (Free Thyroxine) 0.78 ng/dL (0.78-2.19)
[2022-01-21 11:56] LABS: Glucose,Whole Blood 359 mg/dL (75-99)
--- NOTE | 2022-01-21 13:45 | P.PN ---
Subjective Patient is a pleasant 56-year-old male with history of nonischemic cardiomyopathy (known EF <20%), AICD placement, chronic heart failure with reduced EF now stage D heart failure, diabetes mellitus type 2, COPD, history of questionable thrombus attached to right atrial lead and treated with anticoagulation, COPD, CKD. Follows with Dr. Elias Hatchery Worker at the [place]. We have been consulted for congestive heart failure. Patient presents to the emerg ency department for worsening shortness of breath. Echocardiogram 11/28/21 revealed EF < 20%, mild to moderate mitral regurgitation, severe tricuspid regurgitation. Patient seen and examined at bedside, he seems to be in better spirits this morning, is still tearful about his prognosis. He is very tired, weak. Continues to be short of breath. Palliative has been consulted to see the patient. Cont inues to have good urine output. He is maintained on IV Lasix 60mg BID, Eliquis 5mg BID, IV Dobutamine, midodrine, spironolactone 12.5mg daily Labs, Na 126, K 4.9, BUN 44, sCr 1.81, Mag 2.4. PHYSICAL EXAMINATION Vital signs reviewed. CONSTITUTIONAL: No apparent distress. HEENT: Neck Supple. No JVD. CHEST EXAMINATION: Lungs diminished bilaterally to auscultation. No chest wall tenderness is noted on palpation or with deep breathing. HEART EXAMINATION: Regular rate and rhythm. S1, S2 heard. Systolic ejection murmur at apex, No gallops or rub. ABDOMEN: Soft, distended. Positive bowel sounds. EXTREMITIES: 2+ peripheral pulses, trace lower extremity edema and no calf tenderness. NEUROLOGIC EXAMINATION: Patient is awake, alert and oriented x3. ASSESSMENT Acute on chronic Stage D heart failure with reduced ejection fraction, and has not been able to tolerate heart failure regimen. Chronically elevated troponins, do not suspect primary myocardial infarction or acute coronary syndrome. No angina-type symptoms Chronic kidney disease Nonischemic cardiomyopathy ejection fraction less than 20% Essential hypertension, borderline low on heart failure regimen Diabetes mellitus type 2 Hypokalemia History of Intercardiac thrombus on Eliquis Hyponatremia, likely due to volume overload PLAN Patient is in stage D heart failure. He has been evaluated at [facility] and [facility] for an LVAD and transplant evaluation however he's been told that he is not a candidate for these therapies. We recommending continuing current medical therapy with IV Lasix, IV Dobutamine, spironolactone, midodrine. Nephrology following Continue to monitor renal function and urine output We will continue to follow. Nurse practitioner note has been reviewed by physician. Signing provider agrees with the documented findings, assessment, and plan of care. Objective - Vital Signs Vital signs: Vital Signs Temp 97.3 F L 01/21/22 09:03 Pulse 79 01/21/22 12:00 Resp 16 01/21/22 12:00 BP 105/59 01/21/22 12:00 Pulse Ox 98 01/21/22 12:00 Intake & Output 01/20/22 01/21/22 01/21/22 18:59 06:59 18:59 Intake Total 1123.457 10 240 Output Total 1370 Balance 1123.457 -1360 240 Intake: IV 10 Invasive Line 1 10 Intake, IV Titration 223.457 Amount DOBUTamine DRIP 500 mg In 223.457 Dextrose/Water 1 250ml. bag @ 3.5 MCG/KG/MIN 6. 477 mls/hr IV .Q24H [facility] Rx#:[id number] Oral 900 240 Output: Urine 1370 Other: Voiding Method Indwelling Catheter Indwelling Catheter Indwelling Catheter - Labs CBC & Chem 7: 01/15/22 18:54 01/21/22 09:13 Labs: Abnormal Lab Results - Last 24 Hours (Table) 01/20/22 01/20/22 01/20/22 Range/Units 16:16 17:28 20:08 Sodium (137-145) mmol/L Chloride (98-107) mmol/L BUN (9-20) mg/dL Creatinine (0.66-1.25) mg/dL Glucose (74-99) mg/dL POC Glucose (mg/dL) 358 H 275 H (75-99) mg/dL Calcium (8.4-10.2) mg/dL Magnesium (1.6-2.3) mg/dL Total Bilirubin (0.2-1.3) mg/dL Alkaline Phosphatase (38-126) U/L Total Protein (6.3-8.2) g/dL Albumin (3.5-5.0) g/dL TSH (0.465-4.680) mIU/L Ur Random Sodium <20 L (40-220) mmol/L 01/21/22 01/21/22 01/21/22 Range/Units 06:03 09:13 11:53 Sodium 129 L (137-145) mmol/L Chloride 92 L (98-107) mmol/L BUN 46 H (9-20) mg/dL Creatinine 1.86 H (0.66-1.25) mg/dL Glucose 282 H (74-99) mg/dL POC Glucose (mg/dL) 249 H 359 H (75-99) mg/dL Calcium 7.9 L (8.4-10.2) mg/dL Magnesium 2.4 H (1.6-2.3) mg/dL Total Bilirubin 1.5 H (0.2-1.3) mg/dL Alkaline Phosphatase 183 H (38-126) U/L Total Protein 5.9 L (6.3-8.2) g/dL Albumin 3.3 L (3.5-5.0) g/dL TSH 22.200 H (0.465-4.680) mIU/L Ur Random Sodium (40-220) mmol/L
--- NOTE | 2022-01-21 13:56 | P.PN ---
Subjective Progress Note Date: 01/21/22 Principal diagnosis: end stage CHF The patient is a 56-year-old male with an extensive PMH including severe systolic CHF EF less than 10/15%, status post AICD placement, intracardiac thrombus on Eliquis, type II DM, hypertension, BPH, and CKD stage IIIB, who presents to the emergency room with complaints of shortness of breath. Patient reports his symptoms started last night with quickly progressing severe shortness of breath, which did not allow him to sleep all night. Patient states he had gained about 13 pounds over 5 days and was told to go to the hospital by his home care nurse. He is maintained on dobutamine infusion outpatient. He reports that his symptoms are very similar to his prior episodes of CHF exacerbation. Reports compliance with all his medications at home and states he does monitor his fluid intake. 01/20 Education regarding disease process and progression provided. The patient stated that he was told he has less than six months left to live and that he is not a candidate for a LVAD or transplant. Palliative care and hospice philosophies and support services explained to patient. He was very adamant that he does not want hospice involvement. He stated that he already has outpatient palliative care visits home. He believes that when it is his time the Lord will take him. He states he has had over 20 hospital admissions since July 2020 and he is alright with coming back to the hospital for treatment when needed. He said "I have no choice, right?" It was explained that he does have a choice, but he interrupted and said "then I choose to come back and forth to the hospital." He recently fired his caregivers for stealing from him. He plans on eventually finding new ones. He states he has no goals, he is just going to take things one day at a time. His plan is to go back home. His mother is KESHIA, knows his wishes, and will make medical decisions for him when he is unable to do so. Objective - Vital Signs Vital signs: Vital Signs Temp 97.3 F L 01/21/22 09:03 Pulse 79 01/21/22 12:00 Resp 16 01/21/22 12:00 BP 105/59 01/21/22 12:00 Pulse Ox 98 01/21/22 12:00 Intake & Output 01/20/22 01/21/22 01/21/22 18:59 06:59 18:59 Intake Total 1123.457 10 240 Output Total 1370 Balance 1123.457 -1360 240 Intake: IV 10 Invasive Line 1 10 Intake, IV Titration 223.457 Amount DOBUTamine DRIP 500 mg In 223.457 Dextrose/Water 1 250ml. bag @ 3.5 MCG/KG/MIN 6. 477 mls/hr IV .Q24H [facility] Rx#:[id number] Oral 900 240 Output: Urine 1370 Other: Voiding Method Indwelling Catheter Indwelling Catheter Indwelling Catheter - Exam General: Ill appearing, no acute distress, appears older than stated age Derm: Warm and dry Head: atraumatic, normocephalic, symmetric Eyes: EOMI, no lid lag, wearing glasses Mouth: no lip lesion, mucus membranes moist Cardiovascular: S1, S2 regular rate and rhythm, no murmur, +1 posterior tibial pulse bilateral Lungs: Decreased bilateral bases, no rhonchi, no rales , no accessory muscle use, currently on 4L NC. Abdominal: + abdominal distension, slightly firm, nontender to palpation, no guarding Ext: no gross muscle atrophy, 1+ lower extremity edema, no contractures Neuro: CN II-XI grossly intact, no focal neuro deficits Psych: Alert, oriented, appropriate affect - Labs CBC & Chem 7: 01/15/22 18:54 01/21/22 09:13 Labs: Abnormal Lab Results - Last 24 Hours (Table) 01/20/22 01/20/22 01/20/22 Range/Units 16:16 17:28 20:08 Sodium (137-145) mmol/L Chloride (98-107) mmol/L BUN (9-20) mg/dL Creatinine (0.66-1.25) mg/dL Glucose (74-99) mg/dL POC Glucose (mg/dL) 358 H 275 H (75-99) mg/dL Calcium (8.4-10.2) mg/dL Magnesium (1.6-2.3) mg/dL Total Bilirubin (0.2-1.3) mg/dL Alkaline Phosphatase (38-126) U/L Total Protein (6.3-8.2) g/dL Albumin (3.5-5.0) g/dL TSH (0.465-4.680) mIU/L Ur Random Sodium <20 L (40-220) mmol/L 01/21/22 01/21/22 01/21/22 Range/Units 06:03 09:13 11:53 Sodium 129 L (137-145) mmol/L Chloride 92 L (98-107) mmol/L BUN 46 H (9-20) mg/dL Creatinine 1.86 H (0.66-1.25) mg/dL Glucose 282 H (74-99) mg/dL POC Glucose (mg/dL) 249 H 359 H (75-99) mg/dL Calcium 7.9 L (8.4-10.2) mg/dL Magnesium 2.4 H (1.6-2.3) mg/dL Total Bilirubin 1.5 H (0.2-1.3) mg/dL Alkaline Phosphatase 183 H (38-126) U/L Total Protein 5.9 L (6.3-8.2) g/dL Albumin 3.3 L (3.5-5.0) g/dL TSH 22.200 H (0.465-4.680) mIU/L Ur Random Sodium (40-220) mmol/L Assessment and Plan Plan: Symptoms: * Pain - denies currently, takes Cochicine for Gout * Energy level - very weak and fatigued. Continue Midodrine to raise BP * SOB - no sob while at rest, only on exertion. no home O2 use. Reports dry cough. Continue Albuterol neb, Dobutamine gtt, Flovent, Lasix, and Aldactone * Insomnia - denies * N/V - denies * Anxiety/depression - denies, continue Buspar * Confusion/agitation - none * Appetite/dysphagia/weight loss - Reports a fair appetite, eats 2 meals a day at home, eats small meals. Denies any dysphagia. Reports 13 lb weight gain in 5 days FUR LINER. * Constipation - denies, LBM 01/19 * Incontinence - chronic muñoz, continue Flomax * Itch - denies, takes Atarax prn NYHA class IV Goals - The patient is upset stating no one told him, or his family, what CHF would look like at the end. He called his physician from [facility] in search of some answers and is waiting for a call back. The progression of his CHF and what his symptoms will be like were described in detail. The patient is requiring a higher dose of dobutamine than what he uses at home and his symptoms are getting worse despite a negative fluid balance. He understands there are no more treatment options. It was explained that his heart is getting weaker and he may have a lethal arrhythmia, or he may slowly struggle to breath at the end. The patient states his pacemaker/AICD was turned off already. He is accepting in some aspects of facing his mortality and not in other areas. His java front end web developer is coming up today to help him plan his . On the other hand, he refuses to discuss hospice. He does not want hospice because he would lose all of his doctors and they would stop the dobutamine infusion. He agrees with the hospice philosophies and is interested in passing as comfortable as possible, but refuses even an informational meeting with hospice. He is adamant that his d octors told him he had 6 months in September, so he still has until February. It was explained that they gave him an estimated time frame and it does not appear like he will make it until February. 1330 Finish Mender returned to the patient's room to try and talk to the patient's mother. The patient was sleeping and there were no visitors at the bedside. Information was left at the bedside including, end-of-life signs with congesstive heart failure, and a hand out describing what to expect when a loved one is dying. Code status - DNR Thank you for this consult. Will continue to follow this patient. Jenniffer Yepez [facility] Palliative Care [employer] [id number] Email: [email or web address] Time with Patient: Less than 30
[2022-01-21] MEDS ORDERED: SALINE NASAL GEL 14.1 GM TUBE NASAL PRN (15:14)
[2022-01-21 16:26] LABS: Glucose,Whole Blood 337 mg/dL (75-99)
--- NOTE | 2022-01-21 18:37 | P.PN ---
Subjective Progress Note Date: 01/21/22 (delayed charting seen at 1435) Principal diagnosis: shortness of breath Patient is a 56-year-old male for history of severe systolic congestive heart failure and an ejection fraction of less than 20% status post AICD on chronic dobutamine infusion, intracardiac thrombus on eliquis, diabetes mellitus type 2, and hypertension who presented to the ER with complaints of severe shortness of breath. In the ER he underwent an extensive evaluation. Chest x-ray showed no acute abnormalities, laboratory analysis showed a BNP of 10,500, troponin mildly elevated at 0.025, sodium 129, chloride 91, BUN 47, creatinine 1.96. He is admitted and started on IV diuresis. His dobutamine infusion was continued. Cardiology was consulted. He continued to have hyponatremia and nephrology was consulted he was given a dose of Samsca 01/17. Patient seen and examined at bedside. Sleeping all day, no appetite, feels terrible and short of breath. General: ill appearing, mild distress, appears older than stated age Derm: warm, dry Head: atraumatic, normocephalic, symmetric Eyes: EOMI, no lid lag, a conjunctival erythema of left eye Mouth: no lip lesion, mucus membranes moist, cyanosis of lips Cardiovascular: S1S2 reg, no murmur, positive posterior tibial pulse bilateral, Lungs: Decreased bs bilateral bases, no rhonchi, no rales , + accessory muscle use, + 3 word conversational dyspnea Abdominal: + abdominal distension, soft, nontender to palpation, no guarding, no appreciable organomegaly Ext: no gross muscle atrophy, 1+ edema, no contractures Neuro: CN II-XI grossly intact, no focal neuro deficits Psych: Alert, oriented, appropriate affect Assessment/plan: Acute exacerbation of systolic congestive heart failure with ejection fraction less than 20% Hereditary nonischemic cardiomyopathy status post AICD Mouth moderate mitral regurgitation, severe tricuspid regurgitation Conjunctivitis Hyponatremia secondary to fluid overload Chronic kidney disease stage III Diabetes mellitus type II insulin requiring, hypoglycemia episode Intracardiac thrombus -Continue with eliquis Chronic: Hypertension BPH COPD Neuropathy Hyperkalemia, resolved Prolonged discussion again as Paco is doing worse today. It appears that he is starting to get into the active phase of dying with increased respiratory diffic ulty, fatigue, decreased appetite and hypo perfusion. After much discussion plan is home tomorrow with comfort measures including morphine, ativan, and haldol. Discussed with mom over phone and Jenniffer Palliative care, SENIOR PRODUCT ENGINEER who will meet with mom tomorrow to talk about expectations. Paco does not want hospice as they are not able to accommodate his dobutamine infusion. He is aware that the plan is to go home and remain at home until he passes we discussed that typically hospice would be involved to provide care, and that him and his care givers will need to increased morphine/ativan/haldol to ensure comfort his mom would like to respect his wishes of dying at home. DVT prophylaxis: mikey Discussed with: patient, nursing Anticipated discharge: in AM Anticipated discharge place: A total of 35minutes was spent on the care of this complex patient more than 50% of the time was spent in counseling and care coordination. Objective - Vital Signs Vital signs: Vital Signs Temp 97.6 F 01/21/22 16:00 Pulse 80 01/21/22 16:00 Resp 17 01/21/22 16:00 BP 109/75 01/21/22 16:00 Pulse Ox 97 01/21/22 16:00 Intake & Output 01/20/22 01/21/22 01/21/22 18:59 06:59 18:59 Intake Total 1123.457 10 480 Output Total 1370 1700 Balance 1123.457 -1360 -1220 Intake: IV 10 Invasive Line 1 10 Intake, IV Titration 223.457 Amount DOBUTamine DRIP 500 mg In 223.457 Dextrose/Water 1 250ml. bag @ 3.5 MCG/KG/MIN 6. 477 mls/hr IV .Q24H [facility] Rx#:[id number] Oral 900 480 Output: Urine 1370 1700 Other: Voiding Method Indwelling Catheter Indwelling Catheter Indwelling Catheter - Labs CBC & Chem 7: 01/15/22 18:54 01/21/22 09:13 Labs: Abnormal Lab Results - Last 24 Hours (Table) 01/20/22 01/20/22 01/21/22 Range/Units 17:28 20:08 06:03 Sodium (137-145) mmol/L Chloride (98-107) mmol/L BUN (9-20) mg/dL Creatinine (0.66-1.25) mg/dL Glucose (74-99) mg/dL POC Glucose (mg/dL) 275 H 249 H (75-99) mg/dL Calcium (8.4-10.2) mg/dL Magnesium (1.6-2.3) mg/dL Total Bilirubin (0.2-1.3) mg/dL Alkaline Phosphatase (38-126) U/L Total Protein (6.3-8.2) g/dL Albumin (3.5-5.0) g/dL TSH (0.465-4.680) mIU/L Ur Random Sodium <20 L (40-220) mmol/L 01/21/22 01/21/22 01/21/22 Range/Units 09:13 11:53 16:24 Sodium 129 L (137-145) mmol/L Chloride 92 L (98-107) mmol/L BUN 46 H (9-20) mg/dL Creatinine 1.86 H (0.66-1.25) mg/dL Glucose 282 H (74-99) mg/dL POC Glucose (mg/dL) 359 H 337 H (75-99) mg/dL Calcium 7.9 L (8.4-10.2) mg/dL Magnesium 2.4 H (1.6-2.3) mg/dL Total Bilirubin 1.5 H (0.2-1.3) mg/dL Alkaline Phosphatase 183 H (38-126) U/L Total Protein 5.9 L (6.3-8.2) g/dL Albumin 3.3 L (3.5-5.0) g/dL TSH 22.200 H (0.465-4.680) mIU/L Ur Random Sodium (40-220) mmol/L
[2022-01-21 20:44] LABS: Glucose,Whole Blood 333 mg/dL (75-99)
[2022-01-21] MEDS: TAMSULOSIN 0.4 MG CAP.ER.24H PO SCH (21:33)
[2022-01-21] MEDS: INSULIN DETEMIR (LEVEMIR) 100 UNIT/ML SYR SQ SCH (21:34)
[2022-01-22] MEDS: DOBUTamine DRIP 500 MG in DEXTROSE/WATER 1 250ML.BAG IV SCH (02:00)
[2022-01-22] MEDS: CIPROFLOXACIN 0.3% OPHTH SOLN 5 ML BTL BOTH EYES SCH ×4 (04:42→17:09)
[2022-01-22 05:56] LABS: Glucose,Whole Blood 319 mg/dL (75-99)
[2022-01-22] MEDS: MIDODRINE 5 MG TAB PO SCH ×3 (06:52→17:08)
[2022-01-22] MEDS: INSULIN ASPART (NovoLOG) 100 UNIT/ML VIAL SQ SCH ×6 (06:52→17:08)
[2022-01-22] MEDS: SPIRONOLACTONE 25 MG TAB PO SCH (08:28)
[2022-01-22] MEDS: busPIRone HCl 5 MG TAB PO SCH (08:28)
[2022-01-22] MEDS: MULTIVITAMINS, THERA 1 EACH TAB PO SCH (08:28)
[2022-01-22] MEDS: FUROSEMIDE 10 MG/ML 10 ML VIAL IV SCH (08:28)
[2022-01-22] MEDS: APIXABAN 5 MG TAB PO SCH (08:28)
[2022-01-22] MEDS: COLCHICINE 0.6 MG EACH PO SCH (08:28)
[2022-01-22] MEDS: ALPRAZolam 0.5 MG TAB PO PRN ×2 (08:28→17:08)
[2022-01-22] MEDS: NYSTATIN 100,000 UNIT/GM POWD 15 GM TOPICAL SCH ×2 (08:29→17:09)
[2022-01-22] MEDS: hydrOXYzine HCL 25 MG TAB PO SCH ×2 (08:29→17:09)
[2022-01-22] MEDS: FLUTICASONE 110 MCG INHALER INHALATION SCH (08:42)
[2022-01-22 10:03] LABS: Calcium 8.2 mg/dL (8.4-10.2); Magnesium 2.3 mg/dL (1.6-2.3); Potassium 4.6 mmol/L (3.5-5.1)
[2022-01-22 11:45] LABS: Glucose,Whole Blood 427 mg/dL (75-99)
--- NOTE | 2022-01-22 11:46 | P.PN ---
Subjective Patient is seen in follow-up for chronic kidney disease and hyponatremia. Sodium level 126 today. Blood sugars continue 300. Renal function stable. Good urine output. Nonoliguric. On 4 L nasal cannula. Blood pressure stable. Feels weak. Hospice being considered. Vital signs are stable. General: No acute distress. HEENT: Head exam is unremarkable. LUNGS: Breath sounds decreased. HEART: Rate and Rhythm are regular. ABDOMEN: Soft, no distention. EXTREMITITES: 1+ edema. Objective - Vital Signs Vital signs: Vital Signs Temp 97.9 F 01/22/22 08:36 Pulse 97 01/22/22 08:36 Resp 20 01/22/22 08:36 BP 113/81 01/22/22 08:36 Pulse Ox 95 01/22/22 08:36 Intake & Output 01/21/22 01/22/22 01/22/22 18:59 06:59 18:59 Intake Total 720 250 360 Output Total 1700 525 575 Balance -980 -275 -215 Weight 70.5 kg Intake: Intake, IV Titration 250 Amount DOBUTamine DRIP 500 mg In 250 Dextrose/Water 1 250ml. bag @ 3.5 MCG/KG/MIN 6. 477 mls/hr IV .Q24H [facility] Rx#:[id number] Oral 720 360 Output: Urine 1700 525 575 Other: Voiding Method Indwelling Catheter Indwelling Catheter Indwelling Catheter - Labs CBC & Chem 7: 01/15/22 18:54 01/22/22 08:38 Labs: Abnormal Lab Results - Last 24 Hours (Table) 01/21/22 01/21/22 01/21/22 Range/Units 11:53 16:24 20:42 Sodium (137-145) mmol/L Chloride (98-107) mmol/L BUN (9-20) mg/dL Creatinine (0.66-1.25) mg/dL Glucose (74-99) mg/dL POC Glucose (mg/dL) 359 H 337 H 333 H (75-99) mg/dL Calcium (8.4-10.2) mg/dL 01/22/22 01/22/22 Range/Units 05:54 08:38 Sodium 126 L (137-145) mmol/L Chloride 93 L (98-107) mmol/L BUN 45 H (9-20) mg/dL Creatinine 1.67 H (0.66-1.25) mg/dL Glucose 293 H (74-99) mg/dL POC Glucose (mg/dL) 319 H (75-99) mg/dL Calcium 8.2 L (8.4-10.2) mg/dL Assessment and Plan Plan: Assessment: 1. Chronic kidney disease stage IIIB with baseline creatinine in the range of 1.6-2 secondary to cardiorenal syndrome. 2. Acute on chronic systolic CHF. On continuous dobutamine. 3. Volume overload. 4. Hypervolemic hyponatremia. Also component of excess water intake. Urine sodium less than 20 and urine osmolality 158. Cortisol level not low. TSH high -notify primary team. Plan: Maintain IV Lasix - transition to oral Bumex 2 mg twice daily upon discharge. Low-salt diet. Patient refusing fluid restriction. Patient has received 2 doses of Samsca this admission. I will give him another dose today. Maintain midodrine. Continue to monitor renal function and urine output. Patient has been strongly advised to maintain a low-salt diet and a 40 ounce of fluid restriction per day upon discharge. He is advised to monitor his weight closely at home and to notify physician if gains more than 3 pounds in 1 week duration or if edema worsens. Follow-up outpatient 1 week post discharge. Prognosis guarded. Hospice is being considered. Blood sugar control.
[2022-01-22] MEDS ORDERED: TOLVAPTAN 15 MG 1/2 TABLET PO ONE (12:15)
--- NOTE | 2022-01-22 12:52 | P.PN ---
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 Patient reports his symptoms started last night with quickly progressing severe shortness of breath, which did not allow him to sleep all night. Patient states he had gained about 13 pounds over 5 days and was told to go to the hospital by his home care nurse. He is maintained on dobutamine infusion outpatient. He reports that his symptoms are very similar to his prior episodes of CHF exacerbation. Reports compliance with all his medications at home and states he does monitor his fluid intake. 01/20 Education regarding disease process and progression provided. The patient stated that he was told he has less than six months left to live and that he is not a candidate for a LVAD or transplant. Palliative care and hospice philosophies and support services explained to patient. He was very adamant that he does not want hospice involvement. He stated that he already has outpatient palliative care visits home. He believes that when it is his time the Lord will take him. He states he has had over 20 hospital admissions since July 2020 and he is alright with coming back to the hospital for treatment when needed. He said "I have no choice, right?" It was explained that he does have a choice, but he interrupted and said "then I choose to come back and forth to the hospital." He recently fired his caregivers for stealing from him. He plans on eventually finding new ones. He states he has no goals, he is just going to take things one day at a time. His plan is to go back home. His mother is KESHIA, knows his wishes, and will make medical decisions for him when he is unable to do so. 01/21 The patient is upset stating no one told him, or his family, what CHF would look like at the end. He called his physician from [facility] in search of some answers and is waiting for a call back. The progression of his CHF and what his symptoms will be like were described in detail. The patient is requiring a higher dose of dobutamine than what he uses at home and his symptoms are getting worse despite a negative fluid balance. He understands there are no more treatment options. It was explained that his heart is getting weaker and he may have a lethal arrhythmia, or he may slowly struggle to breath at the end. The patient states his pacemaker/AICD was turned off already. He is accepting in some aspects of facing his mortality and not in other areas. His drywall finisher is coming up today to help him plan his . On the other hand, he refuses to discuss hospice. He does not want hospice because he would lose all of his doctors and they would stop the dobutamine infusion. He agrees with the hospice philosophies and is interested in passing as comfortable as possible, but refuses even an informational meeting with hospice. He is adamant that his doctors told him he had 6 months in September, so he still has until February. It was explained that they gave him an estimated time frame and it does not appear like he will make it until February. Objective - Vital Signs Vital signs: Vital Signs Temp 97.9 F 01/22/22 08:36 Pulse 97 01/22/22 08:36 Resp 20 01/22/22 08:36 BP 113/81 01/22/22 08:36 Pulse Ox 95 01/22/22 08:36 Intake & Output 01/21/22 01/22/22 01/22/22 18:59 06:59 18:59 Intake Total 720 250 360 Output Total 1700 525 575 Balance -980 -275 -215 Weight 70.5 kg Intake: Intake, IV Titration 250 Amount DOBUTamine DRIP 500 mg In 250 Dextrose/Water 1 250ml. bag @ 3.5 MCG/KG/MIN 6. 477 mls/hr IV .Q24H [facility] Rx#:[id number] Oral 720 360 Output: Urine 1700 525 575 Other: Voiding Method Indwelling Catheter Indwelling Catheter Indwelling Catheter - Exam General: Ill appearing, + respiratory distress, appears older than stated age Derm: Warm and dry Head: atraumatic, normocephalic, symmetric Eyes: EOMI, no lid lag, wearing glasses Mouth: no lip lesion, mucus membranes moist Cardiovascular: S1, S2, regular rate and rhythm, no murmur Lungs: Decreased breath sounds, tachypenic, + accessory muscle use, no rhonchi, no rales, currently on 4L NC. Abdominal: + abdominal distension, slightly firm, nontender to palpation, no guarding Ext: no gross muscle atrophy, 1+ lower extremity edema, no contractures Neuro: CN II-XI grossly intact, no focal neuro deficits Psych: Alert, oriented, depressed - Labs CBC & Chem 7: 01/15/22 18:54 01/22/22 08:38 Labs: Abnormal Lab Results - Last 24 Hours (Table) 01/21/22 01/21/22 01/22/22 Range/Units 16:24 20:42 05:54 Sodium (137-145) mmol/L Chloride (98-107) mmol/L BUN (9-20) mg/dL Creatinine (0.66-1.25) mg/dL Glucose (74-99) mg/dL POC Glucose (mg/dL) 337 H 333 H 319 H (75-99) mg/dL Calcium (8.4-10.2) mg/dL 01/22/22 01/22/22 Range/Units 08:38 11:43 Sodium 126 L (137-145) mmol/L Chloride 93 L (98-107) mmol/L BUN 45 H (9-20) mg/dL Creatinine 1.67 H (0.66-1.25) mg/dL Glucose 293 H (74-99) mg/dL POC Glucose (mg/dL) 427 H (75-99) mg/dL Calcium 8.2 L (8.4-10.2) mg/dL Assessment and Plan Plan: Symptoms: * Pain - denies currently, takes Cochicine for Gout * Energy level - very weak and fatigued. Continue Midodrine to raise BP * SOB - SOB and labored breathing at rest. Reports dry cough. Continue Albuterol neb, Dobutamine gtt, Flovent, Lasix, and Aldactone. on 4L NC * Insomnia - denies * N/V - denies * Anxiety/depression - starting to get depressed now that is imminent, continue Buspar * Confusion/agitation - none * Appetite/dysphagia/weight loss - Reports a decreasing appetite, denies any dysphagia. * Constipation - denies, LBM 5/3 * Incontinence - chronic muñoz, continue Flomax * Itch - denies, takes Atarax prn NYHA class IV Goals - The patient's has been refusing hospice and is actively dying. He states his goal is to go home to . SUPERVISOR [employer] and case picker are currently working with Dr. Sher to develop a plan for comfort care at home. Met with the patient and his mother, Nikki, who is his main caregiver/support person. They were both educated that could occur at any time. Our plan was to get him home, however he potentially could pass away before then, or on the way home. They verbalized understanding. A great deal of time was spent with the patient and Nikki explaining to them what to expect in his last hours/days. They were educated on the symptoms that he will experience and how to treat them. Pharmalogical and non-pharmalogical interventions were provided. Education was provided regarding the comfort medications and when/how to use them. Contact information for [facility], including a 24-hour number in case the Nikki is unable to control the patient's symptoms and feels as if she needs help. All questions were answered. Plan - To honor the patient's wishes and get him home to peacefully and with dignity. Code status - DNR Thank you for this consult. Jenniffer Yepez [facility] Palliative Care Spectralink [id number] Email: [email or web address] Time with Patient: Greater than 30
--- NOTE | 2022-01-22 15:01 | P.PN ---
Subjective Patient is a pleasant 56-year-old male with history of nonischemic cardiomyopathy (known EF <20%), AICD placement, chronic heart failure with reduced EF now stage D heart failure, diabetes mellitus type 2, COPD, history of questionable thrombus attached to right atrial lead and treated with anticoagulation, COPD, CKD. Follows with Dr. Elias E Commerce Merchant at the [place]. We have been consulted for congestive heart failure. Patient presents to the emerg ency department for worsening shortness of breath. Echocardiogram 11/28/21 revealed EF < 20%, mild to moderate mitral regurgitation, severe tricuspid regurgitation. Patient seen and examined at bedside, he is not ready for hospice. He is interested in going home. He is very tired, weak. Palliative has been following to see the patient. Continues to have good urine output. He is maintained on IV Lasix 60mg BID, Eliquis 5mg BID, IV Dobutamine, midodrine, spironolactone 12.5mg daily Labs, Na 126, K 4.6, BUN 45, serum creatinine 1.67, magnesium 2.3 PHYSICAL EXAMINATION Vital signs reviewed. CONSTITUTIONAL: No apparent distress. HEENT: Neck Supple. No JVD. CHEST EXAMINATION: Lungs diminished bilaterally to auscultation. No chest wall tenderness is noted on palpation or with deep breathing. HEART EXAMINATION: Regular rate and rhythm. S1, S2 heard. Systolic ejection murmur at apex, No gallops or rub. ABDOMEN: Soft, distended. Positive bowel sounds. EXTREMITIES: 2+ peripheral pulses, trace lower extremity edema and no calf tenderness. NEUROLOGIC EXAMINATION: Patient is awake, alert and oriented x3. ASSESSMENT Acute on chronic Stage D heart failure with reduced ejection fraction, and has not been able to tolerate heart failure regimen. Chronically elevated troponins, do not suspect primary myocardial infarction or acute coronary syndrome. No angina-type symptoms Chronic kidney disease Nonischemic cardiomyopathy ejection fraction less than 20% Essential hypertension, borderline low on heart failure regimen Diabetes mellitus type 2 Hypokalemia History of Intercardiac thrombus on Eliquis Hyponatremia, likely due to volume overload PLAN Patient is in stage D heart failure. He has been evaluated at [facility] and [facility] for an LVAD and transplant evaluation however he's been told that he is not a candidate for these therapies. Patient into the active phases of dying. We recommending continuing current medical therapy with IV Lasix, IV Dobutamine, spironolactone, midodrine. Comfort care recommended Palliative Following Hospice being considered We will continue to follow the patient as needed at this time. Please reconsult if needed. Nurse practitioner note has been reviewed by physician. Signing provider agrees with the documented findings, assessment, and plan of care. Objective - Vital Signs Vital signs: Vital Signs Temp 97.6 F 01/22/22 12:00 Pulse 94 01/22/22 12:00 Resp 21 01/22/22 12:00 BP 105/78 01/22/22 12:00 Pulse Ox 96 01/22/22 12:00 Intake & Output 01/21/22 01/22/22 01/22/22 18:59 06:59 18:59 Intake Total 720 250 480 Output Total 1700 525 575 Balance -980 -275 -95 Weight 70.5 kg Intake: Intake, IV Titration 250 Amount DOBUTamine DRIP 500 mg In 250 Dextrose/Water 1 250ml. bag @ 3.5 MCG/KG/MIN 6. 477 mls/hr IV .Q24H [facility] Rx#:[id number] Oral 720 480 Output: Urine 1700 525 575 Other: Voiding Method Indwelling Catheter Indwelling Catheter Indwelling Catheter - Labs CBC & Chem 7: 01/15/22 18:54 01/22/22 08:38 Labs: Abnormal Lab Results - Last 24 Hours (Table) 01/21/22 01/21/22 01/22/22 Range/Units 16:24 20:42 05:54 Sodium (137-145) mmol/L Chloride (98-107) mmol/L BUN (9-20) mg/dL Creatinine (0.66-1.25) mg/dL Glucose (74-99) mg/dL POC Glucose (mg/dL) 337 H 333 H 319 H (75-99) mg/dL Calcium (8.4-10.2) mg/dL 01/22/22 01/22/22 Range/Units 08:38 11:43 Sodium 126 L (137-145) mmol/L Chloride 93 L (98-107) mmol/L BUN 45 H (9-20) mg/dL Creatinine 1.67 H (0.66-1.25) mg/dL Glucose 293 H (74-99) mg/dL POC Glucose (mg/dL) 427 H (75-99) mg/dL Calcium 8.2 L (8.4-10.2) mg/dL
[2022-01-22 16:36] LABS: Glucose,Whole Blood 386 mg/dL (75-99)
[2022-01-22 17:19] VITALS: BP 118/58; PULSE 95; RESP 16; TEMP 98.4
--- NOTE | 2022-01-22 18:23 | P.DS ---
Providers Date of admission: 01/15/22 20:18 Expected date of discharge: 01/22/22 Attending physician: Marie Lucas MD Consults: 01/15/22 20:18 Consult Physician Routine Consulting Provider: Chan Fallon Consult Reason/Comments: chf Do you want consulting provider notified?: Yes 01/17/22 07:48 Consult Physician Routine Consulting Provider: Duglas Lewis Consult Reason/Comments: hyponatremia Do you want consulting provider notified?: Yes 01/19/22 17:59 Consult to Palliative Care Routine Consulting Provider: Jenniffer Yepez Consult Reason/Comments: end stage CHF Do you want consulting provider notified?: Yes Primary care physician: [facility] Hospital Course: Discharge Diagnosis: Acute exacerbation of systolic congestive heart failure with ejection fraction less than 20% Hereditary nonischemic cardiomyopathy status post AICD Valvular heart disease Conjunctivitis Hypervolemic Hyponatremia Chronic kidney disease stage III Diabetes mellitus type II insulin requiring, hypoglycemia episode Intracardiac thrombus Hypertension BPH COPD Neuropathy Hyperkalemia, resolved Hospital Course: Patient is a 56-year-old male for history of severe systolic congestive heart failure and an ejection fraction of less than 20% status post AICD on chronic dobutamine infusion, intracardiac thrombus on eliquis, diabetes mellitus type 2, and hypertension who presented to the ER with complaints of severe shortness of breath. In the ER he underwent an extensive evaluation. Chest x-ray showed no acute abnormalities, laboratory analysis showed a BNP of 10,500, troponin mildly elevated at 0.025, sodium 129, chloride 91, BUN 47, creatinine 1.96. He is admitted and started on IV diuresis. His dobutamine infusion was continued. Cardiology was consulted. He continued to have hyponatremia and nephrology was consulted he was given a dose of Samsca 01/17. He continued to feel worse despite adaquate diuresis. We had many in dept discussion as he was progressing with loss of appetitie, fatigue, anodynia, and pain. He does not want hospice as he would have to come off his dobutamine infusion. He does want comfort measure and to at home. This was discussed with his mother who is comfortable with this plan and will be there to help care for him. They are aware that he is dying and have home care and some aids at home to help. He does not plan on coming back to the hospital. He was sent home with roxanol, ativan, atropine and haldol prescriptions. Patient seen and examined at bedside. fatigued, short of breath, knows that he is dying. General: ill appearing, moderate distress, appears older than stated age Derm: warm, dry Head: atraumatic, normocephalic, symmetric Eyes: EOMI, no lid lag, a conjunctival erythema of left eye Mouth: no lip lesion, mucus membranes moist, cyanosis of lips Cardiovascular: S1S2 irreg, no murmur, positive posterior tibial pulse bilateral, Lungs: Decreased bs bilateral bases, no rhonchi, no rales , + accessory muscle use, + 3 word conversational dyspnea Abdominal: + abdominal distension, soft, nontender to palpation, no guarding, no appreciable organomegaly Ext: no gross muscle atrophy, 2+ edema, no contractures Neuro: CN II-XI grossly intact, no focal neuro deficits Psych: Alert, oriented, appropriate affect A total of 47 minutes of time were spent preparing this complex discharge summary . Plan - Discharge Summary New Discharge Prescriptions: New Haloperidol Oral Soln [Haldol Oral Soln] 5 mg PO Q6H PRN #30 ml PRN Reason: Agitation Nystatin 100,000 Unit/gm Powd [Mycostatin Powder] 1 applic TOPICAL TID Midodrine [ProAmatine] 5 mg PO AC-TID #90 tab MORPHINE ORAL PHAN CONC 20mg/mL [Roxanol Oral Soln Conc 20MG/ML] 10 mg PO Q4H PRN 10 Days #25 ml PRN Reason: Pain Acetaminophen Suppository [Tylenol Suppository] 650 mg RECTAL Q6H PRN #30 supp PRN Reason: Fever ALPRAZolam [Xanax] 0.5 mg PO TID PRN #90 tab PRN Reason: Anxiety Atropine Ophth Soln 1% 5Ml [Isopto Atropine 1% 5Ml] 1 drop SUBLINGUAL Q6H PRN #5 ml PRN Reason: Secretions Furosemide [Lasix] 80 mg PO Q8HR #90 tablet Continue Brimonidine Tartrate [Alphagan P 0.2% Ophth Soln] 1 drop BOTH EYES DAILY@0900 Dextrose Chew [Glucose Chew Tab] 12 gm PO DAILY PRN PRN Reason: low blood sugar Spironolactone [Aldactone] 12.5 mg PO DAILY@0900 methocarbamoL [Robaxin] 750 mg PO TID PRN PRN Reason: Muscle Pain Magnesium 420mg 420 mg PO HS@2100 hydrOXYzine HCL [Atarax] 25 mg PO TID PRN PRN Reason: Itching Beclomethasone Dip 80 Mcg/Puff [Qvar 80 mcg] 1 puff INHALATION RT-DAILY Dobutamine 360 mg IV DIRECTED Ipratropium-Albuterol Nebulize [Duoneb 0.5 mg-3 mg/3 ml Soln] 3 ml INHALATION RT-QID PRN PRN Reason: Shortness Of Breath Apixaban [Eliquis] 5 mg PO BID Tamsulosin HCl [Flomax] 0.4 mg PO HS@2100 Multivitamins, Thera [Multivitamin (formulary)] 1 tab PO DAILY@0900 Empagliflozin [Jardiance] 25 mg PO DAILY@0900 busPIRone HCL 15 mg PO DAILY@0900 Acetaminophen Tab [Tylenol] 325 mg PO Q6H PRN PRN Reason: Pain Colchicine 0.6 mg PO DAILY@0900 Changed INSULIN ASPART (NovoLOG) [NovoLOG (formulary)] 2 unit SQ AC-TID #0 ml Insulin Detemir (Levemir) [Levemir] 10 unit SQ DAILY@0700 #0 ml Discontinued Potassium Chloride ER [K-Dur 20] 40 meq PO Q8H Discharge Medication List Brimonidine Tartrate [Alphagan P 0.2% Ophth Soln] 1 drop BOTH EYES DAILY@0900 11/29/20 [History] Dextrose Chew [Glucose Chew Tab] 12 gm PO DAILY PRN 01/09/21 [History] Spironolactone [Aldactone] 12.5 mg PO DAILY@0900 01/09/21 [History] Tamsulosin HCl [Flomax] 0.4 mg PO HS@2100 01/09/21 [History] Acetaminophen Tab [Tylenol] 325 mg PO Q6H PRN 11/27/21 [History] Beclomethasone Dip 80 Mcg/Puff [Qvar 80 mcg] 1 puff INHALATION RT-DAILY 11/27/21 [History] Colchicine 0.6 mg PO DAILY@0900 11/27/21 [History] Dobutamine 360 mg IV DIRECTED 11/27/21 [History] Empagliflozin [Jardiance] 25 mg PO DAILY@0900 11/27/21 [History] Magnesium 420mg 420 mg PO HS@2100 11/27/21 [History] Multivitamins, Thera [Multivitamin (formulary)] 1 tab PO DAILY@89911/27/21 [History] busPIRone HCL 15 mg PO DAILY@89911/27/21 [History] hydrOXYzine HCL [Atarax] 25 mg PO TID PRN 11/27/21 [History] methocarbamoL [Robaxin] 750 mg PO TID PRN 11/27/21 [History] Apixaban [Eliquis] 5 mg PO BID 12/20/21 [History] Ipratropium-Albuterol Nebulize [Duoneb 0.5 mg-3 mg/3 ml Soln] 3 ml INHALATION RT-QID PRN 12/20/21 [History] ALPRAZolam [Xanax] 0.5 mg PO TID PRN #90 tab 01/22/22 [Rx] Acetaminophen Suppository [Tylenol Suppository] 650 mg RECTAL Q6H PRN #30 supp 01/22/22 [Rx] Atropine Ophth Soln 1% 5Ml [Isopto Atropine 1% 5Ml] 1 drop SUBLINGUAL Q6H PRN #5 ml 01/22/22 [Rx] Furosemide [Lasix] 80 mg PO Q8HR #90 tablet 01/22/22 [Rx] Haloperidol Oral Soln [Haldol Oral Soln] 5 mg PO Q6H PRN #30 ml 01/22/22 [Rx] INSULIN ASPART (NovoLOG) [NovoLOG (formulary)] 2 unit SQ AC-TID #0 ml 01/22/22 [Rx] Insulin Detemir (Levemir) [Levemir] 10 unit SQ DAILY@0700 #0 ml 01/22/22 [Rx] MORPHINE ORAL PHAN CONC 20mg/mL [Roxanol Oral Soln Conc 20MG/ML] 10 mg PO Q4H PRN 10 Days #25 ml 01/22/22 [Rx] Midodrine [ProAmatine] 5 mg PO AC-TID #90 tab 01/22/22 [Rx] Nystatin 100,000 Unit/gm Powd [Mycostatin Powder] 1 applic TOPICAL TID 01/22/22 [Rx] Follow up Appointment(s)/Referral(s): Jaki Carmen,Home Care [NON-STAFF] - [facility],Clinic [Primary Care Provider] - 1-2 days Discharge Disposition: HOME SELF-CARE
[2022-01-22 20:09] LABS: Glucose,Whole Blood 395 mg/dL (75-99)
== END 2022-01-22 20:27 | disposition home or self-care (01) | DRG 291 ==
LOC: EC 16:32 → 3SCARD 20:18
PROVIDERS: ADMIT Internal Medicine; ATTEND Internal Medicine
DX: I13.0 Hypertensive heart and chronic kidney disease with heart failure and stage 1 through stage 4 chronic kidney disease, or unspecified chronic kidney disease (principal); I50.23 Acute on chronic systolic (congestive) heart failure; E87.1 Hypo-osmolality and hyponatremia; N17.9 Acute kidney failure, unspecified; Z51.5 Encounter for palliative care; Z66 Do not resuscitate; N18.32 Chronic kidney disease, stage 3b; E11.42 Type 2 diabetes mellitus with diabetic polyneuropathy; I08.1 Rheumatic disorders of both mitral and tricuspid valves; I42.8 Other cardiomyopathies; R79.89 Other specified abnormal findings of blood chemistry; I51.3 Intracardiac thrombosis, not elsewhere classified; J44.9 Chronic obstructive pulmonary disease, unspecified; I25.10 Atherosclerotic heart disease of native coronary artery without angina pectoris; I50.84 End stage heart failure; E11.22 Type 2 diabetes mellitus with diabetic chronic kidney disease; E87.5 Hyperkalemia; R13.10 Dysphagia, unspecified; I95.9 Hypotension, unspecified; E87.6 Hypokalemia; F32.A Depression, unspecified; F41.9 Anxiety disorder, unspecified; H10.9 Unspecified conjunctivitis; E87.70 Fluid overload, unspecified; N40.0 Benign prostatic hyperplasia without lower urinary tract symptoms; R32 Unspecified urinary incontinence; Z79.01 Long term (current) use of anticoagulants; Z79.4 Long term (current) use of insulin; Z79.84 Long term (current) use of oral hypoglycemic drugs; Z79.899 Other long term (current) drug therapy; Z82.49 Family history of ischemic heart disease and other diseases of the circulatory system; Z83.3 Family history of diabetes mellitus; Z87.891 Personal history of nicotine dependence; Z95.810 Presence of automatic (implantable) cardiac defibrillator; Z91.040 Latex allergy status; Z71.3 Dietary counseling and surveillance
CPT/HCPCS: 36415; 71046; 80048; 80053; 82533; 83605; 83735; 83880; 83930; 83935; 84300; 84439; 84443; 84484; 85025; 85610; 85730; 93005; 94640; 94760; 96374; 99285